=== PATIENT | male | born 1965 | race African-American/Black ===

== ENCOUNTER 2018-07-11 18:25 | Inpatient (IN) | payer OTHER ==
[~2018-07-11] VITALS: Ht 190.5 cm; Wt 137.2 kg
[2018-07-11 21:20] VITALS: BP 115/69; PULSE 61; RESP 17
[2018-07-11 21:31] VITALS: Ht 190.5 cm; Wt 137.2 kg
[2018-07-11] MEDS ORDERED: HYDROCODONE/APAP (5/325) TAB PO PRN ×2 (22:00)
[2018-07-11] MEDS ORDERED: ACETAMINOPHEN 325 MG TAB PO PRN (22:00)
[2018-07-11] MEDS ORDERED: ONDANSETRON 4 MG INJ IV PRN (22:00)
[2018-07-11] MEDS ORDERED: VANCOMYCIN IV PER PHARMACY XX SCH (22:00)
[2018-07-11] MEDS ORDERED: ALBUTEROL/IPRATROPIUM (NEB) 3 ML AMP HHN PRN (22:00)
[2018-07-11] MEDS ORDERED: NACL 0.9% 3 ML SYG IV SCH (22:00)
--- NOTE | 2018-07-11 22:00 | NUR ---
ADMISSION Pt arrived via gurney transported per ambulance. Direct admit from [facility]. Pt on bed in low position with call light within reach and bed alarm activated. Pt's belongings: walker, and 2 bags with pair of shoes and clothes. Pt refused pictures taken of sacralcoccyx but okay to have pictures taken of bilateral leg wounds. Will carry out MD orders.
[2018-07-11] MEDS: CEFEPIME 1GM/50 ML (PMX) 50 ML IVPB SCH (22:49)
[2018-07-11] MEDS ORDERED: VANCOMYCIN HCL 2 GM in SOD CHLORIDE 0.9% 500 ML IVPB ONE (23:30)
--- NOTE | 2018-07-12 00:03 | HP ---
Date/Time of Note Date/Time of Note DATE: 07/12/18 TIME: 00:03 Assessment/Plan VTE Prophylaxis Pharmacological prophylaxis: LMWH Assessment/Plan Assessment/Plan 51-year-old male with history of hypertension, diabetes, osteomyelitis, right leg surgery with pins and needles, right foot wound who initially was brought to an outside hospital from SNF after he burned his left foot during dressing ch roz 1. Bilateral foot osteomyelitis -IV antibiotic -ID, podiatry and wound care consult 2. Right foot second-degree burn: Seems like patient was attempting to cut the dressing using a hot charcoal when he accidentally burned himself -Wound care 3. Hypertension: Continue home meds. Adjust as needed 4. Diabetes: Insulin while in-house 5. Bipolar/schizophrenia/depression -Continue home med HPI/ROS Admit Date/Time Admit Date/Time Jul 11, 2018 at 21:00 Hx of Present Illness This is a 53-year-old homeless male with history of hypertension, diabetes, bipolar, depression, CHF, right foot osteomyelitis, bilateral lower extremity/foot ulcer who initially was brought to an outside hospital after he burned his left foot during dressing change. He said he was attempting to cut the dressing using hot charcoal when he accidentally burned himself. I asked him repeatedly if this was intentional, but he denied. He has been dealing with chronic foot ulcer for a long time. He also said that he was told about bone infection. Outside facility, MRI shows osteomyelitis involving the right first digit distal phalanx, second digit middle phalanx and fifth digit proximal phalanx. Left foot MRI also shows findings consistent with first digit distal phalanx osteomyelitis. He was transferred to [facility] for insurance reasons. PMH/Family/Social Past Medical History Medical History: other (See HPI) Medications Current Medications IV Flush (NS 3 ml) 3 ml PER PROTOCOL IV ; Start 07/11/18 at 22:00 Ondansetron HCl (Zofran Inj) 4 mg Q6H PRN IV NAUSEA AND/OR VOMITING; Start 07/11/18 at 22:00 Acetaminophen (Tylenol Tab) 650 mg Q6H PRN PO PAIN LEVEL 1-3 OR FEVER; Start 07/11/18 at 22:00 Acetaminophen/ Hydrocodone Bitart ([place] (5/325)) 1 tab Q6H PRN PO MODERATE PAIN LEVEL 4-6; Start 07/11/18 at 22:00 Acetaminophen/ Hydrocodone Bitart ([place] (5/325)) 2 tab Q6H PRN PO SEVERE PAIN LEVEL 7-10; Start 07/11/18 at 22:00 Heparin Sodium (Porcine) (Heparin (5000 Units/1ml)) 5,000 unit Q12 SC ; Start 07/12/18 at 09:00 Albuterol/ Ipratropium (Duoneb) 3 ml Q2H RESP THERAPY PRN HHN SHORTNESS OF BREATH; Start 07/11/18 at 22:00 Vancomycin HCl (Vanco Iv Per Pharmacy) VANCOMYCIN PER PHARMACY PER PROTOCOL XX ; Start 07/11/18 at 22:00 Cefepime HCl 50 ml @ 100 mls/hr Q12 IVPB Last administered on 07/11/18at 22:49; Admin Dose 100 MLS/HR; Start 07/11/18 at 22:00 Vancomycin HCl 2 gm/Sodium Chloride 500 ml @ 125 mls/hr ONCE ONCE IVPB Last administered on 07/12/18at 00:00; Admin Dose 125 MLS/HR; Start 07/11/18 at 23:30; Stop 07/12/18 at 03:29 Influenza Virus Vaccine Quadrival (Fluzone) 0.5 ml ONCE ONCE IM* ; Start 07/12/18 at 10:00; Stop 07/12/18 at 10:01 Coded Allergies: No Known Drug Allergies (Verified Allergy, Unknown, 07/11/18) Past Surgical History Past Surgical Hx: other (See HPI) Family History Significant Family History: no pertinent family hx Social History Alcohol Use: other (History of alcohol) Smoking Status: Current every day smoker Drug Use: other (Unknown) Exam/Review of Systems Exam Constitutional: other (Patient sitting on a chair in no acute distress) Head: normocephalic, atraumatic Eyes: EOMI, PERRL Respiratory: clear to auscultation, normal air movement Cardiovascular: regular rate and rhythm, nl pulses Gastrointestinal: soft, non-tender Extremities: other (Bilateral feet covered with dressing. He has dried wounds on the right knee) SYBIL HERNADEZ MD Jul 12, 2018 00:03
[2018-07-12 02:00] VITALS: BP 124/62; PULSE 80; RESP 19
[2018-07-12] MEDS ORDERED: NIFE30TA43 PO (02:50)
[2018-07-12] MEDS ORDERED: BUPR100T14 PO (02:50)
[2018-07-12] MEDS ORDERED: PYRI100T4 PO (02:50)
[2018-07-12] MEDS ORDERED: FOLI-49 PO (02:50)
[2018-07-12] MEDS ORDERED: LISI40TA3 PO (02:50)
[2018-07-12] MEDS ORDERED: METO-429 PO (02:50)
[2018-07-12] MEDS ORDERED: THIA100T10 PO (02:50)
[2018-07-12] MEDS ORDERED: NAPR-688 PO (02:52)
[2018-07-12] MEDS ORDERED: SENN-120 PO (02:52)
--- NOTE | 2018-07-12 06:39 | NUR ---
END OF SHIFT REPORT Pt alert and oriented x4. Vitals stable. No acute distress noted. Pt refused central line dressing changed upon admission. Changed dressing at 0500. All due meds given. Will endorse pt to AM shift nurse for continuation of care.
[2018-07-12 08:03] VITALS: BP 114/75; PULSE 74; RESP 17
[2018-07-12] MEDS: MUPIROCIN 2% 22 GM OINT TOP SCH ×2 (09:10→21:38)
[2018-07-12] MEDS: HEPARIN 5,000 UNIT/1 ML VIAL SC SCH ×2 (09:10→21:24)
[2018-07-12] MEDS: CEFEPIME 1GM/50 ML (PMX) 50 ML IVPB SCH ×2 (09:55→21:23)
--- NOTE | 2018-07-12 12:00 | NUR ---
VANCO PER RX PROTOCOL: DAY #1 S/O: 53 YO MALE W/ SEPSIS, BILATERAL FOOT ULCERS/OSTEOMYELITIS, DM AFEB SCR/BUN = 0.7/15 WBC = 3.4 A/P: VANCO 2GM LD, FOLLOWED BY 1.75GM Q 12HR WITH TR LEVEL TOMORROW AFTERNOON TO CHECK CLEARANCE. WILL CONTINUE TO FOLLOW.
--- NOTE | 2018-07-12 13:30 | NUR ---
Dr gomez came and ordered consent for keyon feet debridement. all supplies prepared and consent taken from pt. 1335 procedure done and cultures from both feet taken, labeled and sent to [facility]. Informed primary nurse procedure done and told her about the orders for wound treatment
[2018-07-12] MEDS: VANCOMYCIN HCL 1.75 GM in SOD CHLORIDE 0.9% 500 ML IVPB SCH (14:34)
[2018-07-12] MEDS: morphine SULFATE/PF (2 MG/2 ML) SYG IV PRN ×2 (14:35→19:49)
[2018-07-12 15:19] VITALS: BP 143/75; PULSE 60; RESP 17
--- NOTE | 2018-07-12 15:29 | PN ---
Date/Time of Note Date/Time of Note DATE: 07/12/18 TIME: 15:26 Assessment/Plan VTE Prophylaxis Risk score (from Ns)>0 risk: 6 SCD applied (from [facility]): No SCD contraindicated: bilateral LE trauma Pharmacological prophylaxis: LMWH Lines/Catheters IV [facility]ter Type (from [facility] PICC Line Central line still needed: Yes Assessment/Plan Hospital Course Assessment and plan 1. Bilateral lower extremity diabetic foot infection, mod stable continue wound care; MRSA? 2. Left and right toe osteomyelitis, mod stable continue IV antibiotics PICC line postop boot 3. Failure to thrive may need sniff 4. Chronic major depression with paranoid features, mod stable continue supportive care 5. MRSA nares status 6. Diabetes? 7. Substance abuse: History of alcohol tobacco use 8. Retention 9. Acute burn injury to lower extremity and dressing 10. Subjective: No distress fever diarrhea. Tolerating antibiotics Objective: Vital signs stable Physical exam No pallor Regular no murmur gallop Clear Benign Mild edema; pulses intact both wounds dressed clean dry and intact Result Diagram: 07/12/18 0710 07/12/18 0710 Results 24hrs Laboratory Tests Test 07/12/18 07:10 07/12/18 07:11 White Blood Count 3.4 L Red Blood Count 4.80 Hemoglobin 12.7 L Hematocrit 40.3 L Mean Corpuscular Volume 84.0 Mean Corpuscular Hemoglobin 26.5 L Mean Corpuscular Hemoglobin Concent 31.5 L Red Cell Distribution Width 15.4 H Platelet Count 322 Mean Platelet Volume 10.8 H Immature Granulocytes % 0.300 Neutrophils % 38.1 L Lymphocytes % 50.6 Monocytes % 8.1 Eosinophils % 2.6 Basophils % 0.3 Nucleated Red Blood Cells % 0.0 Immature Granulocytes # 0.010 Neutrophils # 1.3 L Lymphocytes # 1.7 Monocytes # 0.3 Eosinophils # 0.1 Basophils # 0.0 Nucleated Red Blood Cells # 0.0 Erythrocyte Sedimentation Rate 35.0 H Sodium Level 137 Potassium Level 4.5 Chloride Level 102 Carbon Dioxide Level 24 Anion Gap 11 Blood Urea Nitrogen 15 Creatinine 0.70 Est Glomerular Filtrat Rate mL/min > 60 Glucose Level 130 Calcium Level 9.4 Phosphorus Level 5.0 H Magnesium Level 1.5 L Total Bilirubin 0.1 L Direct Bilirubin 0.00 Indirect Bilirubin 0.1 Aspartate Amino Transf (AST/SGOT) 89 H Alanine Aminotransferase (ALT/SGPT) 58 Alkaline Phosphatase 82 C-Reactive Protein < 0.5 Total Protein 8.3 H Albumin 3.7 Globulin 4.60 H Albumin/Globulin Ratio 0.80 Hemoglobin A1c 6.0 H Exam/Review of Systems Vital Signs Vitals Vital Signs Date Temp Pulse Resp B/P (MAP) Pulse Ox O2 O2 Flow FiO2 Time Delivery Rate 07/12/18 97.9 60 17 143/75 97 15:19 (97) Intake and Output 07/11/18 07/11/18 07/12/18 1515:00 23:00 07:00 IntakeIntake Total 1350 ml OutputOutput Total 1400 ml BalanceBalance -50 ml Medications Medications Current Medications IV Flush (NS 3 ml) 3 ml PER PROTOCOL IV ; Start 07/11/18 at 22:00 Ondansetron HCl (Zofran Inj) 4 mg Q6H PRN IV NAUSEA AND/OR VOMITING; Start 07/11/18 at 22:00 Acetaminophen (Tylenol Tab) 650 mg Q6H PRN PO PAIN LEVEL 1-3 OR FEVER; Start 07/11/18 at 22:00 Heparin Sodium (Porcine) (Heparin (5000 Units/1ml)) 5,000 unit Q12 SC Last administered on 07/12/18at 09:10; Admin Dose 5,000 UNIT; Start 07/12/18 at 09:00 Albuterol/ Ipratropium (Duoneb) 3 ml Q2H RESP THERAPY PRN HHN SHORTNESS OF BREATH; Start 07/11/18 at 22:00 Vancomycin HCl (Vanco Iv Per Pharmacy) VANCOMYCIN PER PHARMACY PER PROTOCOL XX ; Start 07/11/18 at 22:00 Cefepime HCl 50 ml @ 100 mls/hr Q12 IVPB Last administered on 07/12/18at 09:55; Admin Dose 100 MLS/HR; Start 07/11/18 at 22:00 Morphine Sulfate (morphine SULFATE (PF)) 2 mg Q4H PRN IV SEVERE PAIN LEVEL 7-10 Last administered on 07/12/18at 14:35; Admin Dose 2 MG; Start 07/12/18 at 01:30 Mupirocin (Bactroban) 1 applic BID TOP Last administered on 07/12/18at 09:10; Admin Dose 1 APPLIC; Start 07/12/18 at 09:00; Stop 07/22/18 at 08:59 Vancomycin HCl 1.75 gm/Sodium Chloride 500 ml @ 125 mls/hr Q12H IVPB Last administered on 07/12/18at 14:34; Admin Dose 125 MLS/HR; Start 07/12/18 at 13:00 Miscellaneous Information (*Rx Drug Level Order Reminder*) VANCO TR LEVEL PRIOR... ONCE ONCE XX ; Start 07/13/18 at 12:00; Stop 07/13/18 at 12:01 Sodium Hypochlorite (Dakin'S (Dilute )) 1 applic DAILY IRR ; Start 07/12/18 at 15:30; Status UNV AILYN LAND MD Jul 12, 2018 15:28
[2018-07-12] MEDS ORDERED: HYDROCODONE/APAP (10/325) TAB PO PRN (15:30)
[2018-07-12] MEDS: INSULIN ASPART [NOVOLOG] 3 ML PEN SC SCH ×2 (17:16→21:00)
[2018-07-12] MEDS: SODIUM HYPOCHLORITE (1/40) 1 APPLIC BTL IRR SCH (17:19)
--- NOTE | 2018-07-12 18:03 | CONS ---
DATE OF ADMISSION: 07/11/2018 DATE OF CONSULTATION: 07/12/2018 TYPE OF CONSULTATION: Infectious disease. REASON FOR CONSULTATION: Antibiotic management. HISTORY OF PRESENT ILLNESS: Iram oRsario is a 53-year-old male with a history of hypertension and d iabetes who comes in with bilateral foot osteomyelitis. Problems include: 1. Hypertension. 2. Diabetes. 3. Osteomyelitis. 4. Right leg surgery with placement of needles and pins. The patient had right foot wound. Initial ly, he was brought to an outside hospital from his SNF after he burned his left foot during dressing change. 5. Bipolar depression. 6. CHF. The patient said he was attempting to cut the dressing using hot charcoal when he had accidently burn ed himself. He denied doing this intentionally. He has been dealing with chronic foot ulcer for the long time and was also told about bone infection. The MRI showed osteomyelitis in the right 1st dig it of the distal phalanx, 2nd digit middle phalanx and 5th digit proximal phalanx. Left foot MRI als o shows findings consistent with 1st digit distal phalanx osteomyelitis and he was transferred to [facility]. PAST MEDICAL HISTORY: Operations as outlined. FAMILY HISTORY: Noncontributory. SOCIAL HISTORY: He is currently an everyday smoker. He drinks alcohol. He does not use drugs. ALLERGIES: NONE TO PENICILLIN, SULFA OR FOODS. MEDICATIONS: Per chart. REVIEW OF SYSTEMS: Noncontributory. PHYSICAL EXAMINATION: GENERAL: The patient is a well-developed, well-nourished male, awake, responsive, in no acute distre ss. VITAL SIGNS: Stable. He is afebrile. SKIN: Without generalized rash. HEENT: Within normal limits. NECK: Supple. LYMPH NODES: None palpable. CHEST: Decreased breath sounds at the bases. HEART: Without murmur or gallop. ABDOMEN: Soft, nontender. EXTREMITIES: There is mild edema. Pulses are intact. Both wounds are dressed, clean and dry. RECTAL AND GENITAL: Deferred. NEUROLOGIC: No focal neurological abnormality. ANCILLARY LABORATORY DATA: White count of 3.4, H and H 12.7 and 40.3, platelet count 322,000. BUN a nd creatinine is 15/0.7. He had 30% neutrophils, 51% lymphocytes. IMPRESSION AND PLAN: The patient has been started on vancomycin and cefepime for bilateral osteomyel itis. We should probably get a spin tank tender in to evaluate the patient. He has numerous problems with bilateral lower extremity diabetic foot infections, possible methicillin-resistant Staphylococcus au reus, left and right toe osteomyelitis. Continue IV antibiotics. PICC line was placed. Failure to thrive, may need shelter facility, depression with paranoid ideation, moderate, stable. Cont inue supportive care. methicillin-resistant Staphylococcus aureus of his nares, diabetes, substance abuse, urinary retention, acute burn injury to the lower extremity in dressing. So in conclusion, th e patient is a complicated 53-year-old male currently with osteomyelitis of both feet on vancomycin a nd cefepime. We will continue to observe. I will dictate my findings to the hospitalist. Dictated By: KATIE BOLANOS MD, JD/NTS Conf#: [id number] DID#: [id number] CC: SHELBI PICKETT DPM; RANDOLPH MELÉNDEZ MD; AILYN LAND MD;*End*
--- NOTE | 2018-07-12 18:48 | NUR ---
EOSS: pt. A/Ox4; VSS, no acute distress. C/O pain once this shift; pain meds given with adequate relief. Pt. here for diabetic ulcers; S/P I&D today; wound care done. NESHA PICC line; IV ABX; CLABSI bundle maintained. Pt. still refusing sacral skin photos. Accuchecks AC/HS; no coverage needed. All other due meds given and needs attended to. Hourly rounding done, bed alarm on, call light within reach, encouraged to call for assistance. Will continue to monitor and endorse care to oncoming nurse.
--- NOTE | 2018-07-12 19:50 | CONS ---
Date/Time of Note Date/Time of Note DATE: 07/12/18 TIME: 19:50 Assessment/Plan Assessment/Plan Assessment/Plan Diabetic foot ulcers b/l DM2 with peripheral neuropathy Osteomyelitis b/l feet Pes planus Hallux limitus Bipolar/depression Homeless Plan: Consent was obtained performed excisional debridement of skin/subQ of bilateral hallux ulcers using a scalpel blade. Less than 20cm2 of area was debrided. Hyperkeratotic tissue and biofilm was removed from the wound sites. Copious saline irrigation was used for the wound sites and wound cultures were obtained. Discussed with IM and stated that previous MRI from outside hospital is showing osteomyelitis. IV abx per ID recommendations. Continue with daily dressing changes. Patient has orthopedic shoes. Patient would benefit from SNF placement with PICC line abx Result Diagram: 07/12/18 0710 07/12/18 0710 Results 24hrs Laboratory Tests Test 07/12/18 07:10 07/12/18 07:11 07/12/18 17:16 White Blood Count 3.4 L Red Blood Count 4.80 Hemoglobin 12.7 L Hematocrit 40.3 L Mean Corpuscular Volume 84.0 Mean Corpuscular Hemoglobin 26.5 L Mean Corpuscular Hemoglobin Concent 31.5 L Red Cell Distribution Width 15.4 H Platelet Count 322 Mean Platelet Volume 10.8 H Immature Granulocytes % 0.300 Neutrophils % 38.1 L Lymphocytes % 50.6 Monocytes % 8.1 Eosinophils % 2.6 Basophils % 0.3 Nucleated Red Blood Cells % 0.0 Immature Granulocytes # 0.010 Neutrophils # 1.3 L Lymphocytes # 1.7 Monocytes # 0.3 Eosinophils # 0.1 Basophils # 0.0 Nucleated Red Blood Cells # 0.0 Erythrocyte Sedimentation Rate 35.0 H Sodium Level 137 Potassium Level 4.5 Chloride Level 102 Carbon Dioxide Level 24 Anion Gap 11 Blood Urea Nitrogen 15 Creatinine 0.70 Est Glomerular Filtrat Rate mL/min > 60 Glucose Level 130 Calcium Level 9.4 Phosphorus Level 5.0 H Magnesium Level 1.5 L Total Bilirubin 0.1 L Direct Bilirubin 0.00 Indirect Bilirubin 0.1 Aspartate Amino Transf (AST/SGOT) 89 H Alanine Aminotransferase (ALT/SGPT) 58 Alkaline Phosphatase 82 C-Reactive Protein < 0.5 Total Protein 8.3 H Albumin 3.7 Globulin 4.60 H Albumin/Globulin Ratio 0.80 Hemoglobin A1c 6.0 H Bedside Glucose 140 Consultation Date/Type/Reason Admit Date/Time Jul 11, 2018 at 21:00 Hx of Present Illness This is a 53-year-old homeless male with history of hypertension, diabetes, bipolar, depression, CHF, right foot osteomyelitis, bilateral lower extremity/foot ulcer who initially was brought to an outside hospital after he burned his left foot during dressing change. He said he was attempting to cut the dressing using hot charcoal when he accidentally burned himself. He has been dealing with chronic foot ulcer for a long time. He also said that he was told about bone infection. Outside facility, MRI shows osteomyelitis involving the right first digit distal phalanx, second digit middle phalanx and fifth digit proximal phalanx. Left foot MRI also shows findings consistent with first digit distal phalanx osteomyelitis. He was transferred to [facility] for insurance reasons. ROS: negative except for HPI Past Medical History hypertension, diabetes, bipolar, depression, CHF, right foot osteomyelitis, bilateral lower extremity/foot ulcer Medical History: other (See HPI) Medications Current Medications IV Flush (NS 3 ml) 3 ml PER PROTOCOL IV ; Start 07/11/18 at 22:00 Ondansetron HCl (Zofran Inj) 4 mg Q6H PRN IV NAUSEA AND/OR VOMITING; Start 07/11/18 at 22:00 Acetaminophen (Tylenol Tab) 650 mg Q6H PRN PO PAIN LEVEL 1-3 OR FEVER; Start 07/11/18 at 22:00 Heparin Sodium (Porcine) (Heparin (5000 Units/1ml)) 5,000 unit Q12 SC Last administered on 07/12/18at 09:10; Admin Dose 5,000 UNIT; Start 07/12/18 at 09:00 Albuterol/ Ipratropium (Duoneb) 3 ml Q2H RESP THERAPY PRN HHN SHORTNESS OF BREATH; Start 07/11/18 at 22:00 Vancomycin HCl (Vanco Iv Per Pharmacy) VANCOMYCIN PER PHARMACY PER PROTOCOL XX ; Start 07/11/18 at 22:00 Cefepime HCl 50 ml @ 100 mls/hr Q12 IVPB Last administered on 07/12/18at 09:55; Admin Dose 100 MLS/HR; Start 07/11/18 at 22:00 Morphine Sulfate (morphine SULFATE (PF)) 2 mg Q4H PRN IV SEVERE PAIN LEVEL 7-10 Last administered on 07/12/18at 19:49; Admin Dose 2 MG; Start 07/12/18 at 01:30 Mupirocin (Bactroban) 1 applic BID TOP Last administered on 07/12/18at 09:10; Admin Dose 1 APPLIC; Start 07/12/18 at 09:00; Stop 07/22/18 at 08:59 Vancomycin HCl 1.75 gm/Sodium Chloride 500 ml @ 125 mls/hr Q12H IVPB Last administered on 07/12/18at 14:34; Admin Dose 125 MLS/HR; Start 07/12/18 at 13:00 Miscellaneous Information (*Rx Drug Level Order Reminder*) VANCO TR LEVEL PRIOR... ONCE ONCE XX ; Start 07/13/18 at 12:00; Stop 07/13/18 at 12:01 Sodium Hypochlorite (Dakin'S (Dilute )) 1 applic DAILY IRR Last administered on 07/12/18at 17:19; Admin Dose 1 APPLIC; Start 07/12/18 at 15:30 Lactobacillus Acidophilus/ Rhamnosus (Culturelle) 1 cap BID PO ; Start 07/12/18 at 21:00 Acetaminophen/ Hydrocodone Bitart ([place] (10)) 1 tab Q4H PRN PO MODERATE PAIN LEVEL 4-6; Start 07/12/18 at 15:30 Diagnostic Test (Pha) (Accu-Chek) 1 ea 02 XX ; Start 07/13/18 at 02:00 Insulin Aspart (Novolog Insulin Pen) NOVOLOG *MODERATE* ALGORITHM WITH MEALS BEDTIME SC ; Start 07/12/18 at 18:00 Allergies: Coded Allergies: No Known Drug Allergies (Verified Allergy, Unknown, 07/11/18) Past Surgical History foot wound debridements Past Surgical Hx: other (See HPI) Family History Significant Family History: no pertinent family hx Social History homeless Alcohol Use: other (History of alcohol) Smoking Status: Current every day smoker Drug Use: other (Unknown) Exam/Review of Systems Vital Signs Vitals Vital Signs Date Temp Pulse Resp B/P (MAP) Pulse Ox O2 O2 Flow FiO2 Time Delivery Rate 07/12/18 97.9 60 17 143/75 97 15:19 (97) Intake and Output 07/11/18 07/11/18 07/12/18 1515:00 23:00 07:00 IntakeIntake Total 1350 ml OutputOutput Total 1400 ml BalanceBalance -50 ml Exam DP/PT pulses mildly palpable Absent protective sensations HPK lesions to b/l feet Mycotic nails Right hallux medial ulcer measuring 2.8 x 1.1 x 0.2cm granular wound base no purulence expressed, no probing to bone, no proximal streaking. Left hallux medial ulcer measuring 2.9 x 1.5 x 0.2cm granular wound base no purulence expressed, no probing to bone, no proximal streaking. Digital contractures noted limited 1st MPJ ROM collapsed medial longitudinal arch. Non invasive arterial studies 05/07/18 FINDINGS: Antegrade flow is noted in all visualized arteries of the lower extremities. Biphasic and triphasic waveforms are seen throughout both lower extremities. Rt HAY SORTER 84 cm/s Rt Profunda 56 cm/s Rt Prox SFA 90 cm/s Rt Mid SFA 73 cm/s Rt Dist SFA 74 cm/s Rt Raman 69 cm/s Rt Post Tibial 97 cm/s Rt Dorsalis Pedis 29 cm/s Rt JOSÉ 0.9 Lt HAY SORTER 63 cm/s Lt Profunda 54 cm/s Lt Prox SFA 83 cm/s Lt Mid SFA 70 cm/s Lt Dist SFA 48 cm/s Lt Raman 49 cm/s Lt Post Tibial 82 cm/s Lt Dorsalis Pedis 52 cm/s Lt JOSÉ 1.0 IMPRESSION: No evidence of hemodynamically significant lesion. If further characterization of the arterial vasculature is needed CTA is recommended. Medications Medications Current Medications IV Flush (NS 3 ml) 3 ml PER PROTOCOL IV ; Start 07/11/18 at 22:00 Ondansetron HCl (Zofran Inj) 4 mg Q6H PRN IV NAUSEA AND/OR VOMITING; Start 07/11/18 at 22:00 Acetaminophen (Tylenol Tab) 650 mg Q6H PRN PO PAIN LEVEL 1-3 OR FEVER; Start 07/11/18 at 22:00 Heparin Sodium (Porcine) (Heparin (5000 Units/1ml)) 5,000 unit Q12 SC Last administered on 07/12/18at 09:10; Admin Dose 5,000 UNIT; Start 07/12/18 at 09:00 Albuterol/ Ipratropium (Duoneb) 3 ml Q2H RESP THERAPY PRN HHN SHORTNESS OF BREATH; Start 07/11/18 at 22:00 Vancomycin HCl (Vanco Iv Per Pharmacy) VANCOMYCIN PER PHARMACY PER PROTOCOL XX ; Start 07/11/18 at 22:00 Cefepime HCl 50 ml @ 100 mls/hr Q12 IVPB Last administered on 07/12/18at 09:55; Admin Dose 100 MLS/HR; Start 07/11/18 at 22:00 Morphine Sulfate (morphine SULFATE (PF)) 2 mg Q4H PRN IV SEVERE PAIN LEVEL 7-10 Last administered on 07/12/18at 19:49; Admin Dose 2 MG; Start 07/12/18 at 01:30 Mupirocin (Bactroban) 1 applic BID TOP Last administered on 07/12/18at 09:10; Admin Dose 1 APPLIC; Start 07/12/18 at 09:00; Stop 07/22/18 at 08:59 Vancomycin HCl 1.75 gm/Sodium Chloride 500 ml @ 125 mls/hr Q12H IVPB Last administered on 07/12/18at 14:34; Admin Dose 125 MLS/HR; Start 07/12/18 at 13:00 Miscellaneous Information (*Rx Drug Level Order Reminder*) VANCO TR LEVEL PRIOR... ONCE ONCE XX ; Start 07/13/18 at 12:00; Stop 07/13/18 at 12:01 Sodium Hypochlorite (Dakin'S (Dilute 40)) 1 applic DAILY IRR Last administered on 07/12/18at 17:19; Admin Dose 1 APPLIC; Start 07/12/18 at 15:30 Lactobacillus Acidophilus/ Rhamnosus (Culturelle) 1 cap BID PO ; Start 07/12/18 at 21:00 Acetaminophen/ Hydrocodone Bitart ([place] (10/325)) 1 tab Q4H PRN PO MODERATE PAIN LEVEL 4-6; Start 07/12/18 at 15:30 Diagnostic Test (Pha) (Accu-Chek) 1 ea 02 XX ; Start 07/13/18 at 02:00 Insulin Aspart (Novolog Insulin Pen) NOVOLOG *MODERATE* ALGORITHM WITH MEALS BEDTIME SC ; Start 07/12/18 at 18:00 FREDERICK WILD DPHarvinder Jul 12, 2018 19:50
[2018-07-12 20:00] VITALS: BP 128/72; PULSE 77; RESP 18
[2018-07-12] MEDS: LACTOBACILLUS RHAMNOSUS CAP PO SCH (21:23)
--- NOTE | 2018-07-12 22:31 | NUR ---
Pt with magnesium 1.5 and phos 5.0. MD aware. Pt has labs in the AM. Will endorse to AM shift nurse to f/u.
--- NOTE | 2018-07-12 23:58 | NUR ---
patient c/o carlos being too cold, maintenance called and work order entered.
--- NOTE | 2018-07-13 00:33 | NUR ---
o and m supervisor informed that maintenance has not been here to turn heat on, work order has been entered Nursing supervisor elementary education informed, maintenance was here in 5 minutes.
[2018-07-13] MEDS: VANCOMYCIN HCL 1.75 GM in SOD CHLORIDE 0.9% 500 ML IVPB SCH ×2 (01:28→13:28)
[2018-07-13 02:00] VITALS: BP 129/67; PULSE 74; RESP 18
[2018-07-13] MEDS: ACCU-CHEK XX SCH (02:00)
--- NOTE | 2018-07-13 05:33 | NUR ---
END OF SHIFT REPORT Pt alert and oriented x4. Vitals stable. No acute distress noted. All due meds given. Pt c/o pain and ordered morphine given with relief of pain. Pt showered and hibiclens provided. Will endorse pt to AM shift nurse for continuation of care.
[2018-07-13 08:00] VITALS: BP 120/71; PULSE 63; RESP 18
[2018-07-13] MEDS: INSULIN ASPART [NOVOLOG] 3 ML PEN SC SCH ×4 (08:00→20:31)
--- NOTE | 2018-07-13 08:25 | NUR ---
WOUND CONSULT FOR LOWER EXTREMITIES WOUNDS: Patient seen by Curtain Fitter Dr. Ward. Please follow wound care order per Dr. Lantigua. Wound care nurse remain available for any wound rn progressive care. - RICKY WadeN RN CWOCN
[2018-07-13] MEDS ORDERED: NICOTINE (14 MG/24 HR) PATCH TRANSDERM PRN (09:00)
[2018-07-13] MEDS ORDERED: SODIUM HYPOCHLORITE (1/40) 1 APPLIC BTL IRR SCH (09:00)
[2018-07-13] MEDS: CEFEPIME 1GM/50 ML (PMX) 50 ML IVPB SCH ×2 (09:29→20:29)
[2018-07-13] MEDS: MUPIROCIN 2% 22 GM OINT TOP SCH ×2 (09:29→20:31)
[2018-07-13] MEDS: SODIUM HYPOCHLORITE (1/40) 1 APPLIC BTL IRR SCH (09:29)
[2018-07-13] MEDS: LACTOBACILLUS RHAMNOSUS CAP PO SCH ×2 (09:29→20:29)
[2018-07-13] MEDS: HEPARIN 5,000 UNIT/1 ML VIAL SC SCH ×2 (09:38→20:29)
[2018-07-13] MEDS: morphine SULFATE/PF (2 MG/2 ML) SYG IV PRN ×2 (09:43→21:45)
--- NOTE | 2018-07-13 13:02 | NUR ---
Hyperglycemia episode Prior to lunch, his blood sugar was 258mg/dl yet pt refused insulin administration. Clarified reason with pt, but no clear answer given. Dr. Wilkinson notified with no new order at this time.
--- NOTE | 2018-07-13 13:31 | NUR ---
VANCO PER RX PROTOCOL: DAY # 2 S/O: AFEB SCR/BUN = 0.66/10 WBC = 4.4 VANCO TR = 14.1 A/P: PT CLEARING VANCO ADEQUATELY, CONTINUE VANCO 1.75GM Q 12HR FOR NOW. WILL CONTINUE TO FOLLOW.
[2018-07-13 14:00] VITALS: BP 123/52; PULSE 62; RESP 18
--- NOTE | 2018-07-13 14:48 | CONS ---
Date/Time of Note Date/Time of Note DATE: 07/13/18 TIME: 14:47 Assessment/Plan Assessment/Plan Hospital Course Patient is alert sitting in bed looks comfortable no fevers overnight WBC 4.4 no shift no bands BUN 10 creatinine 0.66 Microbiology: Wound cultures growing gram-negative rods preliminary Antimicrobials: Vancomycin, cefepime Physical examination: This is a morbidly obese well-developed middle-aged -[place] man who is alert in no distress. Head atraumatic normocephalic sclera nonicteric neck is supple chest rise symmetrical breath sounds clear heart S1-S2 abdomen soft bowel sounds present extremities with bilateral lower extremities dressing intact Assessment: 1. Bilateral lower extremities diabetic ulceration with osteomyelitis 2. Diabetes 3. Diabetic neuropathy 4. Tobacco addiction 5. Bipolar disorder 6. Morbid obesity Plan: Patient remained stable podiatry on case continue present care and antibiotics consider MRI of lower extremities smoking cessation advised Result Diagram: 07/13/18 0615 07/13/18 0615 Results 24hrs Laboratory Tests Test 07/12/18 17:16 07/12/18 21:35 07/13/18 06:15 07/13/18 08:34 Bedside Glucose 140 91 97 White Blood Count 4.4 #L Red Blood Count 4.49 L Hemoglobin 11.9 L Hematocrit 37.4 L Mean Corpuscular 83.3 Volume Mean Corpuscular 26.5 L Hemoglobin Mean Corpuscular 31.8 L Hemoglobin Concent Red Cell 15.6 H Distribution Width Platelet Count 266 Mean Platelet Volume 10.6 H Immature 0.200 Granulocytes % Neutrophils % 42.8 Lymphocytes % 45.4 Monocytes % 9.8 Eosinophils % 1.6 Basophils % 0.2 Nucleated Red Blood 0.0 Cells % Immature 0.010 Granulocytes # Neutrophils # 1.9 Lymphocytes # 2.0 Monocytes # 0.4 Eosinophils # 0.1 Basophils # 0.0 Nucleated Red Blood 0.0 Cells # Prothrombin Time 13.5 Prothrombin Time 1.1 Ratio INR International 1.02 Normalized Ratio Sodium Level 136 Potassium Level 4.5 Chloride Level 104 Carbon Dioxide Level 23 Anion Gap 9 Blood Urea Nitrogen 10 Creatinine 0.66 Est Glomerular > 60 Filtrat Rate mL/min Glucose Level 98 Calcium Level 9.3 Magnesium Level 1.4 L Total Bilirubin 0.1 L Direct Bilirubin 0.00 Indirect Bilirubin 0.1 Aspartate Amino 76 H Transf (AST/SGOT) Alanine 57 Aminotransferase (AL T/SGPT) Alkaline Phosphatase 80 Total Protein 7.9 Albumin 3.5 Globulin 4.40 H Albumin/Globulin 0.79 Ratio Thyroid Stimulating 1.650 Hormone (TSH) Test 07/13/18 12:05 07/13/18 12:34 Vancomycin Level 14.1 Trough Bedside Glucose 258 H Consultation Date/Type/Reason Admit Date/Time Jul 11, 2018 at 21:00 Initial Consult Date Type of Consult id Exam/Review of Systems Vital Signs Vitals Vital Signs Date Temp Pulse Resp B/P (MAP) Pulse Ox O2 O2 Flow FiO2 Time Delivery Rate 07/13/18 98.1 63 18 120/71 100 Room Air 08:00 (87) Intake and Output 07/12/18 07/12/18 07/13/18 1515:00 23:00 07:00 IntakeIntake Total 970 ml 820 ml 500 ml OutputOutput Total 1000 ml 1520 ml BalanceBalance -30 ml -700 ml 500 ml Medications Medications Current Medications IV Flush (NS 3 ml) 3 ml PER PROTOCOL IV ; Start 07/11/18 at 22:00 Ondansetron HCl (Zofran Inj) 4 mg Q6H PRN IV NAUSEA AND/OR VOMITING; Start 07/11/18 at 22:00 Acetaminophen (Tylenol Tab) 650 mg Q6H PRN PO PAIN LEVEL 1-3 OR FEVER; Start 07/11/18 at 22:00 Heparin Sodium (Porcine) (Heparin (5000 Units/1ml)) 5,000 unit Q12 SC Last administered on 07/13/18at 09:38; Admin Dose 5,000 UNIT; Start 07/12/18 at 09:00 Albuterol/ Ipratropium (Duoneb) 3 ml Q2H RESP THERAPY PRN HHN SHORTNESS OF BREATH; Start 07/11/18 at 22:00 Vancomycin HCl (Vanco Iv Per Pharmacy) VANCOMYCIN PER PHARMACY PER PROTOCOL XX ; Start 07/11/18 at 22:00 Cefepime HCl 50 ml @ 100 mls/hr Q12 IVPB Last administered on 07/13/18at 09:29; Admin Dose 100 MLS/HR; Start 07/11/18 at 22:00 Morphine Sulfate (morphine SULFATE (PF)) 2 mg Q4H PRN IV SEVERE PAIN LEVEL 7-10 Last administered on 07/13/18at 09:43; Admin Dose 2 MG; Start 07/12/18 at 01:30 Mupirocin (Bactroban) 1 applic BID TOP Last administered on 07/13/18at 09:29; Admin Dose 1 APPLIC; Start 07/12/18 at 09:00; Stop 07/22/18 at 08:59 Vancomycin HCl 1.75 gm/Sodium Chloride 500 ml @ 125 mls/hr Q12H IVPB Last administered on 07/13/18at 13:28; Admin Dose 125 MLS/HR; Start 07/12/18 at 13:00 Sodium Hypochlorite (Dakin'S (Dilute )) 1 applic DAILY IRR Last administered on 07/13/18at 09:29; Admin Dose 1 APPLIC; Start 07/12/18 at 15:30 Lactobacillus Acidophilus/ Rhamnosus (Culturelle) 1 cap BID PO Last administered on 07/13/18at 09:29; Admin Dose 1 CAP; Start 07/12/18 at 21:00 Acetaminophen/ Hydrocodone Bitart ([place] (10/325)) 1 tab Q4H PRN PO MODERATE PAIN LEVEL 4-6; Start 07/12/18 at 15:30 Diagnostic Test (Pha) (Accu-Chek) 1 ea 02 XX ; Start 07/13/18 at 02:00 Insulin Aspart (Novolog Insulin Pen) NOVOLOG *MODERATE* ALGORITHM WITH MEALS BEDTIME SC ; Start 07/12/18 at 18:00 Nicotine (Nicoderm 14 Mg/ 24hr) 1 patch DAILY PRN TRANSDERM CONTROL WITHDRAWAL SYMPTOMS; Start 07/13/18 at 09:00 SUSAN ALLAN NP Jul 13, 2018 14:48
--- NOTE | 2018-07-13 16:29 | NUR ---
End of shift report Reported to Dr. Wilkinson regarding: magnesium 1.4; insulin refusal when BS 258mg/dl;constipation medication need with no new order at this time. Morphine given once for wound and effective. Morphine IV changed to PO. Wound care done per protocol. Will continue to monitor.
[2018-07-13] MEDS ORDERED: morphine LIQ (10 MG/5 ML) CUP PO PRN (16:30)
--- NOTE | 2018-07-13 16:32 | NUR ---
Pt with referral sent/faxed to [facility] for placement: wound care, IV antibiotics, PT. Pt with a PICC line in place. DC date is 07/15. Spoke with Mitch case folder at [facility], he is aware and he said he is still working on the referral.
[2018-07-13 19:52] VITALS: BP 141/85; PULSE 92; RESP 20
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
[2018-07-14] MEDS: VANCOMYCIN HCL 1.75 GM in SOD CHLORIDE 0.9% 500 ML IVPB SCH ×2 (00:21→12:31)
[2018-07-14] MEDS: DOCUSATE SODIUM 10 MG/ML (10ML CUP) PO SCH ×2 (00:21→20:14)
[2018-07-14] MEDS: ACCU-CHEK XX SCH (01:16)
[2018-07-14 02:18] VITALS: BP 137/81; PULSE 80; RESP 20
--- NOTE | 2018-07-14 06:04 | NUR ---
EOSS A&Ox4. All due meds given. Pt c/o pain. Pain med given x2. Pain med effective. Dressing change done. Hourly rounding done. Bed left in lowest position with bed alarm on. Call light left within reach.
[2018-07-14 07:47] VITALS: BP 134/63; PULSE 66; RESP 19
[2018-07-14] MEDS: INSULIN ASPART [NOVOLOG] 3 ML PEN SC SCH ×4 (08:00→20:14)
[2018-07-14] MEDS: SODIUM HYPOCHLORITE (1/40) 1 APPLIC BTL IRR SCH (09:00)
[2018-07-14] MEDS: ENOXAPARIN 40 MG/0.4 ML SYG SC SCH (09:02)
[2018-07-14] MEDS: morphine SULFATE/PF (2 MG/2 ML) SYG IV PRN (09:03)
[2018-07-14] MEDS: CEFEPIME 1GM/50 ML (PMX) 50 ML IVPB SCH (09:05)
[2018-07-14] MEDS: LACTOBACILLUS RHAMNOSUS CAP PO SCH ×2 (09:05→20:14)
[2018-07-14] MEDS: MUPIROCIN 2% 22 GM OINT TOP SCH ×2 (09:08→20:13)
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
[2018-07-14] MEDS ORDERED: GLUCOSE GEL 15 GRAM TUBE PO PRN ×2 (15:00)
[2018-07-14] MEDS ORDERED: GLUCAGON 1 MG INJ IM PRN (15:00)
[2018-07-14] MEDS ORDERED: GLUCOSE GEL 15 GRAM TUBE BUCCAL PRN (15:00)
[2018-07-14] MEDS ORDERED: DEXTROSE 50% 50 ML SYRINGE IV PRN ×2 (15:00)
--- NOTE | 2018-07-14 16:05 | CONS ---
Date/Time of Note Date/Time of Note DATE: 07/14/18 TIME: 16:04 Assessment/Plan Assessment/Plan Hospital Course ID PROGRESS NOTE CURRENT ABX: DAY # => Vanco IV + Cefepime 24H INTERVAL SUMMARY * A/A/O -- sitting up in bed, VSS, NAD, no new issues, bilateral feet are wrapped in DSG/WESLEY MICRO/OTHER * * 07/12/18 (-)MRSA * 07/12/18 RIGHT TOE WOUND CULTURE Preliminary Organism 1 ENTEROBACTER CLOACAE COMPLEX QUANTITY 1+ Organism 2 ENTEROCOCCUS SPECIES QUANTITY ISOLATED FROM BROTH ONLY Organism 3 COAGULASE NEGATIVE STAPH QUANTITY SCANT GROWTH * 07/12/18 LEFT TOE WOUND CULTURE Preliminary Organism 1 ENTEROBACTER CLOACAE COMPLEX QUANTITY RARE Organism 2 COAGULASE NEGATIVE STAPH QUANTITY SCANT GROWTH * 07/12/18 LEFT FOOT WOUND CULTURE Preliminary Organism 1 COAGULASE NEGATIVE STAPH QUANTITY 2+ * 07/12/18 RIGHT FOOT WOUND CULTURE Preliminary Organism 1 ENTEROBACTER CLOACAE COMPLEX QUANTITY 3+ Organism 2 ENTEROCOCCUS SPECIES QUANTITY ISOLATED FROM BROTH ONLY EC COMPLEX EC COMPLEX M.I.C. RX M.I.C. RX --------- --- --------- --- CEFEPIME R CEFOTAXIME R CIPROFLOXACIN <=0.25 S GENTAMICIN <=1 S LEVOFLOXACIN 1 S MEROPENEM 0.125 S TOBRAMYCIN <=1 S TRIMETHOPRIM/SULFAMETHOXAZOLE >=320 R PIPERACILLIN/TAZOBACTAM >=128 R PHYSICAL EXAMINATION: GENERAL: Afebrile, VSS, OBESE, sitting up in bed with BLEXT down on the floor, NAD HEENT: AT, NC, anicteric NECK: Supple, trach midline CHEST: Equal chest rise bilaterally, without dyspnea on observation HEART: Pulse RRR ABDOMEN: Soft / NT EXTREMITIES: Warm, dry == BLEXT Feet wrapped in DSG/WESLEY and plastic SKIN: No rash, no diaphoresis ID ASSESSMENT 53 yo M admit with: 1. Bilateral lower extremities diabetic ulceration with osteomyelitis * Wound growing polymicrobial bacteria Organism 1 ENTEROBACTER CLOACAE COMPLEX Organism 2 ENTEROCOCCUS SPECIES Organism 3 COAGULASE NEGATIVE STAPH 2. Diabetes 3. Diabetic neuropathy 4. Tobacco addiction 5. Bipolar disorder 6. Morbid obesity (-)MRSA Nares ABX ALLERGIES: KNDA INVASIVES: PIV CURRENT ABX: DAY # => Vanco IV + Cefepime ID RECOMMENDATIONS/PLAN: Case discussed with Dr. Bolanos -- I advised him of the need to change ABX per micro sensitivity results TELEPHONE ORDER OBTAINED FROM DR. BOLANOS WHO APPROVES THE FOLLOWIN. DC CEFEPIME 2. Start MERREM DOSE PER PHARMACY TO COVER ENTEROBACTER CLOACAE WHICH IS RESIS TANT TO CEFEPIME -- THANK YOU . Result Diagram: 07/13/18 0615 07/13/18 0615 Results 24hrs Laboratory Tests Test 07/13/18 17:10 07/13/18 20:24 07/14/18 08:29 07/14/18 12:26 Bedside Glucose 123 130 97 106 Consultation Date/Type/Reason Admit Date/Time Jul 11, 2018 at 21:00 Initial Consult Date Exam/Review of Systems Vital Signs Vitals Vital Signs Date Temp Pulse Resp B/P (MAP) Pulse Ox O2 O2 Flow FiO2 Time Delivery Rate 07/14/18 98.6 66 19 134/63 96 07:47 (86) 07/13/18 Room Air 14:00 Intake and Output 07/13/18 07/13/18 07/14/18 1515:00 23:00 07:00 IntakeIntake Total 760 ml 430 ml 500 ml OutputOutput Total 900 ml 550 ml BalanceBalance -140 ml -120 ml 500 ml Medications Medications Current Medications IV Flush (NS 3 ml) 3 ml PER PROTOCOL IV ; Start 07/11/18 at 22:00 Ondansetron HCl (Zofran Inj) 4 mg Q6H PRN IV NAUSEA AND/OR VOMITING; Start 07/11/18 at 22:00 Acetaminophen (Tylenol Tab) 650 mg Q6H PRN PO PAIN LEVEL 1-3 OR FEVER; Start 07/11/18 at 22:00 Albuterol/ Ipratropium (Duoneb) 3 ml Q2H RESP THERAPY PRN HHN SHORTNESS OF BREATH; Start 07/11/18 at 22:00 Vancomycin HCl (Vanco Iv Per Pharmacy) VANCOMYCIN PER PHARMACY PER PROTOCOL XX ; Start 07/11/18 at 22:00 Cefepime HCl 50 ml @ 100 mls/hr Q12 IVPB Last administered on 07/14/18at 09:05; Admin Dose 100 MLS/HR; Start 07/11/18 at 22:00 Mupirocin (Bactroban) 1 applic BID TOP Last administered on 07/14/18at 09:08; Admin Dose 1 APPLIC; Start 07/12/18 at 09:00; Stop 07/22/18 at 08:59 Vancomycin HCl 1.75 gm/Sodium Chloride 500 ml @ 125 mls/hr Q12H IVPB Last administered on 07/14/18at 12:31; Admin Dose 125 MLS/HR; Start 07/12/18 at 13:00 Sodium Hypochlorite (Dakin'S (Dilute )) 1 applic DAILY IRR Last administered on 07/14/18at 09:00; Admin Dose 1 APPLIC; Start 07/12/18 at 15:30 Lactobacillus Acidophilus/ Rhamnosus (Culturelle) 1 cap BID PO Last administered on 07/14/18at 09:05; Admin Dose 1 CAP; Start 07/12/18 at 21:00 Acetaminophen/ Hydrocodone Bitart ([place] (10/325)) 1 tab Q4H PRN PO MODERATE PAIN LEVEL 4-6; Start 07/12/18 at 15:30 Diagnostic Test (Pha) (Accu-Chek) 1 ea 02 XX ; Start 07/13/18 at 02:00 Insulin Aspart (Novolog Insulin Pen) NOVOLOG *MODERATE* ALGORITHM WITH MEALS BEDTIME SC ; Start 07/12/18 at 18:00 Nicotine (Nicoderm 14 Mg/ 24hr) 1 patch DAILY PRN TRANSDERM CONTROL WITHDRAWAL SYMPTOMS; Start 07/13/18 at 09:00 Docusate Sodium (Colace Liquid Cup) 100 mg HS PO Last administered on 07/14/18at 00:21; Admin Dose 100 MG; Start 07/13/18 at 23:30 Enoxaparin Sodium (Lovenox) 40 mg DAILY SC Last administered on 07/14/18at 09:02; Admin Dose 40 MG; Start 07/14/18 at 09:00 Miscellaneous Information 1 ea NOTE XX ; Start 07/14/18 at 15:00 Glucose (Glutose) 15 gm Q15M PRN PO DECREASED GLUCOSE; Start 07/14/18 at 15:00 Glucose (Glutose) 22.5 gm Q15M PRN PO DECREASED GLUCOSE; Start 07/14/18 at 15:00 Dextrose (D50w Syringe) 25 ml Q15M PRN IV DECREASED GLUCOSE; Start 07/14/18 at 15:00 Dextrose (D50w Syringe) 50 ml Q15M PRN IV DECREASED GLUCOSE; Start 07/14/18 at 15:00 Glucagon (Glucagen) 1 mg Q15M PRN IM DECREASED GLUCOSE; Start 07/14/18 at 15:00 Glucose (Glutose) 15 gm Q15M PRN BUCCAL DECREASED GLUCOSE; Start 07/14/18 at 15:00 Morphine Sulfate (morphine) 2 mg Q4H PRN IV SEVERE PAIN LEVEL 7-10; Start 07/14/18 at 16:00 TOSHA HOLLAND NP Jul 14, 2018 16:05
[2018-07-14] MEDS: morphine 4 MG/ML VIAL IV PRN ×2 (16:08→20:17)
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
[2018-07-14] MEDS: MEROPENEM 1 GM/50ML(PMX) 50 ML IVPB SCH ×2 (18:05→23:44)
[2018-07-14 20:04] VITALS: BP 133/81; PULSE 94; RESP 18
[2018-07-14] MEDS ORDERED: SPECIAL NON-STANDARD MEDICATION IV SCH (21:00)
[2018-07-15] MEDS: VANCOMYCIN HCL 1.75 GM in SOD CHLORIDE 0.9% 500 ML IVPB SCH ×2 (00:27→14:50)
[2018-07-15] MEDS: ACCU-CHEK XX SCH (01:58)
[2018-07-15 02:27] VITALS: BP 135/76; PULSE 90; RESP 18
[2018-07-15] MEDS: MEROPENEM 1 GM/50ML(PMX) 50 ML IVPB SCH ×3 (05:03→21:23)
--- NOTE | 2018-07-15 06:42 | NUR ---
EOSS No acute changes in patient's condition. A&Ox3. All due meds given. No c/o pain. Hourly rounding done. Bed left in lowest position with bed alarm on. Call light left within reach. Scheduled to be discharged to SNF.
[2018-07-15 07:14] VITALS: BP 144/88; PULSE 70; RESP 18
[2018-07-15] MEDS: morphine 4 MG/ML VIAL IV PRN ×3 (07:36→20:34)
[2018-07-15] MEDS: INSULIN ASPART [NOVOLOG] 3 ML PEN SC SCH ×4 (08:00→20:32)
[2018-07-15] MEDS: LACTOBACILLUS RHAMNOSUS CAP PO SCH ×2 (08:14→20:30)
[2018-07-15] MEDS: SODIUM HYPOCHLORITE (1/40) 1 APPLIC BTL IRR SCH (08:14)
[2018-07-15] MEDS: MUPIROCIN 2% 22 GM OINT TOP SCH ×2 (08:15→20:32)
[2018-07-15] MEDS: ENOXAPARIN 40 MG/0.4 ML SYG SC SCH (08:16)
--- NOTE | 2018-07-15 12:40 | NUR ---
SS Note: SS Consult SWer met w/ pt at bedside to clarify his disposition re SNF placement. Pt's currently homeless, receives SSI benefits and denies having an AD, DPOA/Conservator. Pt reports that he had a bad experience at previous SNF placement and does not want to go to a SNF b/c they d/c'd him back to the streets and absorbed his SSI benefits for several months. Pt states that he has regained control over his SSI benefit and does not want to relinquish control of his benefits. Therefore, he won't be going to a SNF. Pt stated I don't know where I'm going when I leave the hospital but, it won't be to a SNF." Liza acknowledged and relayed a message to KLARISSA
[2018-07-15 13:48] VITALS: BP 135/85; PULSE 111; RESP 16
--- NOTE | 2018-07-15 18:31 | NUR ---
SHIFT OF SUMMARY REPORT RN CHANGE OF CARE THIS AFTERNOON. RECEIVED PATIENT ASLEEP. PATIENT STABLE AND IN NO APPARENT DISTRESS. MEDICATIONS WERE GIVEN SCHEDULED. HOURLY ROUNDING DONE. BED LEFT IN LOWEST POSITION AND CALL LIGHT WITHIN REACH.
--- NOTE | 2018-07-15 19:18 | CONS ---
Date/Time of Note Date/Time of Note DATE: 07/15/18 TIME: 19:11 Assessment/Plan Assessment/Plan Hospital Course ID PROGRESS NOTE CURRENT ABX: DAY # => Vanco IV + Merrem s/p Cefepime 24H INTERVAL SUMMARY * Resting in bed without distress -- no fevers, VSS, bilateral feet are wrapped in DSG/WESLEY * DC PLANNING: complicated by homelessness MICRO/OTHER * * 07/12/18 (-)MRSA * 07/12/18 RIGHT TOEGRAM STAIN Final POLYMORPH. LEUKOCYTE NONE SEEN GRAM NEGATIVE RODS RARE WOUND CULTURE Final Organism 1 ENTEROBACTER CLOACAE COMPLEX QUANTITY 1+ Organism 2 ENTEROCOCCUS SPECIES QUANTITY ISOLATED FROM BROTH ONLY Organism 3 COAGULASE NEGATIVE STAPH QUANTITY SCANT GROWTH * 07/12/18 LEFT TOE WOUND CULTURE Final Organism 1 ENTEROBACTER CLOACAE COMPLEX QUANTITY RARE Organism 2 COAGULASE NEGATIVE STAPH QUANTITY SCANT GROWTH Organism 3 CORYNEBACTERIUM SPECIES QUANTITY 1+ * 07/12/18 LEFT FOOT WOUND CULTURE Final Organism 1 COAGULASE NEGATIVE STAPH QUANTITY 2+ COAG NEG M.I.C. RX --------- --- CEFAZOLIN R CIPROFLOXACIN >=8 R CLINDAMYCIN <=0.25 S DOXYCYCLINE S ERYTHROMYCIN >=8 R LEVOFLOXACIN >=8 R OXACILLIN >=4 R PENICILLIN-G >=0.5 R RIFAMPIN <=0.5 S VANCOMYCIN 1 S TRIMETHOPRIM/SULFAMETHOXAZOLE >=320 R * 07/12/18 RIGHT FOOT WOUND CULTURE Final Organism 1 ENTEROBACTER CLOACAE COMPLEX QUANTITY 3+ Organism 2 ENTEROCOCCUS SPECIES QUANTITY ISOLATED FROM BROTH ONLY Organism 3 GAMMA HEMOLYTIC STREP SPP QUANTITY 1+ EC COMPLEX EC COMPLEX ENT SPS M.I.C. RX M.I.C. RX M.I.C. RX --------- --- --------- --- --------- --- AMPICILLIN <=2 S CEFEPIME R CEFOTAXIME R CIPROFLOXACIN <=0.25 S GENTAMICIN <=1 S LEVOFLOXACIN 1 S MEROPENEM 0.125 S PENICILLIN PENICILLIN-G 8 S VANCOMYCIN 1 S TOBRAMYCIN <=1 S TRIMETHOPRIM/SULFAMETHOXAZOLE >=320 R PIPERACILLIN/TAZOBACTAM >=128 R PHYSICAL EXAMINATION: GENERAL: Afebrile, VSS, OBESE, sitting up in bed with BLEXT down on the floor, NAD HEENT: AT, NC, anicteric NECK: Supple, trach midline CHEST: Equal chest rise bilaterally, without dyspnea on observation HEART: Pulse RRR ABDOMEN: Soft / NT EXTREMITIES: Warm, dry == BLEXT Feet wrapped in DSG/WESLEY and plastic SKIN: No rash, no diaphoresis ID ASSESSMENT 53 yo M admit with: 1. Bilateral lower extremities diabetic ulceration with osteomyelitis * Wound growing polymicrobial bacteria Organism 1 ENTEROBACTER CLOACAE COMPLEX Organism 2 ENTEROCOCCUS SPECIES Organism 3 COAGULASE NEGATIVE STAPH Organism 3 GAMMA HEMOLYTIC STREP SPP Organism 3 CORYNEBACTERIUM SPECIES 2. Diabetes 3. Diabetic neuropathy 4. Tobacco addiction 5. Bipolar disorder 6. Morbid obesity (-)MRSA Nares ABX ALLERGIES: KNDA INVASIVES: PIV CURRENT ABX: DAY # => Vanco IV + Merrem s/p Cefepime ID RECOMMENDATIONS/PLAN: 1. Continue Vanco IV + Merrem to COVER ENTEROBACTER CLOACAE WHICH IS RESISTANT TO CEFEPIME . . Result Diagram: 07/13/18 0615 07/13/18 0615 Results 24hrs Laboratory Tests Test 07/14/18 20:11 07/15/18 08:13 07/15/18 12:48 07/15/18 17:42 Bedside Glucose 111 110 112 113 Consultation Date/Type/Reason Admit Date/Time Jul 11, 2018 at 21:00 Initial Consult Date Exam/Review of Systems Vital Signs Vitals Vital Signs Date Temp Pulse Resp B/P (MAP) Pulse Ox O2 O2 Flow FiO2 Time Delivery Rate 07/15/18 97.9 111 16 135/85 97 Room Air 13:48 (102) Intake and Output 07/14/18 07/14/18 07/15/18 1515:00 23:00 07:00 IntakeIntake Total 2010 ml 1030 ml 1270 ml OutputOutput Total 900 ml 1100 ml 1990 ml BalanceBalance 1110 ml -70 ml -720 ml Medications Medications Current Medications IV Flush (NS 3 ml) 3 ml PER PROTOCOL IV ; Start 07/11/18 at 22:00 Ondansetron HCl (Zofran Inj) 4 mg Q6H PRN IV NAUSEA AND/OR VOMITING; Start 07/11/18 at 22:00 Acetaminophen (Tylenol Tab) 650 mg Q6H PRN PO PAIN LEVEL 1-3 OR FEVER; Start 07/11/18 at 22:00 Albuterol/ Ipratropium (Duoneb) 3 ml Q2H RESP THERAPY PRN HHN SHORTNESS OF BREATH; Start 07/11/18 at 22:00 Vancomycin HCl (Vanco Iv Per Pharmacy) VANCOMYCIN PER PHARMACY PER PROTOCOL XX ; Start 07/11/18 at 22:00 Mupirocin (Bactroban) 1 applic BID TOP Last administered on 07/15/18at 08:15; Admin Dose 1 APPLIC; Start 07/12/18 at 09:00; Stop 07/22/18 at 08:59 Vancomycin HCl 1.75 gm/Sodium Chloride 500 ml @ 125 mls/hr Q12H IVPB Last administered on 07/15/18at 14:50; Admin Dose 125 MLS/HR; Start 07/12/18 at 13:00 Sodium Hypochlorite (Dakin'S (Dilute 40)) 1 applic DAILY IRR Last administered on 07/15/18at 08:14; Admin Dose 1 APPLIC; Start 07/12/18 at 15:30 Lactobacillus Acidophilus/ Rhamnosus (Culturelle) 1 cap BID PO Last administer ed on 07/15/18at 08:14; Admin Dose 1 CAP; Start 07/12/18 at 21:00 Acetaminophen/ Hydrocodone Bitart ([place] (10/325)) 1 tab Q4H PRN PO MODERATE PAIN LEVEL 4-6; Start 07/12/18 at 15:30 Diagnostic Test (Pha) (Accu-Chek) 1 ea 02 XX ; Start 07/13/18 at 02:00 Insulin Aspart (Novolog Insulin Pen) NOVOLOG *MODERATE* ALGORITHM WITH MEALS BEDTIME SC ; Start 07/12/18 at 18:00 Nicotine (Nicoderm 14 Mg/ 24hr) 1 patch DAILY PRN TRANSDERM CONTROL WITHDRAWAL SYMPTOMS; Start 07/13/18 at 09:00 Docusate Sodium (Colace Liquid Cup) 100 mg HS PO Last administered on 07/14/18at 20:14; Admin Dose 100 MG; Start 07/13/18 at 23:30 Enoxaparin Sodium (Lovenox) 40 mg DAILY SC Last administered on 07/15/18at 08:16; Admin Dose 40 MG; Start 07/14/18 at 09:00 Miscellaneous Information 1 ea NOTE XX ; Start 07/14/18 at 15:00 Glucose (Glutose) 15 gm Q15M PRN PO DECREASED GLUCOSE; Start 07/14/18 at 15:00 Glucose (Glutose) 22.5 gm Q15M PRN PO DECREASED GLUCOSE; Start 07/14/18 at 15:00 Dextrose (D50w Syringe) 25 ml Q15M PRN IV DECREASED GLUCOSE; Start 07/14/18 at 15:00 Dextrose (D50w Syringe) 50 ml Q15M PRN IV DECREASED GLUCOSE; Start 07/14/18 at 15:00 Glucagon (Glucagen) 1 mg Q15M PRN IM DECREASED GLUCOSE; Start 07/14/18 at 15:00 Glucose (Glutose) 15 gm Q15M PRN BUCCAL DECREASED GLUCOSE; Start 07/14/18 at 15:00 Morphine Sulfate (morphine) 2 mg Q4H PRN IV SEVERE PAIN LEVEL 7-10 Last administered on 07/15/18at 14:04; Admin Dose 2 MG; Start 07/14/18 at 16:00 Meropenem/Sodium Chloride 50 ml @ 100 mls/hr Q8 IVPB Last administered on 07/15/18at 14:01; Admin Dose 100 MLS/HR; Start 07/14/18 at 17:30 Miscellaneous Information (*Rx Drug Level Order Reminder*) VANCO TROUGH @ 1,200 ON... ONCE ONCE XX ; Start 07/16/18 at 12:00; Stop 07/16/18 at 12:01 TOSHA HOLLAND NP Jul 15, 2018 19:18
[2018-07-15 20:30] VITALS: BP 133/86; PULSE 80; RESP 18
[2018-07-15] MEDS: DOCUSATE SODIUM 10 MG/ML (10ML CUP) PO SCH (20:30)
[2018-07-15] MEDS: SENNA/DOCUSATE NA (8.6MG/50MG) TAB PO SCH (20:32)
--- NOTE | 2018-07-15 22:00 | NUR ---
Pt is refusing bed alarm, despite numerous explanations of its purpose.
[2018-07-16] MEDS: morphine 4 MG/ML VIAL IV PRN ×5 (00:54→21:13)
[2018-07-16] MEDS: VANCOMYCIN HCL 1.75 GM in SOD CHLORIDE 0.9% 500 ML IVPB SCH ×2 (00:57→15:22)
[2018-07-16] MEDS: ACCU-CHEK XX SCH (02:00)
[2018-07-16 02:50] VITALS: BP 140/63; PULSE 62; RESP 16
[2018-07-16] MEDS: MEROPENEM 1 GM/50ML(PMX) 50 ML IVPB SCH ×3 (05:57→22:10)
--- NOTE | 2018-07-16 06:42 | NUR ---
EOSS Pt medicated for pain x 3, partially effective. No SC insulin required. Pt had multiple snacks during shift (5 string cheese, cheesecake and 3 cups of orange juice) Due meds given, except colace, which pt refused. PICC line had slow blood return; pt refused to have blood drawn with a needle. Lab to come back later. Slow blood return may have been positional, will endorse to next shift to try again. Pt refuses bed alarm. Call light within reach, bed in lowest position.
[2018-07-16 07:26] VITALS: BP 155/83; PULSE 67; RESP 16
[2018-07-16] MEDS: INSULIN ASPART [NOVOLOG] 3 ML PEN SC SCH ×4 (08:00→21:00)
[2018-07-16] MEDS: LACTOBACILLUS RHAMNOSUS CAP PO SCH ×2 (08:24→21:03)
[2018-07-16] MEDS: ENOXAPARIN 40 MG/0.4 ML SYG SC SCH (08:27)
[2018-07-16] MEDS: BISACODYL (EC) 5 MG TAB PO PRN (08:28)
[2018-07-16] MEDS: MUPIROCIN 2% 22 GM OINT TOP SCH ×2 (08:36→21:05)
[2018-07-16] MEDS: SODIUM HYPOCHLORITE (1/40) 1 APPLIC BTL IRR SCH (08:36)
--- NOTE | 2018-07-16 10:06 | NUR ---
CM NOTE: Received call from Debbie at [facility] (P:[phone]) regarding this pt. Informed Debbie that per SW note on 07/15/2018, pt does not wish to go to SNF. Informed Debbie that I would f/u with pt today regarding SNF and f/u with her. Emil Gallo RN CM [id number] Addendum: 07/16/18 at 1351 by JACKIE GALLO CM S/W pt at bedside regarding SNF placement. Per pt, he does not wish to go to SNF as he states that previous SNF "took all of his money". Pt open to possibly going to his brother's house once d/c. S/W Debbie at [facility] nd informed her of the above.
--- NOTE | 2018-07-16 11:20 | NUR ---
PT Note Therapy day number 2 Subjective Current complaint of pain Pain Scale NUMERIC Pain Intensity 5 (0-10) Patient Stated Goal for Pain Relief 0 (0-10) Pain Level Comment bilateral feet, numbness and tingling with pain Transfer Training Start Time 11:20 Transfer Sit to Stand Ability Modified Independent Bed Transfer Ability Supervised Chair Transfer Ability Supervised Transfer Training End Time 11:28 Total Transfer Training Time 8 min (8-127) Gait Training Start Time 11:28 Gait Assist Levels Stand by Assist Assistive Devices Front Wheel Walker Ambulation Distance 50 feet Additional Gait Comments c/o 5/10 dizziness Gait Training End Time 11:45 Total Gait Training Treatment Time 17 min (8-127) Static Sitting Balance Good Dynamic Sitting Balance Good Standing Static Balance Fair plus Dynamic Standing Balance Fair plus Additional Balance Assessments Comments with FWW Safety Judgement Fair Activity Tolerance Fair Additional Equipment Present Bilateral post op shoes Post Treatment Pain Intensity 5 0-10 Quality Indicators SOB Upon Exertion Dizziness Additional Post Treatment Comment dizziness and SOB improved with sitting Total Treament Time 25 min (8-127) Total Minutes 25 Total Units 2 PT Technical Record Comment S: Pt found sitting EOB, is agreeable to PT. RN cleared pt for activity. Pt expressed anxiety about going to a SNF. O: Pt was seen for transfers, gait training with FWW. Bilateral post op shoes worn throughout treatment. Pt instructed for partial WB on RLE with FWW during ambulation. Pt ambulated total 60' SBA with FWW with flexed posture, small, short steps with excess bilateral ER, c/o 5/10 dizziness that did not resolve with standing breaks and mild SOB. Pt assisted back to sitting EOB, refused supine in bed, and symptoms improved. RN informed of pt response to activity. Attempted to clarify MD weight bearing order, however unable to contact them. A: Pt demonstrates reduced tolerance for standing/ambulation today compared to evaluation, limited by dizziness, mild SOB, and fatigue, perhaps due to reduced activity during hospital stay. Pain in the RLE appeared to improve with FWW, however pt states that he would prefer to use an SPC and was mildly receptive to PT education about the need for FWW to maintain partial WBing. P: Continue POC. Monitor for dizziness and encourage ambulation with FWW.
--- NOTE | 2018-07-16 13:58 | NUR ---
VANCO RX TO DOSE Problem List: BLE DM ULCERS W/ OSTEOMYELITIS, MORBID OBESITY Current ABXs: VANCOMYCIN, MERREM 07/16 VANCO TR = 11.4; GOAL 15-20 Comments/Plan: CHANGE VANCO 1.75 G Q12H TO 2 G Q12H
--- NOTE | 2018-07-16 14:20 | NUR ---
SS NOTE: CONSULT SW REFERRED TO PT REGARDING HOMELESS RESOURCES. PT IS 53 YR OLD MALE ADMITTED FOR DIABETIC FOOT ULCER. SW MET WITH PT AT BEDSIDE, PT APPEARED TO BE A&OX4 AND COPING APPROPRIATELY WITH ADMISSION. 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 PT CONFIRMED THAT HE IS REMAINS HOMELESS LIVING ON [address] IN THE [facility] WITH LIMITED SUPPORT SYSTEM. PT STATED THAT HE DISABLED AND RECEIVING $600 MONTHLY SSI. PT STATED THAT HIS BROTHER CB ([phone]) LIVES IN [place] AND HE HAS STAYED WITH HIM IN THE PAST. PT STATED THAT HE IS UNABLE TO STAY WITH HIS BROTHER POST D/C DUE TO FAMILY DYNAMIC., PT HAS HX OF METH ABUSE AND DENIED CURRENT METHAMPHETAMINE USE DISORDER. PT DENIED HX OF MENTAL HEALTH ISSUES OR ENGAGEMENT WITH RESOURCES. D/C PLAN TO BE DETERMINED DUE TO POSSIBLE NEED FOR 4X WEEKS OF IV ANTIBIOTICS. PLAN IS FOR POSSIBLE SNF PLACEMENT VS RECUPERATIVE CARE. SW TO F/U WITH APPROPRIATE RESOURCES WHEN D/C PLAN IS FINALIZED. SW PROVIDED HIGH SCHOOL DIRECTOR CONTACT INFO FOR ANY NEEDED RESOURCES. SW REMAINS AVAILABLE FOR F/U NEEDED.
--- NOTE | 2018-07-16 14:45 | NUR ---
NUTRITION NOTE: Tolerating PO intake with very good appetite. Eating 100% at meals. No reported n/v. LBM 07/12, c/o constipation. Pt with bilateral feet diabetic ulcers. Will offer Blair BID to promote wound healing. Rec to add daily MVI, Vit C. Continue with bowel regimen PRN/as per MD. Noted also on probiotics.
[2018-07-16 15:25] VITALS: BP 147/84; PULSE 96; RESP 18
--- NOTE | 2018-07-16 15:48 | CONS ---
Date/Time of Note Date/Time of Note DATE: 07/16/18 TIME: 15:46 Assessment/Plan Assessment/Plan Hospital Course ID PROGRESS NOTE CURRENT ABX: DAY # => Vanco IV + Merrem s/p Cefepime 24H INTERVAL SUMMARY * A/A/O -- doing OK -- reports BLEXT FEET pain w/neuropathic pain -- also c/o feeling dizzy with postural changes while working w/PTX - I explained likely r/t DM neuropathy -- he needs to change positions slowly, * Resting in bed without distress -- no fevers, VSS, bilateral feet are wrapped in DSG/WESLEY * DC PLANNING: complicated by homelessness MICRO/OTHER * * 07/12/18 (-)MRSA * 07/12/18 RIGHT TOEGRAM STAIN Final POLYMORPH. LEUKOCYTE NONE SEEN GRAM NEGATIVE RODS RARE WOUND CULTURE Final Organism 1 ENTEROBACTER CLOACAE COMPLEX QUANTITY 1+ Organism 2 ENTEROCOCCUS SPECIES QUANTITY ISOLATED FROM BROTH ONLY Organism 3 COAGULASE NEGATIVE STAPH QUANTITY SCANT GROWTH * 07/12/18 LEFT TOE WOUND CULTURE Final Organism 1 ENTEROBACTER CLOACAE COMPLEX QUANTITY RARE Organism 2 COAGULASE NEGATIVE STAPH QUANTITY SCANT GROWTH Organism 3 CORYNEBACTERIUM SPECIES QUANTITY 1+ * 07/12/18 LEFT FOOT WOUND CULTURE Final Organism 1 COAGULASE NEGATIVE STAPH QUANTITY 2+ COAG NEG M.I.C. RX --------- --- CEFAZOLIN R CIPROFLOXACIN >=8 R CLINDAMYCIN <=0.25 S DOXYCYCLINE S ERYTHROMYCIN >=8 R LEVOFLOXACIN >=8 R OXACILLIN >=4 R PENICILLIN-G >=0.5 R RIFAMPIN <=0.5 S VANCOMYCIN 1 S TRIMETHOPRIM/SULFAMETHOXAZOLE >=320 R * 07/12/18 RIGHT FOOT WOUND CULTURE Final Organism 1 ENTEROBACTER CLOACAE COMPLEX QUANTITY 3+ Organism 2 ENTEROCOCCUS SPECIES QUANTITY ISOLATED FROM BROTH ONLY Organism 3 GAMMA HEMOLYTIC STREP SPP QUANTITY 1+ EC COMPLEX EC COMPLEX ENT SPS M.I.C. RX M.I.C. RX M.I.C. RX --------- --- --------- --- --------- --- AMPICILLIN <=2 S CEFEPIME R CEFOTAXIME R CIPROFLOXACIN <=0.25 S GENTAMICIN <=1 S LEVOFLOXACIN 1 S MEROPENEM 0.125 S PENICILLIN PENICILLIN-G 8 S VANCOMYCIN 1 S TOBRAMYCIN <=1 S TRIMETHOPRIM/SULFAMETHOXAZOLE >=320 R PIPERACILLIN/TAZOBACTAM >=128 R PHYSICAL EXAMINATION: GENERAL: Afebrile, VSS, OBESE, sitting up in bed with BLEXT down on the floor, NAD HEENT: AT, NC, anicteric NECK: Supple, trach midline CHEST: Equal chest rise bilaterally, without dyspnea on observation HEART: Pulse RRR ABDOMEN: Soft / NT EXTREMITIES: Warm, dry == BLEXT Feet wrapped in DSG/WESLEY and plastic SKIN: No rash, no diaphoresis ID ASSESSMENT 53 yo M admit with: 1. Bilateral lower extremities diabetic ulceration with osteomyelitis * Wound growing polymicrobial bacteria Organism 1 ENTEROBACTER CLOACAE COMPLEX Organism 2 ENTEROCOCCUS SPECIES Organism 3 COAGULASE NEGATIVE STAPH Organism 3 GAMMA HEMOLYTIC STREP SPP Organism 3 CORYNEBACTERIUM SPECIES 2. Diabetes 3. Diabetic neuropathy 4. Tobacco addiction 5. Bipolar disorder 6. Morbid obesity (-)MRSA Nares ABX ALLERGIES: KNDA INVASIVES: PIV CURRENT ABX: DAY # => Vanco IV + Merrem s/p Cefepime ID RECOMMENDATIONS/PLAN: 1. Continue Vanco IV + Merrem to COVER ENTEROBACTER CLOACAE WHICH IS RESISTANT TO CEFEPIME 2. Consider Gabapentin 100-300mg up-titration TID for neuropathic pain. . Result Diagram: 07/13/18 0615 07/16/18 0814 Results 24hrs Laboratory Tests Test 07/15/18 17:42 07/15/18 20:28 07/16/18 08:14 07/16/18 08:23 Bedside Glucose 113 144 89 Blood Urea Nitrogen 11 Creatinine 0.67 Test 07/16/18 12:05 07/16/18 13:07 Bedside Glucose 126 Vancomycin Level 11.4 Trough Consultation Date/Type/Reason Admit Date/Time Jul 11, 2018 at 21:00 Initial Consult Date Exam/Review of Systems Vital Signs Vitals Vital Signs Date Temp Pulse Resp B/P (MAP) Pulse Ox O2 O2 Flow FiO2 Time Delivery Rate 07/16/18 98.4 96 18 147/84 98 Room Air 15:25 (105) Intake and Output 07/15/18 07/15/18 07/16/18 1414:59 22:59 06:59 IntakeIntake Total 50 ml 550 ml 860 ml OutputOutput Total 2250 ml BalanceBalance 50 ml 550 ml -1390 ml Medications Medications Current Medications IV Flush (NS 3 ml) 3 ml PER PROTOCOL IV ; Start 07/11/18 at 22:00 Ondansetron HCl (Zofran Inj) 4 mg Q6H PRN IV NAUSEA AND/OR VOMITING; Start 07/11/18 at 22:00 Acetaminophen (Tylenol Tab) 650 mg Q6H PRN PO PAIN LEVEL 1-3 OR FEVER; Start 07/11/18 at 22:00 Albuterol/ Ipratropium (Duoneb) 3 ml Q2H RESP THERAPY PRN HHN SHORTNESS OF BREATH; Start 07/11/18 at 22:00 Vancomycin HCl (Vanco Iv Per Pharmacy) VANCOMYCIN PER PHARMACY PER PROTOCOL XX ; Start 07/11/18 at 22:00 Mupirocin (Bactroban) 1 applic BID TOP Last administered on 07/16/18at 08:36; Admin Dose 1 APPLIC; Start 07/12/18 at 09:00; Stop 07/22/18 at 08:59 Sodium Hypochlorite (Dakin'S (Dilute )) 1 applic DAILY IRR Last administered on 07/16/18at 08:36; Admin Dose 1 APPLIC; Start 07/12/18 at 15:30 Lactobacillus Acidophilus/ Rhamnosus (Culturelle) 1 cap BID PO Last administered on 07/16/18at 08:24; Admin Dose 1 CAP; Start 07/12/18 at 21:00 Acetaminophen/ Hydrocodone Bitart ([place] (10/325)) 1 tab Q4H PRN PO MODERATE PAIN LEVEL 4-6; Start 07/12/18 at 15:30 Diagnostic Test (Pha) (Accu-Chek) 1 ea 02 XX ; Start 07/13/18 at 02:00 Insulin Aspart (Novolog Insulin Pen) NOVOLOG *MODERATE* ALGORITHM WITH MEALS BEDTIME SC ; Start 07/12/18 at 18:00 Nicotine (Nicoderm 14 Mg/ 24hr) 1 patch DAILY PRN TRANSDERM CONTROL WITHDRAWAL SYMPTOMS; Start 07/13/18 at 09:00 Docusate Sodium (Colace Liquid Cup) 100 mg HS PO Last administered on 07/14/18at 20:14; Admin Dose 100 MG; Start 07/13/18 at 23:30 Enoxaparin Sodium (Lovenox) 40 mg DAILY SC Last administered on 07/16/18at 08:27; Admin Dose 40 MG; Start 07/14/18 at 09:00 Miscellaneous Information 1 ea NOTE XX ; Start 07/14/18 at 15:00 Glucose (Glutose) 15 gm Q15M PRN PO DECREASED GLUCOSE; Start 07/14/18 at 15:00 Glucose (Glutose) 22.5 gm Q15M PRN PO DECREASED GLUCOSE; Start 07/14/18 at 15:00 Dextrose (D50w Syringe) 25 ml Q15M PRN IV DECREASED GLUCOSE; Start 07/14/18 at 15:00 Dextrose (D50w Syringe) 50 ml Q15M PRN IV DECREASED GLUCOSE; Start 07/14/18 at 15:00 Glucagon (Glucagen) 1 mg Q15M PRN IM DECREASED GLUCOSE; Start 07/14/18 at 15:00 Glucose (Glutose) 15 gm Q15M PRN BUCCAL DECREASED GLUCOSE; Start 07/14/18 at 15:00 Morphine Sulfate (morphine) 2 mg Q4H PRN IV SEVERE PAIN LEVEL 7-10 Last administered on 07/16/18at 12:07; Admin Dose 2 MG; Start 07/14/18 at 16:00 Meropenem/Sodium Chloride 50 ml @ 100 mls/hr Q8 IVPB Last administered on 07/16/18at 13:00; Admin Dose 100 MLS/HR; Start 07/14/18 at 17:30 Senna/Docusate Sodium (Senokot-S) 2 tab HS PO Last administered on 07/15/18at 20:32; Admin Dose 2 TAB; Start 07/15/18 at 21:00 Bisacodyl (Dulcolax) 10 mg BID PRN PO CONSTIPATION Last administered on 07/16/18at 08:28; Admin Dose 10 MG; Start 07/15/18 at 20:00 Vancomycin HCl 2 gm/Sodium Chloride 500 ml @ 125 mls/hr Q12H IVPB ; Start 07/17/18 at 01:00 TOSHA HOLLAND NP Jul 16, 2018 15:48
--- NOTE | 2018-07-16 18:18 | NUR ---
EOSS: Pt. A/Ox4; VSS, no acute distress. C/O pain this shift; pain meds given with adequate relief. Pt. here for diabetic ulcers; S/P I& D last week; wound care done. NESHA PICC line; IV ABX; CLABSI bundle maintained; hibiclens done today. Pt. up with PT today. Accuchecks AC/HS; no coverage needed. All other due meds given and needs attended to. Pending decisin on SNF placement VS home. Hourly rounding done, bed alarm on, call light within reach, encouraged to call for assistance. Will continue to monitor and endorse care to oncoming nurse
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
[2018-07-16] MEDS ORDERED: hydrALAzine 20 MG INJ IV PRN (20:00)
[2018-07-16 20:12] VITALS: BP 166/91; PULSE 65; RESP 18
[2018-07-16] MEDS: DOCUSATE SODIUM 10 MG/ML (10ML CUP) PO SCH (21:00)
[2018-07-16 21:03] VITALS: BP 150/87
[2018-07-16] MEDS: SENNA/DOCUSATE NA (8.6MG/50MG) TAB PO SCH (21:09)
[2018-07-17] MEDS ORDERED: VANCOMYCIN HCL 2 GM in SOD CHLORIDE 0.9% 500 ML IVPB SCH (01:00)
[2018-07-17] MEDS: ACCU-CHEK XX SCH (01:54)
[2018-07-17 02:09] VITALS: BP 169/97; PULSE 60; RESP 18
--- NOTE | 2018-07-17 04:55 | NUR ---
Vancomycin was hung at 455 am. Will endorse to next shift and to start Merrem at a later time.
[2018-07-17] MEDS: morphine 4 MG/ML VIAL IV PRN ×4 (04:58→21:28)
--- NOTE | 2018-07-17 05:10 | NUR ---
EOSS Pt medicated for pain x 2 partially effective. Pt had multiple snacks during shift. No SC insulin required. Due meds given, except colace which patient refused. Pt's BP was elevated, notified Dr. Robles, got PRN hydralazine order. BP below parameters for prn hydralazine. Pt refuses bed alarm. Call light within reach, bed locked and in lowest position.
[2018-07-17] MEDS ORDERED: ALTEPLASE (CATHFLO) 2 MG INJ CATHETER PRN (05:30)
[2018-07-17 07:12] VITALS: BP 138/85; PULSE 95; RESP 18
[2018-07-17] MEDS: INSULIN ASPART [NOVOLOG] 3 ML PEN SC SCH ×4 (08:00→20:32)
[2018-07-17] MEDS: LACTOBACILLUS RHAMNOSUS CAP PO SCH ×2 (08:07→20:33)
[2018-07-17] MEDS: ENOXAPARIN 40 MG/0.4 ML SYG SC SCH (08:12)
[2018-07-17] MEDS: MUPIROCIN 2% 22 GM OINT TOP SCH ×2 (08:14→20:32)
[2018-07-17] MEDS: SODIUM HYPOCHLORITE (1/40) 1 APPLIC BTL IRR SCH (08:15)
--- NOTE | 2018-07-17 08:25 | NUR ---
PT NOTE Therapy day number 3 Subjective Current complaint of pain Pain Scale NUMERIC Pain Intensity 10 (0-10) Patient Stated Goal for Pain Relief 0 (0-10) Pain Level Comment abdominal pain 2/2 constipated, RN aware Exercise Assessment Label Bilat Lower Extremity Exercise Type Active Assist ROM Additional Exercise Comments soft tissue mobilization R obliques/abdomen, repositioning in bed Exercise Start Time 08:25 Exercise End Time 08:48 Total Exercise Time 23 min (8-127) Additional Mobility Comments pt w/ extreme pain, agreeable to reposition but unable to complete 2/2 pain Post Treatment Pain Intensity 10 0-10 Additional Post Treatment Comment See Below Total Treament Time 23 min (8-127) Total Minutes 23 Total Units 2 PT Technical Record Comment PT NOTE S: Pt c/o horrible pain in abdomen due to constipation, "I'm trying to push," agreeable to very limited soft tissue mob and repositioning only. Cleared for PT per RN Fatoumata. O: Pt received L sidelying across the foot of the bed with BLE feet resting on floor and head hanging off other side of bed. Pt very distressed and moaning throughout tx. Pt able to roll to abdomen and back to L sidelying but refusing add'l repositioning. Pt ed for pressure relief for pinned L arm. Pt tolerated gentle soft tissue mob to R side of abdomen to encourage bowel mvmt, but continued to refuse add'l repositioning for safety. Pt left with RN present in room. A: Pt alessandro tx poorly 2/2 pain P: Cont POC as appropriate
[2018-07-17] MEDS ORDERED: MAGNESIUM HYDROXIDE 30ML CUP PO ONE ×2 (09:00)
[2018-07-17] MEDS: BISACODYL (EC) 5 MG TAB PO PRN (09:20)
[2018-07-17] MEDS: MEROPENEM 1 GM/50ML(PMX) 50 ML IVPB SCH (11:02)
--- NOTE | 2018-07-17 13:27 | PN ---
Date/Time of Note Date/Time of Note DATE: 07/17/18 TIME: 13:27 Assessment/Plan VTE Prophylaxis Risk score (from Nsg)>0 risk: 5 Pharmacological prophylaxis: heparin Lines/Catheters IV Catheter Type (from Nrsg): PICC Line Central line still needed: Yes Urinary Cath still in place: No Assessment/Plan Assessment/Plan Diabetic foot ulcers b/l DM2 with peripheral neuropathy Osteomyelitis b/l feet Pes planus Hallux limitus Bipolar/depression Homeless Plan: Performed excisional debridement of skin/subQ of bilateral hallux ulcers using a pickup/scissor. Less than 20cm2 of area was debrided. Hyperkeratotic tissue and biofilm was removed from the wound sites. Copious dakins irrigation was used for the wound sites. Cultures showing R hallux: Enterobacter cloacae compex, enterococcus species, staph coag neg. L hallux Cx: Enterobacter cloacae complex, staph coag neg, corynebacterium species. Discussed with IM and stated that previous MRI from outside hospital is showing osteomyelitis. IV abx per ID recommendations. Continue with daily dressing changes. Patient has orthopedic shoes. Patient would benefit from SNF placement with PICC line abx. Recommend daily application of topical clotrimazole and lidex. Result Diagram: 07/17/18 1031 07/17/18 1031 Results 24hrs Laboratory Tests Test 07/16/18 17:13 07/16/18 21:01 07/17/18 08:11 07/17/18 10:31 Bedside Glucose 100 114 83 White Blood Count 4.3 L Red Blood Count 4.90 Hemoglobin 12.9 L Hematocrit 40.4 L Mean Corpuscular 82.4 Volume Mean Corpuscular 26.3 L Hemoglobin Mean Corpuscular 31.9 L Hemoglobin Concent Red Cell 15.2 H Distribution Width Platelet Count 235 Mean Platelet Volume 10.2 Immature 0.500 H Granulocytes % Neutrophils % 55.0 Lymphocytes % 35.8 Monocytes % 7.1 Eosinophils % 1.4 Basophils % 0.2 Nucleated Red Blood 0.0 Cells % Immature 0.020 Granulocytes # Neutrophils # 2.3 Lymphocytes # 1.5 Monocytes # 0.3 Eosinophils # 0.1 Basophils # 0.0 Nucleated Red Blood 0.0 Cells # Sodium Level 136 Potassium Level 4.7 Chloride Level 102 Carbon Dioxide Level 24 Anion Gap 10 Blood Urea Nitrogen 11 Creatinine 0.64 Est Glomerular > 60 Filtrat Rate mL/min Glucose Level 111 Calcium Level 9.8 Total Bilirubin 0.1 L Direct Bilirubin 0.00 Indirect Bilirubin 0.1 Aspartate Amino 87 H Transf (AST/SGOT) Alanine 69 Aminotransferase (AL T/SGPT) Alkaline Phosphatase 96 Total Protein 8.9 H Albumin 4.1 Globulin 4.80 H Albumin/Globulin 0.85 Ratio Test 07/17/18 12:19 Bedside Glucose 106 Subjective 24 Hr Interval Summary Free Text/Dictation No acute events overnight. Exam/Review of Systems Vital Signs Vitals Vital Signs Date Temp Pulse Resp B/P (MAP) Pulse Ox O2 O2 Flow FiO2 Time Delivery Rate 07/17/18 98.7 95 18 138/85 97 Room Air 07:12 (102) Intake and Output 07/16/18 07/16/18 07/17/18 1515:00 23:00 07:00 IntakeIntake Total 50 ml 600 ml 41 ml OutputOutput Total 700 ml 1775 ml BalanceBalance 50 ml -100 ml -1734 ml Exam DP/PT pulses mildly palpable Absent protective sensations HPK lesions to b/l feet Mycotic nails Right hallux medial ulcer measuring 2.1 x 0.8 x 0.2cm granular wound base no purulence expressed, no probing to bone, no proximal streaking. Left hallux medial ulcer measuring 2.0 x 1.1 x 0.2cm granular wound base no p urulence expressed, no probing to bone, no proximal streaking. Digital contractures noted limited 1st MPJ ROM collapsed medial longitudinal arch. Non invasive arterial studies 05/07/18 FINDINGS: Antegrade flow is noted in all visualized arteries of the lower extremities. Biphasic and triphasic waveforms are seen throughout both lower extremities. Rt [employer] B[employer] REPAIRER 84 cm/s Rt Profunda 56 cm/s Rt Prox SFA 90 cm/s Rt Mid SFA 73 cm/s Rt Dist SFA 74 cm/s Rt Raman 69 cm/s Rt Post Tibial 97 cm/s Rt Dorsalis Pedis 29 cm/s Rt JOSÉ 0.9 Lt AUTO BODY REPAIRER 63 cm/s Lt Profunda 54 cm/s Lt Prox SFA 83 cm/s Lt Mid SFA 70 cm/s Lt Dist SFA 48 cm/s Lt Raman 49 cm/s Lt Post Tibial 82 cm/s Lt Dorsalis Pedis 52 cm/s Lt JOSÉ 1.0 IMPRESSION: No evidence of hemodynamically significant lesion. If further characterization of the arterial vasculature is needed CTA is recommended. Left foot x-ray IMPRESSION: 1. Pes planus. 2. No evidence for fracture, subluxation or dislocation. 3. 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 Consider MRI for further evaluation and characterization if clinically indicated. Right foot x-ray IMPRESSION: 1. Pes planus. 2. No evidence for fracture, subluxation or dislocation. 3. No erosive changes are seen. 4. Lesser digit hammertoes. 5. Calcaneal enthesopathy. Medications Medications Current Medications IV Flush (NS 3 ml) 3 ml PER PROTOCOL IV ; Start 07/11/18 at 22:00 Ondansetron HCl (Zofran Inj) 4 mg Q6H PRN IV NAUSEA AND/OR VOMITING; Start 07/11/18 at 22:00 Acetaminophen (Tylenol Tab) 650 mg Q6H PRN PO PAIN LEVEL 1-3 OR FEVER; Start 07/11/18 at 22:00 Albuterol/ Ipratropium (Duoneb) 3 ml Q2H RESP THERAPY PRN HHN SHORTNESS OF BREATH; Start 07/11/18 at 22:00 Vancomycin HCl (Vanco Iv Per Pharmacy) VANCOMYCIN PER PHARMACY PER PROTOCOL XX ; Start 07/11/18 at 22:00 Mupirocin (Bactroban) 1 applic BID TOP Last administered on 07/17/18at 08:14; Admin Dose 1 APPLIC; Start 07/12/18 at 09:00; Stop 07/22/18 at 08:59 Sodium Hypochlorite (Dakin'S (Dilute 140)) 1 applic DAILY IRR Last administered on 07/17/18at 08:15; Admin Dose 1 APPLIC; Start 07/12/18 at 15:30 Lactobacillus Acidophilus/ Rhamnosus (Culturelle) 1 cap BID PO Last administered on 07/17/18at 08:07; Admin Dose 1 CAP; Start 07/12/18 at 21:00 Acetaminophen/ Hydrocodone Bitart ([place] (10/325)) 1 tab Q4H PRN PO MODERATE PAIN LEVEL 4-6; Start 07/12/18 at 15:30 Diagnostic Test (Pha) (Accu-Chek) 1 ea 02 XX ; Start 07/13/18 at 02:00 Insulin Aspart (Novolog Insulin Pen) NOVOLOG *MODERATE* ALGORITHM WITH MEALS BEDTIME SC ; Start 07/12/18 at 18:00 Nicotine (Nicoderm 14 Mg/ 24hr) 1 patch DAILY PRN TRANSDERM CONTROL WITHDRAWAL SYMPTOMS; Start 07/13/18 at 09:00 Docusate Sodium (Colace Liquid Cup) 100 mg HS PO Last administered on 07/14/18at 20:14; Admin Dose 100 MG; Start 07/13/18 at 23:30 Enoxaparin Sodium (Lovenox) 40 mg DAILY SC Last administered on 07/17/18at 08:12; Admin Dose 40 MG; Start 07/14/18 at 09:00 Miscellaneous Information 1 ea NOTE XX ; Start 07/14/18 at 15:00 Glucose (Glutose) 15 gm Q15M PRN PO DECREASED GLUCOSE; Start 07/14/18 at 15:00 Glucose (Glutose) 22.5 gm Q15M PRN PO DECREASED GLUCOSE; Start 07/14/18 at 15:00 Dextrose (D50w Syringe) 25 ml Q15M PRN IV DECREASED GLUCOSE; Start 07/14/18 at 15:00 Dextrose (D50w Syringe) 50 ml Q15M PRN IV DECREASED GLUCOSE; Start 07/14/18 at 15:00 Glucagon (Glucagen) 1 mg Q15M PRN IM DECREASED GLUCOSE; Start 07/14/18 at 15:00 Glucose (Glutose) 15 gm Q15M PRN BUCCAL DECREASED GLUCOSE; Start 07/14/18 at 15:00 Morphine Sulfate (morphine) 2 mg Q4H PRN IV SEVERE PAIN LEVEL 7-10 Last administered on 07/17/18at 12:00; Admin Dose 2 MG; Start 07/14/18 at 16:00 Meropenem/Sodium Chloride 50 ml @ 100 mls/hr Q8 IVPB Last administered on 07/17at 11:02; Admin Dose 100 MLS/HR; Start 07/14/18 at 17:30 Senna/Docusate Sodium (Senokot-S) 2 tab HS PO Last administered on 07/16/18at 21:09; Admin Dose 2 TAB; Start 07/15/18 at 21:00 Bisacodyl (Dulcolax) 10 mg BID PRN PO CONSTIPATION Last administered on 07/17/18at 09:20; Admin Dose 10 MG; Start 07/15/18 at 20:00 Hydralazine HCl (Apresoline) 10 mg Q6H PRN IV for systolic greater than 170; Start 07/16/18 at 20:00 Alteplase, Recombinant (Cathflo (Activase)) 2 mg MAY REPEAT X1 PRN CATHETER IF CATHETER REMAINS OCCULUDED; Start 07/17/18 at 05:30 Gabapentin (Neurontin) 300 mg HS PO ; Start 07/17/18 at 21:00 Vancomycin HCl 2 gm/Sodium Chloride 500 ml @ 125 mls/hr Q12H IVPB ; Start 07/17/18 at 17:00 FREDERICK WILD DPM Jul 17, 2018 13:27
--- NOTE | 2018-07-17 13:35 | CONS ---
Assessment/Plan Assessment/Plan Hospital Course Patient is alert, looks comfortable, no fevers overnight Microbiology: Wound cultures growing coag negative staph species, Enterobacter, gamma hemolytic strep species, Corynebacterium species, enterococcus Antimicrobials: Vancomycin, Merrem Physical examination: This is a morbidly obese well-developed middle-aged -[place] man who is alert in no distress. Head atraumatic normocephalic sclera nonicteric neck is supple chest rise symmetrical breath sounds clear heart S1-S2 abdomen soft bowel sounds present extremities with bilateral lower extremities dressing intact Assessment: 1. Bilateral lower extremities diabetic ulceration with osteomyelitis 2. Diabetes 3. Diabetic neuropathy 4. Tobacco addiction 5. Bipolar disorder 6. Morbid obesity Plan: Patient remained stable, change meropenem to oral ciprofloxacin, continue vancomycin, per podiatry patient needs to be on antibiotics for 6 weeks, consider placement Result Diagram: 07/17/18 1031 07/17/18 1031 Results 24hrs Laboratory Tests Test 07/16/18 17:13 07/16/18 21:01 07/17/18 08:11 07/17/18 10:31 Bedside Glucose 100 114 83 White Blood Count 4.3 L Red Blood Count 4.90 Hemoglobin 12.9 L Hematocrit 40.4 L Mean Corpuscular 82.4 Volume Mean Corpuscular 26.3 L Hemoglobin Mean Corpuscular 31.9 L Hemoglobin Concent Red Cell 15.2 H Distribution Width Platelet Count 235 Mean Platelet Volume 10.2 Immature 0.500 H Granulocytes % Neutrophils % 55.0 Lymphocytes % 35.8 Monocytes % 7.1 Eosinophils % 1.4 Basophils % 0.2 Nucleated Red Blood 0.0 Cells % Immature 0.020 Granulocytes # Neutrophils # 2.3 Lymphocytes # 1.5 Monocytes # 0.3 Eosinophils # 0.1 Basophils # 0.0 Nucleated Red Blood 0.0 Cells # Sodium Level 136 Potassium Level 4.7 Chloride Level 102 Carbon Dioxide Level 24 Anion Gap 10 Blood Urea Nitrogen 11 Creatinine 0.64 Est Glomerular > 60 Filtrat Rate mL/min Glucose Level 111 Calcium Level 9.8 Total Bilirubin 0.1 L Direct Bilirubin 0.00 Indirect Bilirubin 0.1 Aspartate Amino 87 H Transf (AST/SGOT) Alanine 69 Aminotransferase (AL T/SGPT) Alkaline Phosphatase 96 Total Protein 8.9 H Albumin 4.1 Globulin 4.80 H Albumin/Globulin 0.85 Ratio Test 07/17/18 12:19 Bedside Glucose 106 Consultation Date/Type/Reason Admit Date/Time Jul 11, 2018 at 21:00 Initial Consult Date Type of Consult id Exam/Review of Systems Vital Signs Vitals Vital Signs Date Temp Pulse Resp B/P (MAP) Pulse Ox O2 O2 Flow FiO2 Time Delivery Rate 07/17/18 98.7 95 18 138/85 97 Room Air 07:12 (102) Intake and Output 07/16/18 07/16/18 07/17/18 1515:00 23:00 07:00 IntakeIntake Total 50 ml 600 ml 41 ml OutputOutput Total 700 ml 1775 ml BalanceBalance 50 ml -100 ml -1734 ml Medications Medications Current Medications IV Flush (NS 3 ml) 3 ml PER PROTOCOL IV ; Start 07/11/18 at 22:00 Ondansetron HCl (Zofran Inj) 4 mg Q6H PRN IV NAUSEA AND/OR VOMITING; Start 07/11/18 at 22:00 Acetaminophen (Tylenol Tab) 650 mg Q6H PRN PO PAIN LEVEL 1-3 OR FEVER; Start 07/11/18 at 22:00 Albuterol/ Ipratropium (Duoneb) 3 ml Q2H RESP THERAPY PRN HHN SHORTNESS OF BREATH; Start 07/11/18 at 22:00 Vancomycin HCl (Vanco Iv Per Pharmacy) VANCOMYCIN PER PHARMACY PER PROTOCOL XX ; Start 07/11/18 at 22:00 Mupirocin (Bactroban) 1 applic BID TOP Last administered on 07/17/18at 08:14; Admin Dose 1 APPLIC; Start 07/12/18 at 09:00; Stop 07/22/18 at 08:59 Sodium Hypochlorite (Dakin'S (Dilute 40)) 1 applic DAILY IRR Last administered on 07/17/18at 08:15; Admin Dose 1 APPLIC; Start 07/12/18 at 15:30 Lactobacillus Acidophilus/ Rhamnosus (Culturelle) 1 cap BID PO Last administered on 07/17/18at 08:07; Admin Dose 1 CAP; Start 07/12/18 at 21:00 Acetaminophen/ Hydrocodone Bitart ([place] (10/325)) 1 tab Q4H PRN PO MODERATE PAIN LEVEL 4-6; Start 07/12/18 at 15:30 Diagnostic Test (Pha) (Accu-Chek) 1 ea 02 XX ; Start 07/13/18 at 02:00 Insulin Aspart (Novolog Insulin Pen) NOVOLOG *MODERATE* ALGORITHM WITH MEALS BEDTIME SC ; Start 07/12/18 at 18:00 Nicotine (Nicoderm 14 Mg/ 24hr) 1 patch DAILY PRN TRANSDERM CONTROL WITHDRAWAL SYMPTOMS; Start 07/13/18 at 09:00 Docusate Sodium (Colace Liquid Cup) 100 mg HS PO Last administered on 07/14/18at 20:14; Admin Dose 100 MG; Start 07/13/18 at 23:30 Enoxaparin Sodium (Lovenox) 40 mg DAILY SC Last administered on 07/17/18at 08:12; Admin Dose 40 MG; Start 07/14/18 at 09:00 Miscellaneous Information 1 ea NOTE XX ; Start 07/14/18 at 15:00 Glucose (Glutose) 15 gm Q15M PRN PO DECREASED GLUCOSE; Start 07/14/18 at 15:00 Glucose (Glutose) 22.5 gm Q15M PRN PO DECREASED GLUCOSE; Start 07/14/18 at 15:00 Dextrose (D50w Syringe) 25 ml Q15M PRN IV DECREASED GLUCOSE; Start 07/14/18 at 15:00 Dextrose (D50w Syringe) 50 ml Q15M PRN IV DECREASED GLUCOSE; Start 07/14/18 at 15:00 Glucagon (Glucagen) 1 mg Q15M PRN IM DECREASED GLUCOSE; Start 07/14/18 at 15:00 Glucose (Glutose) 15 gm Q15M PRN BUCCAL DECREASED GLUCOSE; Start 07/14/18 at 15:00 Morphine Sulfate (morphine) 2 mg Q4H PRN IV SEVERE PAIN LEVEL 7-10 Last admi nistered on 07/17/18at 12:00; Admin Dose 2 MG; Start 07/14/18 at 16:00 Meropenem/Sodium Chloride 50 ml @ 100 mls/hr Q8 IVPB Last administered on 07/17/18at 11:02; Admin Dose 100 MLS/HR; Start 07/14/18 at 17:30 Senna/Docusate Sodium (Senokot-S) 2 tab HS PO Last administered on 07/16/18at 21:09; Admin Dose 2 TAB; Start 07/15/18 at 21:00 Bisacodyl (Dulcolax) 10 mg BID PRN PO CONSTIPATION Last administered on 07/17/18at 09:20; Admin Dose 10 MG; Start 07/15/18 at 20:00 Hydralazine HCl (Apresoline) 10 mg Q6H PRN IV for systolic greater than 170; Start 07/16/18 at 20:00 Alteplase, Recombinant (Cathflo (Activase)) 2 mg MAY REPEAT X1 PRN CATHETER IF CATHETER REMAINS OCCULUDED; Start 07/17/18 at 05:30 Gabapentin (Neurontin) 300 mg HS PO ; Start 07/17/18 at 21:00 Vancomycin HCl 2 gm/Sodium Chloride 500 ml @ 125 mls/hr Q12H IVPB ; Start 07/17/18 at 17:00 Clotrimazole (Lotrimin Cr) 1 applic BID TOP ; Start 07/17/18 at 21:00; Status UNV Fluocinonide (Lidex E 0.05%/ Emoll Cr) 1 applic BID TOP ; Start 07/17/18 at 21:00; Status UNV Date/Time of Note Date/Time of Note DATE: 07/17/18 TIME: 13:33 SUSAN ALLAN NP Jul 17, 2018 13:35
[2018-07-17 14:15] VITALS: BP 154/89; PULSE 99; RESP 19
--- NOTE | 2018-07-17 14:43 | NUR ---
WOUND CONSULTATION NOTE: 53-year-old gentleman who presented with lower extremity wounds, s/p debridement by Dr. Bayron Ward. Bilateral lower extremities on assessment are both wrapped in Kerlix as well as WESLEY wrap. Wound consult was initiated to follow bilateral hands noted per records to be irritated without itching. On exam, patient reports having no recent exposure to chemicals and irritants and states the peeling, flaking skin on both of his hands has started as far back as 1989. Patient reports not seeing a bale opener regarding this condition. He denies pruritus, denies progression to any body part other than localized to bilateral hands and fingertips. Patient denies frequent hand washing, chemical exposure. Possibilities include hand eczema vs exfoliative keratolysis vs allergic contact dermatitis; less likely suspicion for psoriasis RECOMMENDATIONS: -At this time, I spoke with the patient and recommended follow up with dermatology once discharged from the hospital, given no open wounds and no improvement with conservative treatment. -May keep hands moisturized and hydrated with thick emollient skin nourishing ointment as needed Patient was seen and examined and recommendations were discussed with primary RN Fatoumata. Thank you Ada Juarez, MSN, RN, CCRN, WCC
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
[2018-07-17] MEDS: CIPROFLOXACIN 500 MG TAB PO SCH (17:24)
[2018-07-17] MEDS: VANCOMYCIN HCL 2 GM in SOD CHLORIDE 0.9% 500 ML IVPB SCH (17:25)
--- NOTE | 2018-07-17 18:28 | NUR ---
EOSS: Pt. A/Ox4; VSS, no acute distress. C/O pain this shift; pain meds given with adequate relief. Pt. here for diabetic ulcers;bedside debridement done today; wound care done by MD; new wound care orders received. NESHA PICC line; IV and PO ABX; CLABSI bundle maintained. Accuchecks AC/HS; no coverage needed. All other due meds given and needs attended to. Pending decision on SNF placement VS home. Hourly rounding done, bed alarm on, call light within reach, encouraged to call for assistance. Will continue to monitor and endorse care to oncoming nurse
[2018-07-17 20:00] VITALS: BP 133/75; PULSE 73; RESP 18
[2018-07-17] MEDS: CLOTRIMAZOLE 1% 30 GM CR TOP SCH (20:32)
[2018-07-17] MEDS: SENNA/DOCUSATE NA (8.6MG/50MG) TAB PO SCH (20:33)
[2018-07-17] MEDS: GABAPENTIN 300 MG CAP PO SCH (20:33)
[2018-07-17] MEDS: DOCUSATE SODIUM 10 MG/ML (10ML CUP) PO SCH ×2 (20:33→20:37)
[2018-07-17] MEDS ORDERED: FLUOCINONIDE 0.05%/EMOLL 15 GM CR TOP SCH (21:00)
[2018-07-17] MEDS: FLUOCINONIDE 0.05% 15 GM CR TOP SCH (21:28)
--- NOTE | 2018-07-17 21:46 | NUR ---
VANCO running when I arrived at shift. About 100cc left in bag. Pt was agitated stating to disconnect him because he has been connected for over 3 hours. Pt made me disconnect him from IV and refused remainder of IV Vanco.
[2018-07-18] MEDS: ACCU-CHEK XX SCH (01:09)
[2018-07-18 02:00] VITALS: BP 146/82; PULSE 88; RESP 19
[2018-07-18] MEDS: VANCOMYCIN HCL 2 GM in SOD CHLORIDE 0.9% 500 ML IVPB SCH ×2 (04:28→17:07)
--- NOTE | 2018-07-18 05:11 | NUR ---
EOSS A&Ox4. VSS. No acute changes in patient's condition. All due meds given. Pt c/o pain x1. Pain meds given. Pain goal met. Dressing change done by MD. S/p wound debridement. First dressing change to be done by MD. Hourly rounding done. Bed left in lowest position. Refused bed alarm. Call light left within reach.
[2018-07-18] MEDS: CIPROFLOXACIN 500 MG TAB PO SCH ×2 (05:21→17:09)
[2018-07-18 08:00] VITALS: BP 164/104; PULSE 77; RESP 18
[2018-07-18] MEDS: INSULIN ASPART [NOVOLOG] 3 ML PEN SC SCH ×4 (08:00→20:39)
[2018-07-18] MEDS: MUPIROCIN 2% 22 GM OINT TOP SCH ×2 (08:23→20:31)
[2018-07-18] MEDS: CLOTRIMAZOLE 1% 30 GM CR TOP SCH ×2 (08:23→20:45)
[2018-07-18] MEDS: LACTOBACILLUS RHAMNOSUS CAP PO SCH ×2 (08:23→20:29)
[2018-07-18] MEDS: FLUOCINONIDE 0.05% 15 GM CR TOP SCH ×2 (08:23→20:45)
[2018-07-18] MEDS: SODIUM HYPOCHLORITE (1/40) 1 APPLIC BTL IRR SCH (08:23)
[2018-07-18] MEDS: ENOXAPARIN 40 MG/0.4 ML SYG SC SCH (08:24)
[2018-07-18] MEDS: morphine 4 MG/ML VIAL IV PRN ×3 (09:30→20:41)
[2018-07-18] MEDS: BISACODYL (EC) 5 MG TAB PO PRN (10:35)
--- NOTE | 2018-07-18 11:45 | PN ---
Date/Time of Note Date/Time of Note DATE: 07/18/18 TIME: 11:29 Assessment/Plan VTE Prophylaxis Risk score (from Nsg)>0 risk: 6 SCD applied (from Ns): No SCD contraindicated: other (wounds) Pharmacological prophylaxis: LMWH Lines/Catheters IV Catheter Type (from Nrsg): PICC Line Central line still needed: Yes Urinary Cath still in place: No Assessment/Plan Assessment/Plan 1. Bilateral lower extremity diabetic foot wound with infection and osteomyelitis, needs 6 weeks antibiotics, cont wound care 2. Diabetes, on diet control, HbA1c 6 3. Bipolar disorder, stable 4. Morbid obesity 5. MRSA nares status, on bactroban' 6. DVT prophylaxis: lovenox 7. manager trade for placement Result Diagram: 07/17/18 1031 07/17/18 1031 Results 24hrs Laboratory Tests Test 07/17/18 12:19 07/17/18 17:23 07/17/18 20:30 07/18/18 08:17 Bedside Glucose 106 124 124 123 Subjective 24 Hr Interval Summary Free Text/Dictation afebrile, needs placement per patient Exam/Review of Systems Vital Signs Vitals Vital Signs Date Temp Pulse Resp B/P (MAP) Pulse Ox O2 O2 Flow FiO2 Time Delivery Rate 07/18/18 97.9 77 18 164/104 98 Room Air 08:00 (124) Intake and Output 07/17/18 07/17/18 07/18/18 1515:00 23:00 07:00 IntakeIntake Total 509 ml 1300 ml OutputOutput Total 1200 ml 1000 ml BalanceBalance 509 ml 100 ml -1000 ml Exam Constitutional: alert, oriented, well developed, obese Psych: no complaints, nl mood/affect Head: normocephalic, atraumatic Eyes: nl conjunctiva, EOMI, nl lids, nl sclera, PERRL ENMT: nl external ears & nose, nl lips & teeth, nl nasal mucosa & septum, mucosa pink and moist Neck: supple, non-tender Respiratory: clear to auscultation, normal air movement; No congested cough, No crackles/rales, No diminished breath sounds, No intercostal retraction, No labored breathing, No respirations, No tactile fremitus, No wheezing, No other Cardiovascular: regular rate and rhythm, nl pulses; No bruits, No diastolic murmur, No edema, No gallop, No irregular rhythm, No jugular venous distention (JVD), No murmurs/extra sounds, No rub, No systolic mu rmur, No S3, No S4, No other Gastrointestinal: soft, nl liver, spleen, non-tender Musculoskeletal: nl extremities to inspection Extremities: other (bilateral foot wounds) Neurological: BLACK PICKLER II-XII intact, nl mental status, nl speech, nl strength Medications Medications Current Medications IV Flush (NS 3 ml) 3 ml PER PROTOCOL IV ; Start 07/11/18 at 22:00 Ondansetron HCl (Zofran Inj) 4 mg Q6H PRN IV NAUSEA AND/OR VOMITING; Start 07/11/18 at 22:00 Acetaminophen (Tylenol Tab) 650 mg Q6H PRN PO PAIN LEVEL 1-3 OR FEVER; Start 07/11/18 at 22:00 Albuterol/ Ipratropium (Duoneb) 3 ml Q2H RESP THERAPY PRN HHN SHORTNESS OF BREATH; Start 07/11/18 at 22:00 Vancomycin HCl (Vanco Iv Per Pharmacy) VANCOMYCIN PER PHARMACY PER PROTOCOL XX ; Start 07/11/18 at 22:00 Mupirocin (Bactroban) 1 applic BID TOP Last administered on 07/18/18at 08:23; Admin Dose 1 APPLIC; Start 07/12/18 at 09:00; Stop 07/22/18 at 08:59 Sodium Hypochlorite (Dakin'S (Dilute 1/40)) 1 applic DAILY IRR Last administered on 07/17/18at 08:15; Admin Dose 1 APPLIC; Start 07/12/18 at 15:30 Lactobacillus Acidophilus/ Rhamnosus (Culturelle) 1 cap BID PO Last administered on 07/18/18at 08:23; Admin Dose 1 CAP; Start 07/12/18 at 21:00 Acetaminophen/ Hydrocodone Bitart ([place] (10/325)) 1 tab Q4H PRN PO MODERATE PAIN LEVEL 4-6; Start 07/12/18 at 15:30 Diagnostic Test (Pha) (Accu-Chek) 1 ea 02 XX ; Start 07/13/18 at 02:00 Insulin Aspart (Novolog Insulin Pen) NOVOLOG *MODERATE* ALGORITHM WITH MEALS BEDTIME SC ; Start 07/12/18 at 18:00 Nicotine (Nicoderm 14 Mg/ 24hr) 1 patch DAILY PRN TRANSDERM CONTROL WITHDRAWAL SYMPTOMS; Start 07/13/18 at 09:00 Docusate Sodium (Colace Liquid Cup) 100 mg HS PO Last administered on 07/14/18at 20:14; Admin Dose 100 MG; Start 07/13/18 at 23:30 Enoxaparin Sodium (Lovenox) 40 mg DAILY SC Last administered on 07/18/18at 08:24; Admin Dose 40 MG; Start 07/14/18 at 09:00 Miscellaneous Information 1 ea NOTE XX ; Start 07/14/18 at 15:00 Glucose (Glutose) 15 gm Q15M PRN PO DECREASED GLUCOSE; Start 07/14/18 at 15:00 Glucose (Glutose) 22.5 gm Q15M PRN PO DECREASED GLUCOSE; Start 07/14/18 at 15:00 Dextrose (D50w Syringe) 25 ml Q15M PRN IV DECREASED GLUCOSE; Start 07/14/18 at 15:00 Dextrose (D50w Syringe) 50 ml Q15M PRN IV DECREASED GLUCOSE; Start 07/14/18 at 15:00 Glucagon (Glucagen) 1 mg Q15M PRN IM DECREASED GLUCOSE; Start 07/14/18 at 15:00 Glucose (Glutose) 15 gm Q15M PRN BUCCAL DECREASED GLUCOSE; Start 07/14/18 at 15:00 Morphine Sulfate (morphine) 2 mg Q4H PRN IV SEVERE PAIN LEVEL 7-10 Last administered on 07/18/18at 09:30; Admin Dose 2 MG; Start 07/14/18 at 16:00 Senna/Docusate Sodium (Senokot-S) 2 tab HS PO Last administered on 07/17/18at 20:33; Admin Dose 2 TAB; Start 07/15/18 at 21:00 Bisacodyl (Dulcolax) 10 mg BID PRN PO CONSTIPATION Last administered on 07/18/18at 10:35; Admin Dose 10 MG; Start 07/15/18 at 20:00 Hydralazine HCl (Apresoline) 10 mg Q6H PRN IV for systolic greater than 170; Start 07/16/18 at 20:00 Alteplase, Recombinant (Cathflo (Activase)) 2 mg MAY REPEAT X1 PRN CATHETER IF CATHETER REMAINS OCCULUDED Last administered on 07/18/18at 11:15; Admin Dose 2 MG; Start 07/17/18 at 05:30 Gabapentin (Neurontin) 300 mg HS PO Last administered on 07/17/18at 20:33; Admin Dose 300 MG; Start 07/17/18 at 21:00 Vancomycin HCl 2 gm/Sodium Chloride 500 ml @ 125 mls/hr Q12H IVPB Last administered on 07/18/18at 04:28; Admin Dose 125 MLS/HR; Start 07/17/18 at 17:00 Clotrimazole (Lotrimin Cr) 1 applic BID TOP Last administered on 07/18/18at 08:23; Admin Dose 1 APPLIC; Start 07/17/18 at 21:00 Ciprofloxacin (Cipro) 500 mg BID@06,18 PO Last administered on 07/18/18at 05:21; Admin Dose 500 MG; Start 07/17/18 at 18:00 Fluocinonide (Lidex 0.05% Cr) 1 applic BID TOP Last administered on 07/18/18at 08:23; Admin Dose 1 APPLIC; Start 07/17/18 at 20:44 Miscellaneous Information (*Rx Drug Level Order Reminder*) VANCO TROUGH @ 1,600 ONCE ONCE XX ; Start 07/18/18 at 16:00; Stop 07/18/18 at 16:01 RODOLFO SERRANO MD Jul 18, 2018 11:44
--- NOTE | 2018-07-18 13:05 | NUR ---
PT NOTE Therapy day number 4 Subjective Current complaint of pain Pain Scale FACES Pain Intensity 4 (0-10) Patient Stated Goal for Pain Relief 0 (0-10) Pain Level Comment BLE feet Exercise Assessment Label Bilat Lower Extremity Exercise Type Active ROM Additional Exercise Comments seated LAQ, marching, ankle pumps; pt ed for PWB BLE Exercise Start Time 13:05 Exercise End Time 13:15 Total Exercise Time 10 min (8-127) Additional Mobility Comments pt received/left sitting in chair at bedside, needs in reach Additional Gait Comments did not attmept due to PWB BLE Weight Bearing Assessment Label Bilat Lower Extremity Weight Bearing Status Partial Weight Bearing Additional Weight Bearing Comments RN Lillian to f/u larger post-op shoes from distribution Static Sitting Balance Good Dynamic Sitting Balance Good Safety Judgement Fair Activity Tolerance Fair Post Treatment Pain Intensity 4 0-10 Additional Post Treatment Comment See BElow Total Treament Time 10 min (8-127) Total Minutes 10 Total Units 1 PT Technical Record Comment PT NOTE S: PT reports feeling much better today 2/2 able to void bowels yesterday, agreeable to PT. O: Performed thera ex sitting up in chair per tech record above. Pt with decreased BLE endurance/strength. Pt ed for PWB BLE, tissue integrity and fall prevention. Pt requesting larger post-op shoes. RN Lillian to f/u re larger post-op shoes. Pt left sitting in chair at bedside, RN informed. A: Pt alessandro tx fairly, limited by PWB BLE, decreased strength/endurance P: Cont POC, f/u re: larger post-op shoes
--- NOTE | 2018-07-18 13:29 | CONS ---
Assessment/Plan Assessment/Plan Hospital Course No acute events. Patient is alert, looks comfortable, no fevers overnight Microbiology: Wound cultures growing coag negative staph species, Enterobacter, gamma hemolytic strep species, Corynebacterium species, enterococcus Antimicrobials: Vancomycin, Levaquin Physical examination: This is a morbidly obese well-developed middle-aged -[place] man who is alert in no distress. Head atraumatic normocephalic sclera nonicteric neck is supple chest rise symmetrical breath sounds clear heart S1-S2 abdomen soft bowel sounds present extremities with bilateral lower extremities dressing intact Assessment: 1. Bilateral lower extremities diabetic ulceration with osteomyelitis 2. Diabetes 3. Diabetic neuropathy 4. Tobacco addiction 5. Bipolar disorder 6. Morbid obesity Plan: Patient remained stable, per podiatry patient needs to be on antibiotics for 6 weeks, consider placement Result Diagram: 07/17/18 1031 07/17/18 1031 Results 24hrs Laboratory Tests Test 07/17/18 17:23 07/17/18 20:30 07/18/18 08:17 07/18/18 12:09 Bedside Glucose 124 124 123 98 Consultation Date/Type/Reason Admit Date/Time Jul 11, 2018 at 21:00 Initial Consult Date Type of Consult id Exam/Review of Systems Vital Signs Vitals Vital Signs Date Temp Pulse Resp B/P (MAP) Pulse Ox O2 O2 Flow FiO2 Time Delivery Rate 07/18/18 97.9 77 18 164/104 98 Room Air 08:00 (124) Intake and Output 07/17/18 07/17/18 07/18/18 1515:00 23:00 07:00 IntakeIntake Total 509 ml 1300 ml 500 ml OutputOutput Total 1200 ml 1000 ml BalanceBalance 509 ml 100 ml -500 ml Medications Medications Current Medications IV Flush (NS 3 ml) 3 ml PER PROTOCOL IV ; Start 07/11/18 at 22:00 Ondansetron HCl (Zofran Inj) 4 mg Q6H PRN IV NAUSEA AND/OR VOMITING; Start 07/11/18 at 22:00 Acetaminophen (Tylenol Tab) 650 mg Q6H PRN PO PAIN LEVEL 1-3 OR FEVER; Start 07/11/18 at 22:00 Albuterol/ Ipratropium (Duoneb) 3 ml Q2H RESP THERAPY PRN HHN SHORTNESS OF BREATH; Start 07/11/18 at 22:00 Vancomycin HCl (Vanco Iv Per Pharmacy) VANCOMYCIN PER PHARMACY PER PROTOCOL XX ; Start 07/11/18 at 22:00 Mupirocin (Bactroban) 1 applic BID TOP Last administered on 07/18/18at 08:23; Admin Dose 1 APPLIC; Start 07/12/18 at 09:00; Stop 07/22/18 at 08:59 Sodium Hypochlorite (Dakin'S (Dilute )) 1 applic DAILY IRR Last administered on 07/17/18at 08:15; Admin Dose 1 APPLIC; Start 07/12/18 at 15:30 Lactobacillus Acidophilus/ Rhamnosus (Culturelle) 1 cap BID PO Last administer ed on 07/18/18at 08:23; Admin Dose 1 CAP; Start 07/12/18 at 21:00 Acetaminophen/ Hydrocodone Bitart ([place] (10/325)) 1 tab Q4H PRN PO MODERATE PAIN LEVEL 4-6; Start 07/12/18 at 15:30 Diagnostic Test (Pha) (Accu-Chek) 1 ea 02 XX ; Start 07/13/18 at 02:00 Insulin Aspart (Novolog Insulin Pen) NOVOLOG *MODERATE* ALGORITHM WITH MEALS BEDTIME SC ; Start 07/12/18 at 18:00 Nicotine (Nicoderm 14 Mg/ 24hr) 1 patch DAILY PRN TRANSDERM CONTROL WITHDRAWAL SYMPTOMS; Start 07/13/18 at 09:00 Docusate Sodium (Colace Liquid Cup) 100 mg HS PO Last administered on 07/14/18at 20:14; Admin Dose 100 MG; Start 07/13/18 at 23:30 Enoxaparin Sodium (Lovenox) 40 mg DAILY SC Last administered on 07/18/18at 08:24; Admin Dose 40 MG; Start 07/14/18 at 09:00 Miscellaneous Information 1 ea NOTE XX ; Start 07/14/18 at 15:00 Glucose (Glutose) 15 gm Q15M PRN PO DECREASED GLUCOSE; Start 07/14/18 at 15:00 Glucose (Glutose) 22.5 gm Q15M PRN PO DECREASED GLUCOSE; Start 07/14/18 at 15:00 Dextrose (D50w Syringe) 25 ml Q15M PRN IV DECREASED GLUCOSE; Start 07/14/18 at 15:00 Dextrose (D50w Syringe) 50 ml Q15M PRN IV DECREASED GLUCOSE; Start 07/14/18 at 15:00 Glucagon (Glucagen) 1 mg Q15M PRN IM DECREASED GLUCOSE; Start 07/14/18 at 15:00 Glucose (Glutose) 15 gm Q15M PRN BUCCAL DECREASED GLUCOSE; Start 07/14/18 at 15:00 Morphine Sulfate (morphine) 2 mg Q4H PRN IV SEVERE PAIN LEVEL 7-10 Last administered on 07/18/18at 09:30; Admin Dose 2 MG; Start 07/14/18 at 16:00 Senna/Docusate Sodium (Senokot-S) 2 tab HS PO Last administered on 07/17/18 20:33; Admin Dose 2 TAB; Start 07/15/18 at 21:00 Bisacodyl (Dulcolax) 10 mg BID PRN PO CONSTIPATION Last administered on 07/18/18at 10:35; Admin Dose 10 MG; Start 07/15/18 at 20:00 Hydralazine HCl (Apresoline) 10 mg Q6H PRN IV for systolic greater than 170; Start 07/16/18 at 20:00 Alteplase, Recombinant (Cathflo (Activase)) 2 mg MAY REPEAT X1 PRN CATHETER IF CATHETER REMAINS OCCULUDED Last administered on 07/18/18at 11:15; Admin Dose 2 MG; Start 07/17/18 at 05:30 Gabapentin (Neurontin) 300 mg HS PO Last administered on 07/17/18at 20:33; Admin Dose 300 MG; Start 07/17/18 at 21:00 Vancomycin HCl 2 gm/Sodium Chloride 500 ml @ 125 mls/hr Q12H IVPB Last administered on 07/18/18at 04:28; Admin Dose 125 MLS/HR; Start 07/17/18 at 17:00 Clotrimazole (Lotrimin Cr) 1 applic BID TOP Last administered on 07/18/18 08:23; Admin Dose 1 APPLIC; Start 07/17/18 at 21:00 Ciprofloxacin (Cipro) 500 mg BID@06,18 PO Last administered on 07/18/18 05:21; Admin Dose 500 MG; Start 07/17/18 at 18:00 Fluocinonide (Lidex 0.05% Cr) 1 applic BID TOP Last administered on 07/18/18at 08:23; Admin Dose 1 APPLIC; Start 07/17/18 at 20:44 Miscellaneous Information (*Rx Drug Level Order Reminder*) VANCO TROUGH @ 1,600 ONCE ONCE XX ; Start 07/18/18 at 16:00; Stop 07/18/18 at 16:01 Date/Time of Note Date/Time of Note DATE: 07/18/18 TIME: 13:29 SUSAN ALLAN NP Jul 18, 2018 13:29
[2018-07-18 14:00] VITALS: BP 140/85; PULSE 100; RESP 18
--- NOTE | 2018-07-18 14:15 | NUR ---
KLARISSA Notes: Received an order for SNF, wound care, PT and IV antibiotics. Also appoinment for podiatry and ID. T/c made to KIN Lewis ( [phone] ) regarding the order. Still with pending CEFERINO to [facility]. As per Debbie she is working on this patient and will call me as soon as she has the CEFERINO. Will follow the case, CM ext [phone].
--- NOTE | 2018-07-18 16:42 | NUR ---
Discharge Information: [facility] Room #: 124 - B PN: [phone] Call Aliyah for Report [phone] [facility] ext [phone] Trip #: [id number] ETA at 10 pm Contact Isolation.
--- NOTE | 2018-07-18 17:27 | NUR ---
VANCOMYCIN PER PHARMACY Problem List: BLE DM ULCERS W/ OSTEOMYELITIS, MORBID OBESITY Current ABXs: VANCOMYCIN, CIPRO Levels/Significant Labs: 07/13 B/L FOOT XR: NEG 07/11 MRI (OUTSIDE FACILITY COMBER SETTER): (R) FOOT: OSTEOMYELITIS INVOLVING (R) 1ST DIGIT DISTAL PHALANX, 2ND DIGIT MIDDLE PHALANX W/5TH PROXIMAL PHALANX. (L) FOOT: FINDINGS CONSISTENT WITH 1ST DIGIT DISTAL PHALANX OSTEOMYELITIS. 07/18 VANCO TR = 11.9 07/16 VANCO TR = 11.4 (DRAWN 1 HOUR LATE) 07/13 VANCO TR = 14.1 Comments/Plan: VANCO TROUGH SLIGHTLY SUBTHERAPEUTIC. CHANGE VANCO 2 GM Q12H TO 1.25 GM Q8H. ID NOTE: SUSAN (07/18) - CONTINUE ANTIBIOTICS FOR 6 WEEKS; CONSIDER PLACEMENT.
[2018-07-18] MEDS: SENNA/DOCUSATE NA (8.6MG/50MG) TAB PO SCH (20:30)
[2018-07-18] MEDS: GABAPENTIN 300 MG CAP PO SCH (20:30)
[2018-07-18 20:31] VITALS: BP 165/92; PULSE 82; RESP 18
[2018-07-18] MEDS: DOCUSATE SODIUM 10 MG/ML (10ML CUP) PO SCH (20:45)
[2018-07-18 21:34] VITALS: BP 135/88; PULSE 99
--- NOTE | 2018-07-18 23:08 | NUR ---
Pt transferred to SNF via gurney and 2 transporters. Gave phone report to Shelby.
--- NOTE | 2018-07-18 23:27 | NUR ---
Pt in stable condition, had all belongings. Discharge had been set up already, Vanco IV had to finish infusing.
[2018-07-19] MEDS ORDERED: VANCOMYCIN HCL 1.25 GM in SOD CHLORIDE 0.9% 250 ML IVPB SCH (01:00)
--- NOTE | 2018-07-25 10:27 | DS ---
Date/Time of Note Date/Time of Note DATE: 07/25/18 TIME: 10:22 Discharge Summary Admission/Discharge Info Admit Date/Time Jul 11, 2018 at 21:00 Discharge Date/Time Jul 18, 2018 at 23:10 Discharge Diagnosis 1. Bilateral lower extremity diabetic foot wound with infection and osteomyelitis, needs 6 weeks antibiotics, cont wound care 2. Diabetes, on diet control, HbA1c 6 3. Bipolar disorder, stable 4. Morbid obesity 5. MRSA nares status, on bactroban 6. DVT prophylaxis: lovenox Patient Condition: Stable Hospital Course his is a 53-year-old homeless male with history of hypertension, diabetes, bi polar, depression, CHF, right foot osteomyelitis, bilateral lower extremity/foot ulcer who initially was brought to an outside hospital after he burned his left foot during dressing change. He said he was attempting to cut the dressing using hot charcoal when he accidentally burned himself. I asked him repeatedly if this was intentional, but he denied. He has been dealing with chronic foot ulcer for a long time. He also said that he was told about bone infection. Outside facility, MRI shows osteomyelitis involving the right first digit distal phalanx, second digit middle phalanx and fifth digit proximal phalanx. Left foot MRI also shows findings consistent with first digit distal phalanx osteomyelitis. He was transferred to [facility] for insurance reasons. Patient was seen by grinder setup operator who did excisional debridement of skin/subQ of bilateral hallux ulcers using a scalpel blade. Less than 20cm2 of area was debrided. Hyperkeratotic tissue and biofilm was removed from the wound sites. Copious saline irrigation was used for the wound sites and wound cultures were obtained. Patient had previous MRI from outside hospital is showing osteomyelitis. Continue with daily dressing changes. Patient has orthopedic shoes. Patient will be on antibiotics for 6 weeks. Home Meds Reported Medications Naproxen* (Naproxen*) 500 Mg Tablet, 500 MG PO BID, TAB 07/12/18 Sennosides* (Senna Lax*) 8.6 Mg Tablet, 1 TAB PO BID PRN for CONSTIPATION, TAB 07/12/18 Thiamine* (Thiamine*) 100 Mg Tablet, 100 MG PO DAILY, TAB 07/12/18 Pyridoxine Hcl* (Pyridoxine Hcl*) 100 Mg Tablet, 100 MG PO DAILY, TAB 07/12/18 Nifedipine* (Adalat CC*) 30 Mg Tablet.sa, 30 MG PO DAILY, #30 TAB.SA 07/12/18 Metoprolol Tartrate* (Lopressor*) 50 Mg Tab, 50 MG PO BID, #60 TAB 07/12/18 Lisinopril* (Lisinopril*) 40 Mg Tablet, 40 MG PO DAILY, #30 TAB 07/12/18 Folic Acid* (Folic Acid*) 1 Mg Tablet, 1 MG PO DAILY, TAB 07/12/18 Bupropion Hcl* (Bupropion Hcl*) 100 Mg Tablet, 100 MG PO DAILY, TAB 07/12/18 Follow-up Plan PCP in one week Podiatry in one week wound care SNF Primary Care Provider Not On Staff Doctor RODOLFO SERRANO MD Jul 25, 2018 10:27
== END 2018-07-18 23:10 | DRG 623 ==
LOC: 5EC 21:00
PROVIDERS: ADMIT Internal Medicine; ATTEND Internal Medicine
PROC: 0JBR0ZZ Excision of Left Foot Subcutaneous Tissue and Fascia, Open Approach (ICD-10-PCS; 2018-07-12)
PROC: 0JBQ0ZZ Excision of Right Foot Subcutaneous Tissue and Fascia, Open Approach (ICD-10-PCS; principal; 2018-07-17)
DX: E11.621 Type 2 diabetes mellitus with foot ulcer (principal); M86.8X7 Other osteomyelitis, ankle and foot; E11.42 Type 2 diabetes mellitus with diabetic polyneuropathy; I11.0 Hypertensive heart disease with heart failure; I50.9 Heart failure, unspecified; F20.9 Schizophrenia, unspecified; E66.01 Morbid (severe) obesity due to excess calories; B95.2 Enterococcus as the cause of diseases classified elsewhere; L97.529 Non-pressure chronic ulcer of other part of left foot with unspecified severity; L97.519 Non-pressure chronic ulcer of other part of right foot with unspecified severity; B95.4 Other streptococcus as the cause of diseases classified elsewhere; M21.40 Flat foot [pes planus] (acquired), unspecified foot; T25.221A Burn of second degree of right foot, initial encounter; F31.9 Bipolar disorder, unspecified; R62.7 Adult failure to thrive; Z68.37 Body mass index [BMI] 37.0-37.9, adult; M20.5X9 Other deformities of toe(s) (acquired), unspecified foot; F17.200 Nicotine dependence, unspecified, uncomplicated; X19.XXXA Contact with other heat and hot substances, initial encounter; Y93.89 Activity, other specified; Y92.9 Unspecified place or not applicable; Y99.8 Other external cause status; Z79.4 Long term (current) use of insulin; Z59.0 Homelessness
CPT/HCPCS: 73630; 80053; 80202; 82565; 82962; 83036; 83735; 84100; 84443; 84520; 85025; 85610; 85651; 86140; 87070; 87081; 90686; 97110; 97116; 97162; 97530; J0692; J1644; J1650; J1815; J2185; J2270; J2274; J2997; J3370; J7040; J7050

== ENCOUNTER 2019-01-01 21:30 | Inpatient (IN) | payer OTHER ==
[~2019-01-01] VITALS: Ht 190.5 cm; Wt 97.0 kg
[~2019-01-01 21:30] MED LIST: BUPR100T14 PO; FOLI-49 PO; LISI40TA3 PO; METO-429 PO; NAPR-688 PO; NIFE30TA43 PO; PYRI100T4 PO; SENN-120 PO; THIA100T10 PO
[2019-01-01 22:53] VITALS: Ht 190.5 cm; Wt 97.0 kg
[2019-01-01 23:30] VITALS: BP 171/91; PULSE 97; RESP 18
--- NOTE | 2019-01-01 23:57 | HP ---
Date/Time of Note Date/Time of Note DATE: 01/01/19 TIME: 23:57 Assessment/Plan VTE Prophylaxis SCD applied (from [facility]): No SCD contraindicated: other (Bilateral wounds) Pharmacological prophylaxis: NA/contraindicated Pharm contraindication: surgical contra Assessment/Plan Hospital Course This is a 53-year-old male being admitted to the [facility] floor for: 1. High suspicion for recurrent/chronic bilateral foot osteomyelitis: Patient does have maggots in the left foot. Broad-spectrum antibiotics at the current time of vancomycin and Zosyn. Will check ESR and CRP level. We will order MRIs of the bilateral feet. Will consult podiatry and infectious disease . Pain management. Wound care consult. 2. History of CHF: Patient does not appear to be decompensated. He is currently not on any medications. We will check an echocardiogram. 3. Hypertension: Currently not on any meds. PRN hydralazine 4. Diabetes:, Currently not on any meds, we will check hemoglobin A1c, insulin sliding scale 5. Bipolar/schizophrenia/depression: Currently not on any medications, will consult psychiatry inpatient 6. alcohol abuse: Patient does report daily heavy alcohol use with the most recent use yesterday. We will put the patient on Librium taper, PRN Ativan. Will check an ethanol level and urine drug screen. 7. Transaminitis: Suspect secondary to underlying alcohol use. Will check a right upper quadrant ultrasound. Will check hepatitis B, C 8. Normocytic anemia: We will check iron stores 9. Thrombocytopenia: Again likely secondary to underlying alcohol use, please see #7. 10. DVT GI prophylaxis: We will hold chemical and mechanical prophylaxis at the current time as patient may require surgical intervention. We will initiate the patient on anticoagulation once cleared by podiatry, no GI prophylaxis indicated Further treatment strategy will be implemented as per the clinical course. HPI/ROS Admit Date/Time Admit Date/Time Jan 01, 2019 at 22:19 Hx of Present Illness Chief complaint: Bilateral lower extremity wounds This is a 53-year-old male with a past medical history of bilateral lower extremity wounds, right foot osteomyelitis, bipolar disorder, CHF and hypertension, depression, diabetes mellitus who originally presented to [facility] for evaluation of worsening wounds on his feet. Patient reported that his wounds reopened a couple weeks ago and that they have been worsening since then. She reports that he is currently homeless. Patient was given vancomycin EKG the transfer facility showed normal sinus rhythm at approximately 2 bpm, lactic acid was negative troponin was negative.. Patient reports that he is currently not on any medications. Patient was previously diagnosed with osteomyelitis and he was treated with long-term antibiotics. Certain laboratory findings from transfer facility please see chart for full details: White blood cells 4.5/hemoglobin 11.8/hematocrit 37% Creatinine 0.8 Potassium 3.8 Patient had x-ray of the chest which showed no acute pulmonary infiltrates. Patient had x-rays performed of the bilateral feet which showed concern for possible acute osteomyelitis. She reports pain in his bilateral lower extremities. He does report that he is noticed maggots coming out. He states that he drinks daily to 24 ounce alcoholic drinks on a daily basis. He denies any IV drug use. He does smoke cigarettes. Allergies: NKDA Medications: None ROS Const: As per HPI Eyes : No pain discharge or redness or change in visual acuity ENT: No pain, sore throat, congestion, congestion, dysphagia or discharge Respiratory: No shortness of breath, cough, sputum, wheezing, or pleuritic pain Cardiovascular: No chest pain, palpitation, PND, or edema GI : no change in appetite, abdominal pain, nausea, vomiting, diarrhea, constipation, or change in the color his stool Genitourinary: No dysuria, hematuria, flank pain , discharge or CVA tenderness Musculoskeletal: As per HPI Skin: As per HPI Neuro: No headache, dizziness, syncope, seizure, focal weakness Endocrine: No polyuria, polydipsia, temperature intolerance Psych: No hallucination, depression, anxiety or suicidal ideation PMH/Family/Social Past Medical History hypertension, diabetes, bipolar, depression, CHF, right foot osteomyelitis, bilateral lower extremity/foot ulcer Coded Allergies: No Known Drug Allergies (Verified Allergy, Unknown, 07/11/18) Past Surgical History Liver abscess surgery, right femur surgery Past Surgical Hx: other Family History Significant Family History: no pertinent family hx Social History Alcohol Use: heavy Smoking Status: Current every day smoker Exam/Review of Systems Exam Exam General: Patient is a disheveled appearing male currently lying in bed in no acute distress, he does smell of urine HEENT: Atraumatic, normocephalic. The pupils are equal, round and reactive. Extraocular motor are intact Neck: Supple with full range of motion. No rigidity or meningismus Chest: Nontender Lungs: Clear to auscultation bilaterally no crackles rales or wheezing Heart: Normal S1-S2, Regular rhythm and rate. No murmur, S3, or S4 Abdomen: Soft , nontender, nondistended , bowel sounds are present. No guarding no rebound tenderness , No masses or organomegaly. No costovertebral temporal angle mass Extremities: Left foot: Ulcerative lesion seen between the big toe and the second toe with maggots. Stage I ulcer to the medial aspect of the right great toe. Right knee ulceration noted, foul-smelling wounds Neurologic: Normal mental status, speech normal, cranial nerves II through XII are intact, motor and sensory are intact, no focal weakness APRIL LEE Jan 01, 2019 23:57
[2019-01-01 23:58] VITALS: BP 183/108; PULSE 92; RESP 18
[2019-01-02] VITALS (8 sets, daily range): BP systolic 102–193; BP diastolic 10–103; PULSE 78–112; RESP 18
[2019-01-02] MEDS ORDERED: SENNA TAB PO PRN
[2019-01-02] MEDS ORDERED: ONDANSETRON 4 MG INJ IV PRN
[2019-01-02] MEDS ORDERED: BISACODYL (EC) 5 MG TAB PO PRN
[2019-01-02] MEDS ORDERED: DOCUSATE SODIUM 100 MG CAP PO PRN
[2019-01-02] MEDS ORDERED: NACL 0.9% 3 ML SYG IV SCH
[2019-01-02] MEDS ORDERED: ACETAMINOPHEN 325 MG TAB PO PRN
[2019-01-02] MEDS: HYDROmorphONE 0.5 MG/0.5 ML SYG IV PRN ×5 (00:39→22:26)
[2019-01-02] MEDS: METOPROLOL 50 MG TAB PO SCH ×3 (00:42→22:24)
[2019-01-02] MEDS: SOD CHLORIDE 0.9% 1,000 ML IV SCH ×2 (02:00→16:18)
[2019-01-02] MEDS ORDERED: POTASSIUM CHLORIDE (SR) 20 MEQ TAB PO STA (02:39)
[2019-01-02] MEDS ORDERED: PIPER-TAZO 3.375 GM IV (PMX) 100 ML IVPB SCH (03:00)
[2019-01-02] MEDS ORDERED: VANCOMYCIN IV PER PHARMACY XX SCH (03:00)
[2019-01-02] MEDS: hydrALAzine 20 MG INJ IV PRN ×2 (03:14→09:16)
[2019-01-02] MEDS ORDERED: MAGNESIUM SULFATE 3 GM in DEXTROSE 5% 100 ML IVPB ONE (03:30)
[2019-01-02] MEDS ORDERED: VANCOMYCIN HCL 2 GM in SOD CHLORIDE 0.9% 500 ML IVPB ONE (04:00)
[2019-01-02] MEDS: LORAZEPAM 2 MG INJ IV PRN ×2 (05:33→17:23)
[2019-01-02] MEDS ORDERED: MULTIVITAMINS 10 ML, THIAMINE 100 MG, FOLIC ACID 1 MG in SOD CHLORIDE 0.9% 1,000 ML IVPB ONE (06:00)
--- NOTE | 2019-01-02 08:57 | CONS ---
DATE OF ADMISSION: 01/01/2019 DATE OF CONSULTATION: 01/02/2019 REFERRING PHYSICIAN: Dr. Jamel Lee. REASON FOR CONSULTATION: Bilateral foot ulceration with maggots. HISTORY OF PRESENT ILLNESS: A 53-year-old gentleman with history of chronic foot ulceration. The pa martha is currently homeless. He had x-rays with a concern for osteomyelitis and the patient has been at other hospitals for similar condition. The patient with multiple comorbidities. PAST MEDICAL HISTORY: 1. History of congestive heart failure, hypertension, diabetes, bipolar, schizophrenia, depression, history of alcohol abuse, transaminitis. 2. Normocytic anemia. 3. Thrombocytopenia. 4. History of osteomyelitis. ALLERGIES: NONE. PAST SURGICAL HISTORY: Liver abscess surgery and right femur surgery. FAMILY HISTORY: Diabetes. SOCIAL HISTORY: Heavy alcohol, smoker daily. PHYSICAL EXAMINATION: GENERAL: The patient is awake and lying supine. Head is elevated in bed approximately 40 degrees, n o acute respiratory distress. EXTREMITIES: The patient with malodorous feet, chronic ulceration of left second toe with an exposed cartilage from the metatarsal. Foot is warm. Pedal pulses are diminished. There is brawny appeari ng skin. Severe hypohidrosis with callus, mycotic nails, right foot hallux deformities, ulceration a t the medial aspect of the toe. No signs of heel pressure sore. Per report, there were maggots, non e currently seen. LABORATORIES: WBC 3.9, hemoglobin 12.1, hematocrit 37.2, platelets 127. Sed rate 55. Sodium 141, p otassium 3.6, chloride is 106, CO2 is 27, BUN 3, creatinine is 0.63, glucose is 109. Wound cultures are pending. 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 PLAN: The patient was seen and evaluated, awaiting radiographic studies. Ulceration is infected and has a joint exposure. He would benefit from debridement and keep the patient n.p.o. and schedule fo r the next available OR availability. The patient is at risk for forefoot amputation. The patient w ill be kept n.p.o. in preparation and discussed with the patient, and obtained a consent for bilatera l foot debridement. Also, arterial studies of bilateral lower extremities ordered. Dictated By: SHELBI PICKETT DPM RB/NTS Conf#: [id number] [facility]#: [id number] CC: ANTHONY PADILLA MD; JAMEL LEE MD;*EndCC*
[2019-01-02] MEDS ORDERED: THIAMINE 100 MG TAB PO SCH (09:00)
[2019-01-02] MEDS ORDERED: FOLIC ACID 1 MG TAB PO SCH (09:00)
[2019-01-02] MEDS: CHLORDIAZEPOXIDE 25 MG CAP PO SCH ×3 (09:50→23:46)
[2019-01-02] MEDS: BUPROPION 100 MG TAB PO SCH (09:50)
[2019-01-02] MEDS: LISINOPRIL 20 MG TAB PO SCH (09:51)
[2019-01-02] MEDS: NIFEdipine (XL) 30 MG TAB PO SCH (09:51)
[2019-01-02] MEDS: PIPER-TAZO 3.375 GM IV (PMX) 100 ML IVPB SCH ×3 (09:57→22:25)
--- NOTE | 2019-01-02 10:52 | CONS ---
DATE OF ADMISSION: 01/01/2019 DATE OF CONSULTATION: 01/02/2019 TYPE OF CONSULTATION: Infectious disease. REASON FOR CONSULTATION: Antibiotic management. HISTORY OF PRESENT ILLNESS: Iram Rosario is a 53-year-old male, who comes in with bilateral lower e xtremity wounds and is being seen for antibiotic management. His past problems include: 1. Adult-onset diabetes mellitus. 2. Bilateral lower extremity wounds. 3. Right foot osteomyelitis. 4. Bipolar disorder. 5. Coronary artery disease with congestive heart failure. 6. Hypertension. 7. Depression. The patient originally presented to [facility] for evaluation of worsenin g wounds on his feet and his wounds reopen a few weeks ago and has been worsening since then. He is currently homeless. He was given vancomycin at transfer facility and was transferred to [facility]. He is currently not on medications. He was previously diagnosed with osteomyelitis and was treated with long-term antibiotics. His white count was 4.5, hemoglobin 11.8, hematocrit 37. X-ray s of the chest showed no acute pulmonary infiltrates. X-ray performed on his feet showed concern for possible acute osteomyelitis. He reports pain in both lower extremities. He noticed maggots coming out. He drinks 24 ounces of alcohol on a daily basis. He denies drug use. SOCIAL HISTORY: He does smoke cigarettes. ALLERGIES: NONE TO PENICILLIN, SULFA OR FOODS. MEDICATIONS: None. REVIEW OF SYSTEMS: Noncontributory. PAST SURGICAL HISTORY: He had a liver abscess that was drained. He had right femoral surgery. FAMILY HISTORY: Noncontributory. As noted, he is a heavy alcohol user and a current every day smoker. PHYSICAL EXAMINATION: GENERAL: He is a disheveled male lying in bed in no acute distress. SKIN: Without generalized rash. HEENT: Within normal limits. NECK: Supple. LYMPH NODES: None palpable. CHEST: Decreased breath sounds at the bases. HEART: Without murmur or gallop. ABDOMEN: Soft, nontender, without organosplenomegaly or masses. EXTREMITIES: Without cyanosis or clubbing. Left foot has ulcerative lesions between the toes, secon d toe has maggots. He has a stage I ulcer on the medial aspect of the right toe. Right knee ulcerat ion is noted, foul smelling wounds. RECTAL AND GENITAL: Deferred. NEUROLOGIC: No focal neurological abnormalities. Today, the patient's white count is 3.9, H and H of 12.1 and 37.2, platelet count of 127,000. BUN an d creatinine is 4/0.59, and today is 3/0.63. His liver function tests are elevated. AST 215, ALT 80 , alkaline phosphatase 132. IMPRESSION: The patient has recurrent chronic bilateral foot osteomyelitis, has maggots coming out o f his left foot. He was placed on vancomycin and Zosyn. MRIs of the feet were ordered. Dr. John jasso, was called in consultation. The patient has CHF, appears to be decompensated. He has hype rtension, diabetes, bipolar, schizophrenic, affect, depression, alcohol use, transaminitis secondary to alcohol, normocytic anemia, thrombocytopenia. I concur with the current regimen. We will treat h im with vancomycin and Zosyn. I will dictate my findings to the hospitalist. Dictated By: KATIE BOLANOS MD, JD/JANY Conf#: [id number] DID#: [id number] CC: ANTHONY PADILLA MD;*EndCC*
--- NOTE | 2019-01-02 15:05 | PN ---
Date/Time of Note Date/Time of Note DATE: 01/02/19 TIME: 14:50 Assessment/Plan VTE Prophylaxis SCD applied (from Nsg): No SCD contraindicated: bilateral LE trauma Pharmacological prophylaxis: heparin Lines/Catheters IV Catheter Type (from Nrsg): Mid Line Assessment/Plan Assessment/Plan 1. Bilateral foot chronic lesions with infection and possible osteomyelitis, on vanco/zosyn, podiatry for I&D 2. Alcoholism, on thiamine/folic acid, librium and ativan prn 3. Alcoholic liver disease with transaminitis, follow up with LFTs 4. Hepatitis C 5. Denies Dm, check HbA1c 6. HTN, on metoprolol, lisinopril and nifedipine 7. Bipolar/schizophrenia/depression: Currently not on any medications, will consult psychiatry inpatient 8. Anemia, microcytic, mild, follow up with H/H 9. Thrombocytopenia, alcohol related, follow up with PLT 10. Tobacco dependence, patch 12. DVT prophylaxis: heparin Result Diagram: 01/02/19 0434 01/02/19 0434 Results 24hrs Laboratory Tests Test 01/02/19 00:29 01/02/19 04:34 01/02/19 05:50 01/02/19 09:23 White Blood Count 4.3 L 3.9 L Red Blood Count 4.26 L 4.65 L Hemoglobin 11.1 L 12.1 L Hematocrit 34.2 L 37.2 L Mean Corpuscular 80.3 L 80.0 L Volume Mean Corpuscular 26.1 L 26.0 L Hemoglobin Mean Corpuscular 32.5 32.5 Hemoglobin Concent Red Cell 17.1 H 17.1 H Distribution Width Platelet Count 106 #L 127 L Mean Platelet Volume 10.1 10.6 H Immature 0.500 H 0.500 H Granulocytes % Neutrophils % 41.7 37.3 L Lymphocytes % 42.6 46.4 Monocytes % 13.3 H 13.0 H Eosinophils % 1.4 2.3 Basophils % 0.5 0.5 Nucleated Red Blood 0.0 0.0 Cells % Immature 0.020 0.020 Granulocytes # Neutrophils # 1.8 1.4 L Lymphocytes # 1.8 1.8 Monocytes # 0.6 0.5 Eosinophils # 0.1 0.1 Basophils # 0.0 0.0 Nucleated Red Blood 0.0 0.0 Cells # Erythrocyte 55 H Sedimentation Rate Sodium Level 140 141 Potassium Level 3.5 3.6 Chloride Level 108 106 Carbon Dioxide Level 24 27 Anion Gap 8 8 Blood Urea Nitrogen 4 L 3 L Creatinine 0.59 L 0.63 Est Glomerular > 60 > 60 Filtrat Rate mL/min Glucose Level 120 109 Calcium Level 8.4 8.6 Magnesium Level 1.5 L 1.7 Total Bilirubin 0.6 0.6 Direct Bilirubin 0.00 0.00 Indirect Bilirubin 0.6 0.6 Aspartate Amino 205 H 215 H Transf (AST/SGOT) Alanine 81 H 80 H Aminotransferase (AL T/SGPT) Alkaline Phosphatase 118 132 H C-Reactive Protein 2.3 H Total Protein 8.0 8.4 H Albumin 3.3 3.4 Globulin 4.70 H 5.00 H Albumin/Globulin 0.70 0.68 Ratio Hemoglobin A1c 5.5 Iron Level 63 Total Iron Binding 397 Capacity Percent Iron 16 L Saturation Ferritin 48.1 Triglycerides Level 81 Cholesterol Level 126 LDL Cholesterol, 65 Calculated HDL Cholesterol 45 Cholesterol/HDL 2.8 Ratio Thyroid Stimulating 3.490 Hormone (TSH) Ethyl Alcohol Level < 10.0 H Prothrombin Time 14.4 Prothrombin Time 1.1 Ratio INR International 1.11 Normalized Ratio Activated 36.1 H Partial Thromboplast Time Hepatitis B Surface NEGATIVE Antigen Hepatitis B Surface NEGATIVE Antibody Hepatitis C Antibody REACTIVE H Procalcitonin 0.09 Test 01/02/19 12:45 Urine Opiates Screen Positive Urine Barbiturates Negative Urine Amphetamines Negative Screen Urine Negative Benzodiazepines Screen Urine Cocaine Screen Negative Urine Cannabinoids Negative Subjective 24 Hr Interval Summary Free Text/Dictation no fever or chills Exam/Review of Systems Exam Vitals Vital Signs Date Temp Pulse Resp B/P (MAP) Pulse Ox O2 O2 Flow FiO2 Time Delivery Rate 01/02/19 98.3 78 18 151/98 96 13:58 (115) Intake and Output 01/01/19 01/01/19 01/02/19 1515:00 23:00 07:00 IntakeIntake Total 436 ml OutputOutput Total 2075 ml BalanceBalance -1639 ml Constitutional: alert, oriented Eyes: EOMI, nl lids ENMT: nl external ears & nose, nl lips & teeth Neck: supple Respiratory: normal air movement; No clear to auscultation, No congested cough, No crackles/rales, No diminished breath sounds, No intercostal retraction, No labored breathing, No respirations, No tactile fremitus, No wheezing, No other Cardiovascular: regular rate and rhythm, nl pulses; No bruits, No diastolic murmur, No edema, No gallop, No irregular rhythm, No jugular venous distention (JVD), No murmurs/extra sounds, No rub, No systolic murmur, No S3, No S4, No other Gastrointestinal: soft, nl liver, spleen, non-tender; No ascites, No bowel sounds, No distended, No firm, No hepatomegaly, No mass, No rebound or guarding, No splenomegaly, No surgical scars, No tender, No other Extremities: normal pulses, other (wounds on both feet) Neurological: PROPOSAL CONSULTANT II-XII intact, nl mental status, nl speech, nl strength Results Results 24hrs Laboratory Tests Test 01/02/19 00:29 01/02/19 04:34 01/02/19 05:50 01/02/19 09:23 White Blood Count 4.3 L 3.9 L Red Blood Count 4.26 L 4.65 L Hemoglobin 11.1 L 12.1 L Hematocrit 34.2 L 37.2 L Mean Corpuscular 80.3 L 80.0 L Volume Mean Corpuscular 26.1 L 26.0 L Hemoglobin Mean Corpuscular 32.5 32.5 Hemoglobin Concent Red Cell 17.1 H 17.1 H Distribution Width Platelet Count 106 #L 127 L Mean Platelet Volume 10.1 10.6 H Immature 0.500 H 0.500 H Granulocytes % Neutrophils % 41.7 37.3 L Lymphocytes % 42.6 46.4 Monocytes % 13.3 H 13.0 H Eosinophils % 1.4 2.3 Basophils % 0.5 0.5 Nucleated Red Blood 0.0 0.0 Cells % Immature 0.020 0.020 Granulocytes # Neutrophils # 1.8 1.4 L Lymphocytes # 1.8 1.8 Monocytes # 0.6 0.5 Eosinophils # 0.1 0.1 Basophils # 0.0 0.0 Nucleated Red Blood 0.0 0.0 Cells # Erythrocyte 55 H Sedimentation Rate Sodium Level 140 141 Potassium Level 3.5 3.6 Chloride Level 108 106 Carbon Dioxide Level 24 27 Anion Gap 8 8 Blood Urea Nitrogen 4 L 3 L Creatinine 0.59 L 0.63 Est Glomerular > 60 > 60 Filtrat Rate mL/min Glucose Level 120 109 Calcium Level 8.4 8.6 Magnesium Level 1.5 L 1.7 Total Bilirubin 0.6 0.6 Direct Bilirubin 0.00 0.00 Indirect Bilirubin 0.6 0.6 Aspartate Amino 205 H 215 H Transf (AST/SGOT) Alanine 81 H 80 H Aminotransferase (AL T/SGPT) Alkaline Phosphatase 118 132 H C-Reactive Protein 2.3 H Total Protein 8.0 8.4 H Albumin 3.3 3.4 Globulin 4.70 H 5.00 H Albumin/Globulin 0.70 0.68 Ratio Hemoglobin A1c 5.5 Iron Level 63 Total Iron Binding 397 Capacity Percent Iron 16 L Saturation Ferritin 48.1 Triglycerides Level 81 Cholesterol Level 126 LDL Cholesterol, 65 Calculated HDL Cholesterol 45 Cholesterol/HDL 2.8 Ratio Thyroid Stimulating 3.490 Hormone (TSH) Ethyl Alcohol Level < 10.0 H Prothrombin Time 14.4 Prothrombin Time 1.1 Ratio INR International 1.11 Normalized Ratio Activated 36.1 H Partial Thromboplast Time Hepatitis B Surface NEGATIVE Antigen Hepatitis B Surface NEGATIVE Antibody Hepatitis C Antibody REACTIVE H Procalcitonin 0.09 Test 01/02/19 12:45 Urine Opiates Screen Positive Urine Barbiturates Negative Urine Amphetamines Negative Screen Urine Negative Benzodiazepines Screen Urine Cocaine Screen Negative Urine Cannabinoids Negative Medications Medication Current Medications Bupropion HCl (Wellbutrin) 100 mg DAILY PO Last administered on 01/02/19at 09:50; Admin Dose 100 MG; Start 01/02/19 at 09:00 Lisinopril (Zestril) 40 mg DAILY PO Last administered on 01/02/19 09:51; Admin Dose 40 MG; Start 01/02/19 at 09:00 Metoprolol Tartrate (Lopressor) 50 mg BID PO Last administered on 01/02/19at 09:51; Admin Dose 50 MG; Start 01/02/19 at 00:00 Nifedipine (Procardia Xl) 30 mg DAILY PO Last administered on 01/02/19 09:51; Admin Dose 30 MG; Start 01/02/19 at 09:00 Senna (Senokot) 1 tab BID PRN PO CONSTIPATION; Start 01/02/19 at 00:00 IV Flush (NS 3 ml) 3 ml PER PROTOCOL IV ; Start 01/02/19 at 00:00 Ondansetron HCl (Zofran Inj) 4 mg Q6H PRN IV NAUSEA/VOMITING Last administered on 01/02/19at 01:59; Admin Dose 4 MG; Start 01/02/19 at 00:00 Acetaminophen (Tylenol Tab) 650 mg Q6H PRN PO .PAIN 1-3 OR TEMP; Start 01/02/19 at 00:00 Hydromorphone HCl (Dilaudid) 0.5 mg Q4H PRN IV .SEVERE PAIN 7-10 Last administered on 01/02/19at 09:57; Admin Dose 0.5 MG; Start 01/02/19 at 00:00 Docusate Sodium (Colace) 100 mg Q12H PRN PO .CONSTIPATION; Start 01/02/19 at 00:00 Bisacodyl (Dulcolax) 5 mg DAILY PRN PO .CONSTIPATION; Start 01/02/19 at 00:00 Sodium Chloride 1,000 ml @ 70 mls/hr [id number] IV Last administered on 01/02/19at 02:00; Admin Dose 70 MLS/HR; Start 01/02/19 at 02:00 Hydralazine HCl (Apresoline) 10 mg Q4H PRN IV ELEVATED BLOOD PRESSURE Last administered on 01/02/19at 09:16; Admin Dose 10 MG; Start 01/02/19 at 03:00 Vancomycin HCl (Vanco Iv Per Pharmacy) VANCOMYCIN PER PHARMACY PER PROTOCOL XX ; Start 01/02/19 at 03:00 Lorazepam (Ativan) 1 mg Q2H PRN IV CONTROL WITHDRAWAL SYMPTOMS Last administered on 01/02/19at 05:33; Admin Dose 1 MG; Start 01/02/19 at 05:30 Thiamine HCl (Vitamin B1) 200 mg DAILY PO ; Start 01/03/19 at 09:00 Folic Acid (Folic Acid) 1 mg DAILY PO ; Start 01/03/19 at 09:00 Multivitamins Therapeutic (Theragran) 1 tab DAILY PO ; Start 01/03/19 at 09:00 Chlordiazepoxide (Librium) 50 mg TID PO Last administered on 01/02/19at 12:41; A dmin Dose 50 MG; Start 01/02/19 at 09:00; Stop 01/03/19 at 08:59 Chlordiazepoxide (Librium) 25 mg QID PO ; Start 01/03/19 at 09:00; Stop 01/04/19 at 08:59 Chlordiazepoxide (Librium) 25 mg TID PO ; Start 01/04/19 at 09:00; Stop 01/05/19 at 08:59 Vancomycin HCl 1.25 gm/Sodium Chloride 250 ml @ 83.333 mls/ hr Q8H IVPB ; Start 01/02/19 at 13:00 Piperacillin Sod/ Tazobactam Sod 100 ml @ 200 mls/hr Q6 IVPB Last administered on 01/02/19at 12:41; Admin Dose 200 MLS/HR; Start 01/02/19 at 08:00 Miscellaneous Information (*Rx Drug Level Order Reminder*) VANCO TR LEVEL ON @ 400 ONCE ONCE XX ; Start 01/03/19 at 04:00; Stop 01/03/19 at 04:01 RODOLFO SERRANO MD Jan 02, 2019 15:02
[2019-01-02] MEDS: NICOTINE (7 MG/24 HR) PATCH TRANSDERM SCH (16:30)
[2019-01-02] MEDS: VANCOMYCIN HCL 1.25 GM in SOD CHLORIDE 0.9% 250 ML IVPB SCH ×2 (16:38→20:56)
--- NOTE | 2019-01-02 16:44 | RADRPT ---
Echocardiogram Report Patient Name: ARA JOHNSONPatient ID: [id number] : 1965 (53y 8m)Study Date: 01/02/2019 11:18:45 AM Gender: Carmelitacession #: [id number] Tech: RoryMiguelina [facility] Location: [id number]- Ref.Physician: APRIL LEE Height(Cm): BSA: Weight(Kg): Quality: AdequateOrder Physician: APRIL LEE Account #: Procedures: Echocardiographic Report: Transthoracic echocardiogram with complete 2D, M-Mode, and doppler examination. Indications: Hx of Congestive Heart Failure. Measurements: 2D/M Mode Doppler Measurement Value Normal Range Measurement Value Normal Range LVIDd 2D 4.4 [ 4.2 - 5.8 ] cm AV Peak Jaiden 1.5 [ 100.0 - 170.0 ] cm/sec LVIDs 2D 3.1 [ 2.5 - 4.0 ] cm AV Peak PG 9.0 [ 2.0 - 9.0 ] mmHg LVPWd 2D 1.3 [ 0.6 - 1.0 ] cm LVOT Peak Jaiden 1.1 [ 70.0 - 110.0 ] cm/sec IVSd 2D 1.4 [ 0.6 - 1.0 ] cm LVOT Peak PG 5.0 [ 2.0 - 6.0 ] mmHg AoR Diam 2D 3.1 [ 2.6 - 3.4 ] cm MV E Peak Jaiden 0.7 [ 60.0 - 130.0 ] cm/sec EDV 2D 85.8 [ 62.0 - 150.0 ] ml MV A Peak Jaiden 0.6 [ 100.0 - 120.0 ] cm/sec ESV 2D 37.6 [ 21.0 - 61.0 ] ml MV E/A 1.2 [ 0.8 - 1.5 ] ratio EF 2D 56.2 [ 52.0 - 72.0 ] percent MV Decel Time 176 [ 104 - 258 ] msec LA Dimen 2D 4.2 [ 3.0 - 4.0 ] cm Lat E` Jaiden 0.1 [ 10.0 - 15.0 ] cm/sec Lateral E/E` 10.9 [ 1.0 - 2.0 ] ratio Med E` Jaiden 0.1 cm/sec MV E/A 1.2 [ 0.8 - 1.5 ] ratio RA Pressure 8.0 mmHg Findings: Left Ventricle: Normal left ventricular systolic function. Normal left ventricular cavity size. Mild concentric left ventricular hypertrophy. Ejection fraction is visually estimated at 60 %. Right Ventricle: Normal right ventricular systolic function. Moderate enlargement of right ventricle. Left Atrium: There is mild enlargement of left atrium. Right Atrium: There is moderate enlargement of right atrium. Mitral Valve: Mild mitral leaflet calcification. Mild mitral annular calcification. Trace mitral regurgitation. Aortic Valve: No significant aortic stenosis or insufficiency. Aortic cusps appear mildly calcified. Tricuspid Valve: Normal appearance and function of the tricuspid valve with trace physiologic regurgitation. Pericardium: Normal pericardium with no significant pericardial effusion. Aorta: Normal aortic root. IVC: Normal size with poor respiratory collapse consistent with elevated right atrial pressure. Conclusions: Normal left ventricular systolic function. Normal left ventricular cavity size. Mild concentric left ventricular hypertrophy. Ejection fraction is visually estimated at 60 %. Normal right ventricular systolic function. Moderate enlargement of right ventricle. There is mild enlargement of left atrium. There is moderate enlargement of right atrium. No significant valvular stenosis or regurgitation seen. Normal pericardium with no significant pericardial effusion. Electronically Signed By: Junaid Choe 2019-01-02 16:44:28 PDT
--- NOTE | 2019-01-02 17:27 | PSY ---
Date/Time of Note Date/Time of Note DATE: 01/02/19 TIME: 17:21 Psychiatric Subjective Eval Consent Pt consented to telemedicine: No Subjective Evaluation Patient location: inpatient History of present illness Patient is a 53-year-old male with a past medical history of bilateral lower extremity wounds, right foot osteomyelitis, CHF, hypertension, and diabetes mellitus who is admitted to the [facility] unit for worsening wounds on his feet. [id number] evaluation, patient is anxious states he is fearful and does not want to go to MRI because the machine is too big for him patient reports feeling hopeless and helpless, but denies suicidal ideation and contracted for safety. Discussed risk and benefits of medication and patient was notified that bupropion will be discontinued because history of seizure disorder, and Cymbalta will be started. Past psychiatric history History of depression and anxiety Hospitalization: other Allergies: Coded Allergies: No Known Drug Allergies (Verified Allergy, Unknown, 07/11/18) Substance Abuse Substance abuse history: Yes Social History Marital status: other DPA/Conservatorship: No Psychiatric Objective Eval Physical Examination: Appetite: Adequate Energy: Decreased Interest: Decreased Mental Status Examination: Eye Contact: Poor Psychomotor Activity: Slow Behavior: Cooperative Mood: Depressed, Anxious Though Process: Linear Orientation: x3 Cognition: Alert Insight: Severe Judgement: Severe Attention Span: Distractible Laboratory Results Laboratory Tests Test 01/02/19 00:29 01/02/19 04:34 01/02/19 05:50 01/02/19 09:23 White Blood Count 4.3 10^3/ul 3.9 10^3/ul Red Blood Count 4.26 10^6/ul 4.65 10^6/ul Hemoglobin 11.1 g/dl 12.1 g/dl Hematocrit 34.2 % 37.2 % Mean Corpuscular 80.3 fl 80.0 fl Volume Mean Corpuscular 26.1 pg 26.0 pg Hemoglobin Mean Corpuscular 32.5 g/dl 32.5 g/dl Hemoglobin Concent Red Cell 17.1 % 17.1 % Distribution Width Platelet Count 106 10^3/UL 127 10^3/UL Mean Platelet 10.1 fl 10.6 fl Volume Immature 0.500 % 0.500 % Granulocytes % Neutrophils % 41.7 % 37.3 % Lymphocytes % 42.6 % 46.4 % Monocytes % 13.3 % 13.0 % Eosinophils % 1.4 % 2.3 % Basophils % 0.5 % 0.5 % Nucleated Red 0.0 /100WBC 0.0 /100WBC Blood Cells % Immature 0.020 10^3/ul 0.020 10^3/ul Granulocytes # Neutrophils # 1.8 10^3/ul 1.4 10^3/ul Lymphocytes # 1.8 10^3/ul 1.8 10^3/ul Monocytes # 0.6 10^3/ul 0.5 10^3/ul Eosinophils # 0.1 10^3/ul 0.1 10^3/ul Basophils # 0.0 10^3/ul 0.0 10^3/ul Nucleated Red 0.0 10^3/ul 0.0 10^3/ul Blood Cells # Erythrocyte 55 mm/Hr Sedimentation Rate Sodium Level 140 mmol/L 141 mmol/L Potassium Level 3.5 mmol/L 3.6 mmol/L Chloride Level 108 mmol/L 106 mmol/L Carbon Dioxide 24 mmol/L 27 mmol/L Level Anion Gap 8 8 Blood Urea 4 mg/dl 3 mg/dl Nitrogen Creatinine 0.59 mg/dl 0.63 mg/dl Est Glomerular > 60 mL/min > 60 mL/min Filtrat Rate mL/min Glucose Level 120 mg/dl 109 mg/dl Calcium Level 8.4 mg/dl 8.6 mg/dl Magnesium Level 1.5 mg/dl 1.7 mg/dl Total Bilirubin 0.6 mg/dl 0.6 mg/dl Direct Bilirubin 0.00 mg/dl 0.00 mg/dl Indirect Bilirubin 0.6 mg/dl 0.6 mg/dl Aspartate Amino 205 IU/L 215 IU/L Transf (AST/SGOT) Alanine 81 IU/L 80 IU/L Aminotransferase ( ALT/SGPT) Alkaline 118 IU/L 132 IU/L Phosphatase C-Reactive Protein 2.3 mg/dl Total Protein 8.0 g/dl 8.4 g/dl Albumin 3.3 g/dl 3.4 g/dl Globulin 4.70 g/dl 5.00 g/dl Albumin/Globulin 0.70 0.68 Ratio Hemoglobin A1c 5.5 % Iron Level 63 ug/dl Total Iron Binding 397 ug/dl Capacity Percent Iron 16 % SAT Saturation Ferritin 48.1 ng/ml Triglycerides 81 mg/dl Level Cholesterol Level 126 mg/dl LDL Cholesterol, 65 mg/dl Calculated HDL Cholesterol 45 mg/dl Cholesterol/HDL 2.8 RATIO Ratio Thyroid 3.490 MIU/L Stimulating Hormone (TSH) Ethyl Alcohol < 10.0 mg/dl Level Prothrombin Time 14.4 Sec Prothrombin Time 1.1 Ratio INR International 1.11 Normalized Ratio Activated 36.[address] Time Hepatitis B NEGATIVE Surface Antigen Hepatitis B NEGATIVE Surface Antibody Hepatitis C REACTIVE Antibody Procalcitonin 0.09 ng/mL Test 01/02/19 12:45 Urine Opiates Positive Screen Urine Barbiturates Negative Urine Amphetamines Negative Screen Urine Negative Benzodiazepines Screen Urine Cocaine Negative Screen Urine Cannabinoids Negative Assessment and Plan Assessment/Diagnosis Diagnosis Depressive disorder severe recurrent Recommendation/Plan Medication Management Cymbalta 30 mg twice a day, and Seroquel 100 mg at bedtime Multiple antipsychotics: No Discharge Disposition: Other Legal Status: Voluntary (Does not meet criteria for 5150 hold) CARL SCHWARTZ NP Jan 02, 2019 17:27
[2019-01-02] MEDS ORDERED: LORAZEPAM 2 MG INJ IV ONE (17:30)
[2019-01-02] MEDS: QUETIAPINE 100 MG TAB PO SCH (22:22)
[2019-01-02] MEDS: DULOXETINE 30 MG CAP DR PO SCH (22:22)
[2019-01-02] MEDS: HEPARIN 5,000 UNIT/1 ML VIAL SC SCH (22:25)
[2019-01-03] MEDS: PIPER-TAZO 3.375 GM IV (PMX) 100 ML IVPB SCH ×4 (02:03→17:58)
[2019-01-03 02:13] VITALS: BP 99/62; PULSE 93; RESP 19
[2019-01-03] MEDS: SOD CHLORIDE 0.9% 1,000 ML IV SCH ×2 (04:41→20:32)
[2019-01-03] MEDS: VANCOMYCIN HCL 1.25 GM in SOD CHLORIDE 0.9% 250 ML IVPB SCH ×3 (06:06→20:32)
[2019-01-03 07:35] VITALS: BP 134/80; PULSE 87; RESP 18
[2019-01-03] MEDS: NIFEdipine (XL) 30 MG TAB PO SCH (08:54)
[2019-01-03] MEDS: BUPROPION 100 MG TAB PO SCH (08:55)
[2019-01-03] MEDS: METOPROLOL 50 MG TAB PO SCH ×2 (08:55→20:26)
[2019-01-03] MEDS: THIAMINE 100 MG TAB PO SCH (08:55)
[2019-01-03] MEDS: MULTIVITAMINS THERAPEUTIC TAB PO SCH (08:55)
[2019-01-03] MEDS: FOLIC ACID 1 MG TAB PO SCH (08:56)
[2019-01-03] MEDS: LISINOPRIL 20 MG TAB PO SCH (08:56)
[2019-01-03] MEDS: CHLORDIAZEPOXIDE 25 MG CAP PO SCH ×2 (08:56→12:10)
[2019-01-03] MEDS: DULOXETINE 30 MG CAP DR PO SCH ×2 (08:57→20:25)
[2019-01-03] MEDS: HYDROmorphONE 0.5 MG/0.5 ML SYG IV PRN ×2 (08:59→17:57)
[2019-01-03] MEDS: HEPARIN 5,000 UNIT/1 ML VIAL SC SCH ×2 (08:59→20:31)
[2019-01-03] MEDS: NICOTINE (7 MG/24 HR) PATCH TRANSDERM SCH (09:00)
--- NOTE | 2019-01-03 12:46 | PN ---
Date/Time of Note Date/Time of Note DATE: 01/03/19 TIME: 12:37 Assessment/Plan VTE Prophylaxis Risk score (from Ns)>0 risk: 1 SCD applied (from [facility] [place]): No SCD contraindicated: other Pharmacological prophylaxis: LMWH Lines/Catheters IV Catheter Type (from [facility]): Mid Line Assessment/Plan Assessment/Plan 1. Left foot ulcer with infection, on antibiotics, follow up with podiatry 2. Right great toe healing lesion 3. Major depression, consulted with tele psych on 01/02/2019, on cymbalta and seroquel 4. Alcoholism, on thiamine/folic acid, librium and ativan prn, no withdrawal symptoms 5. Alcoholic liver disease with transaminitis, follow up with LFTs 6. Hepatitis C 7. HTN, on metoprolol, lisinopril and nifedipine 8. Anemia, microcytic, mild, follow up with H/H 9. Thrombocytopenia, alcohol and chronic liver disease related, follow up with PLT 10. Tobacco dependence, patch 12. DVT prophylaxis: heparin Result Diagram: 01/03/19 0417 01/03/19 0417 Results 24hrs Laboratory Tests Test 01/02/19 12:45 01/03/19 04:17 Urine Opiates Screen Positive Urine Barbiturates Negative Urine Amphetamines Screen Negative Urine Benzodiazepines Screen Negative Urine Cocaine Screen Negative Urine Cannabinoids Negative White Blood Count 4.2 L Red Blood Count 4.46 L Hemoglobin 11.6 L Hematocrit 36.0 L Mean Corpuscular Volume 80.7 L Mean Corpuscular Hemoglobin 26.0 L Mean Corpuscular Hemoglobin Concent 32.2 Red Cell Distribution Width 17.2 H Platelet Count 116 L Mean Platelet Volume 10.1 Immature Granulocytes % 0.500 H Neutrophils % 50.4 Lymphocytes % 38.2 Monocytes % 8.3 Eosinophils % 2.1 Basophils % 0.5 Nucleated Red Blood Cells % 0.5 H Immature Granulocytes # 0.020 Neutrophils # 2.1 Lymphocytes # 1.6 Monocytes # 0.4 Eosinophils # 0.1 Basophils # 0.0 Nucleated Red Blood Cells # 0.0 Erythrocyte Sedimentation Rate 50 H Sodium Level 139 Potassium Level 3.9 Chloride Level 105 Carbon Dioxide Level 28 Anion Gap 6 Blood Urea Nitrogen 7 Creatinine 0.85 Est Glomerular Filtrat Rate mL/min > 60 Glucose Level 82 Hemoglobin A1c 5.4 Calcium Level 8.7 Total Bilirubin 0.9 Direct Bilirubin 0.00 Indirect Bilirubin 0.9 Aspartate Amino Transf (AST/SGOT) 150 H Alanine Aminotransferase (ALT/SGPT) 64 Alkaline Phosphatase 116 C-Reactive Protein 1.8 H Total Protein 8.0 Albumin 3.2 L Globulin 4.80 H Albumin/Globulin Ratio 0.66 Subjective 24 Hr Interval Summary Free Text/Dictation no distress. afebrile Exam/Review of Systems Exam Vitals Vital Signs Date Temp Pulse Resp B/P (MAP) Pulse Ox O2 O2 Flow FiO2 Time Delivery Rate 01/03/19 97.6 87 18 134/80 94 Room Air 07:35 (98) Intake and Output 01/02/19 01/02/19 01/03/19 1515:00 23:00 07:00 IntakeIntake Total 100 ml 1941.2 ml 1150 ml OutputOutput Total 500 ml 900 ml 500 ml BalanceBalance -400 ml 1041.2 ml 650 ml Constitutional: alert, oriented, well developed Head: normocephalic, atraumatic Eyes: nl conjunctiva, EOMI, nl lids, PERRL ENMT: nl external ears & nose, nl lips & teeth, nl nasal mucosa & septum Neck: supple, non-tender Respiratory: clear to auscultation, normal air movement; No congested cough, No crackles/rales, No diminished breath sounds, No intercostal retraction, No labored breathing, No respirations, No tactile fremitus, No wheezing, No other Cardiovascular: regular rate and rhythm, nl pulses; No bruits, No diastolic murmur, No edema, No gallop, No irregular rhythm, No jugular venous distention (JVD), No murmurs/extra sounds, No rub, No systolic murmur, No S3, No S4, No other Gastrointestinal: soft, nl liver, spleen, non-tender Extremities: other (left foot wound open wound with edema. right great toe lesion) Neurological: INTEGRATIVE MEDICINE PHYSICIAN II-XII intact, nl mental status, nl speech, nl strength Results Results 24hrs Laboratory Tests Test 01/02/19 12:45 01/03/19 04:17 Urine Opiates Screen Positive Urine Barbiturates Negative Urine Amphetamines Screen Negative Urine Benzodiazepines Screen Negative Urine Cocaine Screen Negative Urine Cannabinoids Negative White Blood Count 4.2 L Red Blood Count 4.46 L Hemoglobin 11.6 L Hematocrit 36.0 L Mean Corpuscular Volume 80.7 L Mean Corpuscular Hemoglobin 26.0 L Mean Corpuscular Hemoglobin Concent 32.2 Red Cell Distribution Width 17.2 H Platelet Count 116 L Mean Platelet Volume 10.1 Immature Granulocytes % 0.500 H Neutrophils % 50.4 Lymphocytes % 38.2 Monocytes % 8.3 Eosinophils % 2.1 Basophils % 0.5 Nucleated Red Blood Cells % 0.5 H Immature Granulocytes # 0.020 Neutrophils # 2.1 Lymphocytes # 1.6 Monocytes # 0.4 Eosinophils # 0.1 Basophils # 0.0 Nucleated Red Blood Cells # 0.0 Erythrocyte Sedimentation Rate 50 H Sodium Level 139 Potassium Level 3.9 Chloride Level 105 Carbon Dioxide Level 28 Anion Gap 6 Blood Urea Nitrogen 7 Creatinine 0.85 Est Glomerular Filtrat Rate mL/min > 60 Glucose Level 82 Hemoglobin A1c 5.4 Calcium Level 8.7 Total Bilirubin 0.9 Direct Bilirubin 0.00 Indirect Bilirubin 0.9 Aspartate Amino Transf (AST/SGOT) 150 H Alanine Aminotransferase (ALT/SGPT) 64 Alkaline Phosphatase 116 C-Reactive Protein 1.8 H Total Protein 8.0 Albumin 3.2 L Globulin 4.80 H Albumin/Globulin Ratio 0.66 Medications Medication Current Medications Bupropion HCl (Wellbutrin) 100 mg DAILY PO Last administered on 01/03/19 08:55; Admin Dose 100 MG; Start 01/02/19 at 09:00 Lisinopril (Zestril) 40 mg DAILY PO Last administered on 01/03/19 08:56; Admin Dose 40 MG; Start 01/02/19 at 09:00 Metoprolol Tartrate (Lopressor) 50 mg BID PO Last administered on 01/03/19 08:55; Admin Dose 50 MG; Start 01/02/19 at 00:00 Nifedipine (Procardia Xl) 30 mg DAILY PO Last administered on 01/03/19at 08:54; Admin Dose 30 MG; Start 01/02/19 at 09:00 Senna (Senokot) 1 tab BID PRN PO CONSTIPATION; Start 01/02/19 at 00:00 IV Flush (NS 3 ml) 3 ml PER PROTOCOL IV ; Start 01/02/19 at 00:00 Ondansetron HCl (Zofran Inj) 4 mg Q6H PRN IV NAUSEA/VOMITING Last administered on 01/02/19at 01:59; Admin Dose 4 MG; Start 01/02/19 at 00:00 Acetaminophen (Tylenol Tab) 650 mg Q6H PRN PO .PAIN 1-3 OR TEMP; Start 01/02/19 at 00:00 Hydromorphone HCl (Dilaudid) 0.5 mg Q4H PRN IV .SEVERE PAIN 7-10 Last administered on 01/03/19 08:59; Admin Dose 0.5 MG; Start 01/02/19 at 00:00 Docusate Sodium (Colace) 100 mg Q12H PRN PO .CONSTIPATION; Start 01/02/19 at 00:00 Bisacodyl (Dulcolax) 5 mg DAILY PRN PO .CONSTIPATION; Start 01/02/19 at 00:00 Sodium Chloride 1,000 ml @ 70 mls/hr [id number] IV Last administered on 01/03/19at 04:41; Admin Dose 70 MLS/HR; Start 01/02/19 at 02:00 Hydralazine HCl (Apresoline) 10 mg Q4H PRN IV ELEVATED BLOOD PRESSURE Last administered on 01/02/19 09:16; Admin Dose 10 MG; Start 01/02/19 at 03:00 Vancomycin HCl (Vanco Iv Per Pharmacy) VANCOMYCIN PER PHARMACY PER PROTOCOL XX ; Start 01/02/19 at 03:00 Lorazepam (Ativan) 1 mg Q2H PRN IV CONTROL WITHDRAWAL SYMPTOMS Last administered on 01/02/19at 17:23; Admin Dose 1 MG; Start 01/02/19 at 05:30 Thiamine HCl (Vitamin B1) 200 mg DAILY PO Last administered on 01/03/19at 08:55; Admin Dose 200 MG; Start 01/03/19 at 09:00 Folic Acid (Folic Acid) 1 mg DAILY PO Last administered on 01/03/19 08:56; Admin Dose 1 MG; Start 01/03/19 at 09:00 Multivitamins Therapeutic (Theragran) 1 tab DAILY PO Last administered on 01/03/19 08:55; Admin Dose 1 TAB; Start 01/03/19 at 09:00 Chlordiazepoxide (Librium) 25 mg QID PO Last administered on 01/03/19 12:10; Admin Dose 25 MG; Start 01/03/19 at 09:00; Stop 01/04/19 at 08:59 Chlordiazepoxide (Librium) 25 mg TID PO ; Start 01/04/19 at 09:00; Stop 01/05/19 at 08:59 Vancomycin HCl 1.25 gm/Sodium Chloride 250 ml @ 83.333 mls/ hr Q8H IVPB Last administered on 01/03/19at 06:06; Admin Dose 83.333 MLS/HR; Start 01/02/19 at 13:00 Heparin Sodium (Porcine) (Heparin (5000 Units/1ml)) 5,000 unit BID SC Last administered on 01/03/19at 08:59; Admin Dose 5,000 UNIT; Start 01/02/19 at 21:00 Nicotine (Nicoderm 7 Mg/ 24 Hr) 1 patch DAILY TRANSDERM ; Start 01/02/19 at 16:30 Duloxetine HCl (Cymbalta) 30 mg BID PO Last administered on 01/03/19at 08:57; Admin Dose 30 MG; Start 01/02/19 at 21:00 Quetiapine Fumarate (Seroquel) 100 mg HS PO Last administered on 01/02/19at 22:22; Admin Dose 100 MG; Start 01/02/19 at 21:00 Piperacillin Sod/ Tazobactam Sod 100 ml @ 200 mls/hr Q6 IVPB Last administered on 01/03/19at 12:07; Admin Dose 200 MLS/HR; Start 01/02/19 at 22:00 Miscellaneous Information (*Rx Drug Level Order Reminder*) 1 0400 ONCE XX ; Start 01/04/19 at 04:00; Stop 01/04/19 at 04:01 RODOLFO SERRANO MD Jan 03, 2019 12:46
[2019-01-03 14:10] VITALS: BP 111/74; PULSE 80; RESP 18
--- NOTE | 2019-01-03 14:26 | CONS ---
Assessment/Plan Assessment/Plan Hospital Course (Demo Recall) No acute events overnight patient is alert feels better looks comfortable no fevers overnight. WBC 4.2 platelets 116 ESR 50 procalcitonin 0.09 BUN 7 creatinine 0.85 Microbiology: Patient had a cultures of his wounds back in June that grew strep Enterobacter and enterococcus species also Corynebacterium group JK. Antimicrobials: He is on IV vancomycin and Zosyn Physical examination: Obese well-developed middle-aged -[place] man who is awake in no distress. Head atraumatic normocephalic neck is supple chest rise symmetrical breath sounds diminished to bases. Heart: S1-S2 abdomen soft bowel sounds present. Extremities with bilateral lower extremities chronic wounds foul order Assessment: 1. Bilateral lower extremities acute on chronic wounds 2. Obesity 3. Pancytopenia 4. Psychiatric disorder 5. Diabetes Plan: Patient is stable, on appropriate antibiotic regimen, cultures pending, MRI report noted, no evidence for osteomyelitis, continue wound care per podi atry Consultation Date/Type/Reason Admit Date/Time Jan 01, 2019 at 22:19 Initial Consult Date Type of Consult id Date/Time of Note DATE: 01/03/19 TIME: 14:26 Exam/Review of Systems Exam Vitals Vital Signs Date Temp Pulse Resp B/P (MAP) Pulse Ox O2 O2 Flow FiO2 Time Delivery Rate 01/03/19 98.0 80 18 111/74 98 Room Air 14:10 (86) Intake and Output 01/02/19 01/02/19 01/03/19 1515:00 23:00 07:00 IntakeIntake Total 100 ml 1941.2 ml 1150 ml OutputOutput Total 500 ml 900 ml 500 ml BalanceBalance -400 ml 1041.2 ml 650 ml Results Result Diagram: 01/03/19 0417 01/03/19 0417 Results 24hrs Laboratory Tests Test 01/03/19 04:17 White Blood Count 4.2 L Red Blood Count 4.46 L Hemoglobin 11.6 L Hematocrit 36.0 L Mean Corpuscular Volume 80.7 L Mean Corpuscular Hemoglobin 26.0 L Mean Corpuscular Hemoglobin Concent 32.2 Red Cell Distribution Width 17.2 H Platelet Count 116 L Mean Platelet Volume 10.1 Immature Granulocytes % 0.500 H Neutrophils % 50.4 Lymphocytes % 38.2 Monocytes % 8.3 Eosinophils % 2.1 Basophils % 0.5 Nucleated Red Blood Cells % 0.5 H Immature Granulocytes # 0.020 Neutrophils # 2.1 Lymphocytes # 1.6 Monocytes # 0.4 Eosinophils # 0.1 Basophils # 0.0 Nucleated Red Blood Cells # 0.0 Erythrocyte Sedimentation Rate 50 H Sodium Level 139 Potassium Level 3.9 Chloride Level 105 Carbon Dioxide Level 28 Anion Gap 6 Blood Urea Nitrogen 7 Creatinine 0.85 Est Glomerular Filtrat Rate mL/min > 60 Glucose Level 82 Hemoglobin A1c 5.4 Calcium Level 8.7 Total Bilirubin 0.9 Direct Bilirubin 0.00 Indirect Bilirubin 0.9 Aspartate Amino Transf (AST/SGOT) 150 H Alanine Aminotransferase (ALT/SGPT) 64 Alkaline Phosphatase 116 C-Reactive Protein 1.8 H Total Protein 8.0 Albumin 3.2 L Globulin 4.80 H Albumin/Globulin Ratio 0.66 Medications Medication Current Medications Lisinopril (Zestril) 40 mg DAILY PO Last administered on 01/03/19 08:56; Admin Dose 40 MG; Start 01/02/19 at 09:00 Metoprolol Tartrate (Lopressor) 50 mg BID PO Last administered on 01/03/19 08:55; Admin Dose 50 MG; Start 01/02/19 at 00:00 Nifedipine (Procardia Xl) 30 mg DAILY PO Last administered on 01/03/19 08:54; Admin Dose 30 MG; Start 01/02/19 at 09:00 Senna (Senokot) 1 tab BID PRN PO CONSTIPATION; Start 01/02/19 at 00:00 IV Flush (NS 3 ml) 3 ml PER PROTOCOL IV ; Start 01/02/19 at 00:00 Ondansetron HCl (Zofran Inj) 4 mg Q6H PRN IV NAUSEA/VOMITING Last administered on 01/02/19at 01:59; Admin Dose 4 MG; Start 01/02/19 at 00:00 Acetaminophen (Tylenol Tab) 650 mg Q6H PRN PO .PAIN 1-3 OR TEMP; Start 01/02/19 at 00:00 Hydromorphone HCl (Dilaudid) 0.5 mg Q4H PRN IV .SEVERE PAIN 7-10 Last administered on 01/03/19at 08:59; Admin Dose 0.5 MG; Start 01/02/19 at 00:00 Docusate Sodium (Colace) 100 mg Q12H PRN PO .CONSTIPATION; Start 01/02/19 at 00:00 Bisacodyl (Dulcolax) 5 mg DAILY PRN PO .CONSTIPATION; Start 01/02/19 at 00:00 Sodium Chloride 1,000 ml @ 70 mls/hr [id number] IV Last administered on 01/03/19at 04:41; Admin Dose 70 MLS/HR; Start 01/02/19 at 02:00 Hydralazine HCl (Apresoline) 10 mg Q4H PRN IV ELEVATED BLOOD PRESSURE Last administered on 01/02/19 09:16; Admin Dose 10 MG; Start 01/02/19 at 03:00 Vancomycin HCl (Vanco Iv Per Pharmacy) VANCOMYCIN PER PHARMACY PER PROTOCOL XX ; Start 01/02/19 at 03:00 Lorazepam (Ativan) 1 mg Q2H PRN IV CONTROL WITHDRAWAL SYMPTOMS Last administered on 01/02/19at 17:23; Admin Dose 1 MG; Start 01/02/19 at 05:30 Thiamine HCl (Vitamin B1) 200 mg DAILY PO Last administered on 01/03/19at 08:55; Admin Dose 200 MG; Start 01/03/19 at 09:00 Folic Acid (Folic Acid) 1 mg DAILY PO Last administered on 01/03/19 08:56; Admin Dose 1 MG; Start 01/03/19 at 09:00 Multivitamins Therapeutic (Theragran) 1 tab DAILY PO Last administered on 01/03/19 08:55; Admin Dose 1 TAB; Start 01/03/19 at 09:00 Vancomycin HCl 1.25 gm/Sodium Chloride 250 ml @ 83.333 mls/ hr Q8H IVPB Last administered on 01/03/19at 13:00; Admin Dose 83.333 MLS/HR; Start 01/02/19 at 13:00 Heparin Sodium (Porcine) (Heparin (5000 Units/1ml)) 5,000 unit BID SC Last administered on 01/03/19 08:59; Admin Dose 5,000 UNIT; Start 01/02/19 at 21:00 Nicotine (Nicoderm 7 Mg/ 24 Hr) 1 patch DAILY TRANSDERM ; Start 01/02/19 at 16:30 Duloxetine HCl (Cymbalta) 30 mg BID PO Last administered on 01/03/19at 08:57; Admin Dose 30 MG; Start 01/02/19 at 21:00 Quetiapine Fumarate (Seroquel) 100 mg HS PO Last administered on 01/02/19at 22:22; Admin Dose 100 MG; Start 01/02/19 at 21:00 Piperacillin Sod/ Tazobactam Sod 100 ml @ 200 mls/hr Q6 IVPB Last administered on 01/03/19at 12:07; Admin Dose 200 MLS/HR; Start 01/02/19 at 22:00 Miscellaneous Information (*Rx Drug Level Order Reminder*) 1 0400 ONCE XX ; Start 01/04/19 at 04:00; Stop 01/04/19 at 04:01 SUSAN ALLAN NP Jan 03, 2019 14:26
[2019-01-03] MEDS ORDERED: LIDOCAINE 1% (MPF) 5 ML VIAL INJ ONE (16:30)
[2019-01-03] MEDS ORDERED: DAKINS 0.0125%(1/40) 473 ML SOLUTION TP ONE (18:00)
[2019-01-03 20:00] VITALS: BP 132/88; PULSE 85; RESP 18
[2019-01-03] MEDS: QUETIAPINE 100 MG TAB PO SCH (20:25)
--- NOTE | 2019-01-03 23:25 | CONS ---
Assessment/Plan Assessment/Plan Assessment/Plan (Daily) Bilateral lower extremity chronic neuropathic ulceration Pes planovalgus deformity Tinea pedis Onychomycosis Hallux limitus Homelessness Bipolar schizophrenia Alcohol abuse Peripheral neuropathy Normocytic anemia Plan Consent was obtained and performed excisional debridement of skin/subQ of the right lower extremity ulcerations and skin/subQ/muscle/fascia of the left foot ulceration site with scalpel and pickup/scissors. Fibrotic, biofilm, and non- viable tissue was removed from the wound sites. 11cm2 of area was debrided. Copious dakins irrigation was used. Recommend daily dressing changes with betadine 4x4 gauze, kerlix and arcadio wrap. Offload heels while resting in bed. Wound cultures were obtained. Patient would benefit from SNF placement due to history of homelessness unless he is able to secure a proper residence. Reviewed X-rays and MRI findings. Despite providing patient instructions in the past to follow up he has not followed ever in the wound care clinic. Patient would benefit from diabetic type shoe gear to protect his feet. Patient poor surgical candidate for any major reconstruction. Abx recommendations per ID. Recommend daily clotrimazole application. Nails debrided x10 with nail nipper. Consultation Date/Type/Reason Admit Date/Time Jan 01, 2019 at 22:19 Initial Consult Date Date/Time of Note DATE: 01/03/19 TIME: 23:22 24 HR Interval Summary Free Text/Dictation No acute events overnight Exam/Review of Systems Exam Vitals Vital Signs Date Temp Pulse Resp B/P (MAP) Pulse Ox O2 O2 Flow FiO2 Time Delivery Rate 01/03/19 98.5 85 18 132/88 98 Room Air 20:00 (103) Intake and Output 01/02/19 01/02/19 01/03/19 1515:00 23:00 07:00 IntakeIntake Total 100 ml 1941.2 ml 1150 ml OutputOutput Total 500 ml 900 ml 500 ml BalanceBalance -400 ml 1041.2 ml 650 ml Exam The patient with malodorous feet. Foot is warm. Pedal pulses are diminished. There is brawny appearing skin. Severe hypohidrosis with callus, mycotic nails, No signs of heel pressure sore. Per report, there were maggots, none currently seen. Left 2nd digit ulcer 3 x 2 x 0.8cm there is granular wound base no purulence could be expressed, the wound probes to bone Left hallux ulceration 2 x 1 x 0.3cm granular wound base no purulence, does not probe to bone Right hallux ulceration 1 x 1 x 0.3m granular wound base with surrounding hyperkeratotic lesion no purulence or probing to bone Right tibial tuberosity ulceration 2 x 1 x 0.2cm granular wound base no probing to bone, no proximal streaking Rigid ankle and STJ with limited ROM, limited hallux ROM Absent protective sensations Right foot MRI 1. Limited study due to motion artifact. 2. Dorsal - medial skin ulceration of the great toe near the first interphalangeal joint. 3. Abnormal bone marrow signal along the medial margin of the base of the first distal phalanx is suspicious but not entirely definitive for acute osteomyelitis. This study can be used as a baseline for short-term future follow up. 4. Mild to moderate soft tissue swelling without discrete drainable fluid collection. Left foot MRI 1. Limited exam as above. 2. Soft tissue swelling and irregularity in the first digit with focal medial plantar sided distal ulcer, and chronic blunting/erosion of the first distal phalanx present on multiple prior studies. No marrow edema within the limitations of the study to suggest acute osteomyelitis at this level. 3. Diffuse soft tissue swelling and ulcer in the second digit at the medial dorsal aspect. Mild reactive edema in the distal second phalanx tuft without marrow infiltrative signal to suggest osteomyelitis at this time. Similar faint reactive marrow edema in the third and fourth without evidence of osteomyelitis. 4. Diffuse subcutaneous edema in the dorsum of the forefoot, and diffuse edema and atrophy/fatty infiltration of the visualized musculature may be related to diabetic neuropathy. Results Result Diagram: 01/03/19 0417 01/03/19 0417 Results 24hrs Laboratory Tests Test 01/03/19 04:17 White Blood Count 4.2 L Red Blood Count 4.46 L Hemoglobin 11.6 L Hematocrit 36.0 L Mean Corpuscular Volume 80.7 L Mean Corpuscular Hemoglobin 26.0 L Mean Corpuscular Hemoglobin Concent 32.2 Red Cell Distribution Width 17.2 H Platelet Count 116 L Mean Platelet Volume 10.1 Immature Granulocytes % 0.500 H Neutrophils % 50.4 Lymphocytes % 38.2 Monocytes % 8.3 Eosinophils % 2.1 Basophils % 0.5 Nucleated Red Blood Cells % 0.5 H Immature Granulocytes # 0.020 Neutrophils # 2.1 Lymphocytes # 1.6 Monocytes # 0.4 Eosinophils # 0.1 Basophils # 0.0 Nucleated Red Blood Cells # 0.0 Erythrocyte Sedimentation Rate 50 H Sodium Level 139 Potassium Level 3.9 Chloride Level 105 Carbon Dioxide Level 28 Anion Gap 6 Blood Urea Nitrogen 7 Creatinine 0.85 Est Glomerular Filtrat Rate mL/min > 60 Glucose Level 82 Hemoglobin A1c 5.4 Calcium Level 8.7 Total Bilirubin 0.9 Direct Bilirubin 0.00 Indirect Bilirubin 0.9 Aspartate Amino Transf (AST/SGOT) 150 H Alanine Aminotransferase (ALT/SGPT) 64 Alkaline Phosphatase 116 C-Reactive Protein 1.8 H Total Protein 8.0 Albumin 3.2 L Globulin 4.80 H Albumin/Globulin Ratio 0.66 Medications Medication Current Medications Lisinopril (Zestril) 40 mg DAILY PO Last administered on 01/03/19 08:56; Admin Dose 40 MG; Start 01/02/19 at 09:00 Metoprolol Tartrate (Lopressor) 50 mg BID PO Last administered on 01/03/19 20:26; Admin Dose 50 MG; Start 01/02/19 at 00:00 Nifedipine (Procardia Xl) 30 mg DAILY PO Last administered on 01/03/19 08:54; Admin Dose 30 MG; Start 01/02/19 at 09:00 Senna (Senokot) 1 tab BID PRN PO CONSTIPATION; Start 01/02/19 at 00:00 IV Flush (NS 3 ml) 3 ml PER PROTOCOL IV ; Start 01/02/19 at 00:00 Ondansetron HCl (Zofran Inj) 4 mg Q6H PRN IV NAUSEA/VOMITING Last administered on 01/02/19at 01:59; Admin Dose 4 MG; Start 01/02/19 at 00:00 Acetaminophen (Tylenol Tab) 650 mg Q6H PRN PO .PAIN 1-3 OR TEMP; Start 01/02/19 at 00:00 Hydromorphone HCl (Dilaudid) 0.5 mg Q4H PRN IV .SEVERE PAIN 7-10 Last administered on 01/03/19at 17:57; Admin Dose 0.5 MG; Start 01/02/19 at 00:00 Docusate Sodium (Colace) 100 mg Q12H PRN PO .CONSTIPATION; Start 01/02/19 at 00:00 Bisacodyl (Dulcolax) 5 mg DAILY PRN PO .CONSTIPATION; Start 01/02/19 at 00:00 Sodium Chloride 1,000 ml @ 70 mls/hr [id number] IV Last administered on 01/03/19at 04:41; Admin Dose 70 MLS/HR; Start 01/02/19 at 02:00 Hydralazine HCl (Apresoline) 10 mg Q4H PRN IV ELEVATED BLOOD PRESSURE Last administered on 01/02/19 09:16; Admin Dose 10 MG; Start 01/02/19 at 03:00 Vancomycin HCl (Vanco Iv Per Pharmacy) VANCOMYCIN PER PHARMACY PER PROTOCOL XX ; Start 01/02/19 at 03:00 Lorazepam (Ativan) 1 mg Q2H PRN IV CONTROL WITHDRAWAL SYMPTOMS Last administered on 01/02/19 17:23; Admin Dose 1 MG; Start 01/02/19 at 05:30 Thiamine HCl (Vitamin B1) 200 mg DAILY PO Last administered on 01/03/19 08:55; Admin Dose 200 MG; Start 01/03/19 at 09:00 Folic Acid (Folic Acid) 1 mg DAILY PO Last administered on 01/03/19 08:56; Admin Dose 1 MG; Start 01/03/19 at 09:00 Multivitamins Therapeutic (Theragran) 1 tab DAILY PO Last administered on 01/03/19 08:55; Admin Dose 1 TAB; Start 01/03/19 at 09:00 Vancomycin HCl 1.25 gm/Sodium Chloride 250 ml @ 83.333 mls/ hr Q8H IVPB Last administered on 01/03/19 20:32; Admin Dose 83.333 MLS/HR; Start 01/02/19 at 13:00 Heparin Sodium (Porcine) (Heparin (5000 Units/1ml)) 5,000 unit BID SC Last administered on 01/03/19 20:31; Admin Dose 5,000 UNIT; Start 01/02/19 at 21:00 Nicotine (Nicoderm 7 Mg/ 24 Hr) 1 patch DAILY TRANSDERM ; Start 01/02/19 at 16:30 Duloxetine HCl (Cymbalta) 30 mg BID PO Last administered on 01/03/19 20:25; Admin Dose 30 MG; Start 01/02/19 at 21:00 Quetiapine Fumarate (Seroquel) 100 mg HS PO Last administered on 01/03/19at 20:25; Admin Dose 100 MG; Start 01/02/19 at 21:00 Piperacillin Sod/ Tazobactam Sod 100 ml @ 200 mls/hr Q6 IVPB Last administered on 01/03/19at 17:58; Admin Dose 200 MLS/HR; Start 01/02/19 at 22:00 Miscellaneous Information (*Rx Drug Level Order Reminder*) 1 0400 ONCE XX ; Start 01/04/19 at 04:00; Stop 01/04/19 at 04:01 FREDERICK WILD DPM Jan 03, 2019 23:25
[2019-01-04] MEDS: HYDROmorphONE 0.5 MG/0.5 ML SYG IV PRN ×5 (00:04→21:32)
[2019-01-04] MEDS: PIPER-TAZO 3.375 GM IV (PMX) 100 ML IVPB SCH ×4 (00:18→17:22)
[2019-01-04 02:00] VITALS: BP 123/85; PULSE 77; RESP 18
[2019-01-04 08:08] VITALS: BP 144/85; PULSE 77; RESP 18
[2019-01-04] MEDS: MULTIVITAMINS THERAPEUTIC TAB PO SCH (08:51)
[2019-01-04] MEDS: THIAMINE 100 MG TAB PO SCH (08:51)
[2019-01-04] MEDS: LISINOPRIL 20 MG TAB PO SCH (08:51)
[2019-01-04] MEDS: FOLIC ACID 1 MG TAB PO SCH (08:51)
[2019-01-04] MEDS: DULOXETINE 30 MG CAP DR PO SCH ×2 (08:52→21:23)
[2019-01-04] MEDS: NIFEdipine (XL) 30 MG TAB PO SCH (08:52)
[2019-01-04] MEDS: METOPROLOL 50 MG TAB PO SCH ×2 (08:52→21:23)
[2019-01-04] MEDS: HEPARIN 5,000 UNIT/1 ML VIAL SC SCH ×2 (08:53→21:24)
[2019-01-04] MEDS: CLOTRIMAZOLE 1% 30 GM CR TOP SCH (08:59)
[2019-01-04] MEDS ORDERED: CHLORDIAZEPOXIDE 25 MG CAP PO SCH (09:00)
[2019-01-04] MEDS: NICOTINE (7 MG/24 HR) PATCH TRANSDERM SCH (09:00)
[2019-01-04] MEDS: VANCOMYCIN HCL 1.25 GM in SOD CHLORIDE 0.9% 250 ML IVPB SCH ×2 (09:03→21:24)
[2019-01-04] MEDS: SOD CHLORIDE 0.9% 1,000 ML IV SCH ×2 (09:06→11:12)
--- NOTE | 2019-01-04 10:55 | PN ---
Date/Time of Note Date/Time of Note DATE: 01/04/19 TIME: 10:51 Assessment/Plan VTE Prophylaxis Risk score (from Ns)>0 risk: 2 SCD applied (from [facility]): No SCD contraindicated: bilateral LE trauma Pharmacological prophylaxis: heparin Lines/Catheters IV Catheter Type (from Nrsg): Mid Line Assessment/Plan Assessment/Plan 1. Left foot and right foot ulcer with infection, s/p I&D, on antibiotics, follow up with podiatry, ID for antibiotics 3. Major depression, consulted with tele psych on 01/02/2019, on cymbalta and seroquel 4. Alcoholism, on thiamine/folic acid, ativan prn 5. Alcoholic liver disease with transaminitis, follow up with LFTs 6. Hepatitis C 7. HTN, on metoprolol, lisinopril and nifedipine 8. Anemia, microcytic, mild, follow up with H/H 9. Thrombocytopenia, alcohol and chronic liver disease related, follow up with PLT 10. Tobacco dependence, patch 11. DVT prophylaxis: heparin 12. D/C to SNF when bed is available Result Diagram: 01/04/198 01/04/19 0428 Results 24hrs Laboratory Tests Test 01/04/19 04:28 White Blood Count 4.0 L Red Blood Count 4.35 L Hemoglobin 11.5 L Hematocrit 35.5 L Mean Corpuscular Volume 81.6 L Mean Corpuscular Hemoglobin 26.4 L Mean Corpuscular Hemoglobin Concent 32.4 Red Cell Distribution Width 17.5 H Platelet Count 131 L Mean Platelet Volume 10.8 H Immature Granulocytes % 0.500 H Neutrophils % 55.4 Segmented Neutrophils % (Manual) 54 Band Neutrophils % (Manual) 3 Lymphocytes % 33.2 Lymphocytes % (Manual) 25 Reactive Lymphocytes % (Manual) 3 H Monocytes % 8.9 Monocytes % (Manual) 9 Eosinophils % 1.5 Eosinophils % (Manual) 3 Basophils % 0.5 Basophils % (Manual) 1 Myelocytes % (Manual) 1 H Promyelocytes % (Manual) 1 H Nucleated Red Blood Cells % 1 H Immature Granulocytes # 0.020 Neutrophils # 2.2 Neutrophils # (Manual) 2.2 Band Neutrophils # 0.1 Lymphocytes (Manual) 1.0 Lymphocytes # 1.3 Reactive Lymphocytes # 0.1 H Monocytes # 0.4 Monocytes # (Manual) 0.3 Eosinophils # 0.1 Basophils # 0.0 Basophils # (Manual) 0.0 Myelocytes # 0.0 Promyelocytes # 0.0 Nucleated Red Blood Cells # 0.0 Platelet Estimate NORMAL Giant Platelets 20 H Polychromasia 1+ Hypochromasia 1+ Poikilocytosis 3+ Anisocytosis 2+ Macrocytosis 2+ Target Cells 1+ Sodium Level 138 Potassium Level 3.9 Chloride Level 106 Carbon Dioxide Level 25 Anion Gap 7 Blood Urea Nitrogen 9 Creatinine 0.77 Est Glomerular Filtrat Rate mL/min > 60 Glucose Level 77 Calcium Level 8.8 Total Bilirubin 0.6 Direct Bilirubin 0.00 Indirect Bilirubin 0.6 Aspartate Amino Transf (AST/SGOT) 178 H Alanine Aminotransferase (ALT/SGPT) 78 H Alkaline Phosphatase 109 Total Protein 8.0 Albumin 3.1 L Globulin 4.90 H Albumin/Globulin Ratio 0.63 Vancomycin Level Trough 21.6 *H Subjective 24 Hr Interval Summary Free Text/Dictation no distress Exam/Review of Systems Exam Vitals Vital Signs Date Temp Pulse Resp B/P (MAP) Pulse Ox O2 O2 Flow FiO2 Time Delivery Rate 01/04/19 97.7 77 18 144/85 98 08:08 (104) 01/04/19 Room Air 02:00 Intake and Output 01/03/19 01/03/19 01/04/19 1414:59 22:59 06:59 IntakeIntake Total 750 ml 1390 ml 810 ml OutputOutput Total 550 ml 500 ml 850 ml BalanceBalance 200 ml 890 ml -40 ml Constitutional: alert, well developed Head: normocephalic, atraumatic Eyes: nl conjunctiva, EOMI, nl lids ENMT: nl external ears & nose, nl lips & teeth, nl nasal mucosa & septum Neck: supple, non-tender Respiratory: clear to auscultation, normal air movement; No congested cough, No crackles/rales, No diminished breath sounds, No intercostal retraction, No labored breathing, No respirations, No tactile fremitus, No wheezing, No other Cardiovascular: regular rate and rhythm, nl pulses; No bruits, No diastolic murmur, No edema, No gallop, No irregular rhythm, No jugular venous distention (JVD), No murmurs/extra sounds, No rub, No systolic murmur, No S3, No S4, No other Gastrointestinal: soft, nl liver, spleen, non-tender Extremities: other (bilateral foot wounds) Neurological: [employer] II-XII intact, nl speech, nl strength Results Results 24hrs Laboratory Tests Test 01/04/19 04:28 White Blood Count 4.0 L Red Blood Count 4.35 L Hemoglobin 11.5 L Hematocrit 35.5 L Mean Corpuscular Volume 81.6 L Mean Corpuscular Hemoglobin 26.4 L Mean Corpuscular Hemoglobin Concent 32.4 Red Cell Distribution Width 17.5 H Platelet Count 131 L Mean Platelet Volume 10.8 H Immature Granulocytes % 0.500 H Neutrophils % 55.4 Segmented Neutrophils % (Manual) 54 Band Neutrophils % (Manual) 3 Lymphocytes % 33.2 Lymphocytes % (Manual) 25 Reactive Lymphocytes % (Manual) 3 H Monocytes % 8.9 Monocytes % (Manual) 9 Eosinophils % 1.5 Eosinophils % (Manual) 3 Basophils % 0.5 Basophils % (Manual) 1 Myelocytes % (Manual) 1 H Promyelocytes % (Manual) 1 H Nucleated Red Blood Cells % 1 H Immature Granulocytes # 0.020 Neutrophils # 2.2 Neutrophils # (Manual) 2.2 Band Neutrophils # 0.1 Lymphocytes (Manual) 1.0 Lymphocytes # 1.3 Reactive Lymphocytes # 0.1 H Monocytes # 0.4 Monocytes # (Manual) 0.3 Eosinophils # 0.1 Basophils # 0.0 Basophils # (Manual) 0.0 Myelocytes # 0.0 Promyelocytes # 0.0 Nucleated Red Blood Cells # 0.0 Platelet Estimate NORMAL Giant Platelets 20 H Polychromasia 1+ Hypochromasia 1+ Poikilocytosis 3+ Anisocytosis 2+ Macrocytosis 2+ Target Cells 1+ Sodium Level 138 Potassium Level 3.9 Chloride Level 106 Carbon Dioxide Level 25 Anion Gap 7 Blood Urea Nitrogen 9 Creatinine 0.77 Est Glomerular Filtrat Rate mL/min > 60 Glucose Level 77 Calcium Level 8.8 Total Bilirubin 0.6 Direct Bilirubin 0.00 Indirect Bilirubin 0.6 Aspartate Amino Transf (AST/SGOT) 178 H Alanine Aminotransferase (ALT/SGPT) 78 H Alkaline Phosphatase 109 Total Protein 8.0 Albumin 3.1 L Globulin 4.90 H Albumin/Globulin Ratio 0.63 Vancomycin Level Trough 21.6 *H Medications Medication Current Medications Lisinopril (Zestril) 40 mg DAILY PO Last administered on 01/04/19at 08:51; Admin Dose 40 MG; Start 01/02/19 at 09:00 Metoprolol Tartrate (Lopressor) 50 mg BID PO Last administered on 01/04/19 08:52; Admin Dose 50 MG; Start 01/02/19 at 00:00 Nifedipine (Procardia Xl) 30 mg DAILY PO Last administered on 01/04/19 08:52; Admin Dose 30 MG; Start 01/02/19 at 09:00 Senna (Senokot) 1 tab BID PRN PO CONSTIPATION; Start 01/02/19 at 00:00 IV Flush (NS 3 ml) 3 ml PER PROTOCOL IV ; Start 01/02/19 at 00:00 Ondansetron HCl (Zofran Inj) 4 mg Q6H PRN IV NAUSEA/VOMITING Last administered on 01/02/19 01:59; Admin Dose 4 MG; Start 01/02/19 at 00:00 Acetaminophen (Tylenol Tab) 650 mg Q6H PRN PO .PAIN 1-3 OR TEMP; Start 01/02/19 at 00:00 Hydromorphone HCl (Dilaudid) 0.5 mg Q4H PRN IV .SEVERE PAIN 7-10 Last administered on 01/04/19 08:59; Admin Dose 0.5 MG; Start 01/02/19 at 00:00 Docusate Sodium (Colace) 100 mg Q12H PRN PO .CONSTIPATION; Start 01/02/19 at 00:00 Bisacodyl (Dulcolax) 5 mg DAILY PRN PO .CONSTIPATION; Start 01/02/19 at 00:00 Sodium Chloride 1,000 ml @ 70 mls/hr [id number] IV Last administered on 01/04/19 09:06; Admin Dose 70 MLS/HR; Start 01/02/19 at 02:00 Hydralazine HCl (Apresoline) 10 mg Q4H PRN IV ELEVATED BLOOD PRESSURE Last administered on 01/02/19 09:16; Admin Dose 10 MG; Start 01/02/19 at 03:00 Vancomycin HCl (Vanco Iv Per Pharmacy) VANCOMYCIN PER PHARMACY PER PROTOCOL XX ; Start 01/02/19 at 03:00 Lorazepam (Ativan) 1 mg Q2H PRN IV CONTROL WITHDRAWAL SYMPTOMS Last administered on 01/02/19 17:23; Admin Dose 1 MG; Start 01/02/19 at 05:30 Thiamine HCl (Vitamin B1) 200 mg DAILY PO Last administered on 01/04/19 08:51; Admin Dose 200 MG; Start 01/03/19 at 09:00 Folic Acid (Folic Acid) 1 mg DAILY PO Last administered on 01/04/19 08:51; Admin Dose 1 MG; Start 01/03/19 at 09:00 Multivitamins Therapeutic (Theragran) 1 tab DAILY PO Last administered on 01/04/19 08:51; Admin Dose 1 TAB; Start 01/03/19 at 09:00 Heparin Sodium (Porcine) (Heparin (5000 Units/1ml)) 5,000 unit BID SC Last administered on 01/04/19 08:53; Admin Dose 5,000 UNIT; Start 01/02/19 at 21:00 Nicotine (Nicoderm 7 Mg/ 24 Hr) 1 patch DAILY TRANSDERM ; Start 01/02/19 at 16:30 Duloxetine HCl (Cymbalta) 30 mg BID PO Last administered on 01/04/19 08:52; Admin Dose 30 MG; Start 01/02/19 at 21:00 Quetiapine Fumarate (Seroquel) 100 mg HS PO Last administered on 01/03/19 20:25; Admin Dose 100 MG; Start 01/02/19 at 21:00 Piperacillin Sod/ Tazobactam Sod 100 ml @ 200 mls/hr Q6 IVPB Last administered on 01/04/19 05:00; Admin Dose 200 MLS/HR; Start 01/02/19 at 22:00 Clotrimazole (Lotrimin Cr) 1 applic DAILY TOP Last administered on 01/04/19 08:59; Admin Dose 1 APPLIC; Start 01/04/19 at 09:00 Vancomycin HCl 1.25 gm/Sodium Chloride 250 ml @ 83.333 mls/ hr Q12H IVPB Last administered on 01/04/19 09:03; Admin Dose 83.333 MLS/HR; Start 01/04/19 at 09:00 Miscellaneous Information (*Rx Drug Level Order Reminder*) VANCOMYCIN TROUGH LEVEL 2000 ONCE XX ; Start 01/05/19 at 20:00; Stop 01/05/19 at 20:01 RODOLFO SERRANO MD Jan 04, 2019 10:55
--- NOTE | 2019-01-04 11:18 | CONS ---
Assessment/Plan Assessment/Plan Hospital Course (Demo Recall) No acute events Microbiology: Patient had a cultures of his wounds back in June that grew strep Enterobacter and enterococcus species also Corynebacterium group JK. Recent cx's pending Antimicrobials: He is on IV vancomycin and Zosyn Physical examination: Obese well-developed middle-aged -Citizen [place] man who is awake in no distress. Head atraumatic normocephalic neck is supple chest rise symmetrical breath sounds diminished to bases. Heart: S1-S2 abdomen soft bowel sounds present. Extremities with bilateral lower extremities chronic wounds foul order Assessment: 1. Bilateral lower extremities acute on chronic wounds 2. Obesity 3. Pancytopenia 4. Psychiatric disorder 5. Diabetes Plan: Stable, on appropriate antibiotic regimen, will f/u cx's, no evidence for osteomyelitis per MRI ?SNF per podiatry rec-s Consultation Date/Type/Reason Admit Date/Time Jan 01, 2019 at 22:19 Initial Consult Date Type of Consult id Date/Time of Note DATE: 01/04/19 TIME: 11:16 Exam/Review of Systems Exam Vitals Vital Signs Date Temp Pulse Resp B/P (MAP) Pulse Ox O2 O2 Flow FiO2 Time Delivery Rate 01/04/19 97.7 77 18 144/85 98 08:08 (104) 01/04/19 Room Air 02:00 Intake and Output 01/03/19 01/03/19 01/04/19 1515:00 23:00 07:00 IntakeIntake Total 750 ml 1390 ml 810 ml OutputOutput Total 550 ml 500 ml 850 ml BalanceBalance 200 ml 890 ml -40 ml Results Result Diagram: 01/04/19 0428 01/04/19 0428 Results 24hrs Laboratory Tests Test 01/04/19 04:28 White Blood Count 4.0 L Red Blood Count 4.35 L Hemoglobin 11.5 L Hematocrit 35.5 L Mean Corpuscular Volume 81.6 L Mean Corpuscular Hemoglobin 26.4 L Mean Corpuscular Hemoglobin Concent 32.4 Red Cell Distribution Width 17.5 H Platelet Count 131 L Mean Platelet Volume 10.8 H Immature Granulocytes % 0.500 H Neutrophils % 55.4 Segmented Neutrophils % (Manual) 54 Band Neutrophils % (Manual) 3 Lymphocytes % 33.2 Lymphocytes % (Manual) 25 Reactive Lymphocytes % (Manual) 3 H Monocytes % 8.9 Monocytes % (Manual) 9 Eosinophils % 1.5 Eosinophils % (Manual) 3 Basophils % 0.5 Basophils % (Manual) 1 Myelocytes % (Manual) 1 H Promyelocytes % (Manual) 1 H Nucleated Red Blood Cells % 1 H Immature Granulocytes # 0.020 Neutrophils # 2.2 Neutrophils # (Manual) 2.2 Band Neutrophils # 0.1 Lymphocytes (Manual) 1.0 Lymphocytes # 1.3 Reactive Lymphocytes # 0.1 H Monocytes # 0.4 Monocytes # (Manual) 0.3 Eosinophils # 0.1 Basophils # 0.0 Basophils # (Manual) 0.0 Myelocytes # 0.0 Promyelocytes # 0.0 Nucleated Red Blood Cells # 0.0 Platelet Estimate NORMAL Giant Platelets 20 H Polychromasia 1+ Hypochromasia 1+ Poikilocytosis 3+ Anisocytosis 2+ Macrocytosis 2+ Target Cells 1+ Sodium Level 138 Potassium Level 3.9 Chloride Level 106 Carbon Dioxide Level 25 Anion Gap 7 Blood Urea Nitrogen 9 Creatinine 0.77 Est Glomerular Filtrat Rate mL/min > 60 Glucose Level 77 Calcium Level 8.8 Total Bilirubin 0.6 Direct Bilirubin 0.00 Indirect Bilirubin 0.6 Aspartate Amino Transf (AST/SGOT) 178 H Alanine Aminotransferase (ALT/SGPT) 78 H Alkaline Phosphatase 109 Total Protein 8.0 Albumin 3.1 L Globulin 4.90 H Albumin/Globulin Ratio 0.63 Vancomycin Level Trough 21.6 *H Medications Medication Current Medications Lisinopril (Zestril) 40 mg DAILY PO Last administered on 01/04/19 08:51; Admin Dose 40 MG; Start 01/02/19 at 09:00 Metoprolol Tartrate (Lopressor) 50 mg BID PO Last administered on 01/04/19 08:52; Admin Dose 50 MG; Start 01/02/19 at 00:00 Nifedipine (Procardia Xl) 30 mg DAILY PO Last administered on 01/04/19 08:52; Admin Dose 30 MG; Start 01/02/19 at 09:00 Senna (Senokot) 1 tab BID PRN PO CONSTIPATION; Start 01/02/19 at 00:00 IV Flush (NS 3 ml) 3 ml PER PROTOCOL IV ; Start 01/02/19 at 00:00 Ondansetron HCl (Zofran Inj) 4 mg Q6H PRN IV NAUSEA/VOMITING Last administered on 01/02/19 01:59; Admin Dose 4 MG; Start 01/02/19 at 00:00 Acetaminophen (Tylenol Tab) 650 mg Q6H PRN PO .PAIN 1-3 OR TEMP; Start 01/02/19 at 00:00 Hydromorphone HCl (Dilaudid) 0.5 mg Q4H PRN IV .SEVERE PAIN 7-10 Last administered on 01/04/19 08:59; Admin Dose 0.5 MG; Start 01/02/19 at 00:00 Docusate Sodium (Colace) 100 mg Q12H PRN PO .CONSTIPATION; Start 01/02/19 at 00:00 Bisacodyl (Dulcolax) 5 mg DAILY PRN PO .CONSTIPATION; Start 01/02/19 at 00:00 Sodium Chloride 1,000 ml @ 70 mls/hr [id number] IV Last administered on 01/04/19 09:06; Admin Dose 70 MLS/HR; Start 01/02/19 at 02:00 Hydralazine HCl (Apresoline) 10 mg Q4H PRN IV ELEVATED BLOOD PRESSURE Last administered on 01/02/19 09:16; Admin Dose 10 MG; Start 01/02/19 at 03:00 Vancomycin HCl (Vanco Iv Per Pharmacy) VANCOMYCIN PER PHARMACY PER PROTOCOL XX ; Start 01/02/19 at 03:00 Lorazepam (Ativan) 1 mg Q2H PRN IV CONTROL WITHDRAWAL SYMPTOMS Last administered on 01/02/19 17:23; Admin Dose 1 MG; Start 01/02/19 at 05:30 Thiamine HCl (Vitamin B1) 200 mg DAILY PO Last administered on 01/04/19 08:51; Admin Dose 200 MG; Start 01/03/19 at 09:00 Folic Acid (Folic Acid) 1 mg DAILY PO Last administered on 01/04/19 08:51; Admin Dose 1 MG; Start 01/03/19 at 09:00 Multivitamins Therapeutic (Theragran) 1 tab DAILY PO Last administered on 01/04/19 08:51; Admin Dose 1 TAB; Start 01/03/19 at 09:00 Heparin Sodium (Porcine) (Heparin (5000 Units/1ml)) 5,000 unit BID SC Last administered on 01/04/19 08:53; Admin Dose 5,000 UNIT; Start 01/02/19 at 21:00 Nicotine (Nicoderm 7 Mg/ 24 Hr) 1 patch DAILY TRANSDERM ; Start 01/02/19 at 16:30 Duloxetine HCl (Cymbalta) 30 mg BID PO Last administered on 01/04/19at 08:52; Admin Dose 30 MG; Start 01/02/19 at 21:00 Quetiapine Fumarate (Seroquel) 100 mg HS PO Last administered on 01/03/19at 20:25; Admin Dose 100 MG; Start 01/02/19 at 21:00 Piperacillin Sod/ Tazobactam Sod 100 ml @ 200 mls/hr Q6 IVPB Last administered on 01/04/19 05:00; Admin Dose 200 MLS/HR; Start 01/02/19 at 22:00 Clotrimazole (Lotrimin Cr) 1 applic DAILY TOP Last administered on 01/04/19at 08:59; Admin Dose 1 APPLIC; Start 01/04/19 at 09:00 Vancomycin HCl 1.25 gm/Sodium Chloride 250 ml @ 83.333 mls/ hr Q12H IVPB Last administered on 01/04/19 09:03; Admin Dose 83.333 MLS/HR; Start 01/04/19 at 09:00 Miscellaneous Information (*Rx Drug Level Order Reminder*) VANCOMYCIN TROUGH LEVEL 2000 ONCE XX ; Start 01/05/19 at 20:00; Stop 01/05/19 at 20:01 SUSAN ALLAN NP Jan 04, 2019 11:18
[2019-01-04 14:31] VITALS: BP 112/72; PULSE 78; RESP 21
[2019-01-04 21:11] VITALS: BP 127/86; PULSE 78; RESP 20
[2019-01-04] MEDS: QUETIAPINE 100 MG TAB PO SCH (21:23)
[2019-01-05] MEDS: PIPER-TAZO 3.375 GM IV (PMX) 100 ML IVPB SCH ×5 (00:35→23:35)
[2019-01-05 02:50] VITALS: BP 120/79; PULSE 67; RESP 20
[2019-01-05 08:00] VITALS: BP 142/92; PULSE 83; RESP 18
[2019-01-05] MEDS: VANCOMYCIN HCL 1.25 GM in SOD CHLORIDE 0.9% 250 ML IVPB SCH ×2 (08:31→21:07)
[2019-01-05] MEDS: LISINOPRIL 20 MG TAB PO SCH (08:32)
[2019-01-05] MEDS: MULTIVITAMINS THERAPEUTIC TAB PO SCH (08:32)
[2019-01-05] MEDS: DULOXETINE 30 MG CAP DR PO SCH ×2 (08:32→21:07)
[2019-01-05] MEDS: FOLIC ACID 1 MG TAB PO SCH (08:32)
[2019-01-05] MEDS: THIAMINE 100 MG TAB PO SCH (08:32)
[2019-01-05] MEDS: NIFEdipine (XL) 30 MG TAB PO SCH (08:32)
[2019-01-05] MEDS: METOPROLOL 50 MG TAB PO SCH ×2 (08:32→21:07)
[2019-01-05] MEDS: CLOTRIMAZOLE 1% 30 GM CR TOP SCH (08:33)
[2019-01-05] MEDS: NICOTINE (7 MG/24 HR) PATCH TRANSDERM SCH (08:33)
[2019-01-05] MEDS: HEPARIN 5,000 UNIT/1 ML VIAL SC SCH ×2 (08:34→21:07)
[2019-01-05] MEDS: HYDROmorphONE 0.5 MG/0.5 ML SYG IV PRN ×3 (08:46→21:08)
[2019-01-05 14:00] VITALS: BP 135/86; PULSE 67; RESP 18
--- NOTE | 2019-01-05 15:46 | PN ---
Date/Time of Note Date/Time of Note DATE: 01/05/19 TIME: 15:28 Assessment/Plan VTE Prophylaxis Risk score (from Nsg)>0 risk: 3 SCD applied (from Ns): No SCD contraindicated: low risk/ambulating Pharmacological prophylaxis: heparin Lines/Catheters IV Catheter Type (from Nrsg): Mid Line Assessment/Plan Assessment/Plan 1. Chronic left and right foot ulcer - Podiatry on board and appreciate recommendations. s/p I&D and recommendations for daily dressing changes. Offloading of heels and ambulate with diabetic shoes. - ID on board and appreciate recommendations. Continue current antibiotics at this time - local wound care - wound cx noted - pain control 2. Schizophrenia - Psych consultation appreciated - continue Cymbalta and Seroquel 3. ETOH abuse - continue on thiamine/folic acid - Ativan PRN - no withdrawal appreciated 4. Alcoholic hepatitis - LFT elevated - continue monitoring 5. h/o hep c - outpatient follow up for treatment 6. HTN - continue home medications - remains stable 7. Anemia, microcytic, mild - stable - no need for transfusions 8. Thrombocytopenia - improving 9. Disposition - CM on board for SNF placement. Continue current treatment Result Diagram: 01/05/19 0432 01/05/19 0432 Results 24hrs Laboratory Tests Test 01/05/19 04:32 White Blood Count 4.4 L Red Blood Count 4.60 L Hemoglobin 12.0 L Hematocrit 37.8 L Mean Corpuscular Volume 82.2 Mean Corpuscular Hemoglobin 26.1 L Mean Corpuscular Hemoglobin Concent 31.7 L Red Cell Distribution Width 17.9 H Platelet Count 169 # Mean Platelet Volume 11.5 H Immature Granulocytes % 0.700 H Neutrophils % 39.7 Lymphocytes % 47.9 Monocytes % 8.9 Eosinophils % 2.1 Basophils % 0.7 Nucleated Red Blood Cells % 0.0 Immature Granulocytes # 0.030 Neutrophils # 1.7 Lymphocytes # 2.1 Monocytes # 0.4 Eosinophils # 0.1 Basophils # 0.0 Nucleated Red Blood Cells # 0.0 Sodium Level 136 Potassium Level 3.9 Chloride Level 103 Carbon Dioxide Level 25 Anion Gap 8 Blood Urea Nitrogen 11 Creatinine 0.78 Est Glomerular Filtrat Rate mL/min > 60 Glucose Level 70 Calcium Level 8.6 Total Bilirubin 0.6 Direct Bilirubin 0.00 Indirect Bilirubin 0.6 Aspartate Amino Transf (AST/SGOT) 192 H Alanine Aminotransferase (ALT/SGPT) 92 H Alkaline Phosphatase 100 Total Protein 8.1 Albumin 3.2 L Globulin 4.90 H Albumin/Globulin Ratio 0.65 Subjective 24 Hr Interval Summary Free Text/Dictation Patient states he still has pain in lower extremities but pain control is sufficient. No acute overnight events. Exam/Review of Systems Exam Vitals Vital Signs Date Temp Pulse Resp B/P (MAP) Pulse Ox O2 O2 Flow FiO2 Time Delivery Rate 01/05/19 97.9 67 18 135/86 95 14:00 (102) 01/04/19 Room Air 02:00 Intake and Output 01/04/19 01/04/19 01/05/19 1515:00 23:00 07:00 IntakeIntake Total 1350 ml 100 ml 1650 ml OutputOutput Total 900 ml BalanceBalance 1350 ml 100 ml 750 ml Exam General: Patient is a pleasant male currently lying in bed in no acute distress Neck: Supple Chest: nontender Lungs: Clear to auscultation bilaterally no crackles rales or wheezing Heart: Normal S1-S2, Regular rhythm and rate. No murmur, S3, or S4 Abdomen: Soft , nontender, nondistended , bowel sounds are present. No guarding no rebound tenderness Ext: bilateral feet with dressings in place, no discharge or drainage. Results Results 24hrs Laboratory Tests Test 01/05/19 04:32 White Blood Count 4.4 L Red Blood Count 4.60 L Hemoglobin 12.0 L Hematocrit 37.8 L Mean Corpuscular Volume 82.2 Mean Corpuscular Hemoglobin 26.1 L Mean Corpuscular Hemoglobin Concent 31.7 L Red Cell Distribution Width 17.9 H Platelet Count 169 # Mean Platelet Volume 11.5 H Immature Granulocytes % 0.700 H Neutrophils % 39.7 Lymphocytes % 47.9 Monocytes % 8.9 Eosinophils % 2.1 Basophils % 0.7 Nucleated Red Blood Cells % 0.0 Immature Granulocytes # 0.030 Neutrophils # 1.7 Lymphocytes # 2.1 Monocytes # 0.4 Eosinophils # 0.1 Basophils # 0.0 Nucleated Red Blood Cells # 0.0 Sodium Level 136 Potassium Level 3.9 Chloride Level 103 Carbon Dioxide Level 25 Anion Gap 8 Blood Urea Nitrogen 11 Creatinine 0.78 Est Glomerular Filtrat Rate mL/min > 60 Glucose Level 70 Calcium Level 8.6 Total Bilirubin 0.6 Direct Bilirubin 0.00 Indirect Bilirubin 0.6 Aspartate Amino Transf (AST/SGOT) 192 H Alanine Aminotransferase (ALT/SGPT) 92 H Alkaline Phosphatase 100 Total Protein 8.1 Albumin 3.2 L Globulin 4.90 H Albumin/Globulin Ratio 0.65 Medications Medication Current Medications Lisinopril (Zestril) 40 mg DAILY PO Last administered on 01/05/19 08:32; Admin Dose 40 MG; Start 01/02/19 at 09:00 Metoprolol Tartrate (Lopressor) 50 mg BID PO Last administered on 01/05/19 08:32; Admin Dose 50 MG; Start 01/02/19 at 00:00 Nifedipine (Procardia Xl) 30 mg DAILY PO Last administered on 01/05/19 08:32; Admin Dose 30 MG; Start 01/02/19 at 09:00 Senna (Senokot) 1 tab BID PRN PO CONSTIPATION; Start 01/02/19 at 00:00 IV Flush (NS 3 ml) 3 ml PER PROTOCOL IV ; Start 01/02/19 at 00:00 Ondansetron HCl (Zofran Inj) 4 mg Q6H PRN IV NAUSEA/VOMITING Last administered on 01/02/19at 01:59; Admin Dose 4 MG; Start 01/02/19 at 00:00 Acetaminophen (Tylenol Tab) 650 mg Q6H PRN PO .PAIN 1-3 OR TEMP; Start 01/02/19 at 00:00 Hydromorphone HCl (Dilaudid) 0.5 mg Q4H PRN IV .SEVERE PAIN 7-10 Last administered on 01/05/19at 08:46; Admin Dose 0.5 MG; Start 01/02/19 at 00:00 Docusate Sodium (Colace) 100 mg Q12H PRN PO .CONSTIPATION; Start 01/02/19 at 00:00 Bisacodyl (Dulcolax) 5 mg DAILY PRN PO .CONSTIPATION; Start 01/02/19 at 00:00 Hydralazine HCl (Apresoline) 10 mg Q4H PRN IV ELEVATED BLOOD PRESSURE Last administered on 01/02/19at 09:16; Admin Dose 10 MG; Start 01/02/19 at 03:00 Vancomycin HCl (Vanco Iv Per Pharmacy) VANCOMYCIN PER PHARMACY PER PROTOCOL XX ; Start 01/02/19 at 03:00 Lorazepam (Ativan) 1 mg Q2H PRN IV CONTROL WITHDRAWAL SYMPTOMS Last administered on 01/02/19 17:23; Admin Dose 1 MG; Start 01/02/19 at 05:30 Thiamine HCl (Vitamin B1) 200 mg DAILY PO Last administered on 01/05/19 08:32; Admin Dose 200 MG; Start 01/03/19 at 09:00 Folic Acid (Folic Acid) 1 mg DAILY PO Last administered on 01/05/19 08:32; Admin Dose 1 MG; Start 01/03/19 at 09:00 Multivitamins Therapeutic (Theragran) 1 tab DAILY PO Last administered on 01/05/19 08:32; Admin Dose 1 TAB; Start 01/03/19 at 09:00 Heparin Sodium (Porcine) (Heparin (5000 Units/1ml)) 5,000 unit BID SC Last administered on 01/05/19 08:34; Admin Dose 5,000 UNIT; Start 01/02/19 at 21:00 Nicotine (Nicoderm 7 Mg/ 24 Hr) 1 patch DAILY TRANSDERM ; Start 01/02/19 at 16:30 Duloxetine HCl (Cymbalta) 30 mg BID PO Last administered on 01/05/19 08:32; Admin Dose 30 MG; Start 01/02/19 at 21:00 Quetiapine Fumarate (Seroquel) 100 mg HS PO Last administered on 01/04/19 21:23; Admin Dose 100 MG; Start 01/02/19 at 21:00 Piperacillin Sod/ Tazobactam Sod 100 ml @ 200 mls/hr Q6 IVPB Last administered on 01/05/19 11:26; Admin Dose 200 MLS/HR; Start 01/02/19 at 22:00 Clotrimazole (Lotrimin Cr) 1 applic DAILY TOP Last administered on 01/05/19 08:33; Admin Dose 1 APPLIC; Start 01/04/19 at 09:00 Vancomycin HCl 1.25 gm/Sodium Chloride 250 ml @ 83.333 mls/ hr Q12H IVPB Last administered on 01/05/19 08:31; Admin Dose 83.333 MLS/HR; Start 01/04/19 at 09:00 Miscellaneous Information (*Rx Drug Level Order Reminder*) VANCOMYCIN TROUGH LEVEL 2000 ONCE XX ; Start 01/05/19 at 20:00; Stop 01/05/19 at 20:01 CHAZ LAL MD Jan 05, 2019 15:45
--- NOTE | 2019-01-05 18:38 | CONS ---
Consultation Date/Type/Reason Admit Date/Time Jan 01, 2019 at 22:19 Initial Consult Date Type of Consult SUBJECTIVE: Pt is awake, alert, afebrile. VS: stable T: 97.9 LABS: Reviewed. WBC- 4.4 Microbiology: Patient had a cultures of his wounds back in June that grew strep Enterobacter and enterococcus species also Corynebacterium group JK. Recent cx's pending Antimicrobials: IV vancomycin and Zosyn Physical examination: GEN: Obese well-developed middle-aged -[place] man who is awake in no distress. HENT: Head atraumatic normocephalic; neck is supple PULM: chest rise symmetrical breath sounds diminished to bases. Heart: S1-S2 Abdomen: soft, bowel sounds present. Extremities with bilateral lower leg chronic wounds with foul order Assessment: 1. Bilateral lower extremities acute on chronic wounds 2. Obesity 3. Pancytopenia 4. Psychiatric disorder 5. Diabetes Plan: Pt is stable. Continue current antibiotics. MRI report noted. No evidence for osteomyelitis. Podiatry rec-s Date/Time of Note DATE: 01/05/19 TIME: 18:34 Exam/Review of Systems Exam Vitals Vital Signs Date Temp Pulse Resp B/P (MAP) Pulse Ox O2 O2 Flow FiO2 Time Delivery Rate 01/05/19 97.9 67 18 135/86 95 14:00 (102) 01/04/19 Room Air 02:00 Intake and Output 01/04/19 01/04/19 01/05/19 1515:00 23:00 07:00 IntakeIntake Total 1350 ml 100 ml 1650 ml OutputOutput Total 900 ml BalanceBalance 1350 ml 100 ml 750 ml Results Result Diagram: 01/05/19 0432 01/05/19 0432 Results 24hrs Laboratory Tests Test 01/05/19 04:32 White Blood Count 4.4 L Red Blood Count 4.60 L Hemoglobin 12.0 L Hematocrit 37.8 L Mean Corpuscular Volume 82.2 Mean Corpuscular Hemoglobin 26.1 L Mean Corpuscular Hemoglobin Concent 31.7 L Red Cell Distribution Width 17.9 H Platelet Count 169 # Mean Platelet Volume 11.5 H Immature Granulocytes % 0.700 H Neutrophils % 39.7 Lymphocytes % 47.9 Monocytes % 8.9 Eosinophils % 2.1 Basophils % 0.7 Nucleated Red Blood Cells % 0.0 Immature Granulocytes # 0.030 Neutrophils # 1.7 Lymphocytes # 2.1 Monocytes # 0.4 Eosinophils # 0.1 Basophils # 0.0 Nucleated Red Blood Cells # 0.0 Sodium Level 136 Potassium Level 3.9 Chloride Level 103 Carbon Dioxide Level 25 Anion Gap 8 Blood Urea Nitrogen 11 Creatinine 0.78 Est Glomerular Filtrat Rate mL/min > 60 Glucose Level 70 Calcium Level 8.6 Total Bilirubin 0.6 Direct Bilirubin 0.00 Indirect Bilirubin 0.6 Aspartate Amino Transf (AST/SGOT) 192 H Alanine Aminotransferase (ALT/SGPT) 92 H Alkaline Phosphatase 100 Total Protein 8.1 Albumin 3.2 L Globulin 4.90 H Albumin/Globulin Ratio 0.65 Medications Medication Current Medications Lisinopril (Zestril) 40 mg DAILY PO Last administered on 01/05/19 08:32; Admin Dose 40 MG; Start 01/02/19 at 09:00 Metoprolol Tartrate (Lopressor) 50 mg BID PO Last administered on 01/05/19 08:32; Admin Dose 50 MG; Start 01/02/19 at 00:00 Nifedipine (Procardia Xl) 30 mg DAILY PO Last administered on 01/05/19 08:32; Admin Dose 30 MG; Start 01/02/19 at 09:00 Senna (Senokot) 1 tab BID PRN PO CONSTIPATION; Start 01/02/19 at 00:00 IV Flush (NS 3 ml) 3 ml PER PROTOCOL IV ; Start 01/02/19 at 00:00 Ondansetron HCl (Zofran Inj) 4 mg Q6H PRN IV NAUSEA/VOMITING Last administered on 01/02/19at 01:59; Admin Dose 4 MG; Start 01/02/19 at 00:00 Acetaminophen (Tylenol Tab) 650 mg Q6H PRN PO .PAIN 1-3 OR TEMP; Start 01/02/19 at 00:00 Hydromorphone HCl (Dilaudid) 0.5 mg Q4H PRN IV .SEVERE PAIN 7-10 Last administered on 01/05/19 16:06; Admin Dose 0.5 MG; Start 01/02/19 at 00:00 Docusate Sodium (Colace) 100 mg Q12H PRN PO .CONSTIPATION; Start 01/02/19 at 00:00 Bisacodyl (Dulcolax) 5 mg DAILY PRN PO .CONSTIPATION; Start 01/02/19 at 00:00 Hydralazine HCl (Apresoline) 10 mg Q4H PRN IV ELEVATED BLOOD PRESSURE Last administered on 01/02/19 09:16; Admin Dose 10 MG; Start 01/02/19 at 03:00 Vancomycin HCl (Vanco Iv Per Pharmacy) VANCOMYCIN PER PHARMACY PER PROTOCOL XX ; Start 01/02/19 at 03:00 Lorazepam (Ativan) 1 mg Q2H PRN IV CONTROL WITHDRAWAL SYMPTOMS Last administered on 01/02/19 17:23; Admin Dose 1 MG; Start 01/02/19 at 05:30 Thiamine HCl (Vitamin B1) 200 mg DAILY PO Last administered on 01/05/19 08:32; Admin Dose 200 MG; Start 01/03/19 at 09:00 Folic Acid (Folic Acid) 1 mg DAILY PO Last administered on 01/05/19 08:32; Admin Dose 1 MG; Start 01/03/19 at 09:00 Multivitamins Therapeutic (Theragran) 1 tab DAILY PO Last administered on 01/05/19 08:32; Admin Dose 1 TAB; Start 01/03/19 at 09:00 Heparin Sodium (Porcine) (Heparin (5000 Units/1ml)) 5,000 unit BID SC Last administered on 01/05/19 08:34; Admin Dose 5,000 UNIT; Start 01/02/19 at 21:00 Nicotine (Nicoderm 7 Mg/ 24 Hr) 1 patch DAILY TRANSDERM ; Start 01/02/19 at 16:30 Duloxetine HCl (Cymbalta) 30 mg BID PO Last administered on 01/05/19 08:32; Admin Dose 30 MG; Start 01/02/19 at 21:00 Quetiapine Fumarate (Seroquel) 100 mg HS PO Last administered on 01/04/19 21:23; Admin Dose 100 MG; Start 01/02/19 at 21:00 Piperacillin Sod/ Tazobactam Sod 100 ml @ 200 mls/hr Q6 IVPB Last administered on 01/05/19 17:36; Admin Dose 200 MLS/HR; Start 01/02/19 at 22:00 Clotrimazole (Lotrimin Cr) 1 applic DAILY TOP Last administered on 01/05/19 08:33; Admin Dose 1 APPLIC; Start 01/04/19 at 09:00 Vancomycin HCl 1.25 gm/Sodium Chloride 250 ml @ 83.333 mls/ hr Q12H IVPB Last administered on 01/05/19at 08:31; Admin Dose 83.333 MLS/HR; Start 01/04/19 at 09:00 Miscellaneous Information (*Rx Drug Level Order Reminder*) VANCOMYCIN TROUGH LEVEL 2000 ONCE XX ; Start 01/05/19 at 20:00; Stop 01/05/19 at 20:01 CHICO VILLEDA Jan 05, 2019 18:38
[2019-01-05 20:51] VITALS: BP 131/85; PULSE 71; RESP 18
[2019-01-05] MEDS: QUETIAPINE 100 MG TAB PO SCH (21:07)
[2019-01-06 02:10] VITALS: BP 129/83; PULSE 68; RESP 18
[2019-01-06] MEDS: PIPER-TAZO 3.375 GM IV (PMX) 100 ML IVPB SCH ×2 (06:11→12:04)
[2019-01-06 07:38] VITALS: BP 141/84; PULSE 63; RESP 18
[2019-01-06] MEDS: NICOTINE (7 MG/24 HR) PATCH TRANSDERM SCH (08:39)
[2019-01-06] MEDS: LISINOPRIL 20 MG TAB PO SCH (08:40)
[2019-01-06] MEDS: METOPROLOL 50 MG TAB PO SCH ×2 (08:40→20:42)
[2019-01-06] MEDS: DULOXETINE 30 MG CAP DR PO SCH ×2 (08:40→20:42)
[2019-01-06] MEDS: THIAMINE 100 MG TAB PO SCH (08:41)
[2019-01-06] MEDS: FOLIC ACID 1 MG TAB PO SCH (08:41)
[2019-01-06] MEDS: MULTIVITAMINS THERAPEUTIC TAB PO SCH (08:41)
[2019-01-06] MEDS: NIFEdipine (XL) 30 MG TAB PO SCH (08:41)
[2019-01-06] MEDS: CLOTRIMAZOLE 1% 30 GM CR TOP SCH (08:41)
[2019-01-06] MEDS: HEPARIN 5,000 UNIT/1 ML VIAL SC SCH ×2 (08:46→20:39)
[2019-01-06] MEDS: HYDROmorphONE 0.5 MG/0.5 ML SYG IV PRN ×3 (08:51→22:59)
[2019-01-06] MEDS ORDERED: SENNA/DOCUSATE NA (8.6MG/50MG) TAB PO PRN (09:30)
--- NOTE | 2019-01-06 09:39 | PN ---
Date/Time of Note Date/Time of Note DATE: 01/06/19 TIME: 09:37 Assessment/Plan VTE Prophylaxis Risk score (from Ns)>0 risk: 3 SCD applied (from Ns): No SCD contraindicated: other Pharmacological prophylaxis: heparin Lines/Catheters IV Catheter Type (from Nrsg): Mid Line Assessment/Plan Assessment/Plan 1. Chronic left and right foot ulcer - Podiatry on board and appreciate recommendations. s/p I&D and recommendations for daily dressing changes. Offloading of heels and ambulate with diabetic shoes. - ID on board and appreciate recommendations. Continue current antibiotics at this time - wound cx noted - pain control 2. Schizophrenia- stable - Psych consultation appreciated - continue Cymbalta and Seroquel 3. ETOH abuse - continue on thiamine/folic acid - Ativan PRN - no withdrawal appreciated 4. Alcoholic hepatitis - LFT elevated - continue monitoring 5. h/o hep c - outpatient follow up for treatment 6. HTN - continue home medications - remains stable 7. Anemia, microcytic, mild - stable - no need for transfusions 8. Thrombocytopenia - resolved 9. Disposition - CM on board for SNF placement. Cleared for d/c by podiatry. Will need to touch base with ID regarding antibiotic recommendations for discharge planning. Continue current treatment Result Diagram: 01/06/19 0507 01/06/19 0507 Results 24hrs Laboratory Tests Test 01/05/19 20:21 01/06/19 05:07 Vancomycin Level Trough 11.3 White Blood Count 3.9 L Red Blood Count 4.76 Hemoglobin 12.3 L Hematocrit 39.5 L Mean Corpuscular Volume 83.0 Mean Corpuscular Hemoglobin 25.8 L Mean Corpuscular Hemoglobin Concent 31.1 L Red Cell Distribution Width 18.1 H Platelet Count 204 # Mean Platelet Volume 11.0 H Immature Granulocytes % 0.300 Neutrophils % 38.2 L Lymphocytes % 51.9 H Monocytes % 7.6 Eosinophils % 1.5 Basophils % 0.5 Nucleated Red Blood Cells % 0.0 Immature Granulocytes # 0.010 Neutrophils # 1.5 L Lymphocytes # 2.0 Monocytes # 0.3 Eosinophils # 0.1 Basophils # 0.0 Nucleated Red Blood Cells # 0.0 Sodium Level 137 Potassium Level 3.7 Chloride Level 105 Carbon Dioxide Level 25 Anion Gap 7 Blood Urea Nitrogen 10 Creatinine 0.78 Glucose Level 99 Calcium Level 8.8 Phosphorus Level 3.8 Magnesium Level 1.7 Albumin 3.2 L Subjective 24 Hr Interval Summary Free Text/Dictation Patient doing well this am and requesting laxatives to prevent constipation. No acute overnight events. Exam/Review of Systems Exam Vitals Vital Signs Date Temp Pulse Resp B/P (MAP) Pulse Ox O2 O2 Flow FiO2 Time Delivery Rate 01/06/19 98.3 63 18 141/84 94 Room Air 07:38 (103) Intake and Output 01/05/19 01/05/19 01/06/19 1515:00 23:00 07:00 IntakeIntake Total 930 ml 790 ml 350 ml OutputOutput Total 1700 ml 655 ml BalanceBalance -770 ml 135 ml 350 ml Exam General: Patient is a pleasant male currently lying in bed in no acute distress Neck: Supple Lungs: Clear to auscultation bilaterally no crackles rales or wheezing Heart: Normal S1-S2, Regular rhythm and rate. No murmur, S3, or S4 Abdomen: Soft , nontender, nondistended , bowel sounds are present. No guarding no rebound tenderness Ext: bilateral feet with dressings in place, no discharge or drainage. Results Results 24hrs Laboratory Tests Test 01/05/19 20:21 01/06/19 05:07 Vancomycin Level Trough 11.3 White Blood Count 3.9 L Red Blood Count 4.76 Hemoglobin 12.3 L Hematocrit 39.5 L Mean Corpuscular Volume 83.0 Mean Corpuscular Hemoglobin 25.8 L Mean Corpuscular Hemoglobin Concent 31.1 L Red Cell Distribution Width 18.1 H Platelet Count 204 # Mean Platelet Volume 11.0 H Immature Granulocytes % 0.300 Neutrophils % 38.2 L Lymphocytes % 51.9 H Monocytes % 7.6 Eosinophils % 1.5 Basophils % 0.5 Nucleated Red Blood Cells % 0.0 Immature Granulocytes # 0.010 Neutrophils # 1.5 L Lymphocytes # 2.0 Monocytes # 0.3 Eosinophils # 0.1 Basophils # 0.0 Nucleated Red Blood Cells # 0.0 Sodium Level 137 Potassium Level 3.7 Chloride Level 105 Carbon Dioxide Level 25 Anion Gap 7 Blood Urea Nitrogen 10 Creatinine 0.78 Glucose Level 99 Calcium Level 8.8 Phosphorus Level 3.8 Magnesium Level 1.7 Albumin 3.2 L Medications Medication Current Medications Lisinopril (Zestril) 40 mg DAILY PO Last administered on 7/14/19at 08:40; Admin Dose 40 MG; Start 01/02/19 at 09:00 Metoprolol Tartrate (Lopressor) 50 mg BID PO Last administered on 01/06/19 08:40; Admin Dose 50 MG; Start 01/02/19 at 00:00 Nifedipine (Procardia Xl) 30 mg DAILY PO Last administered on 01/06/19 08:41; Admin Dose 30 MG; Start 01/02/19 at 09:00 IV Flush (NS 3 ml) 3 ml PER PROTOCOL IV ; Start 01/02/19 at 00:00 Ondansetron HCl (Zofran Inj) 4 mg Q6H PRN IV NAUSEA/VOMITING Last administered on 01/02/19 01:59; Admin Dose 4 MG; Start 01/02/19 at 00:00 Acetaminophen (Tylenol Tab) 650 mg Q6H PRN PO .PAIN 1-3 OR TEMP; Start 01/02/19 at 00:00 Hydromorphone HCl (Dilaudid) 0.5 mg Q4H PRN IV .SEVERE PAIN 7-10 Last administered on 01/06/19 08:51; Admin Dose 0.5 MG; Start 01/02/19 at 00:00 Bisacodyl (Dulcolax) 5 mg DAILY PRN PO .CONSTIPATION; Start 01/02/19 at 00:00 Hydralazine HCl (Apresoline) 10 mg Q4H PRN IV ELEVATED BLOOD PRESSURE Last administered on 01/02/19 09:16; Admin Dose 10 MG; Start 01/02/19 at 03:00 Vancomycin HCl (Vanco Iv Per Pharmacy) VANCOMYCIN PER PHARMACY PER PROTOCOL XX ; Start 01/02/19 at 03:00 Lorazepam (Ativan) 1 mg Q2H PRN IV CONTROL WITHDRAWAL SYMPTOMS Last administered on 01/02/19 17:23; Admin Dose 1 MG; Start 01/02/19 at 05:30 Thiamine HCl (Vitamin B1) 200 mg DAILY PO Last administered on 01/06/19 08:41; Admin Dose 200 MG; Start 01/03/19 at 09:00 Folic Acid (Folic Acid) 1 mg DAILY PO Last administered on 01/06/19 08:41; Admin Dose 1 MG; Start 01/03/19 at 09:00 Multivitamins Therapeutic (Theragran) 1 tab DAILY PO Last administered on 01/06/19 08:41; Admin Dose 1 TAB; Start 01/03/19 at 09:00 Heparin Sodium (Porcine) (Heparin (5000 Units/1ml)) 5,000 unit BID SC Last administered on 01/06/19 08:46; Admin Dose 5,000 UNIT; Start 01/02/19 at 21:00 Nicotine (Nicoderm 7 Mg/ 24 Hr) 1 patch DAILY TRANSDERM ; Start 01/02/19 at 16:30 Duloxetine HCl (Cymbalta) 30 mg BID PO Last administered on 01/06/19 08:40; Admin Dose 30 MG; Start 01/02/19 at 21:00 Quetiapine Fumarate (Seroquel) 100 mg HS PO Last administered on 01/05/19 21:07; Admin Dose 100 MG; Start 01/02/19 at 21:00 Piperacillin Sod/ Tazobactam Sod 100 ml @ 200 mls/hr Q6 IVPB Last administered on 01/06/19 06:11; Admin Dose 200 MLS/HR; Start 01/02/19 at 22:00 Clotrimazole (Lotrimin Cr) 1 applic DAILY TOP Last administered on 01/06/19 08:41; Admin Dose 1 APPLIC; Start 01/04/19 at 09:00 Vancomycin HCl 1.25 gm/Sodium Chloride 250 ml @ 83.333 mls/ hr Q12H IVPB Last administered on 01/05/19 21:07; Admin Dose 83.333 MLS/HR; Start 01/04/19 at 09:00 Polyethylene Glycol (Miralax) 17 gm DAILY PO ; Start 01/06/19 at 09:30 Senna/Docusate Sodium (Senokot-S) 1 tab BID PRN PO constipation; Start 01/06/19 at 09:30 CHAZ LAL MD Jan 06, 2019 09:39
[2019-01-06] MEDS: VANCOMYCIN HCL 1.25 GM in SOD CHLORIDE 0.9% 250 ML IVPB SCH ×2 (09:44→20:42)
[2019-01-06] MEDS: POLYETHYLENE GLYCOL 17 GM PACKET PO SCH (09:45)
--- NOTE | 2019-01-06 13:19 | CONS ---
Consultation Date/Type/Reason Admit Date/Time Jan 01, 2019 at 22:19 Initial Consult Date Type of Consult SUBJECTIVE: Pt is awake, alert, afebrile. VS: stable T: 98.3 LABS: Reviewed. WBC- 3.9 Microbiology: Patient had a cultures of his wounds back in June that grew strep Enterobacter and enterococcus species also Corynebacterium group JK. Recent cx's pending GRAM STAIN Final POLYMORPH. LEUKOCYTE NONE SEEN . NO ORGANISM SEEN WOUND CULTURE Preliminary Organism 1 MORGANELLA MORGANII QUANTITY SCANT GROWTH Organism 2 METHICILLIN RESISTANT S.AUREUS QUANTITY SCANT GROWTH . MULTI DRUG RESISTANT ORGANISM Organism 3 COAGULASE NEGATIVE STAPH QUANTITY SCANT GROWTH Organism 4 DIPTHEROIDS QUANTITY SCANT GROWTH Antimicrobials: IV vancomycin and Zosyn Physical examination: GEN: Obese well-developed middle-aged -[place] man who is awake in no distress. HENT: Head atraumatic normocephalic; neck is supple PULM: chest rise symmetrical breath sounds diminished to bases. Heart: S1-S2 Abdomen: soft, bowel sounds present. Extremities with bilateral lower leg chronic wounds with foul order Assessment: 1. Bilateral lower extremities acute on chronic wounds 2. Obesity 3. Pancytopenia 4. Psychiatric disorder 5. Diabetes Plan: Pt is stable. Will change Zosyn to PO Cipro per culture report. No evidence for osteomyelitis. Podiatry rec-s Date/Time of Note DATE: 01/06/19 TIME: 13:17 Exam/Review of Systems Exam Vitals Vital Signs Date Temp Pulse Resp B/P (MAP) Pulse Ox O2 O2 Flow FiO2 Time Delivery Rate 01/06/19 98.3 63 18 141/84 94 Room Air 07:38 (103) Intake and Output 01/05/19 01/05/19 01/06/19 1515:00 23:00 07:00 IntakeIntake Total 930 ml 790 ml 350 ml OutputOutput Total 1700 ml 655 ml BalanceBalance -770 ml 135 ml 350 ml Results Result Diagram: 01/06/19 0507 01/06/19 0507 Results 24hrs Laboratory Tests Test 01/05/19 20:21 01/06/19 05:07 Vancomycin Level Trough 11.3 White Blood Count 3.9 L Red Blood Count 4.76 Hemoglobin 12.3 L Hematocrit 39.5 L Mean Corpuscular Volume 83.0 Mean Corpuscular Hemoglobin 25.8 L Mean Corpuscular Hemoglobin Concent 31.1 L Red Cell Distribution Width 18.1 H Platelet Count 204 # Mean Platelet Volume 11.0 H Immature Granulocytes % 0.300 Neutrophils % 38.2 L Lymphocytes % 51.9 H Monocytes % 7.6 Eosinophils % 1.5 Basophils % 0.5 Nucleated Red Blood Cells % 0.0 Immature Granulocytes # 0.010 Neutrophils # 1.5 L Lymphocytes # 2.0 Monocytes # 0.3 Eosinophils # 0.1 Basophils # 0.0 Nucleated Red Blood Cells # 0.0 Sodium Level 137 Potassium Level 3.7 Chloride Level 105 Carbon Dioxide Level 25 Anion Gap 7 Blood Urea Nitrogen 10 Creatinine 0.78 Glucose Level 99 Calcium Level 8.8 Phosphorus Level 3.8 Magnesium Level 1.7 Albumin 3.2 L Medications Medication Current Medications Lisinopril (Zestril) 40 mg DAILY PO Last administered on 01/06/19 08:40; Admin Dose 40 MG; Start 01/02/19 at 09:00 Metoprolol Tartrate (Lopressor) 50 mg BID PO Last administered on 01/06/19 08:40; Admin Dose 50 MG; Start 01/02/19 at 00:00 Nifedipine (Procardia Xl) 30 mg DAILY PO Last administered on 01/06/19 08:41; Admin Dose 30 MG; Start 01/02/19 at 09:00 IV Flush (NS 3 ml) 3 ml PER PROTOCOL IV ; Start 01/02/19 at 00:00 Ondansetron HCl (Zofran Inj) 4 mg Q6H PRN IV NAUSEA/VOMITING Last administered on 01/02/19 01:59; Admin Dose 4 MG; Start 01/02/19 at 00:00 Acetaminophen (Tylenol Tab) 650 mg Q6H PRN PO .PAIN 1-3 OR TEMP; Start 01/02/19 at 00:00 Hydromorphone HCl (Dilaudid) 0.5 mg Q4H PRN IV .SEVERE PAIN 7-10 Last administered on 01/06/19 08:51; Admin Dose 0.5 MG; Start 01/02/19 at 00:00 Bisacodyl (Dulcolax) 5 mg DAILY PRN PO .CONSTIPATION; Start 01/02/19 at 00:00 Hydralazine HCl (Apresoline) 10 mg Q4H PRN IV ELEVATED BLOOD PRESSURE Last administered on 01/02/19 09:16; Admin Dose 10 MG; Start 01/02/19 at 03:00 Vancomycin HCl (Vanco Iv Per Pharmacy) VANCOMYCIN PER PHARMACY PER PROTOCOL XX ; Start 01/02/19 at 03:00 Lorazepam (Ativan) 1 mg Q2H PRN IV CONTROL WITHDRAWAL SYMPTOMS Last administered on 01/02/19 17:23; Admin Dose 1 MG; Start 01/02/19 at 05:30 Thiamine HCl (Vitamin B1) 200 mg DAILY PO Last administered on 01/06/19 08:41; Admin Dose 200 MG; Start 01/03/19 at 09:00 Folic Acid (Folic Acid) 1 mg DAILY PO Last administered on 01/06/19 08:41; Admin Dose 1 MG; Start 01/03/19 at 09:00 Multivitamins Therapeutic (Theragran) 1 tab DAILY PO Last administered on 01/06/19 08:41; Admin Dose 1 TAB; Start 01/03/19 at 09:00 Heparin Sodium (Porcine) (Heparin (5000 Units/1ml)) 5,000 unit BID SC Last administered on 01/06/19 08:46; Admin Dose 5,000 UNIT; Start 01/02/19 at 21:00 Nicotine (Nicoderm 7 Mg/ 24 Hr) 1 patch DAILY TRANSDERM ; Start 01/02/19 at 16:30 Duloxetine HCl (Cymbalta) 30 mg BID PO Last administered on 01/06/19 08:40; Admin Dose 30 MG; Start 01/02/19 at 21:00 Quetiapine Fumarate (Seroquel) 100 mg HS PO Last administered on 01/05/19 21:07; Admin Dose 100 MG; Start 01/02/19 at 21:00 Clotrimazole (Lotrimin Cr) 1 applic DAILY TOP Last administered on 01/06/19 08:41; Admin Dose 1 APPLIC; Start 01/04/19 at 09:00 Vancomycin HCl 1.25 gm/Sodium Chloride 250 ml @ 83.333 mls/ hr Q12H IVPB Last administered on 01/06/19 09:44; Admin Dose 83.333 MLS/HR; Start 01/04/19 at 09:00 Polyethylene Glycol (Miralax) 17 gm DAILY PO Last administered on 01/06/19 09:45; Admin Dose 17 GM; Start 01/06/19 at 09:30 Senna/Docusate Sodium (Senokot-S) 1 tab BID PRN PO constipation; Start 01/06/19 at 09:30 Ciprofloxacin (Cipro) 500 mg BID@06,18 PO ; Start 01/06/19 at 18:00 CHICO VILLEDA Jan 06, 2019 13:19
[2019-01-06 14:07] VITALS: BP 105/69; PULSE 68; RESP 17
[2019-01-06] MEDS: DAKINS 0.0125%(1/40) 473 ML SOLUTION TP SCH (16:43)
[2019-01-06] MEDS: CIPROFLOXACIN 500 MG TAB PO SCH (17:12)
[2019-01-06 20:36] VITALS: BP 120/79; PULSE 74; RESP 17
[2019-01-06] MEDS: QUETIAPINE 100 MG TAB PO SCH (20:42)
[2019-01-07 02:53] VITALS: BP 156/63; PULSE 71; RESP 18
[2019-01-07] MEDS: HYDROmorphONE 0.5 MG/0.5 ML SYG IV PRN ×4 (04:26→19:42)
[2019-01-07] MEDS: CIPROFLOXACIN 500 MG TAB PO SCH ×2 (05:29→17:04)
[2019-01-07 08:03] VITALS: BP 137/85; PULSE 75; RESP 16
[2019-01-07] MEDS: NICOTINE (7 MG/24 HR) PATCH TRANSDERM SCH (09:00)
[2019-01-07] MEDS: POLYETHYLENE GLYCOL 17 GM PACKET PO SCH (09:06)
[2019-01-07] MEDS: LISINOPRIL 20 MG TAB PO SCH (09:07)
[2019-01-07] MEDS: DULOXETINE 30 MG CAP DR PO SCH ×2 (09:08→20:30)
[2019-01-07] MEDS: FOLIC ACID 1 MG TAB PO SCH (09:08)
[2019-01-07] MEDS: NIFEdipine (XL) 30 MG TAB PO SCH (09:08)
[2019-01-07] MEDS: METOPROLOL 50 MG TAB PO SCH ×2 (09:08→20:31)
[2019-01-07] MEDS: THIAMINE 100 MG TAB PO SCH (09:08)
[2019-01-07] MEDS: MULTIVITAMINS THERAPEUTIC TAB PO SCH (09:08)
[2019-01-07] MEDS: VANCOMYCIN HCL 1.25 GM in SOD CHLORIDE 0.9% 250 ML IVPB SCH (09:09)
[2019-01-07] MEDS: HEPARIN 5,000 UNIT/1 ML VIAL SC SCH ×2 (09:09→20:32)
[2019-01-07] MEDS: CLOTRIMAZOLE 1% 30 GM CR TOP SCH (09:10)
[2019-01-07] MEDS: DAKINS 0.0125%(1/40) 473 ML SOLUTION TP SCH (09:10)
--- NOTE | 2019-01-07 11:08 | CONS ---
Assessment/Plan Assessment/Plan Hospital Course (Demo Recall) No acute events looks comfortable Microbiology: Patient had a cultures of his wounds back in June that grew strep Enterobacter and enterococcus species also Corynebacterium group JK. Recent cx's pending Antimicrobials: IV vancomycin, Cipro Physical examination: Obese well-developed middle-aged -[place] man who is awake in no distress. Head atraumatic normocephalic neck is supple chest rise symmetrical breath sounds diminished to bases. Heart: S1-S2 abdomen soft bowel sounds present. Extremities with bilateral lower extremities chronic wounds foul order Assessment: 1. Bilateral lower extremities acute on chronic wounds 2. Obesity 3. Pancytopenia 4. Psychiatric disorder 5. Diabetes Plan: Stable, change Vanco to Doxycycline, continue abx for 7-10 more days, con tinue wound care per podiatry rec-s, pending dc arrangements Consultation Date/Type/Reason Admit Date/Time Jan 01, 2019 at 22:19 Initial Consult Date Type of Consult id Date/Time of Note DATE: 01/07/19 TIME: 11:07 Exam/Review of Systems Exam Vitals Vital Signs Date Temp Pulse Resp B/P (MAP) Pulse Ox O2 O2 Flow FiO2 Time Delivery Rate 01/07/19 97.5 75 16 137/85 98 Room Air 08:03 (102) Intake and Output 01/06/19 01/06/19 01/07/19 1515:00 23:00 07:00 IntakeIntake Total 350 ml 600 ml 580 ml OutputOutput Total 1300 ml 200 ml BalanceBalance 350 ml -700 ml 380 ml Results Result Diagram: 01/07/19 0423 01/07/19 0423 Results 24hrs Laboratory Tests Test 01/07/19 04:23 White Blood Count 4.5 L Red Blood Count 4.55 L Hemoglobin 11.9 L Hematocrit 38.5 L Mean Corpuscular Volume 84.6 Mean Corpuscular Hemoglobin 26.2 L Mean Corpuscular Hemoglobin Concent 30.9 L Red Cell Distribution Width 18.4 H Platelet Count 205 Mean Platelet Volume 10.5 H Immature Granulocytes % 0.200 Neutrophils % 43.4 Lymphocytes % 44.9 Monocytes % 9.3 Eosinophils % 1.8 Basophils % 0.4 Nucleated Red Blood Cells % 0.0 Immature Granulocytes # 0.010 Neutrophils # 2.0 Lymphocytes # 2.0 Monocytes # 0.4 Eosinophils # 0.1 Basophils # 0.0 Nucleated Red Blood Cells # 0.0 Sodium Level 136 Potassium Level 4.1 Chloride Level 105 Carbon Dioxide Level 25 Anion Gap 6 Blood Urea Nitrogen 13 Creatinine 0.78 Glucose Level 95 Calcium Level 8.8 Phosphorus Level 3.7 Magnesium Level 1.7 Albumin 3.1 L Medications Medication Current Medications Lisinopril (Zestril) 40 mg DAILY PO Last administered on 01/07/19 09:07; Admin Dose 40 MG; Start 01/02/19 at 09:00 Metoprolol Tartrate (Lopressor) 50 mg BID PO Last administered on 01/07/19 09:08; Admin Dose 50 MG; Start 01/02/19 at 00:00 Nifedipine (Procardia Xl) 30 mg DAILY PO Last administered on 01/07/19 09:08; Admin Dose 30 MG; Start 01/02/19 at 09:00 IV Flush (NS 3 ml) 3 ml PER PROTOCOL IV ; Start 01/02/19 at 00:00 Ondansetron HCl (Zofran Inj) 4 mg Q6H PRN IV NAUSEA/VOMITING Last administered on 01/02/19at 01:59; Admin Dose 4 MG; Start 01/02/19 at 00:00 Acetaminophen (Tylenol Tab) 650 mg Q6H PRN PO .PAIN 1-3 OR TEMP; Start 01/02/19 at 00:00 Hydromorphone HCl (Dilaudid) 0.5 mg Q4H PRN IV .SEVERE PAIN 7-10 Last administered on 01/07/19 09:09; Admin Dose 0.5 MG; Start 01/02/19 at 00:00 Bisacodyl (Dulcolax) 5 mg DAILY PRN PO .CONSTIPATION; Start 01/02/19 at 00:00 Hydralazine HCl (Apresoline) 10 mg Q4H PRN IV ELEVATED BLOOD PRESSURE Last administered on 01/02/19 09:16; Admin Dose 10 MG; Start 01/02/19 at 03:00 Vancomycin HCl (Vanco Iv Per Pharmacy) VANCOMYCIN PER PHARMACY PER PROTOCOL XX ; Start 01/02/19 at 03:00 Lorazepam (Ativan) 1 mg Q2H PRN IV CONTROL WITHDRAWAL SYMPTOMS Last administered on 01/02/19at 17:23; Admin Dose 1 MG; Start 01/02/19 at 05:30 Thiamine HCl (Vitamin B1) 200 mg DAILY PO Last administered on 01/07/19 09:08; Admin Dose 200 MG; Start 01/03/19 at 09:00 Folic Acid (Folic Acid) 1 mg DAILY PO Last administered on 01/07/19 09:08; Admin Dose 1 MG; Start 01/03/19 at 09:00 Multivitamins Therapeutic (Theragran) 1 tab DAILY PO Last administered on 01/07/19 09:08; Admin Dose 1 TAB; Start 01/03/19 at 09:00 Heparin Sodium (Porcine) (Heparin (5000 Units/1ml)) 5,000 unit BID SC Last administered on 01/07/19 09:09; Admin Dose 5,000 UNIT; Start 01/02/19 at 21:00 Nicotine (Nicoderm 7 Mg/ 24 Hr) 1 patch DAILY TRANSDERM ; Start 01/02/19 at 16:30 Duloxetine HCl (Cymbalta) 30 mg BID PO Last administered on 01/07/19 09:08; Admin Dose 30 MG; Start 01/02/19 at 21:00 Quetiapine Fumarate (Seroquel) 100 mg HS PO Last administered on 01/06/19 20:42; Admin Dose 100 MG; Start 01/02/19 at 21:00 Clotrimazole (Lotrimin Cr) 1 applic DAILY TOP Last administered on 01/07/19 09:10; Admin Dose 1 APPLIC; Start 01/04/19 at 09:00 Vancomycin HCl 1.25 gm/Sodium Chloride 250 ml @ 83.333 mls/ hr Q12H IVPB Last administered on 01/07/19 09:09; Admin Dose 83.333 MLS/HR; Start 01/04/19 at 09:00 Polyethylene Glycol (Miralax) 17 gm DAILY PO Last administered on 01/07/19 09:06; Admin Dose 17 GM; Start 01/06/19 at 09:30 Senna/Docusate Sodium (Senokot-S) 1 tab BID PRN PO constipation; Start 01/06/19 at 09:30 Ciprofloxacin (Cipro) 500 mg BID@06,18 PO Last administered on 01/07/19 05:29; Admin Dose 500 MG; Start 01/06/19 at 18:00 Sodium Hypochlorite (Dakins Diluted (1/40)) 1 applic DAILY TP Last administered on 01/07/19at 09:10; Admin Dose 1 APPLIC; Start 01/06/19 at 15:59 SUSAN ALLAN NP Jan 07, 2019 11:08
--- NOTE | 2019-01-07 11:40 | CONS ---
Assessment/Plan Assessment/Plan Assessment/Plan (Daily) Bilateral lower extremity chronic neuropathic ulceration Pes planovalgus deformity Tinea pedis Onychomycosis Hallux limitus Homelessness Bipolar schizophrenia Alcohol abuse Peripheral neuropathy Normocytic anemia Plan Continue with daily dressing changes with betadine 4x4 gauze, kerlix and arcadio wrap. Offload heels while resting in bed. Wound cultures showing MRSA, morg anella, gram pos julio and staph coag neg. Patient would benefit from SNF placement due to history of homelessness unless he is able to secure a proper residence. Reviewed X-rays and MRI findings. Despite providing patient instructions in the past to follow up he has not followed ever in the wound care clinic. Patient would benefit from diabetic type shoe gear to protect his feet. Patient poor surgical candidate for any major reconstruction. Abx recommendations per ID. Recommend daily clotrimazole application. Consultation Date/Type/Reason Admit Date/Time Jan 01, 2019 at 22:19 Initial Consult Date Date/Time of Note DATE: 01/07/19 TIME: 11:40 24 HR Interval Summary Free Text/Dictation No acute events overnight. Exam/Review of Systems Exam Vitals Vital Signs Date Temp Pulse Resp B/P (MAP) Pulse Ox O2 O2 Flow FiO2 Time Delivery Rate 01/07/19 97.5 75 16 137/85 98 Room Air 08:03 (102) Intake and Output 01/06/19 01/06/19 01/07/19 1515:00 23:00 07:00 IntakeIntake Total 350 ml 600 ml 580 ml OutputOutput Total 1300 ml 200 ml BalanceBalance 350 ml -700 ml 380 ml Exam The patient with malodorous feet. Foot is warm. Pedal pulses are diminished. There is brawny appearing skin. Severe hypohidrosis with callus, mycotic nails, No signs of heel pressure sore. Per report, there were maggots, none currently seen. Left 2nd digit ulcer 3 x 2 x 0.8cm there is granular wound base no purulence could be expressed, the wound probes to bone Left hallux ulceration 2 x 1 x 0.3cm granular wound base no purulence, does not probe to bone Right hallux ulceration 1 x 1 x 0.3m granular wound base with surrounding hyperkeratotic lesion no purulence or probing to bone Right tibial tuberosity ulceration 1 x 1 x 0.2cm granular wound base no probing to bone, no proximal streaking Rigid ankle and STJ with limited ROM, limited hallux ROM Absent protective sensations Right foot MRI 1. Limited study due to motion artifact. 2. Dorsal - medial skin ulceration of the great toe near the first interphalangeal joint. 3. Abnormal bone marrow signal along the medial margin of the base of the first distal phalanx is suspicious but not entirely definitive for acute osteomyelitis. This study can be used as a baseline for short-term future follow up. 4. Mild to moderate soft tissue swelling without discrete drainable fluid collection. Left foot MRI 1. Limited exam as above. 2. Soft tissue swelling and irregularity in the first digit with focal medial plantar sided distal ulcer, and chronic blunting/erosion of the first distal phalanx present on multiple prior studies. No marrow edema within the limit ations of the study to suggest acute osteomyelitis at this level. 3. Diffuse soft tissue swelling and ulcer in the second digit at the medial dorsal aspect. Mild reactive edema in the distal second phalanx tuft without marrow infiltrative signal to suggest osteomyelitis at this time. Similar faint reactive marrow edema in the third and fourth without evidence of osteomyelitis. 4. Diffuse subcutaneous edema in the dorsum of the forefoot, and diffuse edema and atrophy/fatty infiltration of the visualized musculature may be related to diabetic neuropathy. Results Result Diagram: 01/07/19 0423 01/07/19 0423 Results 24hrs Laboratory Tests Test 01/07/19 04:23 White Blood Count 4.5 L Red Blood Count 4.55 L Hemoglobin 11.9 L Hematocrit 38.5 L Mean Corpuscular Volume 84.6 Mean Corpuscular Hemoglobin 26.2 L Mean Corpuscular Hemoglobin Concent 30.9 L Red Cell Distribution Width 18.4 H Platelet Count 205 Mean Platelet Volume 10.5 H Immature Granulocytes % 0.200 Neutrophils % 43.4 Lymphocytes % 44.9 Monocytes % 9.3 Eosinophils % 1.8 Basophils % 0.4 Nucleated Red Blood Cells % 0.0 Immature Granulocytes # 0.010 Neutrophils # 2.0 Lymphocytes # 2.0 Monocytes # 0.4 Eosinophils # 0.1 Basophils # 0.0 Nucleated Red Blood Cells # 0.0 Sodium Level 136 Potassium Level 4.1 Chloride Level 105 Carbon Dioxide Level 25 Anion Gap 6 Blood Urea Nitrogen 13 Creatinine 0.78 Glucose Level 95 Calcium Level 8.8 Phosphorus Level 3.7 Magnesium Level 1.7 Albumin 3.1 L Medications Medication Current Medications Lisinopril (Zestril) 40 mg DAILY PO Last administered on 01/07/19 09:07; Admin Dose 40 MG; Start 01/02/19 at 09:00 Metoprolol Tartrate (Lopressor) 50 mg BID PO Last administered on 01/07/19 09:08; Admin Dose 50 MG; Start 01/02/19 at 00:00 Nifedipine (Procardia Xl) 30 mg DAILY PO Last administered on 01/07/19 09:08; Admin Dose 30 MG; Start 01/02/19 at 09:00 IV Flush (NS 3 ml) 3 ml PER PROTOCOL IV ; Start 01/02/19 at 00:00 Ondansetron HCl (Zofran Inj) 4 mg Q6H PRN IV NAUSEA/VOMITING Last administered on 01/02/19 01:59; Admin Dose 4 MG; Start 01/02/19 at 00:00 Acetaminophen (Tylenol Tab) 650 mg Q6H PRN PO .PAIN 1-3 OR TEMP; Start 01/02/19 at 00:00 Hydromorphone HCl (Dilaudid) 0.5 mg Q4H PRN IV .SEVERE PAIN 7-10 Last administered on 01/07/19 09:09; Admin Dose 0.5 MG; Start 01/02/19 at 00:00 Bisacodyl (Dulcolax) 5 mg DAILY PRN PO .CONSTIPATION; Start 01/02/19 at 00:00 Hydralazine HCl (Apresoline) 10 mg Q4H PRN IV ELEVATED BLOOD PRESSURE Last administered on 01/02/19 09:16; Admin Dose 10 MG; Start 01/02/19 at 03:00 Lorazepam (Ativan) 1 mg Q2H PRN IV CONTROL WITHDRAWAL SYMPTOMS Last administered on 01/02/19 17:23; Admin Dose 1 MG; Start 01/02/19 at 05:30 Thiamine HCl (Vitamin B1) 200 mg DAILY PO Last administered on 01/07/19 09:08; Admin Dose 200 MG; Start 01/03/19 at 09:00 Folic Acid (Folic Acid) 1 mg DAILY PO Last administered on 01/07/19 09:08; Admin Dose 1 MG; Start 01/03/19 at 09:00 Multivitamins Therapeutic (Theragran) 1 tab DAILY PO Last administered on 01/07/19 09:08; Admin Dose 1 TAB; Start 01/03/19 at 09:00 Heparin Sodium (Porcine) (Heparin (5000 Units/1ml)) 5,000 unit BID SC Last administered on 01/07/19 09:09; Admin Dose 5,000 UNIT; Start 01/02/19 at 21:00 Nicotine (Nicoderm 7 Mg/ 24 Hr) 1 patch DAILY TRANSDERM ; Start 01/02/19 at 16:30 Duloxetine HCl (Cymbalta) 30 mg BID PO Last administered on 01/07/19 09:08; Admin Dose 30 MG; Start 01/02/19 at 21:00 Quetiapine Fumarate (Seroquel) 100 mg HS PO Last administered on 01/06/19 20:42; Admin Dose 100 MG; Start 01/02/19 at 21:00 Clotrimazole (Lotrimin Cr) 1 applic DAILY TOP Last administered on 01/07/19 09:10; Admin Dose 1 APPLIC; Start 01/04/19 at 09:00 Polyethylene Glycol (Miralax) 17 gm DAILY PO Last administered on 01/07/19at 0 9:06; Admin Dose 17 GM; Start 01/06/19 at 09:30 Senna/Docusate Sodium (Senokot-S) 1 tab BID PRN PO constipation; Start 01/06/19 at 09:30 Ciprofloxacin (Cipro) 500 mg BID@06,18 PO Last administered on 01/07/19 05:29; Admin Dose 500 MG; Start 01/06/19 at 18:00 Sodium Hypochlorite (Dakins Diluted (1/40)) 1 applic DAILY TP Last administered on 01/07/19 09:10; Admin Dose 1 APPLIC; Start 01/06/19 at 15:59 Doxycycline Hyclate (Vibramycin) 100 mg BID PO ; Start 01/07/19 at 21:00; Status FREDERICK MIJARES DPHarvinder Jan 07, 2019 11:40
--- NOTE | 2019-01-07 13:32 | PN ---
Date/Time of Note Date/Time of Note DATE: 01/07/19 TIME: 13:31 Objective Vitals Vital Signs Date Temp Pulse Resp B/P (MAP) Pulse Ox O2 O2 Flow FiO2 Time Delivery Rate 01/07/19 97.5 75 16 137/85 98 Room Air 08:03 (102) Intake and Output 01/06/19 01/06/19 01/07/19 1515:00 23:00 07:00 IntakeIntake Total 350 ml 600 ml 580 ml OutputOutput Total 1300 ml 200 ml BalanceBalance 350 ml -700 ml 380 ml Results Result Diagram: 01/07/19 0423 01/07/19 0423 Medications Medications Current Medications Lisinopril (Zestril) 40 mg DAILY PO Last administered on 01/07/19at 09:07; Admin Dose 40 MG; Start 01/02/19 at 09:00 Metoprolol Tartrate (Lopressor) 50 mg BID PO Last administered on 01/07/19 09:08; Admin Dose 50 MG; Start 01/02/19 at 00:00 Nifedipine (Procardia Xl) 30 mg DAILY PO Last administered on 01/07/19at 09:08; Admin Dose 30 MG; Start 01/02/19 at 09:00 IV Flush (NS 3 ml) 3 ml PER PROTOCOL IV ; Start 01/02/19 at 00:00 Ondansetron HCl (Zofran Inj) 4 mg Q6H PRN IV NAUSEA/VOMITING Last administered on 01/02/19at 01:59; Admin Dose 4 MG; Start 01/02/19 at 00:00 Acetaminophen (Tylenol Tab) 650 mg Q6H PRN PO .PAIN 1-3 OR TEMP; Start 01/02/19 at 00:00 Hydromorphone HCl (Dilaudid) 0.5 mg Q4H PRN IV .SEVERE PAIN 7-10 Last administered on 01/07/19 09:09; Admin Dose 0.5 MG; Start 01/02/19 at 00:00 Bisacodyl (Dulcolax) 5 mg DAILY PRN PO .CONSTIPATION; Start 01/02/19 at 00:00 Hydralazine HCl (Apresoline) 10 mg Q4H PRN IV ELEVATED BLOOD PRESSURE Last administered on 01/02/19at 09:16; Admin Dose 10 MG; Start 01/02/19 at 03:00 Lorazepam (Ativan) 1 mg Q2H PRN IV CONTROL WITHDRAWAL SYMPTOMS Last administer ed on 01/02/19 17:23; Admin Dose 1 MG; Start 01/02/19 at 05:30 Thiamine HCl (Vitamin B1) 200 mg DAILY PO Last administered on 01/07/19 09:08; Admin Dose 200 MG; Start 01/03/19 at 09:00 Folic Acid (Folic Acid) 1 mg DAILY PO Last administered on 01/07/19 09:08; Admin Dose 1 MG; Start 01/03/19 at 09:00 Multivitamins Therapeutic (Theragran) 1 tab DAILY PO Last administered on 01/07/19 09:08; Admin Dose 1 TAB; Start 01/03/19 at 09:00 Heparin Sodium (Porcine) (Heparin (5000 Units/1ml)) 5,000 unit BID SC Last administered on 01/07/19 09:09; Admin Dose 5,000 UNIT; Start 01/02/19 at 21:00 Nicotine (Nicoderm 7 Mg/ 24 Hr) 1 patch DAILY TRANSDERM ; Start 01/02/19 at 16:30 Duloxetine HCl (Cymbalta) 30 mg BID PO Last administered on 01/07/19 09:08; Admin Dose 30 MG; Start 01/02/19 at 21:00 Quetiapine Fumarate (Seroquel) 100 mg HS PO Last administered on 01/06/19 20:42; Admin Dose 100 MG; Start 01/02/19 at 21:00 Clotrimazole (Lotrimin Cr) 1 applic DAILY TOP Last administered on 01/07/19 09:10; Admin Dose 1 APPLIC; Start 01/04/19 at 09:00 Polyethylene Glycol (Miralax) 17 gm DAILY PO Last administered on 01/07/19 09:06; Admin Dose 17 GM; Start 01/06/19 at 09:30 Senna/Docusate Sodium (Senokot-S) 1 tab BID PRN PO constipation; Start 01/06/19 at 09:30 Ciprofloxacin (Cipro) 500 mg BID@06,18 PO Last administered on 01/07/19 05:29; Admin Dose 500 MG; Start 01/06/19 at 18:00 Sodium Hypochlorite (Dakins Diluted (40)) 1 applic DAILY TP Last administered on 01/07/19at 09:10; Admin Dose 1 APPLIC; Start 01/06/19 at 15:59 Doxycycline Hyclate (Vibramycin) 100 mg BID PO ; Start 01/07/19 at 21:00 VTE Prophylaxis Risk score (from Ns)>0 risk: 3 SCD applied (from [facility]): No SCD contraindication: other Lines/Catheters IV Catheter Type: Melissa in Place: No Assessment/Plan Hospital Course Subjective No acute complaints Objective Physical exam General: Patient is laying in bed and answers questions appropriately Mentation: Patient is alert and oriented 4, Head: Normocephalic atraumatic Eyes: EOMI, pupils reactive to light Neck: Supple, nontender, midline Respiratory: Clear to auscultation bilaterally Cardiovascular: regular rate, no obvious murmurs Gastrointestinal: non-tender to palpation, bowel sounds heard. Neurological: Moves all extremities spontaneously Skin: Bilateral foot ulcers, bandaged, CDI Assessment/Plan 1. Chronic left and right foot ulcer - Podiatry on board and appreciate recommendations. s/p I&D and recommendations for daily dressing changes. Offloading of heels and ambulate with diabetic shoes. - ID on board and appreciate recommendations. Continue current antibiotics at this time - wound cx noted - pain control 2. Schizophrenia- stable - Psych consultation appreciated - continue Cymbalta and Seroquel 3. ETOH abuse - continue on thiamine/folic acid - Ativan PRN - no withdrawal appreciated 4. Alcoholic hepatitis - LFT elevated - continue monitoring 5. hep c - outpatient follow up for treatment 6. HTN - continue home medications - remains stable 7. Anemia, microcytic, mild - stable - no need for transfusions 8. Thrombocytopenia - resolved 9. Disposition - CM on board for SNF placement. Cleared for d/c by podiatry. AVA HOWARD Jan 07, 2019 13:32
[2019-01-07 14:30] VITALS: BP 121/75; PULSE 71; RESP 16
--- NOTE | 2019-01-07 17:17 | CONS ---
Assessment/Plan Assessment/Plan Hospital Course (Demo Recall) Assessment: Hepatitis C Alcoholic hepatitis- with DF less than 32 on admission ETOH abuse Hepatomegaly and hepatic steatosis -Underlying hepatocellular disease cannot be excluded on liver ultrasound Microcytic anemia, mild Thrombocytopenia on admission- resolved Schizophrenia HTN Chronic left and right foot ulcer MRSA left foot ulcer Plan: Pt to f/u as an out-pt for complete work-up Fibro test/score to assess. Hepatitis Bs AG/AB is negative. Will consider Mavyret vs Epclusa Also recommend screening colonoscopy- based on fibrosis level pt may require EGD as well. Patient seen in collaboration with Dr. Pak CC: JONO PAK MD ; Consultation Date/Type/Reason Admit Date/Time Jan 01, 2019 at 22:19 Date of Consultation: Jan 07, 2019 Type of Consult GI Reason for Consultation Hepatitis C Date/Time of Note DATE: 01/07/19 TIME: 16:45 Hx of Present Illness This is a 53-year-old male who was admitted for bilateral lower extremity chronic neuropathic ulcerations. During hospitalization LFTs were noted to be elevated. Hepatitis serology was obtained showing a reactive hepatitis C antibody with an elevated RNA. GI has been consulted to set up plan for outpatient treatment of hepatitis C. Patient states he initially diagnosed in the mid to late 90s with hepatitis C he denies history of intranasal cocaine use, IV drug abuse, previous blood transfusions or known sexual exposure of hepatitis C. G of the liver was obtained showing hepatomegaly and hepatic steatosis underlying hepatocellular disease cannot be excluded, no cholelithiasis, no biliary dilation hematology shows normocytic anemia with a previous thrombocytopenia on admission which has resolved, normal PT/INR. He denies nausea/vomiting, abdominal pain, changes in bowel habits, unintentional weight loss, or overt signs of GI bleed. He has never had an EGD or colonoscopy. Review of Systems: [A 12 system, review was conducted and is negative except as noted in the HPI or here.] Past Medical History Home Meds Reported Medications Naproxen* (Naproxen*) 500 Mg Tablet, 500 MG PO BID, TAB 07/12/18 Sennosides* (Senna Lax*) 8.6 Mg Tablet, 1 TAB PO BID PRN for CONSTIPATION, TAB 07/12/18 Thiamine* (Thiamine*) 100 Mg Tablet, 100 MG PO DAILY, TAB 07/12/18 Pyridoxine Hcl* (Pyridoxine Hcl*) 100 Mg Tablet, 100 MG PO DAILY, TAB 07/12/18 Nifedipine* (Adalat CC*) 30 Mg Tablet.sa, 30 MG PO DAILY, #30 TAB.SA 07/12/18 Metoprolol Tartrate* (Lopressor*) 50 Mg Tab, 50 MG PO BID, #60 TAB 07/12/18 Lisinopril* (Lisinopril*) 40 Mg Tablet, 40 MG PO DAILY, #30 TAB 07/12/18 Folic Acid* (Folic Acid*) 1 Mg Tablet, 1 MG PO DAILY, TAB 07/12/18 Bupropion Hcl* (Bupropion Hcl*) 100 Mg Tablet, 100 MG PO DAILY, TAB 07/12/18 Medications Current Medications Lisinopril (Zestril) 40 mg DAILY PO Last administered on 01/07/19at 09:07; Admin Dose 40 MG; Start 01/02/19 at 09:00 Metoprolol Tartrate (Lopressor) 50 mg BID PO Last administered on 01/07/19at 09:08; Admin Dose 50 MG; Start 01/02/19 at 00:00 Nifedipine (Procardia Xl) 30 mg DAILY PO Last administered on 01/07/19at 09:08; Admin Dose 30 MG; Start 01/02/19 at 09:00 IV Flush (NS 3 ml) 3 ml PER PROTOCOL IV ; Start 01/02/19 at 00:00 Ondansetron HCl (Zofran Inj) 4 mg Q6H PRN IV NAUSEA/VOMITING Last administered on 01/02/19at 01:59; Admin Dose 4 MG; Start 01/02/19 at 00:00 Acetaminophen (Tylenol Tab) 650 mg Q6H PRN PO .PAIN 1-3 OR TEMP; Start 01/02/19 at 00:00 Hydromorphone HCl (Dilaudid) 0.5 mg Q4H PRN IV .SEVERE PAIN 7-10 Last administered on 01/07/19at 14:37; Admin Dose 0.5 MG; Start 01/02/19 at 00:00 Bisacodyl (Dulcolax) 5 mg DAILY PRN PO .CONSTIPATION; Start 01/02/19 at 00:00 Hydralazine HCl (Apresoline) 10 mg Q4H PRN IV ELEVATED BLOOD PRESSURE Last ad ministered on 01/02/19 09:16; Admin Dose 10 MG; Start 01/02/19 at 03:00 Lorazepam (Ativan) 1 mg Q2H PRN IV CONTROL WITHDRAWAL SYMPTOMS Last administered on 01/02/19 17:23; Admin Dose 1 MG; Start 01/02/19 at 05:30 Thiamine HCl (Vitamin B1) 200 mg DAILY PO Last administered on 01/07/19 09:08; Admin Dose 200 MG; Start 01/03/19 at 09:00 Folic Acid (Folic Acid) 1 mg DAILY PO Last administered on 01/07/19 09:08; Admin Dose 1 MG; Start 01/03/19 at 09:00 Multivitamins Therapeutic (Theragran) 1 tab DAILY PO Last administered on 01/07/19 09:08; Admin Dose 1 TAB; Start 01/03/19 at 09:00 Heparin Sodium (Porcine) (Heparin (5000 Units/1ml)) 5,000 unit BID SC Last administered on 01/07/19 09:09; Admin Dose 5,000 UNIT; Start 01/02/19 at 21:00 Nicotine (Nicoderm 7 Mg/ 24 Hr) 1 patch DAILY TRANSDERM ; Start 01/02/19 at 16:30 Duloxetine HCl (Cymbalta) 30 mg BID PO Last administered on 01/07/19 09:08; Admin Dose 30 MG; Start 01/02/19 at 21:00 Quetiapine Fumarate (Seroquel) 100 mg HS PO Last administered on 01/06/19 20:42; Admin Dose 100 MG; Start 01/02/19 at 21:00 Clotrimazole (Lotrimin Cr) 1 applic DAILY TOP Last administered on 01/07/19 09:10; Admin Dose 1 APPLIC; Start 01/04/19 at 09:00 Polyethylene Glycol (Miralax) 17 gm DAILY PO Last administered on 01/07/19 09:06; Admin Dose 17 GM; Start 01/06/19 at 09:30 Senna/Docusate Sodium (Senokot-S) 1 tab BID PRN PO constipation; Start 01/06/19 at 09:30 Ciprofloxacin (Cipro) 500 mg BID@,18 PO Last administered on 01/07/19 05:29; Admin Dose 500 MG; Start 01/06/19 at 18:00 Sodium Hypochlorite (Dakins Diluted (1/40)) 1 applic DAILY TP Last administered on 01/07/19at 09:10; Admin Dose 1 APPLIC; Start 01/06/19 at 15:59 Doxycycline Hyclate (Vibramycin) 100 mg BID PO ; Start 01/07/19 at 21:00 Allergies: Coded Allergies: No Known Drug Allergies (Verified Allergy, Unknown, 07/11/18) Past Surgical History Past Surgical Hx: other Social History Alcohol Use: heavy Smoking Status: Current every day smoker Exam/Review of Systems Exam Vitals Vital Signs Date Temp Pulse Resp B/P (MAP) Pulse Ox O2 O2 Flow FiO2 Time Delivery Rate 01/07/19 98.8 71 16 121/75 100 Room Air 14:30 (90) Intake and Output 01/06/19 01/06/19 01/07/19 1515:00 23:00 07:00 IntakeIntake Total 350 ml 600 ml 580 ml OutputOutput Total 1300 ml 200 ml BalanceBalance 350 ml -700 ml 380 ml Constitutional: alert, oriented Head: normocephalic Eyes: nl conjunctiva ENMT: nl external ears & nose, nl lips & teeth Neck: supple, non-tender Respiratory: clear to auscultation Cardiovascular: regular rate and rhythm Gastrointestinal: soft, bowel sounds, hepatomegaly Skin: other (dressing to lower extremities ) Results Result Diagram: 01/07/193 01/07/19 0423 Results 24hrs Laboratory Tests Test 01/07/19 04:23 White Blood Count 4.5 L Red Blood Count 4.55 L Hemoglobin 11.9 L Hematocrit 38.5 L Mean Corpuscular Volume 84.6 Mean Corpuscular Hemoglobin 26.2 L Mean Corpuscular Hemoglobin Concent 30.9 L Red Cell Distribution Width 18.4 H Platelet Count 205 Mean Platelet Volume 10.5 H Immature Granulocytes % 0.200 Neutrophils % 43.4 Lymphocytes % 44.9 Monocytes % 9.3 Eosinophils % 1.8 Basophils % 0.4 Nucleated Red Blood Cells % 0.0 Immature Granulocytes # 0.010 Neutrophils # 2.0 Lymphocytes # 2.0 Monocytes # 0.4 Eosinophils # 0.1 Basophils # 0.0 Nucleated Red Blood Cells # 0.0 Sodium Level 136 Potassium Level 4.1 Chloride Level 105 Carbon Dioxide Level 25 Anion Gap 6 Blood Urea Nitrogen 13 Creatinine 0.78 Glucose Level 95 Calcium Level 8.8 Phosphorus Level 3.7 Magnesium Level 1.7 Albumin 3.1 L Medications Medication Current Medications Lisinopril (Zestril) 40 mg DAILY PO Last administered on 01/07/19 09:07; Admin Dose 40 MG; Start 01/02/19 at 09:00 Metoprolol Tartrate (Lopressor) 50 mg BID PO Last administered on 01/07/19 09:08; Admin Dose 50 MG; Start 01/02/19 at 00:00 Nifedipine (Procardia Xl) 30 mg DAILY PO Last administered on 01/07/19 09:08; Admin Dose 30 MG; Start 01/02/19 at 09:00 IV Flush (NS 3 ml) 3 ml PER PROTOCOL IV ; Start 01/02/19 at 00:00 Ondansetron HCl (Zofran Inj) 4 mg Q6H PRN IV NAUSEA/VOMITING Last administered on 01/02/19 01:59; Admin Dose 4 MG; Start 01/02/19 at 00:00 Acetaminophen (Tylenol Tab) 650 mg Q6H PRN PO .PAIN 1-3 OR TEMP; Start 01/02/19 at 00:00 Hydromorphone HCl (Dilaudid) 0.5 mg Q4H PRN IV .SEVERE PAIN 7-10 Last administered on 01/07/19 14:37; Admin Dose 0.5 MG; Start 01/02/19 at 00:00 Bisacodyl (Dulcolax) 5 mg DAILY PRN PO .CONSTIPATION; Start 01/02/19 at 00:00 Hydralazine HCl (Apresoline) 10 mg Q4H PRN IV ELEVATED BLOOD PRESSURE Last administered on 01/02/19 09:16; Admin Dose 10 MG; Start 01/02/19 at 03:00 Lorazepam (Ativan) 1 mg Q2H PRN IV CONTROL WITHDRAWAL SYMPTOMS Last administered on 01/02/19 17:23; Admin Dose 1 MG; Start 01/02/19 at 05:30 Thiamine HCl (Vitamin B1) 200 mg DAILY PO Last administered on 01/07/19 09:08; Admin Dose 200 MG; Start 01/03/19 at 09:00 Folic Acid (Folic Acid) 1 mg DAILY PO Last administered on 01/07/19 09:08; Admin Dose 1 MG; Start 01/03/19 at 09:00 Multivitamins Therapeutic (Theragran) 1 tab DAILY PO Last administered on 01/07/19 09:08; Admin Dose 1 TAB; Start 01/03/19 at 09:00 Heparin Sodium (Porcine) (Heparin (5000 Units/1ml)) 5,000 unit BID SC Last administered on 01/07/19 09:09; Admin Dose 5,000 UNIT; Start 01/02/19 at 21:00 Nicotine (Nicoderm 7 Mg/ 24 Hr) 1 patch DAILY TRANSDERM ; Start 01/02/19 at 16:30 Duloxetine HCl (Cymbalta) 30 mg BID PO Last administered on 01/07/19 09:08; Admin Dose 30 MG; Start 01/02/19 at 21:00 Quetiapine Fumarate (Seroquel) 100 mg HS PO Last administered on 01/06/19 20:42; Admin Dose 100 MG; Start 01/02/19 at 21:00 Clotrimazole (Lotrimin Cr) 1 applic DAILY TOP Last administered on 01/07/19 09:10; Admin Dose 1 APPLIC; Start 01/04/19 at 09:00 Polyethylene Glycol (Miralax) 17 gm DAILY PO Last administered on 01/07/19 0 9:06; Admin Dose 17 GM; Start 01/06/19 at 09:30 Senna/Docusate Sodium (Senokot-S) 1 tab BID PRN PO constipation; Start 01/06/19 at 09:30 Ciprofloxacin (Cipro) 500 mg BID@06,18 PO Last administered on 01/07/19at 05:29; Admin Dose 500 MG; Start 01/06/19 at 18:00 Sodium Hypochlorite (Dakins Diluted (1/40)) 1 applic DAILY TP Last administered on 01/07/19 09:10; Admin Dose 1 APPLIC; Start 01/06/19 at 15:59 Doxycycline Hyclate (Vibramycin) 100 mg BID PO ; Start 01/07/19 at 21:00 ALY TANG Jan 07, 2019 17:01
[2019-01-07 20:00] VITALS: BP 113/76; PULSE 78; RESP 18
[2019-01-07] MEDS: DOXYCYCLINE 100 MG TAB PO SCH (20:30)
[2019-01-07] MEDS: QUETIAPINE 100 MG TAB PO SCH (20:30)
[2019-01-08] MEDS: HYDROmorphONE 0.5 MG/0.5 ML SYG IV PRN ×4 (01:23→20:06)
[2019-01-08 01:45] VITALS: BP 110/72; PULSE 78; RESP 17
[2019-01-08] MEDS: CIPROFLOXACIN 500 MG TAB PO SCH ×2 (06:16→17:05)
[2019-01-08 07:36] VITALS: BP 131/82; PULSE 69; RESP 18
[2019-01-08] MEDS: LISINOPRIL 20 MG TAB PO SCH (08:54)
[2019-01-08] MEDS: THIAMINE 100 MG TAB PO SCH (08:54)
[2019-01-08] MEDS: MULTIVITAMINS THERAPEUTIC TAB PO SCH (08:54)
[2019-01-08] MEDS: FOLIC ACID 1 MG TAB PO SCH (08:54)
[2019-01-08] MEDS: DOXYCYCLINE 100 MG TAB PO SCH ×2 (08:54→20:08)
[2019-01-08] MEDS: POLYETHYLENE GLYCOL 17 GM PACKET PO SCH (08:55)
[2019-01-08] MEDS: DULOXETINE 30 MG CAP DR PO SCH ×2 (08:55→20:08)
[2019-01-08] MEDS: CLOTRIMAZOLE 1% 30 GM CR TOP SCH (08:55)
[2019-01-08] MEDS: DAKINS 0.0125%(1/40) 473 ML SOLUTION TP SCH (08:55)
[2019-01-08] MEDS: NIFEdipine (XL) 30 MG TAB PO SCH (08:55)
[2019-01-08] MEDS: HEPARIN 5,000 UNIT/1 ML VIAL SC SCH ×2 (08:59→20:12)
[2019-01-08] MEDS: NICOTINE (7 MG/24 HR) PATCH TRANSDERM SCH (09:00)
[2019-01-08] MEDS: METOPROLOL 50 MG TAB PO SCH ×2 (09:07→20:10)
--- NOTE | 2019-01-08 10:37 | PN ---
Date/Time of Note Date/Time of Note DATE: 01/08/19 TIME: 10:30 Assessment/Plan VTE Prophylaxis Risk score (from Ns)>0 risk: 4 SCD applied (from Ns): No SCD contraindicated: bilateral LE trauma Pharmacological prophylaxis: heparin Lines/Catheters IV C[facility] Type [facility]from [facility] Mid Line Urinary Cath still in place: No Assessment/Plan Hospital Course Assessment: Hepatitis C Alcoholic hepatitis- with DF less than 32 on admission -Transaminitis improving ETOH abuse- discussed alcohol cessation Hepatomegaly and hepatic steatosis -Underlying hepatocellular disease cannot be excluded on liver ultrasound Microcytic anemia, mild Thrombocytopenia on admission- resolved Schizophrenia HTN Chronic left and right foot ulcer MRSA left foot ulcer Plan: Pt to f/u as an out-pt for complete work-up Fibro test/score to assess. Hepatitis Bs AG/AB is negative. Will consider Mavyret vs Epclusa Also recommend screening colonoscopy- based on fibrosis level pt may require EGD as well. CM- consult- patient states he does not have a PCP- CM to help find PCP and set up appt- patient will need referral to see GI Patient seen in collaboration with Dr. Pak Subjective: Course reviewed with nursing staff Patient interviewed and examined All labs, imaging and other results reviewed The patient resting in bed, no over night events No c/o n/v or abdominal pain PHYSICAL EXAMINATION: GENERAL: Well developed, alert & oriented x 3, in no acute distress SKIN: foot ulcers HEAD: Normocephalic, atraumatic, no tenderness. EYES: Pupils equal reactive to light and accommodation, no discharge. EARS/NOSE AND THROAT: Ears normal, nose normal. NECK: Supple, no masses. CHEST: Inspection within normal limits. CARDIOVASCULAR: Heart: Regular rate and rhythm RESPIRATORY: Lungs clear to auscultation GASTROINTESTINAL AND LIVER: Abdomen: Soft, non tenderness, non-distended, no hernias, no masses no guarding, no rebound tenderness, normoactive bowel sounds. Rectal: Deferred. EXTREMITIES: Dressing to bilateral feet Result Diagram: 01/08/19 0505 01/08/19 0505 Results 24hrs Laboratory Tests Test 01/08/19 05:05 White Blood Count 3.7 L Red Blood Count 4.75 Hemoglobin 12.4 L Hematocrit 39.8 L Mean Corpuscular Volume 83.8 Mean Corpuscular Hemoglobin 26.1 L Mean Corpuscular Hemoglobin Concent 31.2 L Red Cell Distribution Width 18.4 H Platelet Count 233 Mean Platelet Volume 10.6 H Immature Granulocytes % 0.300 Neutrophils % 45.3 Lymphocytes % 42.1 Monocytes % 10.1 Eosinophils % 1.4 Basophils % 0.8 Nucleated Red Blood Cells % 0.0 Immature Granulocytes # 0.010 Neutrophils # 1.7 Lymphocytes # 1.5 Monocytes # 0.4 Eosinophils # 0.1 Basophils # 0.0 Nucleated Red Blood Cells # 0.0 Sodium Level 139 Potassium Level 4.0 Chloride Level 106 Carbon Dioxide Level 24 Anion Gap 9 Blood Urea Nitrogen 11 Creatinine 0.70 Est Glomerular Filtrat Rate mL/min > 60 Glucose Level 92 Calcium Level 9.1 Magnesium Level 1.7 Total Bilirubin 0.4 Direct Bilirubin 0.00 Indirect Bilirubin 0.4 Aspartate Amino Transf (AST/SGOT) 164 H Alanine Aminotransferase (ALT/SGPT) 101 H Alkaline Phosphatase 99 Total Protein 8.2 H Albumin 3.4 Globulin 4.80 H Albumin/Globulin Ratio 0.70 Exam/Review of Systems Exam Vitals Vital Signs Date Temp Pulse Resp B/P (MAP) Pulse Ox O2 O2 Flow FiO2 Time Delivery Rate 01/08/19 97.9 69 18 131/82 97 07:36 (98) 01/07/19 Room Air 20:00 Intake and Output 01/07/19 01/07/19 01/08/19 1515:00 23:00 07:00 IntakeIntake Total 250 ml 660 ml 480 ml OutputOutput Total 425 ml 800 ml 1600 ml BalanceBalance -175 ml -140 ml -1120 ml Results Results 24hrs Laboratory Tests Test 01/08/19 05:05 White Blood Count 3.7 L Red Blood Count 4.75 Hemoglobin 12.4 L Hematocrit 39.8 L Mean Corpuscular Volume 83.8 Mean Corpuscular Hemoglobin 26.1 L Mean Corpuscular Hemoglobin Concent 31.2 L Red Cell Distribution Width 18.4 H Platelet Count 233 Mean Platelet Volume 10.6 H Immature Granulocytes % 0.300 Neutrophils % 45.3 Lymphocytes % 42.1 Monocytes % 10.1 Eosinophils % 1.4 Basophils % 0.8 Nucleated Red Blood Cells % 0.0 Immature Granulocytes # 0.010 Neutrophils # 1.7 Lymphocytes # 1.5 Monocytes # 0.4 Eosinophils # 0.1 Basophils # 0.0 Nucleated Red Blood Cells # 0.0 Sodium Level 139 Potassium Level 4.0 Chloride Level 106 Carbon Dioxide Level 24 Anion Gap 9 Blood Urea Nitrogen 11 Creatinine 0.70 Est Glomerular Filtrat Rate mL/min > 60 Glucose Level 92 Calcium Level 9.1 Magnesium Level 1.7 Total Bilirubin 0.4 Direct Bilirubin 0.00 Indirect Bilirubin 0.4 Aspartate Amino Transf (AST/SGOT) 164 H Alanine Aminotransferase (ALT/SGPT) 101 H Alkaline Phosphatase 99 Total Protein 8.2 H Albumin 3.4 Globulin 4.80 H Albumin/Globulin Ratio 0.70 Medications Medication Current Medications Lisinopril (Zestril) 40 mg DAILY PO Last administered on 01/08/19 08:54; Admin Dose 40 MG; Start 01/02/19 at 09:00 Metoprolol Tartrate (Lopressor) 50 mg BID PO Last administered on 01/08/19 09:07; Admin Dose 50 MG; Start 01/02/19 at 00:00 Nifedipine (Procardia Xl) 30 mg DAILY PO Last administered on 01/08/19 08:55; Admin Dose 30 MG; Start 01/02/19 at 09:00 IV Flush (NS 3 ml) 3 ml PER PROTOCOL IV ; Start 01/02/19 at 00:00 Ondansetron HCl (Zofran Inj) 4 mg Q6H PRN IV NAUSEA/VOMITING Last administered on 01/02/19 01:59; Admin Dose 4 MG; Start 01/02/19 at 00:00 Acetaminophen (Tylenol Tab) 650 mg Q6H PRN PO .PAIN 1-3 OR TEMP; Start 01/02/19 at 00:00 Hydromorphone HCl (Dilaudid) 0.5 mg Q4H PRN IV .SEVERE PAIN 7-10 Last administered on 01/08/19 09:01; Admin Dose 0.5 MG; Start 01/02/19 at 00:00 Bisacodyl (Dulcolax) 5 mg DAILY PRN PO .CONSTIPATION; Start 01/02/19 at 00:00 Hydralazine HCl (Apresoline) 10 mg Q4H PRN IV ELEVATED BLOOD PRESSURE Last administered on 01/02/19 09:16; Admin Dose 10 MG; Start 01/02/19 at 03:00 Lorazepam (Ativan) 1 mg Q2H PRN IV CONTROL WITHDRAWAL SYMPTOMS Last administered on 01/02/19 17:23; Admin Dose 1 MG; Start 01/02/19 at 05:30 Thiamine HCl (Vitamin B1) 200 mg DAILY PO Last administered on 01/08/19 08:54; Admin Dose 200 MG; Start 01/03/19 at 09:00 Folic Acid (Folic Acid) 1 mg DAILY PO Last administered on 01/08/19 08:54; Admin Dose 1 MG; Start 01/03/19 at 09:00 Multivitamins Therapeutic (Theragran) 1 tab DAILY PO Last administered on 01/08/19 08:54; Admin Dose 1 TAB; Start 01/03/19 at 09:00 Heparin Sodium (Porcine) (Heparin (5000 Units/1ml)) 5,000 unit BID SC Last administered on 01/08/19 08:59; Admin Dose 5,000 UNIT; Start 01/02/19 at 21:00 Nicotine (Nicoderm 7 Mg/ 24 Hr) 1 patch DAILY TRANSDERM ; Start 01/02/19 at 16:30 Duloxetine HCl (Cymbalta) 30 mg BID PO Last administered on 01/08/19 08:55; Admin Dose 30 MG; Start 01/02/19 at 21:00 Quetiapine Fumarate (Seroquel) 100 mg HS PO Last administered on 01/07/19 20:30; Admin Dose 100 MG; Start 01/02/19 at 21:00 Clotrimazole (Lotrimin Cr) 1 applic DAILY TOP Last administered on 01/08/19 08:55; Admin Dose 1 APPLIC; Start 01/04/19 at 09:00 Polyethylene Glycol (Miralax) 17 gm DAILY PO Last administered on 01/08/19 08:55; Admin Dose 17 GM; Start 01/06/19 at 09:30 Senna/Docusate Sodium (Senokot-S) 1 tab BID PRN PO constipation; Start 01/06/19 at 09:30 Ciprofloxacin (Cipro) 500 mg BID@,18 PO Last administered on 01/08/19 06:16; Admin Dose 500 MG; Start 01/06/19 at 18:00 Sodium Hypochlorite (Dakins Diluted (40)) 1 applic DAILY TP Last administered on 01/08/19 08:55; Admin Dose 1 APPLIC; Start 7/14/19 at 15:59 Doxycycline Hyclate (Vibramycin) 100 mg BID PO Last administered on 01/08/19at 08:54; Admin Dose 100 MG; Start 01/07/19 at 21:00 ALY TANG Jan 08, 2019 10:37
[2019-01-08 13:04] VITALS: BP 141/86; PULSE 60; RESP 18
--- NOTE | 2019-01-08 13:04 | CONS ---
Assessment/Plan Assessment/Plan Hospital Course (Demo Recall) No acute events, awake, looks comfortable Microbiology: Patient had a cultures of his wounds back in June that grew strep Enterobacter and enterococcus species also Corynebacterium group JK. Recent cx's pending Antimicrobials: Doxycycline, Cipro Physical examination: Obese well-developed middle-aged -[place] man who is awake in no distress. Head atraumatic normocephalic neck is supple chest rise symmetrical breath sounds diminished to bases. Heart: S1-S2 abdomen soft bowel sounds present. Extremities with bilateral lower extremities chronic wounds foul order Assessment: 1. Bilateral lower extremities acute on chronic wounds 2. Obesity 3. Pancytopenia 4. Psychiatric disorder 5. Diabetes 6. HCV Plan: Stable, continue abx for 7-10 more days, wound care per podiatry, GI rec-s noted==> op f/u Consultation Date/Type/Reason Admit Date/Time Jan 01, 2019 at 22:19 Initial Consult Date Type of Consult id Date/Time of Note DATE: 01/08/19 TIME: 13:03 Exam/Review of Systems Exam Vitals Vital Signs Date Temp Pulse Resp B/P (MAP) Pulse Ox O2 O2 Flow FiO2 Time Delivery Rate 01/08/19 97.9 69 18 131/82 97 07:36 (98) 01/07/19 Room Air 20:00 Intake and Output 01/07/19 01/07/19 01/08/19 1515:00 23:00 07:00 IntakeIntake Total 250 ml 660 ml 480 ml OutputOutput Total 425 ml 800 ml 1600 ml BalanceBalance -175 ml -140 ml -1120 ml Results Result Diagram: 01/08/19 0505 01/08/19 0505 Results 24hrs Laboratory Tests Test 01/08/19 05:05 White Blood Count 3.7 L Red Blood Count 4.75 Hemoglobin 12.4 L Hematocrit 39.8 L Mean Corpuscular Volume 83.8 Mean Corpuscular Hemoglobin 26.1 L Mean Corpuscular Hemoglobin Concent 31.2 L Red Cell Distribution Width 18.4 H Platelet Count 233 Mean Platelet Volume 10.6 H Immature Granulocytes % 0.300 Neutrophils % 45.3 Lymphocytes % 42.1 Monocytes % 10.1 Eosinophils % 1.4 Basophils % 0.8 Nucleated Red Blood Cells % 0.0 Immature Granulocytes # 0.010 Neutrophils # 1.7 Lymphocytes # 1.5 Monocytes # 0.4 Eosinophils # 0.1 Basophils # 0.0 Nucleated Red Blood Cells # 0.0 Sodium Level 139 Potassium Level 4.0 Chloride Level 106 Carbon Dioxide Level 24 Anion Gap 9 Blood Urea Nitrogen 11 Creatinine 0.70 Est Glomerular Filtrat Rate mL/min > 60 Glucose Level 92 Calcium Level 9.1 Magnesium Level 1.7 Total Bilirubin 0.4 Direct Bilirubin 0.00 Indirect Bilirubin 0.4 Aspartate Amino Transf (AST/SGOT) 164 H Alanine Aminotransferase (ALT/SGPT) 101 H Alkaline Phosphatase 99 Total Protein 8.2 H Albumin 3.4 Globulin 4.80 H Albumin/Globulin Ratio 0.70 Medications Medication Current Medications Lisinopril (Zestril) 40 mg DAILY PO Last administered on 01/08/19 08:54; Admin Dose 40 MG; Start 01/02/19 at 09:00 Metoprolol Tartrate (Lopressor) 50 mg BID PO Last administered on 01/08/19 09:07; Admin Dose 50 MG; Start 01/02/19 at 00:00 Nifedipine (Procardia Xl) 30 mg DAILY PO Last administered on 01/08/19 08:55; Admin Dose 30 MG; Start 01/02/19 at 09:00 IV Flush (NS 3 ml) 3 ml PER PROTOCOL IV ; Start 01/02/19 at 00:00 Ondansetron HCl (Zofran Inj) 4 mg Q6H PRN IV NAUSEA/VOMITING Last administered on 01/02/19 01:59; Admin Dose 4 MG; Start 01/02/19 at 00:00 Acetaminophen (Tylenol Tab) 650 mg Q6H PRN PO .PAIN 1-3 OR TEMP; Start 01/02/19 at 00:00 Hydromorphone HCl (Dilaudid) 0.5 mg Q4H PRN IV .SEVERE PAIN 7-10 Last administered on 01/08/19 09:01; Admin Dose 0.5 MG; Start 01/02/19 at 00:00 Bisacodyl (Dulcolax) 5 mg DAILY PRN PO .CONSTIPATION; Start 01/02/19 at 00:00 Hydralazine HCl (Apresoline) 10 mg Q4H PRN IV ELEVATED BLOOD PRESSURE Last administered on 01/02/19 09:16; Admin Dose 10 MG; Start 01/02/19 at 03:00 Lorazepam (Ativan) 1 mg Q2H PRN IV CONTROL WITHDRAWAL SYMPTOMS Last administered on 01/02/19 17:23; Admin Dose 1 MG; Start 01/02/19 at 05:30 Thiamine HCl (Vitamin B1) 200 mg DAILY PO Last administered on 01/08/19 08:54; Admin Dose 200 MG; Start 01/03/19 at 09:00 Folic Acid (Folic Acid) 1 mg DAILY PO Last administered on 01/08/19 08:54; Admin Dose 1 MG; Start 01/03/19 at 09:00 Multivitamins Therapeutic (Theragran) 1 tab DAILY PO Last administered on 01/08/19 08:54; Admin Dose 1 TAB; Start 01/03/19 at 09:00 Heparin Sodium (Porcine) (Heparin (5000 Units/1ml)) 5,000 unit BID SC Last administered on 01/08/19 08:59; Admin Dose 5,000 UNIT; Start 01/02/19 at 21:00 Nicotine (Nicoderm 7 Mg/ 24 Hr) 1 patch DAILY TRANSDERM ; Start 01/02/19 at 16:30 Duloxetine HCl (Cymbalta) 30 mg BID PO Last administered on 01/08/19 08:55; Admin Dose 30 MG; Start 01/02/19 at 21:00 Quetiapine Fumarate (Seroquel) 100 mg HS PO Last administered on 01/07/19 20:30; Admin Dose 100 MG; Start 01/02/19 at 21:00 Clotrimazole (Lotrimin Cr) 1 applic DAILY TOP Last administered on 01/08/19 08:55; Admin Dose 1 APPLIC; Start 01/04/19 at 09:00 Polyethylene Glycol (Miralax) 17 gm DAILY PO Last administered on 01/08/19 08:55; Admin Dose 17 GM; Start 01/06/19 at 09:30 Senna/Docusate Sodium (Senokot-S) 1 tab BID PRN PO constipation; Start 01/06/19 at 09:30 Ciprofloxacin (Cipro) 500 mg BID@,18 PO Last administered on 01/08/19 06:16; Admin Dose 500 MG; Start 01/06/19 at 18:00 Sodium Hypochlorite (Dakins Diluted (1/40)) 1 applic DAILY TP Last administered on 01/08/19at 08:55; Admin Dose 1 APPLIC; Start 01/06/19 at 15:59 Doxycycline Hyclate (Vibramycin) 100 mg BID PO Last administered on 01/08/19at 08:54; Admin Dose 100 MG; Start 01/07/19 at 21:00 SUSAN ALLAN NP Jan 08, 2019 13:04
--- NOTE | 2019-01-08 15:12 | PN ---
Date/Time of Note Date/Time of Note DATE: 01/08/19 TIME: 15:11 Objective Vitals Vital Signs Date Temp Pulse Resp B/P (MAP) Pulse Ox O2 O2 Flow FiO2 Time Delivery Rate 01/08/19 98.1 60 18 141/86 92 13:04 (104) 01/07/19 Room Air 20:00 Intake and Output 01/07/19 01/07/19 01/08/19 1515:00 23:00 07:00 IntakeIntake Total 250 ml 660 ml 480 ml OutputOutput Total 425 ml 800 ml 1600 ml BalanceBalance -175 ml -140 ml -1120 ml Results Result Diagram: 01/08/19 0505 01/08/19 0505 Medications Medications Current Medications Lisinopril (Zestril) 40 mg DAILY PO Last administered on 01/08/19at 08:54; Admin Dose 40 MG; Start 01/02/19 at 09:00 Metoprolol Tartrate (Lopressor) 50 mg BID PO Last administered on 01/08/19at 09:07; Admin Dose 50 MG; Start 01/02/19 at 00:00 Nifedipine (Procardia Xl) 30 mg DAILY PO Last administered on 01/08/19at 08:55; Admin Dose 30 MG; Start 01/02/19 at 09:00 IV Flush (NS 3 ml) 3 ml PER PROTOCOL IV ; Start 01/02/19 at 00:00 Ondansetron HCl (Zofran Inj) 4 mg Q6H PRN IV NAUSEA/VOMITING Last administered on 01/02/19at 01:59; Admin Dose 4 MG; Start 01/02/19 at 00:00 Acetaminophen (Tylenol Tab) 650 mg Q6H PRN PO .PAIN 1-3 OR TEMP; Start 01/02/19 at 00:00 Hydromorphone HCl (Dilaudid) 0.5 mg Q4H PRN IV .SEVERE PAIN 7-10 Last administered on 01/08/19at 09:01; Admin Dose 0.5 MG; Start 01/02/19 at 00:00 Bisacodyl (Dulcolax) 5 mg DAILY PRN PO .CONSTIPATION; Start 01/02/19 at 00:00 Hydralazine HCl (Apresoline) 10 mg Q4H PRN IV ELEVATED BLOOD PRESSURE Last administered on 01/02/19at 09:16; Admin Dose 10 MG; Start 01/02/19 at 03:00 Lorazepam (Ativan) 1 mg Q2H PRN IV CONTROL WITHDRAWAL SYMPTOMS Last administered on 01/02/19 17:23; Admin Dose 1 MG; Start 01/02/19 at 05:30 Thiamine HCl (Vitamin B1) 200 mg DAILY PO Last administered on 01/08/19 08:54; Admin Dose 200 MG; Start 01/03/19 at 09:00 Folic Acid (Folic Acid) 1 mg DAILY PO Last administered on 01/08/19 08:54; Ad min Dose 1 MG; Start 01/03/19 at 09:00 Multivitamins Therapeutic (Theragran) 1 tab DAILY PO Last administered on 01/08/19 08:54; Admin Dose 1 TAB; Start 01/03/19 at 09:00 Heparin Sodium (Porcine) (Heparin (5000 Units/1ml)) 5,000 unit BID SC Last administered on 01/08/19 08:59; Admin Dose 5,000 UNIT; Start 01/02/19 at 21:00 Nicotine (Nicoderm 7 Mg/ 24 Hr) 1 patch DAILY TRANSDERM ; Start 01/02/19 at 16:30 Duloxetine HCl (Cymbalta) 30 mg BID PO Last administered on 01/08/19 08:55; Admin Dose 30 MG; Start 01/02/19 at 21:00 Quetiapine Fumarate (Seroquel) 100 mg HS PO Last administered on 01/07/19 20:30; Admin Dose 100 MG; Start 01/02/19 at 21:00 Clotrimazole (Lotrimin Cr) 1 applic DAILY TOP Last administered on 01/08/19 08:55; Admin Dose 1 APPLIC; Start 01/04/19 at 09:00 Polyethylene Glycol (Miralax) 17 gm DAILY PO Last administered on 01/08/19 08:55; Admin Dose 17 GM; Start 01/06/19 at 09:30 Senna/Docusate Sodium (Senokot-S) 1 tab BID PRN PO constipation; Start 01/06/19 at 09:30 Ciprofloxacin (Cipro) 500 mg BID@,18 PO Last administered on 01/08/19 06:16; Admin Dose 500 MG; Start 01/06/19 at 18:00 Sodium Hypochlorite (Dakins Diluted (140)) 1 applic DAILY TP Last administered on 01/08/19at 08:55; Admin Dose 1 APPLIC; Start 01/06/19 at 15:59 Doxycycline Hyclate (Vibramycin) 100 mg BID PO Last administered on 01/08/19at 08:54; Admin Dose 100 MG; Start 01/07/19 at 21:00 VTE Prophylaxis Risk score (from Ns)>0 risk: 4 SCD applied (from [facility] [place]): No SCD contraindication: other Lines/Catheters IV Catheter Type: Melissa in Place: No Assessment/Plan Hospital Course Subjective No acute complaints Objective Physical exam General: Patient is laying in bed and answers questions appropriately Mentation: Patient is alert and oriented 4, Head: Normocephalic atraumatic Eyes: EOMI, pupils reactive to light Neck: Supple, nontender, midline Respiratory: Clear to auscultation bilaterally Cardiovascular: regular rate, no obvious murmurs Gastrointestinal: non-tender to palpation, bowel sounds heard. Neurological: Moves all extremities spontaneously Skin: Bilateral foot ulcers, bandaged, CDI Assessment/Plan 1. Chronic left and right foot ulcer - Podiatry on board and appreciate recommendations. s/p I&D and recommendations for daily dressing changes. Offloading of heels and ambulate with diabetic shoes. - ID on board and appreciate recommendations. Continue current antibiotics at this time - wound cx noted - pain control 2. Schizophrenia- stable - Psych consultation appreciated - continue Cymbalta and Seroquel 3. ETOH abuse - continue on thiamine/folic acid - Ativan PRN - no withdrawal appreciated 4. Alcoholic hepatitis - LFT elevated - continue monitoring 5. hep c - outpatient follow up for treatment 6. HTN - continue home medications - remains stable 7. Anemia, microcytic, mild - stable - no need for transfusions 8. Thrombocytopenia - resolved 9. Disposition - CM on board for SNF placement. Cleared for d/c by podiatry. AVA HOWARD Jan 08, 2019 15:12
[2019-01-08] MEDS: QUETIAPINE 100 MG TAB PO SCH (20:08)
[2019-01-08 20:17] VITALS: BP 118/76; PULSE 70; RESP 19
[2019-01-09] MEDS: HYDROmorphONE 0.5 MG/0.5 ML SYG IV PRN ×5 (01:30→21:22)
[2019-01-09 02:35] VITALS: BP 116/78; PULSE 65; RESP 20
[2019-01-09] MEDS: CIPROFLOXACIN 500 MG TAB PO SCH ×2 (05:47→17:15)
[2019-01-09 07:53] VITALS: BP 139/85; PULSE 59; RESP 15
[2019-01-09] MEDS: MULTIVITAMINS THERAPEUTIC TAB PO SCH (08:40)
[2019-01-09] MEDS: LISINOPRIL 20 MG TAB PO SCH (08:41)
[2019-01-09] MEDS: METOPROLOL 50 MG TAB PO SCH ×2 (08:41→21:19)
[2019-01-09] MEDS: NIFEdipine (XL) 30 MG TAB PO SCH (08:42)
[2019-01-09] MEDS: DULOXETINE 30 MG CAP DR PO SCH ×2 (08:42→21:19)
[2019-01-09] MEDS: POLYETHYLENE GLYCOL 17 GM PACKET PO SCH (08:42)
[2019-01-09] MEDS: DOXYCYCLINE 100 MG TAB PO SCH ×2 (08:42→21:19)
[2019-01-09] MEDS: FOLIC ACID 1 MG TAB PO SCH (08:42)
[2019-01-09] MEDS: THIAMINE 100 MG TAB PO SCH (08:42)
[2019-01-09] MEDS: HEPARIN 5,000 UNIT/1 ML VIAL SC SCH ×2 (08:47→21:22)
[2019-01-09] MEDS: CLOTRIMAZOLE 1% 30 GM CR TOP SCH (08:48)
[2019-01-09] MEDS: NICOTINE (7 MG/24 HR) PATCH TRANSDERM SCH (08:48)
[2019-01-09] MEDS: DAKINS 0.0125%(1/40) 473 ML SOLUTION TP SCH (08:48)
--- NOTE | 2019-01-09 11:13 | PN ---
Date/Time of Note Date/Time of Note DATE: 01/09/19 TIME: 11:12 Objective Vitals Vital Signs Date Temp Pulse Resp B/P (MAP) Pulse Ox O2 O2 Flow FiO2 Time Delivery Rate 01/09/19 97.8 59 15 139/85 95 Room Air 07:53 (103) Intake and Output 01/08/19 01/08/19 01/09/19 1515:00 23:00 07:00 OutputOutput Total 500 ml 400 ml BalanceBalance -500 ml -400 ml Results Result Diagram: 01/09/19 0453 01/09/19 0453 Medications Medications Current Medications Lisinopril (Zestril) 40 mg DAILY PO Last administered on 01/09/19at 08:41; Admin Dose 40 MG; Start 01/02/19 at 09:00 Metoprolol Tartrate (Lopressor) 50 mg BID PO Last administered on 01/09/19at 08:41; Admin Dose 50 MG; Start 01/02/19 at 00:00 Nifedipine (Procardia Xl) 30 mg DAILY PO Last administered on 01/09/19at 08:42; Admin Dose 30 MG; Start 01/02/19 at 09:00 IV Flush (NS 3 ml) 3 ml PER PROTOCOL IV ; Start 01/02/19 at 00:00 Ondansetron HCl (Zofran Inj) 4 mg Q6H PRN IV NAUSEA/VOMITING Last administered on 01/02/19at 01:59; Admin Dose 4 MG; Start 01/02/19 at 00:00 Acetaminophen (Tylenol Tab) 650 mg Q6H PRN PO .PAIN 1-3 OR TEMP; Start 01/02/19 at 00:00 Hydromorphone HCl (Dilaudid) 0.5 mg Q4H PRN IV .SEVERE PAIN 7-10 Last administered on 01/09/19at 08:59; Admin Dose 0.5 MG; Start 01/02/19 at 00:00 Bisacodyl (Dulcolax) 5 mg DAILY PRN PO .CONSTIPATION; Start 01/02/19 at 00:00 Hydralazine HCl (Apresoline) 10 mg Q4H PRN IV ELEVATED BLOOD PRESSURE Last administered on 01/02/19at 09:16; Admin Dose 10 MG; Start 01/02/19 at 03:00 Lorazepam (Ativan) 1 mg Q2H PRN IV CONTROL WITHDRAWAL SYMPTOMS Last administered on 01/02/19 17:23; Admin Dose 1 MG; Start 01/02/19 at 05:30 Thiamine HCl (Vitamin B1) 200 mg DAILY PO Last administered on 01/09/19 08:42; Admin Dose 200 MG; Start 01/03/19 at 09:00 Folic Acid (Folic Acid) 1 mg DAILY PO Last administered on 01/09/19 08:42; Admin Dose 1 MG; Start 01/03/19 at 09:00 Multivitamins Therapeutic (Theragran) 1 tab DAILY PO Last administered on 01/09/19 08:40; Admin Dose 1 TAB; Start 01/03/19 at 09:00 Heparin Sodium (Porcine) (Heparin (5000 Units/1ml)) 5,000 unit BID SC Last administered on 01/09/19 08:47; Admin Dose 5,000 UNIT; Start 01/02/19 at 21:00 Nicotine (Nicoderm 7 Mg/ 24 Hr) 1 patch DAILY TRANSDERM ; Start 01/02/19 at 16:30 Duloxetine HCl (Cymbalta) 30 mg BID PO Last administered on 01/09/19 08:42; Admin Dose 30 MG; Start 01/02/19 at 21:00 Quetiapine Fumarate (Seroquel) 100 mg HS PO Last administered on 01/08/19 20:08; Admin Dose 100 MG; Start 01/02/19 at 21:00 Clotrimazole (Lotrimin Cr) 1 applic DAILY TOP Last administered on 01/09/19 08:48; Admin Dose 1 APPLIC; Start 01/04/19 at 09:00 Polyethylene Glycol (Miralax) 17 gm DAILY PO Last administered on 01/09/19 08:42; Admin Dose 17 GM; Start 01/06/19 at 09:30 Senna/Docusate Sodium (Senokot-S) 1 tab BID PRN PO constipation; Start 01/06/19 at 09:30 Ciprofloxacin (Cipro) 500 mg BID@06,18 PO Last administered on 01/09/19 05:47; Admin Dose 500 MG; Start 01/06/19 at 18:00 Sodium Hypochlorite (Dakins Diluted ()) 1 applic DAILY TP Last administered on 7/17/19at 08:48; Admin Dose 1 APPLIC; Start 01/06/19 at 15:59 Doxycycline Hyclate (Vibramycin) 100 mg BID PO Last administered on 01/09/19at 08:42; Admin Dose 100 MG; Start 01/07/19 at 21:00 VTE Prophylaxis Risk score (from Ns)>0 risk: 3 SCD applied (from [facility] [place]): No SCD contraindication: other Lines/Catheters IV Catheter Type: Melissa in Place: No Assessment/Plan Hospital Course Subjective No acute complaints Objective Physical exam General: Patient is laying in bed and answers questions appropriately Mentation: Patient is alert and oriented 4, Head: Normocephalic atraumatic Eyes: EOMI, pupils reactive to light Neck: Supple, nontender, midline Respiratory: Clear to auscultation bilaterally Cardiovascular: regular rate, no obvious murmurs Gastrointestinal: non-tender to palpation, bowel sounds heard. Neurological: Moves all extremities spontaneously Skin: Bilateral foot ulcers, bandaged, CDI Assessment/Plan 1. Chronic left and right foot ulcer - Podiatry on board and appreciate recommendations. s/p I&D and recommendations for daily dressing changes. Offloading of heels and ambulate with diabetic shoes. - ID on board and appreciate recommendations. Continue current antibiotics at this time - wound cx noted - pain control 2. Schizophrenia- stable - Psych consultation appreciated - continue Cymbalta and Seroquel 3. ETOH abuse - continue on thiamine/folic acid - Ativan PRN - no withdrawal appreciated 4. Alcoholic hepatitis - LFT elevated - continue monitoring 5. hep c - outpatient follow up for treatment 6. HTN - continue home medications - remains stable 7. Anemia, microcytic, mild - stable - no need for transfusions 8. Thrombocytopenia - resolved 9. Disposition - CM on board for SNF placement. Cleared for d/c by podiatry. AVA HOWARD Jan 09, 2019 11:13
--- NOTE | 2019-01-09 11:18 | PN ---
Date/Time of Note Date/Time of Note DATE: 01/09/19 TIME: 11:16 Assessment/Plan VTE Prophylaxis Risk score (from Ns)>0 risk: 3 SCD applied (from Ns): No SCD contraindicated: bilateral LE trauma, other Pharmacological prophylaxis: heparin Lines/Catheters IV C[facility]ter Type (from [facility]): Urinary Cath still in place: No Assessment/Plan Hospital Course Assessment: Hepatitis C Alcoholic hepatitis- with DF less than 32 on admission -Transaminitis improving ETOH abuse- discussed alcohol cessation Hepatomegaly and hepatic steatosis -Underlying hepatocellular disease cannot be excluded on liver ultrasound Microcytic anemia, mild Thrombocytopenia on admission- resolved Schizophrenia HTN Chronic left and right foot ulcer MRSA left foot ulcer Plan: Pt to f/u as an out-pt for complete work-up Fibro test/score to assess. Hepatitis Bs AG/AB is negative. Will consider Mavyret vs Epclusa Also recommend screening colonoscopy- based on fibrosis level pt may require EGD as well. CM- consult- patient states he does not have a PCP- CM to help find PCP and set up appt- patient will need referral to see GI- will f/u with CM Patient seen in collaboration with Dr. Pak Subjective: Course reviewed with nursing staff Patient interviewed and examined All labs, imaging and other results reviewed The patient resting in bed, no over night events No c/o n/v or abdominal pain tolerating diet well. Patient receptive to f/u with GI after d/c for Hep C treatment PHYSICAL EXAMINATION: GENERAL: Well developed, alert & oriented x 3, in no acute distress SKIN: foot ulcers HEAD: Normocephalic, atraumatic, no tenderness. EYES: Pupils equal reactive to light and accommodation, no discharge. EARS/NOSE AND THROAT: Ears normal, nose normal. NECK: Supple, no masses. CHEST: Inspection within normal limits. CARDIOVASCULAR: Heart: Regular rate and rhythm RESPIRATORY: Lungs clear to auscultation GASTROINTESTINAL AND LIVER: Abdomen: Soft, non tenderness, non-distended, no hernias, no masses no guarding, no rebound tenderness, normoactive bowel sounds. Rectal: Deferred. EXTREMITIES: Dressing to bilateral feet Result Diagram: 01/09/19 0453 01/09/19 0453 Results 24hrs Laboratory Tests Test 01/09/19 04:53 White Blood Count 4.2 L Red Blood Count 4.61 L Hemoglobin 12.3 L Hematocrit 38.7 L Mean Corpuscular Volume 83.9 Mean Corpuscular Hemoglobin 26.7 L Mean Corpuscular Hemoglobin Concent 31.8 L Red Cell Distribution Width 18.6 H Platelet Count 256 Mean Platelet Volume 9.9 Immature Granulocytes % 0.000 L Neutrophils % 30.3 L Lymphocytes % 58.1 H Monocytes % 9.7 Eosinophils % 1.4 Basophils % 0.5 Nucleated Red Blood Cells % 0.0 Immature Granulocytes # 0.000 Neutrophils # 1.3 L Lymphocytes # 2.5 Monocytes # 0.4 Eosinophils # 0.1 Basophils # 0.0 Nucleated Red Blood Cells # 0.0 Sodium Level 137 Potassium Level 4.2 Chloride Level 106 Carbon Dioxide Level 24 Anion Gap 7 Blood Urea Nitrogen 13 Creatinine 0.72 Est Glomerular Filtrat Rate mL/min > 60 Glucose Level 96 Calcium Level 9.1 Total Bilirubin 0.4 Direct Bilirubin 0.00 Indirect Bilirubin 0.4 Aspartate Amino Transf (AST/SGOT) 181 H Alanine Aminotransferase (ALT/SGPT) 111 H Alkaline Phosphatase 93 Total Protein 8.0 Albumin 3.4 Globulin 4.60 H Albumin/Globulin Ratio 0.73 Exam/Review of Systems Exam Vitals Vital Signs Date Temp Pulse Resp B/P (MAP) Pulse Ox O2 O2 Flow FiO2 Time Delivery Rate 01/09/19 97.8 59 15 139/85 95 Room Air 07:53 (103) Intake and Output 01/08/19 01/08/19 01/09/19 1515:00 23:00 07:00 OutputOutput Total 500 ml 400 ml BalanceBalance -500 ml -400 ml Results Results 24hrs Laboratory Tests Test 01/09/19 04:53 White Blood Count 4.2 L Red Blood Count 4.61 L Hemoglobin 12.3 L Hematocrit 38.7 L Mean Corpuscular Volume 83.9 Mean Corpuscular Hemoglobin 26.7 L Mean Corpuscular Hemoglobin Concent 31.8 L Red Cell Distribution Width 18.6 H Platelet Count 256 Mean Platelet Volume 9.9 Immature Granulocytes % 0.000 L Neutrophils % 30.3 L Lymphocytes % 58.1 H Monocytes % 9.7 Eosinophils % 1.4 Basophils % 0.5 Nucleated Red Blood Cells % 0.0 Immature Granulocytes # 0.000 Neutrophils # 1.3 L Lymphocytes # 2.5 Monocytes # 0.4 Eosinophils # 0.1 Basophils # 0.0 Nucleated Red Blood Cells # 0.0 Sodium Level 137 Potassium Level 4.2 Chloride Level 106 Carbon Dioxide Level 24 Anion Gap 7 Blood Urea Nitrogen 13 Creatinine 0.72 Est Glomerular Filtrat Rate mL/min > 60 Glucose Level 96 Calcium Level 9.1 Total Bilirubin 0.4 Direct Bilirubin 0.00 Indirect Bilirubin 0.4 Aspartate Amino Transf (AST/SGOT) 181 H Alanine Aminotransferase (ALT/SGPT) 111 H Alkaline Phosphatase 93 Total Protein 8.0 Albumin 3.4 Globulin 4.60 H Albumin/Globulin Ratio 0.73 Medications Medication Current Medications Lisinopril (Zestril) 40 mg DAILY PO Last administered on 01/09/19 08:41; Admin Dose 40 MG; Start 01/02/19 at 09:00 Metoprolol Tartrate (Lopressor) 50 mg BID PO Last administered on 01/09/19 08:41; Admin Dose 50 MG; Start 01/02/19 at 00:00 Nifedipine (Procardia Xl) 30 mg DAILY PO Last administered on 01/09/19 08:42; Admin Dose 30 MG; Start 01/02/19 at 09:00 IV Flush (NS 3 ml) 3 ml PER PROTOCOL IV ; Start 01/02/19 at 00:00 Ondansetron HCl (Zofran Inj) 4 mg Q6H PRN IV NAUSEA/VOMITING Last administered on 01/02/19 01:59; Admin Dose 4 MG; Start 01/02/19 at 00:00 Acetaminophen (Tylenol Tab) 650 mg Q6H PRN PO .PAIN 1-3 OR TEMP; Start 01/02/19 at 00:00 Hydromorphone HCl (Dilaudid) 0.5 mg Q4H PRN IV .SEVERE PAIN 7-10 Last administered on 01/09/19 08:59; Admin Dose 0.5 MG; Start 01/02/19 at 00:00 Bisacodyl (Dulcolax) 5 mg DAILY PRN PO .CONSTIPATION; Start 01/02/19 at 00:00 Hydralazine HCl (Apresoline) 10 mg Q4H PRN IV ELEVATED BLOOD PRESSURE Last administered on 01/02/19 09:16; Admin Dose 10 MG; Start 01/02/19 at 03:00 Lorazepam (Ativan) 1 mg Q2H PRN IV CONTROL WITHDRAWAL SYMPTOMS Last administered on 01/02/19 17:23; Admin Dose 1 MG; Start 01/02/19 at 05:30 Thiamine HCl (Vitamin B1) 200 mg DAILY PO Last administered on 01/09/19 08:42; Admin Dose 200 MG; Start 01/03/19 at 09:00 Folic Acid (Folic Acid) 1 mg DAILY PO Last administered on 01/09/19 08:42; Admin Dose 1 MG; Start 01/03/19 at 09:00 Multivitamins Therapeutic (Theragran) 1 tab DAILY PO Last administered on 01/09/19 08:40; Admin Dose 1 TAB; Start 01/03/19 at 09:00 Heparin Sodium (Porcine) (Heparin (5000 Units/1ml)) 5,000 unit BID SC Last administered on 01/09/19 08:47; Admin Dose 5,000 UNIT; Start 01/02/19 at 21:00 Nicotine (Nicoderm 7 Mg/ 24 Hr) 1 patch DAILY TRANSDERM ; Start 01/02/19 at 16:30 Duloxetine HCl (Cymbalta) 30 mg BID PO Last administered on 01/09/19 08:42; Admin Dose 30 MG; Start 01/02/19 at 21:00 Quetiapine Fumarate (Seroquel) 100 mg HS PO Last administered on 01/08/19 20:08; Admin Dose 100 MG; Start 01/02/19 at 21:00 Clotrimazole (Lotrimin Cr) 1 applic DAILY TOP Last administered on 01/09/19 08:48; Admin Dose 1 APPLIC; Start 01/04/19 at 09:00 Polyethylene Glycol (Miralax) 17 gm DAILY PO Last administered on 01/09/19 08:42; Admin Dose 17 GM; Start 01/06/19 at 09:30 Senna/Docusate Sodium (Senokot-S) 1 tab BID PRN PO constipation; Start 01/06/19 at 09:30 Ciprofloxacin (Cipro) 500 mg BID@06,18 PO Last administered on 01/09/19 05:47; Admin Dose 500 MG; Start 01/06/19 at 18:00 Sodium Hypochlorite (Dakins Diluted ()) 1 applic DAILY TP Last administered on 01/09/19 08:48; Admin Dose 1 APPLIC; Start 7/14/19 at 15:59 Doxycycline Hyclate (Vibramycin) 100 mg BID PO Last administered on 01/09/19at 08:42; Admin Dose 100 MG; Start 01/07/19 at 21:00 ALY TANG Jan 09, 2019 11:18
--- NOTE | 2019-01-09 11:59 | CONS ---
Assessment/Plan Assessment/Plan Hospital Course (Demo Recall) No acute events Microbiology: Patient had a cultures of his wounds back in June that grew strep Enterobacter and enterococcus species also Corynebacterium group JK. Recent cx's pending Antimicrobials: Doxycycline, Cipro Physical examination: Obese well-developed middle-aged -[place] man who is awake in no distress. Head atraumatic normocephalic neck is supple chest rise symmetrical breath sounds diminished to bases. Heart: S1-S2 abdomen soft bowel sounds present. Extremities with bilateral lower extremities chronic wounds foul order Assessment: 1. Bilateral lower extremities acute on chronic wounds 2. Obesity 3. Pancytopenia 4. Psychiatric disorder 5. Diabetes 6. HCV Plan: Stable, continue abx for 7-10 more days, pending dc arrangements Consultation Date/Type/Reason Admit Date/Time Jan 01, 2019 at 22:19 Initial Consult Date Type of Consult id Date/Time of Note DATE: 01/09/19 TIME: 11:54 Exam/Review of Systems Exam Vitals Vital Signs Date Temp Pulse Resp B/P (MAP) Pulse Ox O2 O2 Flow FiO2 Time Delivery Rate 01/09/19 97.8 59 15 139/85 95 Room Air 07:53 (103) Intake and Output 01/08/19 01/08/19 01/09/19 1515:00 23:00 07:00 OutputOutput Total 500 ml 400 ml BalanceBalance -500 ml -400 ml Results Result Diagram: 01/09/19 0453 01/09/19 0453 Results 24hrs Laboratory Tests Test 01/09/19 04:53 White Blood Count 4.2 L Red Blood Count 4.61 L Hemoglobin 12.3 L Hematocrit 38.7 L Mean Corpuscular Volume 83.9 Mean Corpuscular Hemoglobin 26.7 L Mean Corpuscular Hemoglobin Concent 31.8 L Red Cell Distribution Width 18.6 H Platelet Count 256 Mean Platelet Volume 9.9 Immature Granulocytes % 0.000 L Neutrophils % 30.3 L Lymphocytes % 58.1 H Monocytes % 9.7 Eosinophils % 1.4 Basophils % 0.5 Nucleated Red Blood Cells % 0.0 Immature Granulocytes # 0.000 Neutrophils # 1.3 L Lymphocytes # 2.5 Monocytes # 0.4 Eosinophils # 0.1 Basophils # 0.0 Nucleated Red Blood Cells # 0.0 Sodium Level 137 Potassium Level 4.2 Chloride Level 106 Carbon Dioxide Level 24 Anion Gap 7 Blood Urea Nitrogen 13 Creatinine 0.72 Est Glomerular Filtrat Rate mL/min > 60 Glucose Level 96 Calcium Level 9.1 Total Bilirubin 0.4 Direct Bilirubin 0.00 Indirect Bilirubin 0.4 Aspartate Amino Transf (AST/SGOT) 181 H Alanine Aminotransferase (ALT/SGPT) 111 H Alkaline Phosphatase 93 Total Protein 8.0 Albumin 3.4 Globulin 4.60 H Albumin/Globulin Ratio 0.73 Medications Medication Current Medications Lisinopril (Zestril) 40 mg DAILY PO Last administered on 01/09/19 08:41; Admin Dose 40 MG; Start 01/02/19 at 09:00 Metoprolol Tartrate (Lopressor) 50 mg BID PO Last administered on 01/09/19 08:41; Admin Dose 50 MG; Start 01/02/19 at 00:00 Nifedipine (Procardia Xl) 30 mg DAILY PO Last administered on 01/09/19 08:42; Admin Dose 30 MG; Start 01/02/19 at 09:00 IV Flush (NS 3 ml) 3 ml PER PROTOCOL IV ; Start 01/02/19 at 00:00 Ondansetron HCl (Zofran Inj) 4 mg Q6H PRN IV NAUSEA/VOMITING Last administered on 01/02/19 01:59; Admin Dose 4 MG; Start 01/02/19 at 00:00 Acetaminophen (Tylenol Tab) 650 mg Q6H PRN PO .PAIN 1-3 OR TEMP; Start 01/02/19 at 00:00 Hydromorphone HCl (Dilaudid) 0.5 mg Q4H PRN IV .SEVERE PAIN 7-10 Last administered on 01/09/19 08:59; Admin Dose 0.5 MG; Start 01/02/19 at 00:00 Bisacodyl (Dulcolax) 5 mg DAILY PRN PO .CONSTIPATION; Start 01/02/19 at 00:00 Hydralazine HCl (Apresoline) 10 mg Q4H PRN IV ELEVATED BLOOD PRESSURE Last administered on 01/02/19 09:16; Admin Dose 10 MG; Start 01/02/19 at 03:00 Lorazepam (Ativan) 1 mg Q2H PRN IV CONTROL WITHDRAWAL SYMPTOMS Last administered on 01/02/19 17:23; Admin Dose 1 MG; Start 01/02/19 at 05:30 Thiamine HCl (Vitamin B1) 200 mg DAILY PO Last administered on 01/09/19 08:42; Admin Dose 200 MG; Start 01/03/19 at 09:00 Folic Acid (Folic Acid) 1 mg DAILY PO Last administered on 01/09/19at 08:42; Admin Dose 1 MG; Start 01/03/19 at 09:00 Multivitamins Therapeutic (Theragran) 1 tab DAILY PO Last administered on 01/09/19at 08:40; Admin Dose 1 TAB; Start 01/03/19 at 09:00 Heparin Sodium (Porcine) (Heparin (5000 Units/1ml)) 5,000 unit BID SC Last administered on 01/09/19 08:47; Admin Dose 5,000 UNIT; Start 01/02/19 at 21:00 Nicotine (Nicoderm 7 Mg/ 24 Hr) 1 patch DAILY TRANSDERM ; Start 01/02/19 at 16:30 Duloxetine HCl (Cymbalta) 30 mg BID PO Last administered on 01/09/19at 08:42; Admin Dose 30 MG; Start 01/02/19 at 21:00 Quetiapine Fumarate (Seroquel) 100 mg HS PO Last administered on 01/08/19at 20:08; Admin Dose 100 MG; Start 01/02/19 at 21:00 Clotrimazole (Lotrimin Cr) 1 applic DAILY TOP Last administered on 01/09/19at 08:48; Admin Dose 1 APPLIC; Start 01/04/19 at 09:00 Polyethylene Glycol (Miralax) 17 gm DAILY PO Last administered on 01/09/19at 08:42; Admin Dose 17 GM; Start 01/06/19 at 09:30 Senna/Docusate Sodium (Senokot-S) 1 tab BID PRN PO constipation; Start 01/06/19 at 09:30 Ciprofloxacin (Cipro) 500 mg BID@06,18 PO Last administered on 01/09/19at 05:47; Admin Dose 500 MG; Start 01/06/19 at 18:00 Sodium Hypochlorite (Dakins Diluted (40)) 1 applic DAILY TP Last administered on 01/09/19at 08:48; Admin Dose 1 APPLIC; Start 01/06/19 at 15:59 Doxycycline Hyclate (Vibramycin) 100 mg BID PO Last administered on 01/09/19at 08:42; Admin Dose 100 MG; Start 01/07/19 at 21:00 SUSAN ALLAN NP Jan 09, 2019 11:58
[2019-01-09 14:15] VITALS: BP 127/80; PULSE 62; RESP 14
[2019-01-09 20:00] VITALS: BP 109/76; PULSE 72; RESP 19
[2019-01-09] MEDS: QUETIAPINE 100 MG TAB PO SCH (21:19)
[2019-01-10] MEDS: HYDROmorphONE 0.5 MG/0.5 ML SYG IV PRN ×6 (01:58→22:28)
[2019-01-10 02:00] VITALS: BP 111/74; PULSE 75; RESP 18
[2019-01-10] MEDS: CIPROFLOXACIN 500 MG TAB PO SCH ×2 (06:08→17:21)
[2019-01-10 07:41] VITALS: BP 131/85; PULSE 60; RESP 18
[2019-01-10] MEDS: POLYETHYLENE GLYCOL 17 GM PACKET PO SCH (08:18)
[2019-01-10] MEDS: DULOXETINE 30 MG CAP DR PO SCH ×2 (08:19→21:03)
[2019-01-10] MEDS: MULTIVITAMINS THERAPEUTIC TAB PO SCH (08:19)
[2019-01-10] MEDS: DOXYCYCLINE 100 MG TAB PO SCH ×2 (08:20→21:03)
[2019-01-10] MEDS: FOLIC ACID 1 MG TAB PO SCH (08:20)
[2019-01-10] MEDS: METOPROLOL 50 MG TAB PO SCH ×2 (08:20→21:04)
[2019-01-10] MEDS: LISINOPRIL 20 MG TAB PO SCH (08:20)
[2019-01-10] MEDS: NIFEdipine (XL) 30 MG TAB PO SCH (08:21)
[2019-01-10] MEDS: HEPARIN 5,000 UNIT/1 ML VIAL SC SCH ×2 (08:21→21:05)
[2019-01-10] MEDS: NICOTINE (7 MG/24 HR) PATCH TRANSDERM SCH (08:21)
[2019-01-10] MEDS: CLOTRIMAZOLE 1% 30 GM CR TOP SCH (08:22)
[2019-01-10] MEDS: THIAMINE 100 MG TAB PO SCH (08:22)
[2019-01-10] MEDS: DAKINS 0.0125%(1/40) 473 ML SOLUTION TP SCH (08:22)
--- NOTE | 2019-01-10 10:04 | PN ---
Date/Time of Note Date/Time of Note DATE: 01/10/19 TIME: 10:03 Assessment/Plan VTE Prophylaxis Risk score (from Nsg)>0 risk: 6 SCD applied (from Ns): No SCD contraindicated: bilateral LE trauma Pharmacological prophylaxis: heparin Lines/Catheters IV Catheter Type (from Nrsg): Mid Line Urinary Cath still in place: No Assessment/Plan Hospital Course Assessment: Hepatitis C Alcoholic hepatitis- with DF less than 32 on admission -Transaminitis improving ETOH abuse- discussed alcohol cessation Hepatomegaly and hepatic steatosis -Underlying hepatocellular disease cannot be excluded on liver ultrasound Microcytic anemia, mild Thrombocytopenia on admission- resolved Schizophrenia HTN Chronic left and right foot ulcer MRSA left foot ulcer Plan: Pt to f/u as an out-pt for complete work-up Fibro test/score to assess. Hepatitis Bs AG/AB is negative. Will consider Mavyret vs Epclusa Also recommend screening colonoscopy- based on fibrosis level pt may require EGD as well. CM- consult- patient states he does not have a PCP- CM to help find PCP and set up appt- patient will need referral to see GI- GI will sign off but will be available upon reconsult as needed Patient seen in collaboration with Dr. Pak Subjective: Course reviewed with nursing staff Patient interviewed and examined All labs, imaging and other results reviewed No over night events No c/o n/v or abdominal pain tolerating diet well. Patient verbalized plan to f/u with GI after d/c for Hep C treatment and endoscopic evaluation PHYSICAL EXAMINATION: GENERAL: Well developed, alert & oriented x 3, in no acute distress SKIN: foot ulcers HEAD: Normocephalic, atraumatic, no tenderness. EYES: Pupils equal reactive to light and accommodation, no discharge. EARS/NOSE AND THROAT: Ears normal, nose normal. NECK: Supple, no masses. CHEST: Inspection within normal limits. CARDIOVASCULAR: Heart: Regular rate and rhythm RESPIRATORY: Lungs clear to auscultation GASTROINTESTINAL AND LIVER: Abdomen: Soft, non tenderness, non-distended, no hernias, no masses no guarding, no rebound tenderness, normoactive bowel sounds. Rectal: Deferred. EXTREMITIES: Dressing to bilateral feet Result Diagram: 01/09/19 0453 01/09/19 0453 Exam/Review of Systems Exam Vitals Vital Signs Date Temp Pulse Resp B/P (MAP) Pulse Ox O2 O2 Flow FiO2 Time Delivery Rate 01/10/19 97.9 60 18 131/85 97 Room Air 07:41 (100) Intake and Output 01/09/19 01/09/19 01/10/19 1414:59 22:59 06:59 IntakeIntake Total 540 ml OutputOutput Total 350 ml 1000 ml 400 ml BalanceBalance -350 ml -460 ml -400 ml Medications Medication Current Medications Lisinopril (Zestril) 40 mg DAILY PO Last administered on 01/10/19 08:20; Admin Dose 40 MG; Start 01/02/19 at 09:00 Metoprolol Tartrate (Lopressor) 50 mg BID PO Last administered on 01/10/19 08:20; Admin Dose 50 MG; Start 01/02/19 at 00:00 Nifedipine (Procardia Xl) 30 mg DAILY PO Last administered on 01/10/19 08:21; Admin Dose 30 MG; Start 01/02/19 at 09:00 IV Flush (NS 3 ml) 3 ml PER PROTOCOL IV ; Start 01/02/19 at 00:00 Ondansetron HCl (Zofran Inj) 4 mg Q6H PRN IV NAUSEA/VOMITING Last administered on 01/02/19 01:59; Admin Dose 4 MG; Start 01/02/19 at 00:00 Acetaminophen (Tylenol Tab) 650 mg Q6H PRN PO .PAIN 1-3 OR TEMP; Start 01/02/19 at 00:00 Hydromorphone HCl (Dilaudid) 0.5 mg Q4H PRN IV .SEVERE PAIN 7-10 Last administered on 01/10/19 06:09; Admin Dose 0.5 MG; Start 01/02/19 at 00:00 Bisacodyl (Dulcolax) 5 mg DAILY PRN PO .CONSTIPATION; Start 01/02/19 at 00:00 Hydralazine HCl (Apresoline) 10 mg Q4H PRN IV ELEVATED BLOOD PRESSURE Last administered on 01/02/19 09:16; Admin Dose 10 MG; Start 01/02/19 at 03:00 Lorazepam (Ativan) 1 mg Q2H PRN IV CONTROL WITHDRAWAL SYMPTOMS Last admi nistered on 01/02/19 17:23; Admin Dose 1 MG; Start 01/02/19 at 05:30 Thiamine HCl (Vitamin B1) 200 mg DAILY PO Last administered on 01/10/19 08:22; Admin Dose 200 MG; Start 01/03/19 at 09:00 Folic Acid (Folic Acid) 1 mg DAILY PO Last administered on 01/10/19 08:20; Admin Dose 1 MG; Start 01/03/19 at 09:00 Multivitamins Therapeutic (Theragran) 1 tab DAILY PO Last administered on 01/10/19 08:19; Admin Dose 1 TAB; Start 01/03/19 at 09:00 Heparin Sodium (Porcine) (Heparin (5000 Units/1ml)) 5,000 unit BID SC Last administered on 01/10/19 08:21; Admin Dose 5,000 UNIT; Start 01/02/19 at 21:00 Nicotine (Nicoderm 7 Mg/ 24 Hr) 1 patch DAILY TRANSDERM ; Start 01/02/19 at 16:30 Duloxetine HCl (Cymbalta) 30 mg BID PO Last administered on 01/10/19 08:19; Admin Dose 30 MG; Start 01/02/19 at 21:00 Quetiapine Fumarate (Seroquel) 100 mg HS PO Last administered on 01/09/19 21:19; Admin Dose 100 MG; Start 01/02/19 at 21:00 Clotrimazole (Lotrimin Cr) 1 applic DAILY TOP Last administered on 01/10/19 08:22; Admin Dose 1 APPLIC; Start 01/04/19 at 09:00 Polyethylene Glycol (Miralax) 17 gm DAILY PO Last administered on 01/10/19 08:18; Admin Dose 17 GM; Start 01/06/19 at 09:30 Senna/Docusate Sodium (Senokot-S) 1 tab BID PRN PO constipation; Start 01/06/19 at 09:30 Ciprofloxacin (Cipro) 500 mg BID@,18 PO Last administered on 01/10/19 06:08; Admin Dose 500 MG; Start 01/06/19 at 18:00 Sodium Hypochlorite (Dakins Diluted (1/40)) 1 applic DAILY TP Last administered on 01/10/19 08:22; Admin Dose 1 APPLIC; Start 01/06/19 at 15:59 Doxycycline Hyclate (Vibramycin) 100 mg BID PO Last administered on 01/10/19 08:20; Admin Dose 100 MG; Start 01/07/19 at 21:00 ALY TANG Jan 10, 2019 10:04
--- NOTE | 2019-01-10 11:43 | PN ---
Date/Time of Note Date/Time of Note DATE: 01/10/19 TIME: 11:42 Objective Vitals Vital Signs Date Temp Pulse Resp B/P (MAP) Pulse Ox O2 O2 Flow FiO2 Time Delivery Rate 01/10/19 97.9 60 18 131/85 97 Room Air 07:41 (100) Intake and Output 01/09/19 01/09/19 01/10/19 1515:00 23:00 07:00 IntakeIntake Total 540 ml OutputOutput Total 350 ml 1000 ml 400 ml BalanceBalance -350 ml -460 ml -400 ml Results Result Diagram: 01/09/19 0453 01/09/19 0453 Medications Medications Current Medications Lisinopril (Zestril) 40 mg DAILY PO Last administered on 01/10/19at 08:20; Admin Dose 40 MG; Start 01/02/19 at 09:00 Metoprolol Tartrate (Lopressor) 50 mg BID PO Last administered on 01/10/19at 08:20; Admin Dose 50 MG; Start 01/02/19 at 00:00 Nifedipine (Procardia Xl) 30 mg DAILY PO Last administered on 01/10/19at 08:21; Admin Dose 30 MG; Start 01/02/19 at 09:00 IV Flush (NS 3 ml) 3 ml PER PROTOCOL IV ; Start 01/02/19 at 00:00 Ondansetron HCl (Zofran Inj) 4 mg Q6H PRN IV NAUSEA/VOMITING Last administered on 01/02/19at 01:59; Admin Dose 4 MG; Start 01/02/19 at 00:00 Acetaminophen (Tylenol Tab) 650 mg Q6H PRN PO .PAIN 1-3 OR TEMP; Start 01/02/19 at 00:00 Hydromorphone HCl (Dilaudid) 0.5 mg Q4H PRN IV .SEVERE PAIN 7-10 Last administered on 01/10/19at 10:34; Admin Dose 0.5 MG; Start 01/02/19 at 00:00 Bisacodyl (Dulcolax) 5 mg DAILY PRN PO .CONSTIPATION; Start 01/02/19 at 00:00 Hydralazine HCl (Apresoline) 10 mg Q4H PRN IV ELEVATED BLOOD PRESSURE Last administered on 01/02/19at 09:16; Admin Dose 10 MG; Start 01/02/19 at 03:00 Lorazepam (Ativan) 1 mg Q2H PRN IV CONTROL WITHDRAWAL SYMPTOMS Last administered on 01/02/19at 17:23; Admin Dose 1 MG; Start 01/02/19 at 05:30 Thiamine HCl (Vitamin B1) 200 mg DAILY PO Last administered on 01/10/19at 08:22; Admin Dose 200 MG; Start 01/03/19 at 09:00 Folic Acid (Folic Acid) 1 mg DAILY PO Last administered on 01/10/19at 08:20; Admin Dose 1 MG; Start 01/03/19 at 09:00 Multivitamins Therapeutic (Theragran) 1 tab DAILY PO Last administered on 01/10/19at 08:19; Admin Dose 1 TAB; Start 01/03/19 at 09:00 Heparin Sodium (Porcine) (Heparin (5000 Units/1ml)) 5,000 unit BID SC Last administered on 01/10/19 08:21; Admin Dose 5,000 UNIT; Start 01/02/19 at 21:00 Nicotine (Nicoderm 7 Mg/ 24 Hr) 1 patch DAILY TRANSDERM ; Start 01/02/19 at 16:30 Duloxetine HCl (Cymbalta) 30 mg BID PO Last administered on 01/10/19at 08:19; Admin Dose 30 MG; Start 01/02/19 at 21:00 Quetiapine Fumarate (Seroquel) 100 mg HS PO Last administered on 01/09/19at 21:19; Admin Dose 100 MG; Start 01/02/19 at 21:00 Clotrimazole (Lotrimin Cr) 1 applic DAILY TOP Last administered on 01/10/19at 0 8:22; Admin Dose 1 APPLIC; Start 01/04/19 at 09:00 Polyethylene Glycol (Miralax) 17 gm DAILY PO Last administered on 01/10/19at 08:18; Admin Dose 17 GM; Start 01/06/19 at 09:30 Senna/Docusate Sodium (Senokot-S) 1 tab BID PRN PO constipation; Start 01/06/19 at 09:30 Ciprofloxacin (Cipro) 500 mg BID@06,18 PO Last administered on 01/10/19at 06:08; Admin Dose 500 MG; Start 01/06/19 at 18:00 Sodium Hypochlorite (Dakins Diluted (40)) 1 applic DAILY TP Last administered on 01/10/19at 08:22; Admin Dose 1 APPLIC; Start 01/06/19 at 15:59 Doxycycline Hyclate (Vibramycin) 100 mg BID PO Last administered on 01/10/19at 08:20; Admin Dose 100 MG; Start 01/07/19 at 21:00 VTE Prophylaxis Risk score (from Ns)>0 risk: 6 SCD applied (from [facility] [place]): No SCD contraindication: other Lines/Catheters IV Catheter Type: Melissa in Place: No Assessment/Plan Hospital Course Subjective No acute complaints Objective Physical exam General: Patient is laying in bed and answers questions appropriately Mentation: Patient is alert and oriented 4, Head: Normocephalic atraumatic Eyes: EOMI, pupils reactive to light Neck: Supple, nontender, midline Respiratory: Clear to auscultation bilaterally Cardiovascular: regular rate, no obvious murmurs Gastrointestinal: non-tender to palpation, bowel sounds heard. Neurological: Moves all extremities spontaneously Skin: Bilateral foot ulcers, bandaged, CDI Assessment/Plan 1. Chronic left and right foot ulcer - Podiatry on board and appreciate recommendations. s/p I&D and recommendations for daily dressing changes. Offloading of heels and ambulate with diabetic shoes. - ID on board and appreciate recommendations. Continue current antibiotics at this time - wound cx noted - pain control 2. Schizophrenia- stable - Psych consultation appreciated - continue Cymbalta and Seroquel 3. ETOH abuse - continue on thiamine/folic acid - Ativan PRN - no withdrawal appreciated 4. Alcoholic hepatitis - LFT elevated - continue monitoring 5. hep c - outpatient follow up for treatment 6. HTN - continue home medications - remains stable 7. Anemia, microcytic, mild - stable - no need for transfusions 8. Thrombocytopenia - resolved 9. Disposition - CM on board for SNF placement. Cleared for d/c by podiatry. AVA HOWARD Jan 10, 2019 11:42
--- NOTE | 2019-01-10 12:11 | CONS ---
Assessment/Plan Assessment/Plan Hospital Course (Demo Recall) No acute events, looks comfortable, afebrile Microbiology: Patient had a cultures of his wounds back in June that grew strep Enterobacter and enterococcus species also Corynebacterium group JK. Recent cx's pending Antimicrobials: Doxycycline, Cipro Physical examination: Obese well-developed middle-aged -Citizen Of The [place] man who is awake in no distress. Head atraumatic normocephalic neck is supple chest rise symmetrical breath sounds diminished to bases. Heart: S1-S2 abdomen soft bowel sounds present. Extremities with bilateral lower extremities chronic wounds foul order Assessment: 1. Bilateral lower extremities acute on chronic wounds 2. Obesity 3. Pancytopenia 4. Psychiatric disorder 5. Diabetes 6. HCV Plan: Remains stable, continue abx for 8 more day, GI rec-s Consultation Date/Type/Reason Admit Date/Time Jan 01, 2019 at 22:19 Initial Consult Date Type of Consult id Date/Time of Note DATE: 01/10/19 TIME: 12:11 Exam/Review of Systems Exam Vitals Vital Signs Date Temp Pulse Resp B/P (MAP) Pulse Ox O2 O2 Flow FiO2 Time Delivery Rate 01/10/19 97.9 60 18 131/85 97 Room Air 07:41 (100) Intake and Output 01/09/19 01/09/19 01/10/19 1515:00 23:00 07:00 IntakeIntake Total 540 ml OutputOutput Total 350 ml 1000 ml 400 ml BalanceBalance -350 ml -460 ml -400 ml Results Result Diagram: 01/09/19 0453 01/09/19 0453 Medications Medication Current Medications Lisinopril (Zestril) 40 mg DAILY PO Last administered on 01/10/19at 08:20; Admin Dose 40 MG; Start 01/02/19 at 09:00 Metoprolol Tartrate (Lopressor) 50 mg BID PO Last administered on 01/10/19at 08:20; Admin Dose 50 MG; Start 01/02/19 at 00:00 Nifedipine (Procardia Xl) 30 mg DAILY PO Last administered on 01/10/19at 08:21; Admin Dose 30 MG; Start 01/02/19 at 09:00 IV Flush (NS 3 ml) 3 ml PER PROTOCOL IV ; Start 01/02/19 at 00:00 Ondansetron HCl (Zofran Inj) 4 mg Q6H PRN IV NAUSEA/VOMITING Last administered on 01/02/19at 01:59; Admin Dose 4 MG; Start 01/02/19 at 00:00 Acetaminophen (Tylenol Tab) 650 mg Q6H PRN PO .PAIN 1-3 OR TEMP; Start 01/02/19 at 00:00 Hydromorphone HCl (Dilaudid) 0.5 mg Q4H PRN IV .SEVERE PAIN 7-10 Last administ ered on 01/10/19at 10:34; Admin Dose 0.5 MG; Start 01/02/19 at 00:00 Bisacodyl (Dulcolax) 5 mg DAILY PRN PO .CONSTIPATION; Start 01/02/19 at 00:00 Hydralazine HCl (Apresoline) 10 mg Q4H PRN IV ELEVATED BLOOD PRESSURE Last administered on 01/02/19 09:16; Admin Dose 10 MG; Start 01/02/19 at 03:00 Lorazepam (Ativan) 1 mg Q2H PRN IV CONTROL WITHDRAWAL SYMPTOMS Last administered on 01/02/19at 17:23; Admin Dose 1 MG; Start 01/02/19 at 05:30 Thiamine HCl (Vitamin B1) 200 mg DAILY PO Last administered on 01/10/19 08:22; Admin Dose 200 MG; Start 01/03/19 at 09:00 Folic Acid (Folic Acid) 1 mg DAILY PO Last administered on 01/10/19at 08:20; Admin Dose 1 MG; Start 01/03/19 at 09:00 Multivitamins Therapeutic (Theragran) 1 tab DAILY PO Last administered on 01/10/19at 08:19; Admin Dose 1 TAB; Start 01/03/19 at 09:00 Heparin Sodium (Porcine) (Heparin (5000 Units/1ml)) 5,000 unit BID SC Last administered on 01/10/19at 08:21; Admin Dose 5,000 UNIT; Start 01/02/19 at 21:00 Nicotine (Nicoderm 7 Mg/ 24 Hr) 1 patch DAILY TRANSDERM ; Start 01/02/19 at 16:30 Duloxetine HCl (Cymbalta) 30 mg BID PO Last administered on 01/10/19at 08:19; Admin Dose 30 MG; Start 01/02/19 at 21:00 Quetiapine Fumarate (Seroquel) 100 mg HS PO Last administered on 01/09/19 21:19; Admin Dose 100 MG; Start 01/02/19 at 21:00 Clotrimazole (Lotrimin Cr) 1 applic DAILY TOP Last administered on 01/10/19at 08:22; Admin Dose 1 APPLIC; Start 01/04/19 at 09:00 Polyethylene Glycol (Miralax) 17 gm DAILY PO Last administered on 01/10/19 08:18; Admin Dose 17 GM; Start 01/06/19 at 09:30 Senna/Docusate Sodium (Senokot-S) 1 tab BID PRN PO constipation; Start 01/06/19 at 09:30 Ciprofloxacin (Cipro) 500 mg BID@,18 PO Last administered on 01/10/19at 06:08; Admin Dose 500 MG; Start 01/06/19 at 18:00 Sodium Hypochlorite (Dakins Diluted (1/40)) 1 applic DAILY TP Last administered on 01/10/19 08:22; Admin Dose 1 APPLIC; Start 01/06/19 at 15:59 Doxycycline Hyclate (Vibramycin) 100 mg BID PO Last administered on 01/10/19 08:20; Admin Dose 100 MG; Start 01/07/19 at 21:00 SUSAN ALLAN NP Jan 10, 2019 12:11
[2019-01-10 14:16] VITALS: BP 124/75; PULSE 67; RESP 18
[2019-01-10 19:36] VITALS: BP 102/65; PULSE 75; RESP 20
[2019-01-10 20:58] VITALS: BP 109/71; PULSE 74
[2019-01-10] MEDS: QUETIAPINE 100 MG TAB PO SCH (21:03)
[2019-01-11 01:49] VITALS: BP 106/64; PULSE 74; RESP 20
[2019-01-11] MEDS: HYDROmorphONE 0.5 MG/0.5 ML SYG IV PRN ×3 (02:35→16:31)
[2019-01-11] MEDS: CIPROFLOXACIN 500 MG TAB PO SCH ×2 (05:48→17:19)
[2019-01-11 07:46] VITALS: BP 102/67; PULSE 72; RESP 16
[2019-01-11] MEDS: METOPROLOL 50 MG TAB PO SCH ×2 (09:00→20:24)
[2019-01-11] MEDS: NICOTINE (7 MG/24 HR) PATCH TRANSDERM SCH (09:00)
[2019-01-11] MEDS: NIFEdipine (XL) 30 MG TAB PO SCH (09:00)
[2019-01-11] MEDS: LISINOPRIL 20 MG TAB PO SCH (09:00)
[2019-01-11 09:11] VITALS: BP 98/63; PULSE 80; RESP 19
[2019-01-11] MEDS: HEPARIN 5,000 UNIT/1 ML VIAL SC SCH ×2 (09:13→20:25)
[2019-01-11] MEDS: MULTIVITAMINS THERAPEUTIC TAB PO SCH (09:14)
[2019-01-11] MEDS: THIAMINE 100 MG TAB PO SCH (09:14)
[2019-01-11] MEDS: FOLIC ACID 1 MG TAB PO SCH (09:14)
[2019-01-11] MEDS: DOXYCYCLINE 100 MG TAB PO SCH ×2 (09:14→20:23)
[2019-01-11] MEDS: POLYETHYLENE GLYCOL 17 GM PACKET PO SCH (09:15)
[2019-01-11] MEDS: CLOTRIMAZOLE 1% 30 GM CR TOP SCH (09:17)
[2019-01-11] MEDS: DAKINS 0.0125%(1/40) 473 ML SOLUTION TP SCH (09:17)
[2019-01-11] MEDS: DULOXETINE 30 MG CAP DR PO SCH ×2 (09:18→20:23)
[2019-01-11] MEDS ORDERED: OXYCODONE/ACETAMINOPHEN (10/325) TAB PO PRN (10:00)
--- NOTE | 2019-01-11 10:33 | PN ---
Date/Time of Note Date/Time of Note DATE: 01/11/19 TIME: 10:32 Objective Vitals Vital Signs Date Temp Pulse Resp B/P (MAP) Pulse Ox O2 O2 Flow FiO2 Time Delivery Rate 01/11/19 80 19 98/63 (75) Room Air 09:11 01/11/19 97.9 100 07:46 Intake and Output 01/10/19 01/10/19 01/11/19 1515:00 23:00 07:00 IntakeIntake Total 600 ml 200 ml OutputOutput Total 500 ml BalanceBalance 100 ml 200 ml Results Result Diagram: 01/09/193 01/09/19452 Medications Medications Current Medications Lisinopril (Zestril) 40 mg DAILY PO Last administered on 01/10/19at 08:20; Admin Dose 40 MG; Start 01/02/19 at 09:00 Metoprolol Tartrate (Lopressor) 50 mg BID PO Last administered on 01/10/19at 21:04; Admin Dose 50 MG; Start 01/02/19 at 00:00 Nifedipine (Procardia Xl) 30 mg DAILY PO Last administered on 01/10/19at 08:21; Admin Dose 30 MG; Start 01/02/19 at 09:00 IV Flush (NS 3 ml) 3 ml PER PROTOCOL IV ; Start 01/02/19 at 00:00 Ondansetron HCl (Zofran Inj) 4 mg Q6H PRN IV NAUSEA/VOMITING Last administered on 01/02/19at 01:59; Admin Dose 4 MG; Start 01/02/19 at 00:00 Acetaminophen (Tylenol Tab) 650 mg Q6H PRN PO .PAIN 1-3 OR TEMP; Start 01/02/19 at 00:00 Bisacodyl (Dulcolax) 5 mg DAILY PRN PO .CONSTIPATION; Start 01/02/19 at 00:00 Hydralazine HCl (Apresoline) 10 mg Q4H PRN IV ELEVATED BLOOD PRESSURE Last administered on 01/02/19at 09:16; Admin Dose 10 MG; Start 01/02/19 at 03:00 Lorazepam (Ativan) 1 mg Q2H PRN IV CONTROL WITHDRAWAL SYMPTOMS Last administered on 01/02/19at 17:23; Admin Dose 1 MG; Start 01/02/19 at 05:30 Thiamine HCl (Vitamin B1) 200 mg DAILY PO Last administered on 01/11/19 09:14; Admin Dose 200 MG; Start 01/03/19 at 09:00 Folic Acid (Folic Acid) 1 mg DAILY PO Last administered on 01/11/19 09:14; Admin Dose 1 MG; Start 01/03/19 at 09:00 Multivitamins Therapeutic (Theragran) 1 tab DAILY PO Last administered on 01/11/19 09:14; Admin Dose 1 TAB; Start 01/03/19 at 09:00 Heparin Sodium (Porcine) (Heparin (5000 Units/1ml)) 5,000 unit BID SC Last administered on 01/11/19 09:13; Admin Dose 5,000 UNIT; Start 01/02/19 at 21:00 Nicotine (Nicoderm 7 Mg/ 24 Hr) 1 patch DAILY TRANSDERM ; Start 01/02/19 at 16:30 Duloxetine HCl (Cymbalta) 30 mg BID PO Last administered on 01/11/19 09:18; Admin Dose 30 MG; Start 01/02/19 at 21:00 Quetiapine Fumarate (Seroquel) 100 mg HS PO Last administered on 01/10/19 21:03; Admin Dose 100 MG; Start 01/02/19 at 21:00 Clotrimazole (Lotrimin Cr) 1 applic DAILY TOP Last administered on 01/11/19 09:17; Admin Dose 1 APPLIC; Start 01/04/19 at 09:00 Polyethylene Glycol (Miralax) 17 gm DAILY PO Last administered on 01/11/19 09:15; Admin Dose 17 GM; Start 01/06/19 at 09:30 Senna/Docusate Sodium (Senokot-S) 1 tab BID PRN PO constipation; Start 01/06/19 at 09:30 Ciprofloxacin (Cipro) 500 mg BID@,18 PO Last administered on 01/11/19 05:48; Admin Dose 500 MG; Start 01/06/19 at 18:00 Sodium Hypochlorite (Dakins Diluted (1/40)) 1 applic DAILY TP Last administered on 01/11/19 09:17; Admin Dose 1 APPLIC; Start 01/06/19 at 15:59 Doxycycline Hyclate (Vibramycin) 100 mg BID PO Last administered on 01/11/19 09:14; Admin Dose 100 MG; Start 01/07/19 at 21:00 Hydromorphone HCl (Dilaudid) 0.5 mg Q8H PRN IV .SEVERE PAIN 7-10; Start 01/11/19 at 10:00 Oxycodone/ Acetaminophen (Endocet (10/ 325)) 1 tab Q4H PRN PO MODERATE PAIN LEVEL 4-6; Start 01/11/19 at 10:00 VTE Prophylaxis Risk score (from [facility] [place])>0 risk: 4 SCD applied (from [facility] [place]): No SCD contraindication: other Lines/Catheters IV Catheter Type: Melissa in Place: No Assessment/Plan Hospital Course Subjective No acute complaints Objective Physical exam General: Patient is laying in bed and answers questions appropriately Mentation: Patient is alert and oriented 4, Head: Normocephalic atraumatic Eyes: EOMI, pupils reactive to light Neck: Supple, nontender, midline Respiratory: Clear to auscultation bilaterally Cardiovascular: regular rate, no obvious murmurs Gastrointestinal: non-tender to palpation, bowel sounds heard. Neurological: Moves all extremities spontaneously Skin: Bilateral foot ulcers, bandaged, CDI Assessment/Plan 1. Chronic left and right foot ulcer - Podiatry on board and appreciate recommendations. s/p I&D and recommendations for daily dressing changes. Offloading of heels and ambulate with diabetic shoes. - ID on board and appreciate recommendations. Continue current antibiotics at this time - wound cx noted - pain control 2. Schizophrenia- stable - Psych consultation appreciated - continue Cymbalta and Seroquel 3. ETOH abuse - continue on thiamine/folic acid - Ativan PRN - no withdrawal appreciated 4. Alcoholic hepatitis - LFT elevated - continue monitoring 5. hep c - outpatient follow up for treatment 6. HTN - continue home medications - remains stable 7. Anemia, microcytic, mild - stable - no need for transfusions 8. Thrombocytopenia - resolved 9. Disposition - CM on board for SNF placement. Cleared for d/c by podiatry. -titrating down dilaudid in prep for snf placement AVA HOWARD Jan 11, 2019 10:32
--- NOTE | 2019-01-11 13:24 | CONS ---
Assessment/Plan Assessment/Plan Hospital Course (Demo Recall) Alert, feels good, no fevers Microbiology: Patient had a cultures of his wounds back in June that grew strep Enterobacter and enterococcus species also Corynebacterium group JK. Recent cx's pending Antimicrobials: Doxycycline, Cipro Physical examination: Obese well-developed middle-aged -[place] man who is awake in no distress. Head atraumatic normocephalic neck is supple chest rise symmetrical breath sounds diminished to bases. Heart: S1-S2 abdomen soft bowel sounds present. Bilateral lower extremities arcadio wrapped Assessment: 1. Bilateral lower extremities acute on chronic wounds 2. Obesity 3. Pancytopenia 4. Psychiatric disorder 5. Diabetes 6. HCV Plan: Remains stable, continue abx for 7 more day Consultation Date/Type/Reason Admit Date/Time Jan 01, 2019 at 22:19 Initial Consult Date Type of Consult id Date/Time of Note DATE: 01/11/19 TIME: 13:23 Exam/Review of Systems Exam Vitals Vital Signs Date Temp Pulse Resp B/P (MAP) Pulse Ox O2 O2 Flow FiO2 Time Delivery Rate 01/11/19 80 19 98/63 (75) Room Air 09:11 01/11/19 97.9 100 07:46 Intake and Output 01/10/19 01/10/19 01/11/19 1515:00 23:00 07:00 IntakeIntake Total 600 ml 200 ml OutputOutput Total 500 ml BalanceBalance 100 ml 200 ml Results Result Diagram: 01/09/19 0453 01/09/19 0453 Medications Medication Current Medications Lisinopril (Zestril) 40 mg DAILY PO Last administered on 01/10/19at 08:20; Admin Dose 40 MG; Start 01/02/19 at 09:00 Metoprolol Tartrate (Lopressor) 50 mg BID PO Last administered on 01/10/19at 21:04; Admin Dose 50 MG; Start 01/02/19 at 00:00 Nifedipine (Procardia Xl) 30 mg DAILY PO Last administered on 01/10/19at 08:21; Admin Dose 30 MG; Start 01/02/19 at 09:00 IV Flush (NS 3 ml) 3 ml PER PROTOCOL IV ; Start 01/02/19 at 00:00 Ondansetron HCl (Zofran Inj) 4 mg Q6H PRN IV NAUSEA/VOMITING Last administered on 01/02/19 01:59; Admin Dose 4 MG; Start 01/02/19 at 00:00 Acetaminophen (Tylenol Tab) 650 mg Q6H PRN PO .PAIN 1-3 OR TEMP; Start 01/02/19 at 00:00 Bisacodyl (Dulcolax) 5 mg DAILY PRN PO .CONSTIPATION; Start 01/02/19 at 00:00 Hydralazine HCl (Apresoline) 10 mg Q4H PRN IV ELEVATED BLOOD PRESSURE Last administered on 01/02/19 09:16; Admin Dose 10 MG; Start 01/02/19 at 03:00 Lorazepam (Ativan) 1 mg Q2H PRN IV CONTROL WITHDRAWAL SYMPTOMS Last administered on 01/02/19 17:23; Admin Dose 1 MG; Start 01/02/19 at 05:30 Thiamine HCl (Vitamin B1) 200 mg DAILY PO Last administered on 01/11/19 09:14; Admin Dose 200 MG; Start 01/03/19 at 09:00 Folic Acid (Folic Acid) 1 mg DAILY PO Last administered on 01/11/19 09:14; Admin Dose 1 MG; Start 01/03/19 at 09:00 Multivitamins Therapeutic (Theragran) 1 tab DAILY PO Last administered on 01/11/19 09:14; Admin Dose 1 TAB; Start 01/03/19 at 09:00 Heparin Sodium (Porcine) (Heparin (5000 Units/1ml)) 5,000 unit BID SC Last administered on 01/11/19 09:13; Admin Dose 5,000 UNIT; Start 01/02/19 at 21:00 Nicotine (Nicoderm 7 Mg/ 24 Hr) 1 patch DAILY TRANSDERM ; Start 01/02/19 at 16:30 Duloxetine HCl (Cymbalta) 30 mg BID PO Last administered on 01/11/19 09:18; Admin Dose 30 MG; Start 01/02/19 at 21:00 Quetiapine Fumarate (Seroquel) 100 mg HS PO Last administered on 01/10/19 21:03; Admin Dose 100 MG; Start 01/02/19 at 21:00 Clotrimazole (Lotrimin Cr) 1 applic DAILY TOP Last administered on 01/11/19 09:17; Admin Dose 1 APPLIC; Start 01/04/19 at 09:00 Polyethylene Glycol (Miralax) 17 gm DAILY PO Last administered on 01/11/19at 09:15; Admin Dose 17 GM; Start 01/06/19 at 09:30 Senna/Docusate Sodium (Senokot-S) 1 tab BID PRN PO constipation; Start 01/06/19 at 09:30 Ciprofloxacin (Cipro) 500 mg BID@06,18 PO Last administered on 01/11/19at 05:48; Admin Dose 500 MG; Start 01/06/19 at 18:00 Sodium Hypochlorite (Dakins Diluted ()) 1 applic DAILY TP Last administered on 01/11/19at 09:17; Admin Dose 1 APPLIC; Start 01/06/19 at 15:59 Doxycycline Hyclate (Vibramycin) 100 mg BID PO Last administered on 01/11/19at 09:14; Admin Dose 100 MG; Start 01/07/19 at 21:00 Hydromorphone HCl (Dilaudid) 0.5 mg Q8H PRN IV .SEVERE PAIN 7-10; Start 01/11/19 at 10:00 Oxycodone/ Acetaminophen (Endocet (10/ 325)) 1 tab Q4H PRN PO MODERATE PAIN LEVEL 4-6; Start 01/11/19 at 10:00 SUSAN ALLAN NP Jan 11, 2019 13:24
[2019-01-11 14:40] VITALS: BP 137/88; PULSE 67; RESP 20
[2019-01-11 19:52] VITALS: BP 143/88; PULSE 77; RESP 20
[2019-01-11] MEDS: QUETIAPINE 100 MG TAB PO SCH (20:23)
[2019-01-12] MEDS: HYDROmorphONE 0.5 MG/0.5 ML SYG IV PRN ×4 (00:36→23:38)
[2019-01-12 02:29] VITALS: BP 116/79; PULSE 67; RESP 18
[2019-01-12] MEDS: CIPROFLOXACIN 500 MG TAB PO SCH ×2 (06:23→17:05)
[2019-01-12 08:33] VITALS: BP 145/84; PULSE 67; RESP 20
[2019-01-12] MEDS: THIAMINE 100 MG TAB PO SCH (08:37)
[2019-01-12] MEDS: DOXYCYCLINE 100 MG TAB PO SCH ×2 (08:37→20:32)
[2019-01-12] MEDS: LISINOPRIL 20 MG TAB PO SCH (08:37)
[2019-01-12] MEDS: METOPROLOL 50 MG TAB PO SCH ×2 (08:37→20:32)
[2019-01-12] MEDS: MULTIVITAMINS THERAPEUTIC TAB PO SCH (08:38)
[2019-01-12] MEDS: POLYETHYLENE GLYCOL 17 GM PACKET PO SCH (08:38)
[2019-01-12] MEDS: NICOTINE (7 MG/24 HR) PATCH TRANSDERM SCH (08:38)
[2019-01-12] MEDS: DULOXETINE 30 MG CAP DR PO SCH ×2 (08:38→20:32)
[2019-01-12] MEDS: FOLIC ACID 1 MG TAB PO SCH (08:38)
[2019-01-12] MEDS: NIFEdipine (XL) 30 MG TAB PO SCH (08:38)
[2019-01-12] MEDS: CLOTRIMAZOLE 1% 30 GM CR TOP SCH (08:39)
[2019-01-12] MEDS: DAKINS 0.0125%(1/40) 473 ML SOLUTION TP SCH (08:39)
[2019-01-12] MEDS: HEPARIN 5,000 UNIT/1 ML VIAL SC SCH ×2 (08:40→20:34)
--- NOTE | 2019-01-12 11:41 | PN ---
Date/Time of Note Date/Time of Note DATE: 01/12/19 TIME: 11:40 Objective Vitals Vital Signs Date Temp Pulse Resp B/P (MAP) Pulse Ox O2 O2 Flow FiO2 Time Delivery Rate 01/12/19 99.0 67 20 145/84 97 08:33 (104) 01/12/19 Room Air 02:29 Intake and Output 01/11/19 01/11/19 01/12/19 1515:00 23:00 07:00 IntakeIntake Total 1160 ml 834 ml OutputOutput Total 1900 ml 1475 ml BalanceBalance -740 ml -641 ml Results Result Diagram: 01/09/19 0453 01/09/19 0453 Medications Medications Current Medications Lisinopril (Zestril) 40 mg DAILY PO Last administered on 01/12/19at 08:37; Admin Dose 40 MG; Start 01/02/19 at 09:00 Metoprolol Tartrate (Lopressor) 50 mg BID PO Last administered on 01/12/19at 08:37; Admin Dose 50 MG; Start 01/02/19 at 00:00 Nifedipine (Procardia Xl) 30 mg DAILY PO Last administered on 01/12/19at 08:38; Admin Dose 30 MG; Start 01/02/19 at 09:00 IV Flush (NS 3 ml) 3 ml PER PROTOCOL IV ; Start 01/02/19 at 00:00 Ondansetron HCl (Zofran Inj) 4 mg Q6H PRN IV NAUSEA/VOMITING Last administered on 01/02/19at 01:59; Admin Dose 4 MG; Start 01/02/19 at 00:00 Acetaminophen (Tylenol Tab) 650 mg Q6H PRN PO .PAIN 1-3 OR TEMP; Start 01/02/19 at 00:00 Bisacodyl (Dulcolax) 5 mg DAILY PRN PO .CONSTIPATION; Start 01/02/19 at 00:00 Hydralazine HCl (Apresoline) 10 mg Q4H PRN IV ELEVATED BLOOD PRESSURE Last administered on 01/02/19at 09:16; Admin Dose 10 MG; Start 01/02/19 at 03:00 Lorazepam (Ativan) 1 mg Q2H PRN IV CONTROL WITHDRAWAL SYMPTOMS Last administered on 01/02/19at 17:23; Admin Dose 1 MG; Start 01/02/19 at 05:30 Thiamine HCl (Vitamin B1) 200 mg DAILY PO Last administered on 01/12/19 08:37; Admin Dose 200 MG; Start 01/03/19 at 09:00 Folic Acid (Folic Acid) 1 mg DAILY PO Last administered on 01/12/19 08:38; Admin Dose 1 MG; Start 01/03/19 at 09:00 Multivitamins Therapeutic (Theragran) 1 tab DAILY PO Last administered on 01/12/19 08:38; Admin Dose 1 TAB; Start 01/03/19 at 09:00 Heparin Sodium (Porcine) (Heparin (5000 Units/1ml)) 5,000 unit BID SC Last administered on 01/12/19 08:40; Admin Dose 5,000 UNIT; Start 01/02/19 at 21:00 Nicotine (Nicoderm 7 Mg/ 24 Hr) 1 patch DAILY TRANSDERM ; Start 01/02/19 at 16:30 Duloxetine HCl (Cymbalta) 30 mg BID PO Last administered on 01/12/19 08:38; Admin Dose 30 MG; Start 01/02/19 at 21:00 Quetiapine Fumarate (Seroquel) 100 mg HS PO Last administered on 01/11/19 20:23; Admin Dose 100 MG; Start 01/02/19 at 21:00 Clotrimazole (Lotrimin Cr) 1 applic DAILY TOP Last administered on 01/12/19 08:39; Admin Dose 1 APPLIC; Start 01/04/19 at 09:00 Polyethylene Glycol (Miralax) 17 gm DAILY PO Last administered on 01/12/19 08:38; Admin Dose 17 GM; Start 01/06/19 at 09:30 Senna/Docusate Sodium (Senokot-S) 1 tab BID PRN PO constipation; Start 01/06/19 at 09:30 Ciprofloxacin (Cipro) 500 mg BID@06,18 PO Last administered on 01/12/19 06:23; Admin Dose 500 MG; Start 01/06/19 at 18:00 Sodium Hypochlorite (Dakins Diluted (40)) 1 applic DAILY TP Last administered on 01/12/19 08:39; Admin Dose 1 APPLIC; Start 01/06/19 at 15:59 Doxycycline Hyclate (Vibramycin) 100 mg BID PO Last administered on 7/20/19at 08:37; Admin Dose 100 MG; Start 01/07/19 at 21:00 Hydromorphone HCl (Dilaudid) 0.5 mg Q8H PRN IV .SEVERE PAIN 7-10 Last administered on 01/12/19at 08:38; Admin Dose 0.5 MG; Start 01/11/19 at 10:00 Oxycodone/ Acetaminophen (Endocet (10/ 325)) 1 tab Q4H PRN PO MODERATE PAIN LEVEL 4-6 Last administered on 01/11/19at 20:07; Admin Dose 1 TAB; Start 01/11/19 at 10:00 VTE Prophylaxis Risk score (from Ns)>0 risk: 7 SCD applied (from [facility] [place]): No SCD contraindication: other Lines/Catheters IV Catheter Type: Melissa in Place: No Assessment/Plan Hospital Course Subjective No acute complaints Objective Physical exam General: Patient is laying in bed and answers questions appropriately Mentation: Patient is alert and oriented 4, Head: Normocephalic atraumatic Eyes: EOMI, pupils reactive to light Neck: Supple, nontender, midline Respiratory: Clear to auscultation bilaterally Cardiovascular: regular rate, no obvious murmurs Gastrointestinal: non-tender to palpation, bowel sounds heard. Neurological: Moves all extremities spontaneously Skin: Bilateral foot ulcers, bandaged, CDI Assessment/Plan 1. Chronic left and right foot ulcer - Podiatry on board and appreciate recommendations. s/p I&D and recommendations for daily dressing changes. Offloading of heels and ambulate with diabetic shoes. - ID on board and appreciate recommendations. Continue current antibiotics at this time - wound cx noted - pain control 2. Schizophrenia- stable - Psych consultation appreciated - continue Cymbalta and Seroquel 3. ETOH abuse - continue on thiamine/folic acid - Ativan PRN - no withdrawal appreciated 4. Alcoholic hepatitis - LFT elevated - continue monitoring 5. hep c - outpatient follow up for treatment 6. HTN - continue home medications - remains stable 7. Anemia, microcytic, mild - stable - no need for transfusions 8. Thrombocytopenia - resolved 9. Disposition - CM on board for SNF placement. Cleared for d/c by podiatry. -titrating down dilaudid in prep for snf placement AVA HOWARD Jan 12, 2019 11:41
[2019-01-12 14:13] VITALS: BP 127/78; PULSE 66; RESP 18
--- NOTE | 2019-01-12 16:36 | CONS ---
Assessment/Plan Assessment/Plan Hospital Course (Demo Recall) ID PROGRESS NOTE CURRENT ABX: DAY # => Doxycycline + CIPRO 01/09/193 01/09/19 0453 24H INTERVAL SUMMARY * Awake, alert, VSS, NAD, no fevers, resting comfortable, chronic open wound -- micro results partially completed DIAGNOSTIC IMAGING * 01/02/19 CXR: No acute cardiopulmonary disease. * 01/03/19 MRI FOOT: 1. Limited study due to motion artifact.2. Dorsal - medial skin ulceration of the great toe near the first interphalangeal joint.3. Abnormal bone marrow signal along the medial margin of the base of the first distal phalanx is suspicious but not entirely definitive for acute o steomyelitis. This study can be used as a baseline for short-term future follow up. 4. Mild to moderate soft tissue swelling without discrete drainable fluid collection MICRO * Microbiology: Patient had a cultures of his wounds back in June that grew strep Enterobacter and enterococcus species also Corynebacterium group JK. Recent cx's pending * 01/03/19 WOUND CX: WOUND CULTURE Final Organism 1 MORGANELLA MORGANII QUANTITY SCANT GROWTH Organism 2 METHICILLIN RESISTANT S.AUREUS QUANTITY SCANT GROWTH . MULTI DRUG RESISTANT ORGANISM Organism 3 COAGULASE NEGATIVE STAPH QUANTITY SCANT GROWTH Organism 4 GRAM POSITIVE CAROLINE QUANTITY SCANT GROWTH M MORGANII MRSA COAG NEG M.I.C. RX M.I.C. RX M.I.C. RX --------- --- --------- --- --------- --- CEFAZOLIN R R CEFOTAXIME S CIPROFLOXACIN <=0.25 S >=8 R >=8 R CLINDAMYCIN >=8 R >=8 R DOXYCYCLINE S S ERYTHROMYCIN >=8 R >=8 R GENTAMICIN <=1 S LEVOFLOXACIN <=0.12 S 4 R >=8 R OXACILLIN R >=4 R PENICILLIN-G >=0.5 R >=0.5 R RIFAMPIN <=0.5 S <=0.5 S VANCOMYCIN <=0.5 S 2 S TOBRAMYCIN <=1 S TRIMETHOPRIM/SULFAMETHOXAZOLE <=20 S <=10 S >=320 R PHYSICAL EXAMINATION: GENERAL: VSS, NAD - HEENT: AT, NC, NECK: Supple, CHEST: Rise symmetrical HEART: Pulse RRR ABDOMEN: Soft EXTREMITIES: Warm, dry == see photo of chronic wounds SKIN: No rash, no diaphoresis ID ASSESSMENT 53 yo M admit with: 1. Bilateral lower extremities acute on chronic wounds 2. Obesity 3. Pancytopenia 4. Psychiatric disorder 5. Diabetes 6. HCV (-)MRSA Nares ABX ALLERGIES: KNDA INVASIVES: PIV CURRENT ABX: DAY # => Doxycycline + CIPRO ID RECOMMENDATIONS/PLAN: 1. Patient is stable on current ABX == continue, await final micro still pending . Consultation Date/Type/Reason Admit Date/Time Jan 01, 2019 at 22:19 Initial Consult Date 01/07/19 Date/Time of Note DATE: 01/12/19 TIME: 16:30 Exam/Review of Systems Exam Vitals Vital Signs Date Temp Pulse Resp B/P (MAP) Pulse Ox O2 O2 Flow FiO2 Time Delivery Rate 01/12/19 97.7 66 18 127/78 99 Room Air 14:13 (94) Intake and Output 01/11/19 01/11/19 01/12/19 1515:00 23:00 07:00 IntakeIntake Total 1160 ml 834 ml OutputOutput Total 1900 ml 1475 ml BalanceBalance -740 ml -641 ml Results Result Diagram: 01/09/19 0453 01/09/19 0453 Medications Medication Current Medications Lisinopril (Zestril) 40 mg DAILY PO Last administered on 01/12/19at 08:37; Admin Dose 40 MG; Start 01/02/19 at 09:00 Metoprolol Tartrate (Lopressor) 50 mg BID PO Last administered on 01/12/19at 08:37; Admin Dose 50 MG; Start 01/02/19 at 00:00 Nifedipine (Procardia Xl) 30 mg DAILY PO Last administered on 01/12/19at 08:38; Admin Dose 30 MG; Start 01/02/19 at 09:00 IV Flush (NS 3 ml) 3 ml PER PROTOCOL IV ; Start 01/02/19 at 00:00 Ondansetron HCl (Zofran Inj) 4 mg Q6H PRN IV NAUSEA/VOMITING Last administered on 01/02/19at 01:59; Admin Dose 4 MG; Start 01/02/19 at 00:00 Acetaminophen (Tylenol Tab) 650 mg Q6H PRN PO .PAIN 1-3 OR TEMP; Start 01/02/19 at 00:00 Bisacodyl (Dulcolax) 5 mg DAILY PRN PO .CONSTIPATION; Start 01/02/19 at 00:00 Hydralazine HCl (Apresoline) 10 mg Q4H PRN IV ELEVATED BLOOD PRESSURE Last administered on 01/02/19at 09:16; Admin Dose 10 MG; Start 01/02/19 at 03:00 Lorazepam (Ativan) 1 mg Q2H PRN IV CONTROL WITHDRAWAL SYMPTOMS Last administered on 01/02/19at 17:23; Admin Dose 1 MG; Start 01/02/19 at 05:30 Thiamine HCl (Vitamin B1) 200 mg DAILY PO Last administered on 01/12/19 08:37; Admin Dose 200 MG; Start 01/03/19 at 09:00 Folic Acid (Folic Acid) 1 mg DAILY PO Last administered on 01/12/19 08:38; Admin Dose 1 MG; Start 01/03/19 at 09:00 Multivitamins Therapeutic (Theragran) 1 tab DAILY PO Last administered on 01/12/19 08:38; Admin Dose 1 TAB; Start 01/03/19 at 09:00 Heparin Sodium (Porcine) (Heparin (5000 Units/1ml)) 5,000 unit BID SC Last administered on 01/12/19 08:40; Admin Dose 5,000 UNIT; Start 01/02/19 at 21:00 Nicotine (Nicoderm 7 Mg/ 24 Hr) 1 patch DAILY TRANSDERM ; Start 01/02/19 at 16: 30 Duloxetine HCl (Cymbalta) 30 mg BID PO Last administered on 01/12/19at 08:38; Admin Dose 30 MG; Start 01/02/19 at 21:00 Quetiapine Fumarate (Seroquel) 100 mg HS PO Last administered on 01/11/19at 2 0:23; Admin Dose 100 MG; Start 01/02/19 at 21:00 Clotrimazole (Lotrimin Cr) 1 applic DAILY TOP Last administered on 01/12/19 08:39; Admin Dose 1 APPLIC; Start 01/04/19 at 09:00 Polyethylene Glycol (Miralax) 17 gm DAILY PO Last administered on 01/12/19 08:38; Admin Dose 17 GM; Start 01/06/19 at 09:30 Senna/Docusate Sodium (Senokot-S) 1 tab BID PRN PO constipation; Start 01/06/19 at 09:30 Ciprofloxacin (Cipro) 500 mg BID@06,18 PO Last administered on 01/12/19 06:23; Admin Dose 500 MG; Start 01/06/19 at 18:00 Sodium Hypochlorite (Dakins Diluted ()) 1 applic DAILY TP Last administered on 01/12/19 08:39; Admin Dose 1 APPLIC; Start 01/06/19 at 15:59 Doxycycline Hyclate (Vibramycin) 100 mg BID PO Last administered on 01/12/19 08:37; Admin Dose 100 MG; Start 01/07/19 at 21:00 Oxycodone/ Acetaminophen (Endocet (10/ 325)) 1 tab Q4H PRN PO MODERATE PAIN LEVEL 4-6 Last administered on 01/11/19 20:07; Admin Dose 1 TAB; Start 01/11/19 at 10:00 Hydromorphone HCl (Dilaudid) 0.5 mg Q6 PRN IV .SEVERE PAIN 7-10 Last administered on 01/12/19 16:14; Admin Dose 0.5 MG; Start 01/12/19 at 12:00 TOSHA HOLLAND NP Jan 12, 2019 16:36
[2019-01-12 20:14] VITALS: BP 121/85; PULSE 74; RESP 18
[2019-01-12] MEDS: QUETIAPINE 100 MG TAB PO SCH (20:32)
[2019-01-13 01:39] VITALS: BP 118/77; PULSE 78; RESP 18
[2019-01-13] MEDS: CIPROFLOXACIN 500 MG TAB PO SCH ×2 (05:35→17:14)
[2019-01-13] MEDS: HYDROmorphONE 0.5 MG/0.5 ML SYG IV PRN ×3 (05:36→17:46)
[2019-01-13 07:38] VITALS: BP 140/81; PULSE 66; RESP 17
[2019-01-13] MEDS: METOPROLOL 50 MG TAB PO SCH ×2 (08:56→20:35)
[2019-01-13] MEDS: DOXYCYCLINE 100 MG TAB PO SCH ×2 (08:56→20:34)
[2019-01-13] MEDS: POLYETHYLENE GLYCOL 17 GM PACKET PO SCH (08:56)
[2019-01-13] MEDS: MULTIVITAMINS THERAPEUTIC TAB PO SCH (08:56)
[2019-01-13] MEDS: FOLIC ACID 1 MG TAB PO SCH (08:56)
[2019-01-13] MEDS: DULOXETINE 30 MG CAP DR PO SCH ×2 (08:57→20:35)
[2019-01-13] MEDS: LISINOPRIL 20 MG TAB PO SCH (08:57)
[2019-01-13] MEDS: THIAMINE 100 MG TAB PO SCH (08:57)
[2019-01-13] MEDS: NIFEdipine (XL) 30 MG TAB PO SCH (08:57)
[2019-01-13] MEDS: HEPARIN 5,000 UNIT/1 ML VIAL SC SCH ×2 (08:59→20:36)
[2019-01-13] MEDS: NICOTINE (7 MG/24 HR) PATCH TRANSDERM SCH (09:00)
[2019-01-13] MEDS: DAKINS 0.0125%(1/40) 473 ML SOLUTION TP SCH (09:02)
[2019-01-13] MEDS: CLOTRIMAZOLE 1% 30 GM CR TOP SCH (09:02)
--- NOTE | 2019-01-13 11:16 | PN ---
Date/Time of Note Date/Time of Note DATE: 01/13/19 TIME: 11:16 Objective Vitals Vital Signs Date Temp Pulse Resp B/P (MAP) Pulse Ox O2 O2 Flow FiO2 Time Delivery Rate 01/13/19 98.3 66 17 140/81 91 Room Air 07:38 (100) Intake and Output 01/12/19 01/12/19 01/13/19 1515:00 23:00 07:00 IntakeIntake Total 640 ml 300 ml OutputOutput Total 1600 ml 1350 ml BalanceBalance -960 ml 300 ml -1350 ml Results Result Diagram: 01/09/19 0453 01/09/19 0453 Medications Medications Current Medications Lisinopril (Zestril) 40 mg DAILY PO Last administered on 01/13/19at 08:57; Admin Dose 40 MG; Start 01/02/19 at 09:00 Metoprolol Tartrate (Lopressor) 50 mg BID PO Last administered on 01/13/19at 08:56; Admin Dose 50 MG; Start 01/02/19 at 00:00 Nifedipine (Procardia Xl) 30 mg DAILY PO Last administered on 01/13/19at 08:57; Admin Dose 30 MG; Start 01/02/19 at 09:00 IV Flush (NS 3 ml) 3 ml PER PROTOCOL IV ; Start 01/02/19 at 00:00 Ondansetron HCl (Zofran Inj) 4 mg Q6H PRN IV NAUSEA/VOMITING Last administered on 01/02/19at 01:59; Admin Dose 4 MG; Start 01/02/19 at 00:00 Acetaminophen (Tylenol Tab) 650 mg Q6H PRN PO .PAIN 1-3 OR TEMP; Start 01/02/19 at 00:00 Bisacodyl (Dulcolax) 5 mg DAILY PRN PO .CONSTIPATION; Start 01/02/19 at 00:00 Hydralazine HCl (Apresoline) 10 mg Q4H PRN IV ELEVATED BLOOD PRESSURE Last admi nistered on 01/02/19at 09:16; Admin Dose 10 MG; Start 01/02/19 at 03:00 Lorazepam (Ativan) 1 mg Q2H PRN IV CONTROL WITHDRAWAL SYMPTOMS Last administered on 01/02/19at 17:23; Admin Dose 1 MG; Start 01/02/19 at 05:30 Thiamine HCl (Vitamin B1) 200 mg DAILY PO Last administered on 01/13/19 08:57; Admin Dose 200 MG; Start 01/03/19 at 09:00 Folic Acid (Folic Acid) 1 mg DAILY PO Last administered on 01/13/19 08:56; Admin Dose 1 MG; Start 01/03/19 at 09:00 Multivitamins Therapeutic (Theragran) 1 tab DAILY PO Last administered on 01/13/19 08:56; Admin Dose 1 TAB; Start 01/03/19 at 09:00 Heparin Sodium (Porcine) (Heparin (5000 Units/1ml)) 5,000 unit BID SC Last administered on 01/13/19 08:59; Admin Dose 5,000 UNIT; Start 01/02/19 at 21:00 Nicotine (Nicoderm 7 Mg/ 24 Hr) 1 patch DAILY TRANSDERM ; Start 01/02/19 at 16:30 Duloxetine HCl (Cymbalta) 30 mg BID PO Last administered on 01/13/19 08:57; Admin Dose 30 MG; Start 01/02/19 at 21:00 Quetiapine Fumarate (Seroquel) 100 mg HS PO Last administered on 01/12/19 20:32; Admin Dose 100 MG; Start 01/02/19 at 21:00 Clotrimazole (Lotrimin Cr) 1 applic DAILY TOP Last administered on 01/13/19 09:02; Admin Dose 1 APPLIC; Start 01/04/19 at 09:00 Polyethylene Glycol (Miralax) 17 gm DAILY PO Last administered on 01/13/19 08:56; Admin Dose 17 GM; Start 01/06/19 at 09:30 Senna/Docusate Sodium (Senokot-S) 1 tab BID PRN PO constipation; Start 01/06/19 at 09:30 Ciprofloxacin (Cipro) 500 mg BID@06,18 PO Last administered on 01/13/19 05:35; Admin Dose 500 MG; Start 01/06/19 at 18:00 Sodium Hypochlorite (Dakins Diluted (1/40)) 1 applic DAILY TP Last administered on 01/13/19 09:02; Admin Dose 1 APPLIC; Start 01/06/19 at 15:59 Doxycycline Hyclate (Vibramycin) 100 mg BID PO Last administered on 7/21/19at 08:56; Admin Dose 100 MG; Start 01/07/19 at 21:00 Oxycodone/ Acetaminophen (Endocet (10/ 325)) 1 tab Q4H PRN PO MODERATE PAIN LEV EL 4-6 Last administered on 01/11/19at 20:07; Admin Dose 1 TAB; Start 01/11/19 at 10:00 Hydromorphone HCl (Dilaudid) 0.5 mg Q6 PRN IV .SEVERE PAIN 7-10 Last administered on 01/13/19at 05:36; Admin Dose 0.5 MG; Start 01/12/19 at 12:00 VTE Prophylaxis Risk score (from Ns)>0 risk: 5 SCD applied (from [facility]): No SCD contraindication: other Lines/Catheters IV Catheter Type: Melissa in Place: No Assessment/Plan Hospital Course Subjective No acute complaints Objective Physical exam General: Patient is laying in bed and answers questions appropriately Mentation: Patient is alert and oriented 4, Head: Normocephalic atraumatic Eyes: EOMI, pupils reactive to light Neck: Supple, nontender, midline Respiratory: Clear to auscultation bilaterally Cardiovascular: regular rate, no obvious murmurs Gastrointestinal: non-tender to palpation, bowel sounds heard. Neurological: Moves all extremities spontaneously Skin: Bilateral foot ulcers, bandaged, CDI Assessment/Plan 1. Chronic left and right foot ulcer - Podiatry on board and appreciate recommendations. s/p I&D and recommendations for daily dressing changes. Offloading of heels and ambulate with diabetic shoes. - ID on board and appreciate recommendations. Continue current antibiotics at this time - wound cx noted - pain control 2. Schizophrenia- stable - Psych consultation appreciated - continue Cymbalta and Seroquel 3. ETOH abuse - continue on thiamine/folic acid - Ativan PRN - no withdrawal appreciated 4. Alcoholic hepatitis - LFT elevated - continue monitoring 5. hep c - outpatient follow up for treatment 6. HTN - continue home medications - remains stable 7. Anemia, microcytic, mild - stable - no need for transfusions 8. Thrombocytopenia - resolved 9. Disposition - CM on board for SNF placement. Cleared for d/c by podiatry. -titrating down dilaudid in prep for snf placement AVA HOWARD Jan 13, 2019 11:16
[2019-01-13 14:28] VITALS: BP 104/61; PULSE 102; RESP 15
--- NOTE | 2019-01-13 16:11 | CONS ---
Assessment/Plan Assessment/Plan Hospital Course (Demo Recall) ID PROGRESS NOTE CURRENT ABX: DAY # => Doxycycline + CIPRO 24H INTERVAL SUMMARY * CLINICALLY STATUS QUO -- Dilaudid pain med onboard -- DC PLANNING FOR SNF IN PROCESS * Awake, alert, VSS, NAD, no fevers, resting comfortable, chronic open wound -- micro results partially completed DIAGNOSTIC IMAGING * 01/02/19 CXR: No acute cardiopulmonary disease. * 01/03/19 MRI FOOT: 1. Limited study due to motion artifact.2. Dorsal - medial skin ulceration of the great toe near the first interphalangeal joint.3. Abnormal bone marrow signal along the medial margin of the base of the first distal phalanx is suspicious but not entirely definitive for acute osteomyelitis. This study can be used as a baseline for short-term future follow up. 4. Mild to moderate soft tissue swelling without discrete drainable fluid collection MICRO * Microbiology: Patient had a cultures of his wounds back in June that grew strep Enterobacter and enterococcus species also Corynebacterium group JK. Recent cx's pending * 01/03/19 WOUND CX: WOUND CULTURE Final Organism 1 MORGANELLA MORGANII QUANTITY SCANT GROWTH Organism 2 METHICILLIN RESISTANT S.AUREUS QUANTITY SCANT GROWTH . MULTI DRUG RESISTANT ORGANISM Organism 3 COAGULASE NEGATIVE STAPH QUANTITY SCANT GROWTH Organism 4 GRAM POSITIVE CAROLINE QUANTITY SCANT GROWTH M MORGANII MRSA COAG NEG M.I.C. RX M.I.C. RX M.I.C. RX --------- --- --------- --- --------- --- CEFAZOLIN R R CEFOTAXIME S CIPROFLOXACIN <=0.25 S >=8 R >=8 R CLINDAMYCIN >=8 R >=8 R DOXYCYCLINE S S ERYTHROMYCIN >=8 R >=8 R GENTAMICIN <=1 S LEVOFLOXACIN <=0.12 S 4 R >=8 R OXACILLIN R >=4 R PENICILLIN-G >=0.5 R >=0.5 R RIFAMPIN <=0.5 S <=0.5 S VANCOMYCIN <=0.5 S 2 S TOBRAMYCIN <=1 S TRIMETHOPRIM/SULFAMETHOXAZOLE <=20 S <=10 S >=320 R PHYSICAL EXAMINATION: GENERAL: VSS, NAD - HEENT: AT, NC, NECK: Supple, CHEST: Rise symmetrical HEART: Pulse RRR ABDOMEN: Soft EXTREMITIES: Warm, dry == see photo of chronic wounds SKIN: No rash, no diaphoresis ID ASSESSMENT 53 yo M admit with: 1. Bilateral lower extremities acute on chronic wounds 2. Obesity 3. Pancytopenia 4. Psychiatric disorder 5. Diabetes 6. HCV (-)MRSA Nares ABX ALLERGIES: KNDA INVASIVES: PIV CURRENT ABX: DAY # => Doxycycline + CIPRO ID RECOMMENDATIONS/PLAN: 1. Patient is stable on current ABX == continue, await final micro still pending 2. Would continue PO ABX for total 6 weeks given MRI results . Consultation Date/Type/Reason Admit Date/Time Jan 01, 2019 at 22:19 Initial Consult Date 01/07/19 Date/Time of Note DATE: 01/13/19 TIME: 16:08 Exam/Review of Systems Exam Vitals Vital Signs Date Temp Pulse Resp B/P (MAP) Pulse Ox O2 O2 Flow FiO2 Time Delivery Rate 01/13/19 98.5 102 15 104/61 96 Room Air 14:28 (75) Intake and Output 01/12/19 01/12/19 01/13/19 1515:00 23:00 07:00 IntakeIntake Total 640 ml 300 ml OutputOutput Total 1600 ml 1350 ml BalanceBalance -960 ml 300 ml -1350 ml Results Result Diagram: 01/09/19 0453 01/09/19 0453 Medications Medication Current Medications Lisinopril (Zestril) 40 mg DAILY PO Last administered on 01/13/19at 08:57; Admin Dose 40 MG; Start 01/02/19 at 09:00 Metoprolol Tartrate (Lopressor) 50 mg BID PO Last administered on 01/13/19at 08: 56; Admin Dose 50 MG; Start 01/02/19 at 00:00 Nifedipine (Procardia Xl) 30 mg DAILY PO Last administered on 01/13/19 08:57; Admin Dose 30 MG; Start 01/02/19 at 09:00 IV Flush (NS 3 ml) 3 ml PER PROTOCOL IV ; Start 01/02/19 at 00:00 Ondansetron HCl (Zofran Inj) 4 mg Q6H PRN IV NAUSEA/VOMITING Last administered on 01/02/19 01:59; Admin Dose 4 MG; Start 01/02/19 at 00:00 Acetaminophen (Tylenol Tab) 650 mg Q6H PRN PO .PAIN 1-3 OR TEMP; Start 01/02/19 at 00:00 Bisacodyl (Dulcolax) 5 mg DAILY PRN PO .CONSTIPATION; Start 01/02/19 at 00:00 Hydralazine HCl (Apresoline) 10 mg Q4H PRN IV ELEVATED BLOOD PRESSURE Last administered on 01/02/19 09:16; Admin Dose 10 MG; Start 01/02/19 at 03:00 Lorazepam (Ativan) 1 mg Q2H PRN IV CONTROL WITHDRAWAL SYMPTOMS Last administered on 01/02/19at 17:23; Admin Dose 1 MG; Start 01/02/19 at 05:30 Thiamine HCl (Vitamin B1) 200 mg DAILY PO Last administered on 01/13/19 08:57; Admin Dose 200 MG; Start 01/03/19 at 09:00 Folic Acid (Folic Acid) 1 mg DAILY PO Last administered on 01/13/19 08:56; Admin Dose 1 MG; Start 01/03/19 at 09:00 Multivitamins Therapeutic (Theragran) 1 tab DAILY PO Last administered on 01/13/19 08:56; Admin Dose 1 TAB; Start 01/03/19 at 09:00 Heparin Sodium (Porcine) (Heparin (5000 Units/1ml)) 5,000 unit BID SC Last administered on 01/13/19 08:59; Admin Dose 5,000 UNIT; Start 01/02/19 at 21:00 Nicotine (Nicoderm 7 Mg/ 24 Hr) 1 patch DAILY TRANSDERM ; Start 01/02/19 at 16:30 Duloxetine HCl (Cymbalta) 30 mg BID PO Last administered on 01/13/19 08:57; Admin Dose 30 MG; Start 01/02/19 at 21:00 Quetiapine Fumarate (Seroquel) 100 mg HS PO Last administered on 01/12/19 20:32; Admin Dose 100 MG; Start 01/02/19 at 21:00 Clotrimazole (Lotrimin Cr) 1 applic DAILY TOP Last administered on 01/13/19 09:02; Admin Dose 1 APPLIC; Start 01/04/19 at 09:00 Polyethylene Glycol (Miralax) 17 gm DAILY PO Last administered on 01/13/19 08:56; Admin Dose 17 GM; Start 01/06/19 at 09:30 Senna/Docusate Sodium (Senokot-S) 1 tab BID PRN PO constipation; Start 01/06/19 at 09:30 Ciprofloxacin (Cipro) 500 mg BID@,18 PO Last administered on 01/13/19 05:35; Admin Dose 500 MG; Start 01/06/19 at 18:00 Sodium Hypochlorite (Dakins Diluted (40)) 1 applic DAILY TP Last administered on 01/13/19 09:02; Admin Dose 1 APPLIC; Start 01/06/19 at 15:59 Doxycycline Hyclate (Vibramycin) 100 mg BID PO Last administered on 01/13/19 08:56; Admin Dose 100 MG; Start 01/07/19 at 21:00 Oxycodone/ Acetaminophen (Endocet (10/ 325)) 1 tab Q4H PRN PO MODERATE PAIN LEVEL 4-6 Last administered on 01/11/19 20:07; Admin Dose 1 TAB; Start 01/11/19 at 10:00 Hydromorphone HCl (Dilaudid) 0.5 mg Q6 PRN IV .SEVERE PAIN 7-10 Last administered on 01/13/19 11:37; Admin Dose 0.5 MG; Start 01/12/19 at 12:00 TOSHA HOLLAND NP Jan 13, 2019 16:11
[2019-01-13 19:40] VITALS: BP 123/70; PULSE 67; RESP 16
[2019-01-13] MEDS: QUETIAPINE 100 MG TAB PO SCH (20:35)
[2019-01-14] MEDS: HYDROmorphONE 0.5 MG/0.5 ML SYG IV PRN ×3 (01:41→15:17)
[2019-01-14 02:03] VITALS: BP 111/72; PULSE 63; RESP 16
[2019-01-14] MEDS: CIPROFLOXACIN 500 MG TAB PO SCH ×2 (05:41→17:48)
[2019-01-14 07:19] VITALS: BP 123/72; PULSE 65; RESP 18
[2019-01-14] MEDS: DOXYCYCLINE 100 MG TAB PO SCH (08:59)
[2019-01-14] MEDS: POLYETHYLENE GLYCOL 17 GM PACKET PO SCH (08:59)
[2019-01-14] MEDS: DULOXETINE 30 MG CAP DR PO SCH (08:59)
[2019-01-14] MEDS: NICOTINE (7 MG/24 HR) PATCH TRANSDERM SCH (09:00)
[2019-01-14] MEDS: METOPROLOL 50 MG TAB PO SCH (09:00)
[2019-01-14] MEDS: THIAMINE 100 MG TAB PO SCH (09:01)
[2019-01-14] MEDS: LISINOPRIL 20 MG TAB PO SCH (09:02)
[2019-01-14] MEDS: HEPARIN 5,000 UNIT/1 ML VIAL SC SCH (09:02)
[2019-01-14] MEDS: MULTIVITAMINS THERAPEUTIC TAB PO SCH (09:03)
[2019-01-14] MEDS: FOLIC ACID 1 MG TAB PO SCH (09:03)
[2019-01-14] MEDS: NIFEdipine (XL) 30 MG TAB PO SCH (09:03)
[2019-01-14] MEDS: DAKINS 0.0125%(1/40) 473 ML SOLUTION TP SCH (09:05)
[2019-01-14] MEDS: CLOTRIMAZOLE 1% 30 GM CR TOP SCH (09:06)
--- NOTE | 2019-01-14 10:50 | PN ---
Date/Time of Note Date/Time of Note DATE: 01/14/19 TIME: 10:50 Assessment/Plan VTE Prophylaxis Risk score (from Nsg)>0 risk: 3 SCD applied (from Ns): No SCD contraindicated: other Pharmacological prophylaxis: heparin Lines/Catheters IV Catheter Type (from Nrsg): Mid Line Urinary Cath still in place: No Assessment/Plan Assessment/Plan 1. Chronic bilateral LE ulcers - Podiatry on board and cleared for discharge. Will need to follow up with [facility] as outpatient. Continue daily dressing changes and offloading of heels - ambulate with diabetic shoes - ID on board and appreciate recommendations. Continue current antibiotics at this time - wound cx noted - pain control 2. Schizophrenia- stable - Psych consultation appreciated - continue Cymbalta and Seroquel 3. ETOH abuse - continue on thiamine/folic acid - Ativan PRN - no withdrawal appreciated 4. Alcoholic hepatitis - LFT elevated - continue monitoring 5. Hep C - outpatient follow up for treatment 6. HTN - continue home medications - remains stable 7. Anemia, microcytic, mild - stable - no need for transfusions 8. Thrombocytopenia - resolved 9. Disposition - CM on board for placement and cleared for discharge once arrangements finalized Result Diagram: 01/14/19 0454 01/14/19 0454 Results 24hrs Laboratory Tests Test 01/14/19 04:54 White Blood Count 4.7 L Red Blood Count 4.73 Hemoglobin 12.5 L Hematocrit 39.1 L Mean Corpuscular Volume 82.7 Mean Corpuscular Hemoglobin 26.4 L Mean Corpuscular Hemoglobin Concent 32.0 Red Cell Distribution Width 18.3 H Platelet Count 364 # Mean Platelet Volume 10.8 H Immature Granulocytes % 0.000 L Neutrophils % 26.4 L Lymphocytes % 61.4 H Monocytes % 9.5 Eosinophils % 1.9 Basophils % 0.8 Nucleated Red Blood Cells % 0.0 Immature Granulocytes # 0.000 Neutrophils # 1.2 L Lymphocytes # 2.9 Monocytes # 0.5 Eosinophils # 0.1 Basophils # 0.0 Nucleated Red Blood Cells # 0.0 Sodium Level 138 Potassium Level 4.1 Chloride Level 106 Carbon Dioxide Level 25 Anion Gap 7 Blood Urea Nitrogen 18 Creatinine 0.78 Est Glomerular Filtrat Rate mL/min > 60 Glucose Level 93 Calcium Level 9.6 Phosphorus Level 4.4 Magnesium Level 1.5 L Subjective 24 Hr Interval Summary Free Text/Dictation Patient still with pain but discussed need to taper down prior to d/c to SNF. Exam/Review of Systems Exam Vitals Vital Signs Date Temp Pulse Resp B/P (MAP) Pulse Ox O2 O2 Flow FiO2 Time Delivery Rate 01/14/19 97.9 65 18 123/72 93 07:19 (89) 01/14/19 Room Air 02:03 Intake and Output 01/13/19 01/13/19 01/14/19 1515:00 23:00 07:00 IntakeIntake Total 900 ml OutputOutput Total 1100 ml 1050 ml BalanceBalance -200 ml -1050 ml Exam General: Patient is laying in bed and answers questions appropriately Neck: Supple, nontender, midline Respiratory: Clear to auscultation bilaterally. no wheezing or rhonchi Cardiovascular: regular rate and rhythm, no obvious murmurs Gastrointestinal: soft, non-tender to palpation, nondistended, bowel sounds heard. Ext: Moves all extremities spontaneously. Skin: Bilateral foot ulcers, bandaged, CDI Results Results 24hrs Laboratory Tests Test 01/14/19 04:54 White Blood Count 4.7 L Red Blood Count 4.73 Hemoglobin 12.5 L Hematocrit 39.1 L Mean Corpuscular Volume 82.7 Mean Corpuscular Hemoglobin 26.4 L Mean Corpuscular Hemoglobin Concent 32.0 Red Cell Distribution Width 18.3 H Platelet Count 364 # Mean Platelet Volume 10.8 H Immature Granulocytes % 0.000 L Neutrophils % 26.4 L Lymphocytes % 61.4 H Monocytes % 9.5 Eosinophils % 1.9 Basophils % 0.8 Nucleated Red Blood Cells % 0.0 Immature Granulocytes # 0.000 Neutrophils # 1.2 L Lymphocytes # 2.9 Monocytes # 0.5 Eosinophils # 0.1 Basophils # 0.0 Nucleated Red Blood Cells # 0.0 Sodium Level 138 Potassium Level 4.1 Chloride Level 106 Carbon Dioxide Level 25 Anion Gap 7 Blood Urea Nitrogen 18 Creatinine 0.78 Est Glomerular Filtrat Rate mL/min > 60 Glucose Level 93 Calcium Level 9.6 Phosphorus Level 4.4 Magnesium Level 1.5 L Medications Medication Current Medications Lisinopril (Zestril) 40 mg DAILY PO Last administered on 01/14/19at 09:02; Admin Dose 40 MG; Start 01/02/19 at 09:00 Metoprolol Tartrate (Lopressor) 50 mg BID PO Last administered on 01/14/19 09:00; Admin Dose 50 MG; Start 01/02/19 at 00:00 Nifedipine (Procardia Xl) 30 mg DAILY PO Last administered on 01/14/19 09:03; Admin Dose 30 MG; Start 01/02/19 at 09:00 IV Flush (NS 3 ml) 3 ml PER PROTOCOL IV ; Start 01/02/19 at 00:00 Ondansetron HCl (Zofran Inj) 4 mg Q6H PRN IV NAUSEA/VOMITING Last administered on 01/02/19at 01:59; Admin Dose 4 MG; Start 01/02/19 at 00:00 Acetaminophen (Tylenol Tab) 650 mg Q6H PRN PO .PAIN 1-3 OR TEMP; Start 01/02/19 at 00:00 Bisacodyl (Dulcolax) 5 mg DAILY PRN PO .CONSTIPATION; Start 01/02/19 at 00:00 Hydralazine HCl (Apresoline) 10 mg Q4H PRN IV ELEVATED BLOOD PRESSURE Last administered on 01/02/19 09:16; Admin Dose 10 MG; Start 01/02/19 at 03:00 Lorazepam (Ativan) 1 mg Q2H PRN IV CONTROL WITHDRAWAL SYMPTOMS Last administered on 01/02/19 17:23; Admin Dose 1 MG; Start 01/02/19 at 05:30 Thiamine HCl (Vitamin B1) 200 mg DAILY PO Last administered on 01/14/19 09:01; Admin Dose 200 MG; Start 01/03/19 at 09:00 Folic Acid (Folic Acid) 1 mg DAILY PO Last administered on 01/14/19 09:03; Admin Dose 1 MG; Start 01/03/19 at 09:00 Multivitamins Therapeutic (Theragran) 1 tab DAILY PO Last administered on 01/14/19 09:03; Admin Dose 1 TAB; Start 01/03/19 at 09:00 Heparin Sodium (Porcine) (Heparin (5000 Units/1ml)) 5,000 unit BID SC Last administered on 01/14/19 09:02; Admin Dose 5,000 UNIT; Start 01/02/19 at 21:00 Nicotine (Nicoderm 7 Mg/ 24 Hr) 1 patch DAILY TRANSDERM ; Start 01/02/19 at 16:30 Duloxetine HCl (Cymbalta) 30 mg BID PO Last administered on 01/14/19 08:59; Admin Dose 30 MG; Start 01/02/19 at 21:00 Quetiapine Fumarate (Seroquel) 100 mg HS PO Last administered on 01/13/19 20:35; Admin Dose 100 MG; Start 01/02/19 at 21:00 Clotrimazole (Lotrimin Cr) 1 applic DAILY TOP Last administered on 01/14/19 09:06; Admin Dose 1 APPLIC; Start 01/04/19 at 09:00 Polyethylene Glycol (Miralax) 17 gm DAILY PO Last administered on 01/14/19 08:59; Admin Dose 17 GM; Start 01/06/19 at 09:30 Senna/Docusate Sodium (Senokot-S) 1 tab BID PRN PO constipation; Start 01/06/19 at 09:30 Ciprofloxacin (Cipro) 500 mg BID@06,18 PO Last administered on 01/14/19 05:41; Admin Dose 500 MG; Start 01/06/19 at 18:00 Sodium Hypochlorite (Dakins Diluted (40)) 1 applic DAILY TP Last administered on 01/14/19 09:05; Admin Dose 1 APPLIC; Start 01/06/19 at 15:59 Doxycycline Hyclate (Vibramycin) 100 mg BID PO Last administered on 01/14/19 08:59; Admin Dose 100 MG; Start 01/07/19 at 21:00 Oxycodone/ Acetaminophen (Endocet (10/ 325)) 1 tab Q4H PRN PO MODERATE PAIN LEVEL 4-6 Last administered on 01/11/19 20:07; Admin Dose 1 TAB; Start 01/11/19 at 10:00 Hydromorphone HCl (Dilaudid) 0.5 mg Q6 PRN IV .SEVERE PAIN 7-10 Last admin istered on 01/14/19 09:04; Admin Dose 0.5 MG; Start 01/12/19 at 12:00 CHAZ LAL MD Jan 14, 2019 10:50
[2019-01-14 13:25] VITALS: BP 118/69; PULSE 63; RESP 18
--- NOTE | 2019-01-14 14:54 | CONS ---
Assessment/Plan Assessment/Plan Hospital Course (Demo Recall) Alert, feels good Microbiology: Patient had a cultures of his wounds back in June that grew strep Enterobacter and enterococcus species also Corynebacterium group JK. Recent cx's pending Antimicrobials: Doxycycline, Cipro Physical examination: Obese well-developed middle-aged -[place] man who is awake in no distress. Head atraumatic normocephalic neck is supple chest rise symmetrical breath sounds diminished to bases. Heart: S1-S2 abdomen soft bowel sounds present. Bilateral lower extremities arcadio wrapped Assessment: 1. Bilateral lower extremities acute on chronic wounds 2. Obesity 3. Pancytopenia 4. Psychiatric disorder 5. Diabetes 6. HCV Plan: Remains stable, continue abx, pending dc arrangements Consultation Date/Type/Reason Admit Date/Time Jan 01, 2019 at 22:19 Initial Consult Date Type of Consult id Date/Time of Note DATE: 01/14/19 TIME: 14:53 Exam/Review of Systems Exam Vitals Vital Signs Date Temp Pulse Resp B/P (MAP) Pulse Ox O2 O2 Flow FiO2 Time Delivery Rate 01/14/19 98.1 63 18 118/69 96 13:25 (85) 01/14/19 Room Air 02:03 Intake and Output 01/13/19 01/13/19 01/14/19 1515:00 23:00 07:00 IntakeIntake Total 900 ml OutputOutput Total 1100 ml 1050 ml BalanceBalance -200 ml -1050 ml Results Result Diagram: 01/14/19 0454 01/14/19 0454 Results 24hrs Laboratory Tests Test 01/14/19 04:54 White Blood Count 4.7 L Red Blood Count 4.73 Hemoglobin 12.5 L Hematocrit 39.1 L Mean Corpuscular Volume 82.7 Mean Corpuscular Hemoglobin 26.4 L Mean Corpuscular Hemoglobin Concent 32.0 Red Cell Distribution Width 18.3 H Platelet Count 364 # Mean Platelet Volume 10.8 H Immature Granulocytes % 0.000 L Neutrophils % 26.4 L Lymphocytes % 61.4 H Monocytes % 9.5 Eosinophils % 1.9 Basophils % 0.8 Nucleated Red Blood Cells % 0.0 Immature Granulocytes # 0.000 Neutrophils # 1.2 L Lymphocytes # 2.9 Monocytes # 0.5 Eosinophils # 0.1 Basophils # 0.0 Nucleated Red Blood Cells # 0.0 Sodium Level 138 Potassium Level 4.1 Chloride Level 106 Carbon Dioxide Level 25 Anion Gap 7 Blood Urea Nitrogen 18 Creatinine 0.78 Est Glomerular Filtrat Rate mL/min > 60 Glucose Level 93 Calcium Level 9.6 Phosphorus Level 4.4 Magnesium Level 1.5 L Medications Medication Current Medications Lisinopril (Zestril) 40 mg DAILY PO Last administered on 01/14/19 09:02; Admin Dose 40 MG; Start 01/02/19 at 09:00 Metoprolol Tartrate (Lopressor) 50 mg BID PO Last administered on 01/14/19 09:00; Admin Dose 50 MG; Start 01/02/19 at 00:00 Nifedipine (Procardia Xl) 30 mg DAILY PO Last administered on 01/14/19 09:03; Admin Dose 30 MG; Start 01/02/19 at 09:00 IV Flush (NS 3 ml) 3 ml PER PROTOCOL IV ; Start 01/02/19 at 00:00 Ondansetron HCl (Zofran Inj) 4 mg Q6H PRN IV NAUSEA/VOMITING Last administered on 01/02/19 01:59; Admin Dose 4 MG; Start 01/02/19 at 00:00 Acetaminophen (Tylenol Tab) 650 mg Q6H PRN PO .PAIN 1-3 OR TEMP; Start 01/02/19 at 00:00 Bisacodyl (Dulcolax) 5 mg DAILY PRN PO .CONSTIPATION; Start 01/02/19 at 00:00 Hydralazine HCl (Apresoline) 10 mg Q4H PRN IV ELEVATED BLOOD PRESSURE Last administered on 01/02/19 09:16; Admin Dose 10 MG; Start 01/02/19 at 03:00 Lorazepam (Ativan) 1 mg Q2H PRN IV CONTROL WITHDRAWAL SYMPTOMS Last administered on 01/02/19 17:23; Admin Dose 1 MG; Start 01/02/19 at 05:30 Thiamine HCl (Vitamin B1) 200 mg DAILY PO Last administered on 01/14/19 09:01; Admin Dose 200 MG; Start 01/03/19 at 09:00 Folic Acid (Folic Acid) 1 mg DAILY PO Last administered on 01/14/19 09:03; Admin Dose 1 MG; Start 01/03/19 at 09:00 Multivitamins Therapeutic (Theragran) 1 tab DAILY PO Last administered on 01/14/19 09:03; Admin Dose 1 TAB; Start 01/03/19 at 09:00 Heparin Sodium (Porcine) (Heparin (5000 Units/1ml)) 5,000 unit BID SC Last administered on 01/14/19 09:02; Admin Dose 5,000 UNIT; Start 01/02/19 at 21:00 Nicotine (Nicoderm 7 Mg/ 24 Hr) 1 patch DAILY TRANSDERM ; Start 01/02/19 at 16:30 Duloxetine HCl (Cymbalta) 30 mg BID PO Last administered on 01/14/19 08:59; Admin Dose 30 MG; Start 01/02/19 at 21:00 Quetiapine Fumarate (Seroquel) 100 mg HS PO Last administered on 01/13/19 20:35; Admin Dose 100 MG; Start 01/02/19 at 21:00 Clotrimazole (Lotrimin Cr) 1 applic DAILY TOP Last administered on 01/14/19 09:06; Admin Dose 1 APPLIC; Start 01/04/19 at 09:00 Polyethylene Glycol (Miralax) 17 gm DAILY PO Last administered on 01/14/19 08:59; Admin Dose 17 GM; Start 01/06/19 at 09:30 Senna/Docusate Sodium (Senokot-S) 1 tab BID PRN PO constipation; Start 01/06/19 at 09:30 Ciprofloxacin (Cipro) 500 mg BID@06,18 PO Last administered on 01/14/19 05:41; Admin Dose 500 MG; Start 01/06/19 at 18:00 Sodium Hypochlorite (Dakins Diluted (40)) 1 applic DAILY TP Last administered on 01/14/19 09:05; Admin Dose 1 APPLIC; Start 01/06/19 at 15:59 Doxycycline Hyclate (Vibramycin) 100 mg BID PO Last administered on 01/14/19 08:59; Admin Dose 100 MG; Start 01/07/19 at 21:00 Oxycodone/ Acetaminophen (Endocet (10/ 325)) 1 tab Q4H PRN PO MODERATE PAIN LEVEL 4-6 Last administered on 01/11/19 20:07; Admin Dose 1 TAB; Start 01/11/19 at 10:00 Hydromorphone HCl (Dilaudid) 0.5 mg Q6 PRN IV .SEVERE PAIN 7-10 Last administered on 01/14/19at 09:04; Admin Dose 0.5 MG; Start 01/12/19 at 12:00 SUSAN ALLAN NP Jan 14, 2019 14:54
[2019-01-14] MEDS ORDERED: CIPR500T4 PO (16:53)
[2019-01-14] MEDS ORDERED: NICO-544 TRANSDERM (16:53)
[2019-01-14] MEDS ORDERED: QUET100T32 PO (16:53)
[2019-01-14] MEDS ORDERED: OXYC-431 PO (16:53)
[2019-01-14] MEDS ORDERED: DOXY100T2 PO (16:53)
[2019-01-14] MEDS ORDERED: DULO30CA45 PO (16:53)
--- NOTE | 2019-01-14 16:55 | PDOCDIS ---
Discharge Instructions DIAGNOSIS Discharge Diagnosis 1. Chronic bilateral LE ulcers 2. Schizophrenia- stable 3. ETOH abuse 4. Alcoholic hepatitis 5. Hep C 6. HTN 7. Anemia, microcytic, mild 8. Thrombocytopenia- resolved CONDITION [id number] Patient Condition: [id number] Stable HOME CARE INSTRUCTIONS: [id number] Diet Instructions: [id number] Low Fat /Cholesterol ACTIVITY: [id number] Activity Restrictions: [id number] Weight Bearing (with orthopedic shoes) FOLLOW UP/APPOINTMENTS Follow-up Plan 1. Follow up with your primary care physician in 1-2 weeks 2. You will need to complete 6 weeks of PO antibiotics 3. Continue local wound care and follow up with [facility] in 1 week 4. When ambulating, make sure to wear special shoes 5. Continue all medications as prescribed 6. If experiencing any concerning symptoms, please go to the nearest emergency department for evaluation CHAZ LAL MD Jan 14, 2019 16:55
--- NOTE | 2019-01-14 18:26 | DS ---
Date/Time of Note Date/Time of Note DATE: 01/14/19 TIME: 18:22 Discharge Summary Admission/Discharge Info Admit Date/Time Jan 01, 2019 at 22:19 Discharge Date/Time 01/14/19 Discharge Diagnosis 1. Chronic bilateral LE ulcers 2. Schizophrenia- stable 3. ETOH abuse 4. Alcoholic hepatitis 5. Hep C 6. HTN 7. Anemia, microcytic, mild 8. Thrombocytopenia- resolved Patient Condition: Stable Consults Podiatry- Dr. Ward ID- Dr. Jenkins GI- Dr. Pak Hx of Present Illness Chief complaint: Bilateral lower extremity wounds This is a 53-year-old male with a past medical history of bilateral lower extremity wounds, right foot osteomyelitis, bipolar disorder, CHF and hypertension, depression, diabetes mellitus who originally presented to [facility] for evaluation of worsening wounds on his feet. Patient reported that his wounds reopened a couple weeks ago and that they have been worsening since then. She reports that he is currently homeless. Patient was given vancomycin EKG the transfer facility showed normal sinus rhythm at approximately 2 bpm, lactic acid was negative troponin was negative.. Patient reports that he is currently not on any medications. Patient was previously diagnosed with osteomyelitis and he was treated with long-term antibiotics. Certain laboratory findings from transfer facility please see chart for full details: White blood cells 4.5/hemoglobin 11.8/hematocrit 37% Creatinine 0.8 Potassium 3.8 Patient had x-ray of the chest which showed no acute pulmonary infiltrates. Patient had x-rays performed of the bilateral feet which showed concern for possible acute osteomyelitis. She reports pain in his bilateral lower extremities. He does report that he is noticed maggots coming out. He states that he drinks daily to 24 ounce alcoholic drinks on a daily basis. He denies any IV drug use. He does smoke cigarettes. Allergies: NKDA Medications: None Hospital Course Patient was evaluated by Podiatry and taken to OR for debridement given ulceration and bone exposure. ID was consulted for antibiotic recommendations and local wound care was continued. Patient was evaluated by psychiatry and medication adjustments were made. Patients wounds were improving after bedside debridement and imaging studies were negative for osteomyelitis. He was transitioned to PO antibiotics to be continued for 6 week course. Pain control was adjusted as well. Patient was evaluated by PT with recommendations for SNF placement. CM was consulted and SNF placement was found. patient was discharged to SNF in stable condition with a course of PO antibiotics for 6 weeks total. Home Meds Active Scripts Quetiapine Fumarate* (Quetiapine Fumarate*) 100 Mg Tablet, 100 MG PO HS for 30 Days, #30 TAB Prov:CHAZ LAL MD 01/14/19 Oxycodone HCl/Acetaminophen (Oxycodone-Acetaminophen 10-325) 1 Each Tablet, 1 TAB PO Q4H PRN for MODERATE PAIN LEVEL 4-6 for 7 Days, #30 TAB Prov:CHAZ LAL MD 01/14/19 Duloxetine Hcl* (Cymbalta*) 30 Mg Capsule.dr, 30 MG PO BID for 30 Days, #60 CAP Prov:CHAZ LAL MD 01/14/19 Nicotine* (Nicotine* Patch) 7 mg/day Patch, 1 PATCH TRANSDERM DAILY for 30 Days, #30 PATCH Prov:CHAZ LAL MD 01/14/19 Doxycycline* (Vibramycin*) 100 Mg Tab, 100 MG PO BID for 30 Days, #60 TAB Prov:CHAZ LAL MD 01/14/19 Ciprofloxacin Hcl* (Ciprofloxacin Hcl*) 500 Mg Tablet, 500 MG PO BID@06,18 for 30 Days, #60 TAB Prov:CHAZ LAL MD 01/14/19 Reported Medications Sennosides* (Senna Lax*) 8.6 Mg Tablet, 1 TAB PO BID PRN for CONSTIPATION, TAB 07/12/18 Thiamine* (Thiamine*) 100 Mg Tablet, 100 MG PO DAILY, TAB 07/12/18 Pyridoxine Hcl* (Pyridoxine Hcl*) 100 Mg Tablet, 100 MG PO DAILY, TAB 07/12/18 Nifedipine* (Adalat CC*) 30 Mg Tablet.sa, 30 MG PO DAILY, #30 TAB.SA 07/12/18 Metoprolol Tartrate* (Lopressor*) 50 Mg Tab, 50 MG PO BID, #60 TAB 07/12/18 Lisinopril* (Lisinopril*) 40 Mg Tablet, 40 MG PO DAILY, #30 TAB 07/12/18 Folic Acid* (Folic Acid*) 1 Mg Tablet, 1 MG PO DAILY, TAB 07/12/18 Discontinued Reported Medications Naproxen* (Naproxen*) 500 Mg Tablet, 500 MG PO BID, TAB 07/12/18 Bupropion Hcl* (Bupropion Hcl*) 100 Mg Tablet, 100 MG PO DAILY, TAB 07/12/18 Follow-up Plan 1. Follow up with your primary care physician in 1-2 weeks 2. You will need to complete 6 weeks of PO antibiotics 3. Continue local wound care and follow up with [facility] clinic in 1 week 4. When ambulating, make sure to wear special shoes 5. Continue all medications as prescribed 6. If experiencing any concerning symptoms, please go to the nearest emergency department for evaluation Primary Care Provider Not On Staff Doctor Time spent on discharge: > 30 minutes Pending Labs Laboratory Tests Test 01/14/19 04:54 White Blood Count 4.7 10^3/ul (4.8-10.8) Red Blood Count 4.73 10^6/ul (4.70-6.10) Hemoglobin 12.5 g/dl (14.0-18.0) Hematocrit 39.1 % (42.0-52.0) Mean Corpuscular Volume 82.7 fl (82.0-101.0) Mean Corpuscular Hemoglobin 26.4 pg (29.0-33.0) Mean Corpuscular Hemoglobin Concent 32.0 g/dl (32.0-37.0) Red Cell Distribution Width 18.3 % (11.5-14.5) Platelet Count 364 10^3/UL (140-415) Mean Platelet Volume 10.8 fl (7.4-10.4) Immature Granulocytes % 0.000 % (0.001-0.429) Neutrophils % 26.4 % (39.0-77.0) Lymphocytes % 61.4 % (15.0-51.0) Monocytes % 9.5 % (0.0-11.0) Eosinophils % 1.9 % (0.0-7.0) Basophils % 0.8 % (0.0-2.0) Nucleated Red Blood Cells % 0.0 /100WBC (0.0-0.0) Immature Granulocytes # 0.000 10^3/ul (0.0-0.031) Neutrophils # 1.2 10^3/ul (1.6-7.5) Lymphocytes # 2.9 10^3/ul (0.8-2.9) Monocytes # 0.5 10^3/ul (0.3-0.9) Eosinophils # 0.1 10^3/ul (0.0-0.5) Basophils # 0.0 10^3/ul (0.0-0.1) Nucleated Red Blood Cells # 0.0 10^3/ul (0.0-0.0) Sodium Level 138 mmol/L (135-144) Potassium Level 4.1 mmol/L (3.5-5.1) Chloride Level 106 mmol/L (97-110) Carbon Dioxide Level 25 mmol/L (21-31) Anion Gap 7 (5-13) Blood Urea Nitrogen 18 mg/dl (7-20) Creatinine 0.78 mg/dl (0.61-1.24) Est Glomerular Filtrat Rate mL/min > 60 mL/min (>60) Glucose Level 93 mg/dl (70-220) Calcium Level 9.6 mg/dl (8.4-10.2) Phosphorus Level 4.4 mg/dl (2.5-4.9) Magnesium Level 1.5 mg/dl (1.7-2.5) CHAZ LAL MD Jan 14, 2019 18:26
== END 2019-01-14 19:25 | DRG 623 ==
LOC: 2NE 22:19 → 5EC 01-02 21:44
PROVIDERS: ADMIT Internal Medicine; ATTEND Internal Medicine
PROC: 0JBN0ZZ Excision of Right Lower Leg Subcutaneous Tissue and Fascia, Open Approach (ICD-10-PCS; principal; 2019-01-03)
PROC: 0KBW0ZZ Excision of Left Foot Muscle, Open Approach (ICD-10-PCS; 2019-01-03)
PROC: 0HBRXZZ Excision of Toe Nail, External Approach (ICD-10-PCS; 2019-01-03)
PROC: 0HBRXZZ Excision of Toe Nail, External Approach (ICD-10-PCS; 2019-01-03)
PROC: 0HBRXZZ Excision of Toe Nail, External Approach (ICD-10-PCS; 2019-01-03)
PROC: 0HBRXZZ Excision of Toe Nail, External Approach (ICD-10-PCS; 2019-01-03)
PROC: 0HBRXZZ Excision of Toe Nail, External Approach (ICD-10-PCS; 2019-01-03)
PROC: 0HBRXZZ Excision of Toe Nail, External Approach (ICD-10-PCS; 2019-01-03)
PROC: 0HBRXZZ Excision of Toe Nail, External Approach (ICD-10-PCS; 2019-01-03)
PROC: 0HBRXZZ Excision of Toe Nail, External Approach (ICD-10-PCS; 2019-01-03)
PROC: 0HBRXZZ Excision of Toe Nail, External Approach (ICD-10-PCS; 2019-01-03)
PROC: 0HBRXZZ Excision of Toe Nail, External Approach (ICD-10-PCS; 2019-01-03)
DX: E11.621 Type 2 diabetes mellitus with foot ulcer (principal); D61.818 Other pancytopenia; M86.671 Other chronic osteomyelitis, right ankle and foot; F33.9 Major depressive disorder, recurrent, unspecified; L97.819 Non-pressure chronic ulcer of other part of right lower leg with unspecified severity; E11.42 Type 2 diabetes mellitus with diabetic polyneuropathy; L97.529 Non-pressure chronic ulcer of other part of left foot with unspecified severity; L97.519 Non-pressure chronic ulcer of other part of right foot with unspecified severity; D69.6 Thrombocytopenia, unspecified; F20.9 Schizophrenia, unspecified; F17.200 Nicotine dependence, unspecified, uncomplicated; I25.10 Atherosclerotic heart disease of native coronary artery without angina pectoris; B19.20 Unspecified viral hepatitis C without hepatic coma; F41.9 Anxiety disorder, unspecified; K70.10 Alcoholic hepatitis without ascites; I10 Essential (primary) hypertension; E11.69 Type 2 diabetes mellitus with other specified complication; M21.40 Flat foot [pes planus] (acquired), unspecified foot; E11.622 Type 2 diabetes mellitus with other skin ulcer; Z79.4 Long term (current) use of insulin; B35.1 Tinea unguium; F10.20 Alcohol dependence, uncomplicated; B95.62 Methicillin resistant Staphylococcus aureus infection as the cause of diseases classified elsewhere; M20.5X9 Other deformities of toe(s) (acquired), unspecified foot; Z59.0 Homelessness
CPT/HCPCS: 71045; 73620; 73718; 76705; 80048; 80053; 80061; 80069; 80202; 80307; 82306; 82728; 83036; 83540; 83735; 84100; 84145; 84443; 85025; 85610; 85651; 85730; 86140; 86706; 86803; 87070; 87081; 87340; 93306; 93922; 97163; J0360; J1170; J1644; J2060; J2405; J2543; J3370; J3411; J3475; J7030; J7040; J7050; L3260